=== PATIENT | male | born 1965 ===

== ENCOUNTER 2021-03-09 16:30 | Emergency (ER) | payer OTHER, SELFPAY ==
[2021-03-09 16:46] VITALS: BP 117/83; PULSE 66; RESP 16; TEMP 37.1; O2SAT 95; BMI 24.3
[2021-03-09 17:18] VITALS: PULSE 59
--- NOTE | 2021-03-09 17:23 | PC.NURSE ---
pt states here for detox from heroin. snorts 1 bundle a day. last used at 11am.
--- NOTE | 2021-03-09 17:24 | ED.GENADULT ---
HPI - General Adult General Chief complaint: ETOH/Substance Use <Tracy Daniel NP - Last Filed: 03/09/21 18:40> Stated complaint: seeking treatment ( drugs) <Tracy Daniel NP - Last Filed: 03/09/21 18:40> Time Seen by Provider: 03/09/21 17:16 <Tracy Daniel NP - Last Filed: 03/09/21 18:40> Source: patient <Tracy Daniel NP - Last Filed: 03/09/21 18:40> Mode of arrival: ambulatory <Tracy Daniel NP - Last Filed: 03/09/21 18:40> Limitations: no limitations <Tracy Daniel NP - Last Filed: 03/09/21 18:40> History of Present Illness HPI narrative: 55-year-old male with a past medical history of substance abuse, liver cirrhosis and hepatitis C here with complaints of seeking detox from heroin. Last use 11:00. Uses 1 bundle per day. He normally snorts it. He is currently on methadone. He is seeking inpatient detox. no physical complaints. NO additional substance use. NO SI/HI. <Tracy Daniel NP - Last Filed: 03/09/21 18:40> Related Data Allergies/adverse reactions: Allergies Allergy/AdvReac Type Severity Reaction Status Date / Time Penicillins Allergy Mild ITCHING Unverified 05/25/20 14:54 penicillin V Allergy Unknown Verified 08/24/15 00:00 <Tracy Daniel NP - Last Filed: 03/09/21 18:40> Review of Systems Review of Systems: Yes all other systems are reviewed and are negative <VANCE Tejeda Last Filed: 03/09/21 18:40> Constitutional: Constitutional: Reports no additional constitutional complaints, Denies body ache(s), Denies chills, Denies fever(s), Denies headache(s) and Denies weakness <VANCE Tejeda Last Filed: 03/09/21 18:40> Eyes: Eyes: Reports no additional eye complaints and Denies change in vision <VANCE Tejeda Last Filed: 03/09/21 18:40> ENT: Reports system reviewed and no additional complaints, except as documented, Denies dizziness, Denies headache(s), Denies nasal congestion, Denies nasal discharge and Denies neck pain <Tracy Daniel NP - Last Filed: 03/09/21 18:40> Cardiovascular: Cardiovascular: Reports no additional cardiovascular complaints, Denies chest pain, Denies leg edema and Denies dyspnea <Tracy Daniel NP - Last Filed: 03/09/21 18:40> Respiratory: Respiratory: Reports no additional respiratory complaints, Denies cough and Denies dyspnea <Tracy Daniel NP - Last Filed: 03/09/21 18:40> Gastrointestinal: Gastrointestinal: Reports no additional gastrointestinal complaints, Denies abdominal pain, Denies diarrhea, Denies nausea and Denies vomiting <Tracy Daniel NP - Last Filed: 03/09/21 18:40> Genitourinary: Genitourinary: Denies urinary incontinence <Tracy Daniel NP - Last Filed: 03/09/21 18:40> Musculoskeletal: Musculoskeletal: Reports no additional musculoskeletal complaints, Denies back pain, Denies arthralgias, Denies joint swelling, Denies neck pain, Denies numbness and Denies tingling <Tracy Daniel NP - Last Filed: 03/09/21 18:40> Integumentary/Breasts: Skin/Breast: Reports system reviewed and no additional complaints, except as docu and Denies rash <Tracy Daniel NP - Last Filed: 03/09/21 18:40> Neurologic: Reports system reviewed and no additional complaints, except as documented, Denies Abnormal speech present, Denies dizziness, Denies headache(s), Denies numbness, Denies tingling and Denies weakness <Tracy Daniel NP - Last Filed: 03/09/21 18:40> PMF Past Medical History Attestation statement: The following information was validated with the patient. <Tracy Daniel NP - Last Filed: 03/09/21 18:40> Source: old records reviewed and nursing notes reviewed <Tracy Daniel NP - Last Filed: 03/09/21 18:40> Medical History: Medical History Cirrhosis of liver Hepatitis C Hernia <Tracy Daniel NP - Last Filed: 03/09/21 18:40> Social History Social History: Social History Advance Directives: Yes Advance Directives Information Provided: Yes Advance Directives on File: No <Tracy Daniel NP - Last Filed: 03/09/21 18:40> Physical Exam Vital Signs: Vital Signs: Last Vital Signs Temp 98.7 F 03/09/21 16:46 Pulse 66 03/09/21 16:46 Resp 16 03/09/21 16:46 BP 117/83 03/09/21 16:46 Pulse Ox 95 03/09/21 16:46 Body Mass Index 24.3 <Tracy Daniel NP - Last Filed: 03/09/21 18:40> Vital Signs: Last Vital Signs Temp 98.7 F 03/09/21 16:46 Pulse 66 03/09/21 16:46 Resp 16 03/09/21 16:46 BP 117/83 03/09/21 16:46 Pulse Ox 95 03/09/21 16:46 Body Mass Index 24.3 <MARIANA Vale - Last Filed: 03/09/21 19:02> Const: General: cooperative, healthy appearing, comfortable and no acute distress <Tracy Daniel NP - Last Filed: 03/09/21 18:40> Orientation/consciousness: patient oriented x3 <Tracy Daniel NP - Last Filed: 03/09/21 18:40> Limitations: no limitations <Tracy Daniel NP - Last Filed: 03/09/21 18:40> HENMT: Head: Yes normal to inspection <Tracy Daniel NP - Last Filed: 03/09/21 18:40> Ears: hearing grossly normal bilaterally <Tracy Daniel NP - Last Filed: 03/09/21 18:40> General nose exam: Normal external nose present <Tracy Daniel NP - Last Filed: 03/09/21 18:40> Face and sinus: Yes normal facial exam <Tracy Daniel NP - Last Filed: 03/09/21 18:40> Mouth: Normal oral and palatal mucosa present <Tracy Daniel NP - Last Filed: 03/09/21 18:40> Throat: Yes posterior oropharynx normal <Tracy Daniel NP - Last Filed: 03/09/21 18:40> Eyes: General: appearance normal, both eyes and all related structures <Tracy Daniel NP - Last Filed: 03/09/21 18:40> Pupils: Equal, round and reactive pupils present <Tracy Daniel NP - Last Filed: 03/09/21 18:40> Neck: Neck: Yes normal visual inspection <Tracy Daniel NP - Last Filed: 03/09/21 18:40> Chest: Chest palpation & inspection: normal inspection of the chest <Tracy Daniel NP - Last Filed: 03/09/21 18:40> Resp: Effort & Inspection: normal respiratory effort <Tracy Daniel NP - Last Filed: 03/09/21 18:40> Auscultation: clear to auscultation bilaterally <Tracy Daniel NP - Last Filed: 03/09/21 18:40> Cardio: Rate: regular rate <Tracy Daniel NP - Last Filed: 03/09/21 18:40> Rhythm: regular rhythm <Tracy Daniel NP - Last Filed: 03/09/21 18:40> Peripheral pulses: Peripheral pulses 2+ throughout <Tracy Daniel NP - Last Filed: 03/09/21 18:40> GI: Inspection: Yes normal to inspection <Tracy Daniel NP - Last Filed: 03/09/21 18:40> Palpation (GI): Soft to palpation and nontender <Tracy Daniel NP - Last Filed: 03/09/21 18:40> Auscultation: normal bowel sounds <Tracy Daniel NP - Last Filed: 07/02/21 18:40> Back/Spine/Pelvis: Thoracic/Lumbar Spine: thoracic and lumbar spine normal to inspection <Tracy Daniel NP - Last Filed: 03/09/21 18:40> Skin: General skin exam: no rashes or lesions noted <Tracy Daniel NP - Last Filed: 03/09/21 18:40> Neuro: General: patient oriented x3, no focal motor deficits and normal sensation to monofilament <Tracy Daniel NP - Last Filed: 03/09/21 18:40> Cranial nerves: Yes Equal, round and reactive pupils present <Tracy Daniel NP - Last Filed: 03/09/21 18:40> Cognition (Neuro): normal cognition <Tracy Daniel NP - Last Filed: 03/09/21 18:40> Speech: No Abnormal speech present <Tracy Daniel NP - Last Filed: 03/09/21 18:40> Gait exam (Neuro): Normal gait present <Tracy Daniel NP - Last Filed: 03/09/21 18:40> Motor exam (neuro): 5/5 motor strength present throughout <Tracy Daniel NP - Last Filed: 03/09/21 18:40> Extrem: General: Yes normal to inspection, Yes no pedal edema and Yes no calf tenderness <Tracy Daniel NP - Last Filed: 03/09/21 18:40> Course Course Course Narrative: 55 yo male here seeking detox from heroin. Last use 11am. Will check [facility], d/w with [facility] -[id number]-Spoke to recovery team. Seeking bed at [facility] in [place] -1900-Sign out to night team pending detox placement. <Tracy Daniel NP - Last Filed: 03/09/21 18:40> Reevaluation(s) Reevaluation #1: Patient wanting to leave. CARE team discussed walk in clinic for him to go to in [place] where he will present tomorrow morning. Stable for d/c. <MARIANA Vale - Last Filed: 03/09/21 19:02> Medical Decision Making Medical Records Medical records reviewed: Yes I reviewed the patient's medical records. <Tracy Daniel NP - Last Filed: 03/09/21 18:40> Lab Data Lab results reviewed: Yes I reviewed the patient's lab results. <Tracy Daniel NP - Last Filed: 03/09/21 18:40> Discharge Plan Discharge Clinical Impression: Opioid use disorder <Tracy Daniel NP - Last Filed: 03/09/21 18:40> Patient Disposition: Home, Self-Care <Tracy Daniel NP - Last Filed: 03/09/21 18:40> Instructions: Opioid Use Disorder (ED) <Tracy Daniel NP - Last Filed: 03/09/21 18:40> Additional Instructions: Present to the walk in substance abuse clinic as discussed with you by the CARE Team provider in the ER DO NOT USE HEROIN <Tracy Daniel NP - Last Filed: 03/09/21 18:40> Referrals: Physician,Nonstaff [Primary Care Provider] - 2 days <Tracy Daniel NP - Last Filed: 03/09/21 18:40>
--- NOTE | 2021-03-09 17:43 | MHC.RECOVSUP ---
Recovery Support note: Patient is a 55 year old Moldovan speaking male who presented to [facility] seeking detox. Patient reports he is using one bundle a day, nasally, and that he wants to stop using. Patient is currently living in a sober living home. Patient reports he is currently on methadone however does not feel his dose is high enough. Patient is currently receiving 65mg and continues to experience withdrawal symptoms and cravings.
[2021-03-09 19:07] LABS: Amphetamine Screen Urine Not Detected (Not Detect); Barbiturates, Urine Not Detected (Not Detect); Benzodiazepines Screen Urine Not Detected (Not Detect); Cannabinoid Screen Urine Not Detected (Not Detect); Cocaine Screen Urine Not Detected (Not Detect); Opiate Screen Urine POSITIVE (Not Detect); Phencyclidine Screen Urine Not Detected (Not Detect)
== END 2021-03-09 19:06 | disposition home or self-care (01) ==
PROVIDERS: Nurse Practitioner Family; Emergency Provider Internal Medicine
DX: F11.20 Opioid dependence, uncomplicated (principal); F19.10 Other psychoactive substance abuse, uncomplicated; K74.60 Unspecified cirrhosis of liver; B19.20 Unspecified viral hepatitis C without hepatic coma
CPT/HCPCS: 80307; 99285

== ENCOUNTER 2021-03-10 12:23 | Emergency (ER) | payer OTHER, SELFPAY ==
[2021-03-10 12:25] VITALS: BP 102/73; PULSE 70; RESP 17; TEMP 36.7; O2SAT 93; BMI 24.3
--- NOTE | 2021-03-10 13:21 | ECG_ITS ---
Test Reason : ETOH Blood Pressure : / mmHG Vent. Rate : 059 BPM Atrial Rate : 059 BPM P-R Int : 118 ms QRS Dur : 080 ms QT Int : 458 ms P-R-T Axes : -25 047 027 degrees QTc Int : 453 ms Sinus bradycardia Otherwise normal ECG When compared to the previous EKG of No significant changes seen Referred By: Dottie Hanson Electronically Signed By:CAR HIGGINS MD
[2021-03-10 13:43] LABS: Hemoglobin 12.3 g/dl (14.0-18.0); Imm Gran Abs Auto 0.01 X10*3/uL (0.00-0.03); Imm Gran Pct Auto 0.2 % (0.0-0.4); MANUAL DIFF FLAG SCAN; PLT CLUMP 1; SCAN SMEAR FLAG 1
[2021-03-10 13:45] LABS: Basophils Percent Auto 0.6 % (0-2); Eosinophils Absolute Auto 0.6 X10*3/uL (0.0-0.4); Hematocrit 37.6 % (42-52); Lymphocytes Absolute Auto 1.6 X10*3/uL (1.2-4.9); Lymphocytes Percent Auto 29.8 % (20-40); Mean Corpuscular HGB Conc 32.7 g/dl (31.0-36.0); Mean Corpuscular Hemoglobin 31.6 pg (27.0-33.0); Mean Corpuscular Volume 96.7 fL (80-98); Mean Platelet Volume 9.6 fL (9.4-12.4); Monocytes Absolute Auto 0.5 X10*3/uL (0.1-1.2); Monocytes Percent Auto 9.5 % (2-11); Neutrophils Absolute Auto 2.6 X10*3/uL (2.0-8.3); Neutrophils Percent Auto 48.9 % (45-73); Red Blood Count 3.89 X10*6/uL (4.60-5.80); White Blood Count 5.4 X10*3/uL (4.8-10.8)
--- NOTE | 2021-03-10 13:45 | PC.NURSE ---
Pt alert and oriented x3. Pt states he voluntarily came to the ed for help to stop using drugs. He states he uses heroin daily and last used 3 bags yesterday. Pt states he was recently diagnosed with Hepatitis C and has been having a hard time dealing with it and this caused him to relapse. He states he lives in [place] [facility] and will be kicked out due to his relapse. Denies SI/HI. Labs drawn, results pending. Pt resting quietly at this time.
--- NOTE | 2021-03-10 13:54 | ED_ITS ---
HPI - Psych General Chief Complaint: ETOH/Substance Use Stated Complaint: seeking drug detox Time Seen by Provider: 03/10/21 13:21 Source: patient Mode of arrival: ambulatory Limitations: no limitations History of Present Illness HPI Narrative: 55-year-old male with a past medical history of substance abuse his drug of choice heroin which he snorts he reports, liver cirrhosis and hepatitis-C presenting to the ED requesting detox from heroin. He reports he is currently on 65 mg of methadone daily and is awaiting until Friday so they can increase his methadone dose although he is currently in a sober house right now and they reported that he can no longer stay there if he is currently using and they do not want to wait till Friday until his methadone doses increased therefore that is why he is here today. He denies any other drug usage. He denies any alcohol usage. He denies any SI/HI/ auditory visual hallucinations or thoughts of self injury. He denies any fevers, chills, headaches, dizziness, sore throat, cough, chest pain, shortness of breath, palpitations, nausea /vomiting /diarrhea / constipation, abdominal pain, back pain, rashes, dysuria, hematuria or any other symptoms complaints or concerns at this time. Patient was seen on 03/09/2021 for same complaint and he had a consult with the c are team and they discussed about a walk-in clinic for him to go to in [place]. complaint: substance abuse ( requesting detox currently relapse on heroin use 3-5 bags) Related Data Allergies Allergy/AdvReac Type Severity Reaction Status Date / Time penicillin V Allergy Intermediate Itching Verified 03/10/21 12:25 Penicillins Allergy Mild ITCHING Verified 03/10/21 12:25 Review of Systems Review of Systems: Constitutional : No Fever, No Chills ENT/Mouth : No Ear Pain, No Nasal Congestion, No sore throat Eyes: No Eye Pain, No Swelling, No Redness Cardiovascular : No Chest Pain, No SOB Respiratory : No Cough, No Sputum, No Dyspnea Gastrointestinal : No ingestions, No Nausea, No Vomiting, No Diarrhea, No Hematochezia, No Melena Genitourinary : No Dysuria, No Urinary Frequency, No Hematuria Musculoskeletal : No Myalgias Skin : No Skin Lesions, No rash Neuro : No Weakness, No Numbness, No Paresthesias, No Dizziness, No Headache Psych : pallidus substance abuse requesting detox, No Anxiety, No Depression, No SI, No thoughts of self injury, No HI, No AVH, Heme/Lymph: No Lymphadenopathy Endocrine : No Polyuria, No Polydipsia Yes all other systems are reviewed and are negative [facility] Past Medical History Attestation statement: The following information was validated with the patient. Medical History Cirrhosis of liver Hepatitis C Hernia Substance abuse Social History Social History Patient Tobacco Use Status: Current everyday Tobacco user Use of substances other than those prescribed or required for medical reasons: Yes Substance Use Type: Heroin Substance Use Frequency: Daily Last Used Substance: Hours (ago) Advance Directives: No Advance Directives Information Provided: Yes Physical Exam Vital Signs: Vital Signs: Last Vital Signs Temp 98.0 F 03/10/21 12:25 Pulse 80 03/10/21 14:02 Resp 17 03/10/21 14:02 BP 103/70 03/10/21 14:02 Pulse Ox 97 03/10/21 14:02 Body Mass Index 24.3 vital signs have been reviewed as normal and appeared to be correct. Blood pressure normal. Heart rate normal. Respiration rate normal. Temperature normal. Oxygen saturation normal. Appearance: Alert. Oriented X3. No acute distress. Head: Normal external exam. Normocephalic. Atraumatic. Eyes: PERRLA. EOMI. Conjunctiva and sclera normal. Eyelids normal. ENT: EAC normal. TM's Normal. Pharynx normal. Uvula midline. Moist mucous membranes. No trismus noted. No drooling noted. No muffled voice noted. Neck: Normal inspection. Neck supple. FROM. No adenopathy. Thyroid Normal. No meningeal signs. No neck mass noted. CVS: Normal heart rate and rhythm. Heart sound normal. No murmurs noted. Pulses normal throughout. Respiratory: No respiratory distress. Painless inspiration. Breath sounds normal. No wheezes/rales/rhonchi noted. Chest nontender. No accessory muscle usage noted or decreased air movement noted. Abdomen: Soft and nontender. Bowel sounds normal in all 4 quadrants. No distention noted. No organomegaly noted. No visible injury noted. Back: No CVA tenderness. Full range of motion noted. Skin: Skin warm and dry. Normal skin color. Normal skin turgor. No rashes/lesions/lacerations noted. Extremities: No lower extremity edema. Extremities exhibit normal range of motion. Extremities nontender. Neuro: Oriented X 3. No motor deficit. No sensory deficit. Reflexes normal. Psych: Appearance grossly normal, well-kept, mental status normal, speech and movement normal, speech clear, patient appears very sad and anxious along with depressed. Is cooperative. Normal thought process. Normal thought content. Normal good insight. Judgment good. Course Course Course Narrative: 13:20pm - 55-year-old male with a past medical history of substance abuse his drug of choice heroin which he snorts he reports, liver cirrhosis and hepatitis-C presenting to the ED requesting detox from heroin. He reports he is currently on 65 mg of methadone daily and is awaiting until Friday so they can increase his methadone dose although he is currently in a sober house right now and they reported that he can no longer stay there if he is currently using and they do not want to wait till Friday until his methadone doses increased therefore that is why he is here today. Plan: Labs, EKG, COVID swab for medical clearance then consult with the care team for possible detox placement then re-evaluate. Reevaluation(s) Reevaluation #1: - labs return and mild elevation in AST at 41 and alkaline phosphatase at 120 although this improved when compared to prior. Albumin 2.9. Otherwise all other labs are within normal limits. ETOH level negative. EKG was normal sinus rhythm no acute ischemic changes were noted. Therefore patient is medically cleared - patient will be transported via Lyft to [place] for detox found by the care team. Patient understands and agrees with this plan. Time: 14:07 [facility] - Psych Medical Records Attestation: I reviewed the patient's medical records. Lab Data Attestation: I reviewed the patient's lab results. Result diagrams: 03/10/21 13:38 03/10/21 13:38 Labs: Lab Results 03/10/21 03/10/21 03/10/21 Range/Units 13:38 13:38 13:38 WBC 5.4 (4.8-10.8) X10*3/uL RBC 3.89 L (4.60-5.80) X10*6/uL Hgb 12.3 L (14.0-18.0) g/dl Hct 37.6 L (42-52) % MCV 96.7 (80-98) fL MCH 31.6 (27.0-33.0) pg MCHC 32.7 (31.0-36.0) g/dl RDW 14.0 (11.0-16.0) % Sodium 135 (135-145) mmol/L Potassium 4.3 (3.3-5.1) mmol/L Chloride 105 (96-108) mmol/L Carbon Dioxide 23 (22-29) mmol/L Anion Gap 11 L (12-20) BUN 8 L (9-16) mg/dL Creatinine 0.73 (0.5-1.4) mg/dL Estim Creat Clear Calc 103.1 Estimated GFR > 60 Random Glucose 126 H (60-115) mg/dL Calcium 8.4 (8.4-10.2) mg/dL Magnesium 1.9 (1.6-2.6) mg/dL Total Bilirubin 0.7 (0.0-1.0) mg/dL AST 41 H (5-37) U/L ALT 24 (0-40) U/L Alkaline Phosphatase 120 H (39-117) U/L Total Protein 6.5 (6.5-8.0) g/dL Albumin 2.9 L (3.5-5.0) g/dL Ethyl Alcohol < 10 mg/dL ECG Data Attestation: I personally reviewed and interpreted this ECG as follows: ECG interpretation date: 03/10/21 ECG interpretation time: 13:30 Interpretation: Sinus bradycardia with a ventricular rate of 59 with a normal CA interval normal QRS duration normal QT/ QTC interval. No acute ischemic changes are noted. Discharge Plan Discharge Clinical Impression: Substance abuse Patient Disposition: Home, Self-Care Instructions: Polysubstance Abuse (ED) Referrals: Physician,Unknown [Primary Care Provider] - 2 days (your pcp) Print Language: [place]
[2021-03-10 14:02] VITALS: BP 103/70; PULSE 80; RESP 17; O2SAT 97
[2021-03-10 14:03] LABS: Ethanol < 10 mg/dL
[2021-03-10 14:05] LABS: Alanine Aminotransferase 24 U/L (0-40); Albumin Level 2.9 g/dL (3.5-5.0); Alkaline Phosphatase 120 U/L (39-117); Anion Gap 11 (12-20); Aspartate Amino Transferase 41 U/L (5-37); Bilirubin Total 0.7 mg/dL (0.0-1.0); Blood Urea Nitrogen 8 mg/dL (9-16); Calcium 8.4 mg/dL (8.4-10.2); Carbon Dioxide 23 mmol/L (22-29); Chloride 105 mmol/L (96-108); Creatinine Clr Calc Pharmacy 103.1; Estimated Glomerular Filt Rate > 60; Glucose Random 126 mg/dL (60-115); Magnesium 1.9 mg/dL (1.6-2.6); Potassium 4.3 mmol/L (3.3-5.1); Sodium 135 mmol/L (135-145); Total Protein 6.5 g/dL (6.5-8.0)
[2021-03-10 14:09] LABS: COVID-19 Test Negative (Negative); IDNOW Serial# 9DD0AD1C
[2021-03-10 14:16] LABS: Glucose Urine UA NEG (NEG); Leukocyte Esterase Urine NEG (NEG); Specific Gravity - Urine >= 1.030 (1.005-1.025); Urine Blood 1+ (NEG); Urine Ketones 5 MG/DL (NEG); Urine Protein NEG (NEG-TRACE)
[2021-03-10 14:17] LABS: Platelet Count 73 X10*3/uL (160-400)
[2021-03-10 14:17] LABS: Appearance Urine HAZY; Color Urine DARK YELLOW
--- NOTE | 2021-03-10 14:17 | PC.NURSE ---
Jai from Care Team at bedside. Pt being discharged to inpatient detox.
[2021-03-10 14:18] LABS: SLIDE REVIEW VERIFIED
[2021-03-10 14:23] LABS: Mucus Urine 2+ /LPF; Squamous Epithelial Cell Urine 1+ /LPF; WBC Urine 0 /HPF (0-4)
--- NOTE | 2021-03-10 14:26 | MHC.RECOVSUP ---
Recovery Support note: Patient is a Norwegian speaking male who [place] [facility] [place] seeking help for his addiction. Patient is known to this script writer from a similar encounter yesterday. This script writer conducted a statewide [place] bed[place]. [facility] reported 1 male bed with an admission time at 1200AM, first come first serve. [facility] reported they have male beds but are unable to hold them and recommended that the patient come as a walk in. This script writer met with patient with an [facility] doula to discuss these options. Patient is agreeable to going to [facility] in [place] to try and secure an ATS or CSS bed. Patient will be going as a walk in. This script writer provided patient with information for [facility] and for the CARE Team to contact if he needs a ride back to this area. Patient reports no questions at this time. Patient sent to [facility] in [place] Via Lyft. Discussed case with patient's ED provider.
[2021-03-10 14:36] LABS: Amphetamine Screen Urine Not Detected (Not Detect); Barbiturates, Urine Not Detected (Not Detect); Benzodiazepines Screen Urine Not Detected (Not Detect); Cannabinoid Screen Urine Not Detected (Not Detect); Cocaine Screen Urine Not Detected (Not Detect); Opiate Screen Urine POSITIVE (Not Detect); Phencyclidine Screen Urine Not Detected (Not Detect)
== END 2021-03-10 14:19 | disposition home or self-care (01) ==
PROVIDERS: Physician Assistant Medical; Emergency Provider Emergency Medicine Emergency Medical Services
DX: F11.20 Opioid dependence, uncomplicated (principal); K74.60 Unspecified cirrhosis of liver; B19.20 Unspecified viral hepatitis C without hepatic coma; Z20.822 Contact with and (suspected) exposure to COVID-19
CPT/HCPCS: 36415; 80053; 80307; 81001; 82077; 83735; 85025; 87635; 93005; 99284; 99285

== ENCOUNTER 2021-12-10 17:25 | Emergency (ER) | payer OTHER, SELFPAY ==
--- NOTE | ~2021-12-10 | XR_ITS ---
EXAMINATION: XR CHEST CLINICAL INFORMATION: Chest pain COMPARISON: None TECHNIQUE: Frontal view of the chest was obtained. FINDINGS: Lungs are clear. No focal consolidation or mass. Normal pulmonary vascularity. No pleural effusion or pneumothorax. Tortuous aorta. Normal heart size. Partially imaged TIPS shunt. Embolization coils. XR/XR chest 1V IMPRESSION: No acute pulmonary disease.
[2021-12-10 17:45] VITALS: BP 115/71; BP 118/60; PULSE 79; RESP 15; TEMP 37.1; O2SAT 97; BMI 21.9
--- NOTE | 2021-12-10 17:47 | ECG_ITS ---
Test Reason : ALTERED MENTAL Blood Pressure : / mmHG Vent. Rate : 072 BPM Atrial Rate : 072 BPM P-R Int : 106 ms QRS Dur : 072 ms QT Int : 438 ms P-R-T Axes : 000 055 026 degrees QTc Int : 479 ms Unusual P axis, possible ectopic atrial rhythm When compared to the previous EKG of No significant changes seen Referred By: Didier Murguia Electronically Signed By:CAR HIGGINS MD
--- NOTE | 2021-12-10 17:50 | ED.CHESTPAIN ---
HPI - Chest Pain General Chief Complaint: Altered Mental Status Stated Complaint: CHEST PAIN,NONRAD,BABY ASA GIVEN PER EMS Time Seen by Provider: 12/10/21 17:47 Source: family Mode of arrival: EMS History of Present Illness HPI narrative: Patient with hx of hepatitis C heroin abuse cirrhosis status post TIPPS placed on 11/23/21 apparently patient fell 11/28 injuring his the chest went to the [facility] workup was done negative and patient was discharged, again patient was admitted on 12/04 and discharged on 12/08 for increased confusion at the time of admission ammonia was 102 and at time discharge was 132, today similar to that in the past patient was found more confused does not know where he is walking around on the street that is why his brother called the EMS patient is still complaining of chest pain which is going on for last 1 week patient noncompliant with medication not sure whether is taking lactulose of not Related Data Home Medications Medication Instructions Recorded Confirmed clonidine HCl 0.1 mg tablet 1 tab PO TID PRN 12/10/21 12/10/21 furosemide 80 mg tablet 1 tab PO DAILY 12/10/21 12/10/21 gabapentin 100 mg capsule 1 cap PO TID 12/10/21 12/10/21 lactulose 10 gram/15 mL oral 30 ml PO TID 12/10/21 12/10/21 solution (Generlac) pantoprazole 40 mg tablet,delayed 1 tab PO DAILY PRN 12/10/21 12/10/21 release prazosin 2 mg capsule 2 mg PO BEDTIME 12/10/21 12/10/21 sertraline 100 mg tablet 1 tab PO BEDTIME 12/10/21 12/10/21 spironolactone 100 mg tablet 4 tab PO DAILY 12/10/21 12/10/21 Previous Rx's Medication Instructions Recorded lactulose 10 gram/15 mL (15 mL) 20 g (30 mL) PO TID #1440 ml 12/11/21 oral solution Allergies Allergy/AdvReac Type Severity Reaction Status Date / Time penicillin V Allergy Intermediate Itching Verified 09/11/21 14:49 Penicillins Allergy Mild ITCHING Verified 09/11/21 14:49 Review of Systems Review of Systems: Yes Unobtainable due to mental status PMFSH Past Medical History Medical History Cirrhosis of liver Hepatitis C Hernia Substance abuse Social History Social History Patient Tobacco Use Status: Current everyday Tobacco user Substance Use Type: Heroin Advance Directives: No Advance Directives Information Provided: No Physical Exam Vital Signs: Vital Signs: Last Vital Signs Temp 98.3 F 12/10/21 23:50 Pulse 83 12/10/21 23:50 Resp 16 12/10/21 23:50 BP 95/41 L 12/10/21 23:50 Pulse Ox 100 12/10/21 23:50 BMI result Body Mass Index 21.9 Appearance: Alert. And awake 1-2 thin emaciated not in any distress Eyes: PERRLA, No Nystagmus ENT: Pharynx normal. Oral Mucosa moist Neck: Normal inspection. Neck supple. CVS: Normal heart rate and rhythm. Pulses normal. Respiratory: No respiratory distress. Equal air entry bilateral, no wheezing/rales/rhonchi bruising of the chest wall in sternal area Abdomen: Soft and nontender. Bowel sounds are present, no mass palpable, no CVA tenderness Skin: Skin warm and dry. Normal skin color. Normal skin turgor. Extremities: No lower extremity edema. No calf tenderness Neuro: Oriented X 3. No motor deficit. No sensory deficit.No cerebellar signs , cranial nerves II-XII intact Course Reevaluation(s) Reevaluation #1: Patient refused to stay in the hospital brother is at bedside more alert and awake took the lactulose in the ER old records reviewed patient was discharged with 132 ammonia level from [facility] 2 days ago patient's brother assure that he will give him lactulose and will sign the paper against medical advice knowing the increased confusion Time: 00:59 MDM - Chest Pain MDM Narrative Medical decision making narrative: Patient with hepatitis-C heroin abuse came with increased confusion with recent tips procedure, workup showed elevated ammonia level bilirubin 2.8 AST 43 ALT 26 also urine was positive for opiates and fentanyl, will admit patient for acute hepatic encephalopathy with confusion. Patient records reviewed from [facility] Medical Records Data Attestation: I reviewed the patient's medical records. Lab Data Attestation: I reviewed the patient's lab results. Result diagrams: 12/10/21 19:18 12/10/21 19:18 Labs: Lab Results 12/10/21 12/10/21 12/10/21 Range/Units 19:18 19:18 19:18 WBC 5.2 (4.8-10.8) X10*3/uL RBC 3.33 L (4.60-5.80) X10*6/uL Hgb 10.6 L (14.0-18.0) g/dl Hct 31.4 L (42.0-52.0) % MCV 94.3 (80.0-98.0) fL MCH 31.8 (27.0-33.0) pg MCHC 33.8 (31.0-36.0) g/dl RDW 16.6 H (11.0-16.0) % Plt Count 72 L (160-400) X10*3/uL MPV 8.6 L (9.4-12.4) fL Immature Gran % (Auto) 0.2 (0.0-0.4) % Neut % (Auto) 52.9 (45-73) % Lymph % (Auto) 30.5 (20-40) % [place] % (Auto) 11.8 H (2-11) % Eos % (Auto) 4.2 H (0-4) % Baso % (Auto) 0.4 (0-2) % Lymph # (Auto) 1.6 (1.2-4.9) X10*3/uL [place] # (Auto) 0.6 (0.1-1.2) X10*3/uL Eos # (Auto) 0.2 (0.0-0.4) X10*3/uL Baso # (Auto) 0.0 (0.0-0.2) X10*3/uL Abs Immat Gran (auto) 0.01 (0.00-0.03) X10*3/uL Absolute Neuts (auto) 2.8 (2.0-8.3) x10*3/uL Absolute Nucleated RBC 0.000 (0.0-0.012) X10*3/uL Nucleated RBC % (auto) 0.0 (0.0-0.2) /100WBC Sodium 136 (135-145) mmol/L Potassium 4.0 (3.3-5.1) mmol/L Chloride 100 (96-108) mmol/L Carbon Dioxide 30 H (22-29) mmol/L Anion Gap 10 L (12-20) BUN 9 (9-16) mg/dL Creatinine 0.69 (0.5-1.4) mg/dL Estim Creat Clear Calc 107.3 Estimated GFR > 60 Random Glucose 79 D (60-115) mg/dL Calcium 9.3 D (8.4-10.2) mg/dL Magnesium 2.0 (1.6-2.6) mg/dL Total Bilirubin 2.8 H (0.0-1.0) mg/dL AST 43 H (5-37) U/L ALT 26 (0-40) U/L Alkaline Phosphatase 95 D (39-117) U/L Ammonia (13-55) umol/L Troponin I High Sens 3.8 (<3.5-35.0) ng/L Total Protein 6.0 L (6.5-8.0) g/dL Albumin 3.4 L (3.5-5.0) g/dL Urine Color Urine Appearance Urine pH (5.0-8.0) Ur Specific [place] (1.005-1.025) Urine Protein (NEG-TRACE) MG/DL Urine Glucose (UA) (NEG) MG/DL Urine Ketones (NEG) MG/DL Urine Blood (NEG) Urine Nitrite (NEG) Ur Leukocyte Esterase (NEG) Urine RBC (0) /HPF Urine WBC (0-4) /HPF Ur Squamous Epith Cells /LPF Urine Bacteria /LPF Urine Opiates Screen (Not Detect) Urine Fentanyl Screen (Not Detect) Ur Barbiturates Screen (Not Detect) Ur Phencyclidine Scrn (Not Detect) Ur Amphetamines Screen (Not Detect) U Benzodiazepines Scrn (Not Detect) Urine Cocaine Screen (Not Detect) U Marijuana (THC) Screen (Not Detect) 12/10/21 12/10/21 12/10/21 Range/Units 19:18 19:18 19:18 WBC (4.8-10.8) X10*3/uL RBC (4.60-5.80) X10*6/uL Hgb (14.0-18.0) g/dl Hct (42.0-52.0) % MCV (80.0-98.0) fL MCH (27.0-33.0) pg MCHC (31.0-36.0) g/dl RDW (11.0-16.0) % Plt Count (160-400) X10*3/uL MPV (9.4-12.4) fL Immature Gran % (Auto) (0.0-0.4) % Neut % (Auto) (45-73) % Lymph % (Auto) (20-40) % [place] % (Auto) (2-11) % Eos % (Auto) (0-4) % Baso % (Auto) (0-2) % Lymph # (Auto) (1.2-4.9) X10*3/uL [place] # (Auto) (0.1-1.2) X10*3/uL Eos # (Auto) (0.0-0.4) X10*3/uL Baso # (Auto) (0.0-0.2) X10*3/uL Abs Immat Gran (auto) (0.00-0.03) X10*3/uL Absolute Neuts (auto) (2.0-8.3) x10*3/uL Absolute Nucleated RBC (0.0-0.012) X10*3/uL Nucleated RBC % (auto) (0.0-0.2) /100WBC Sodium (135-145) mmol/L Potassium (3.3-5.1) mmol/L Chloride (96-108) mmol/L Carbon Dioxide (22-29) mmol/L Anion Gap (12-20) BUN (9-16) mg/dL Creatinine (0.5-1.4) mg/dL Estim Creat Clear Calc Estimated GFR Random Glucose (60-115) mg/dL Calcium (8.4-10.2) mg/dL Magnesium (1.6-2.6) mg/dL Total Bilirubin (0.0-1.0) mg/dL AST (5-37) U/L ALT (0-40) U/L Alkaline Phosphatase (39-117) U/L Ammonia 122 H (13-55) umol/L Troponin I High Sens (<3.5-35.0) ng/L Total Protein (6.5-8.0) g/dL Albumin (3.5-5.0) g/dL Urine Color YELLOW Urine Appearance CLEAR Urine pH 7.0 (5.0-8.0) Ur Specific [place] <= 1.005 (1.005-1.025) Urine Protein NEG (NEG-TRACE) MG/DL Urine Glucose (UA) 100 H (NEG) MG/DL Urine Ketones NEG (NEG) MG/DL Urine Blood 1+ H (NEG) Urine Nitrite NEG (NEG) Ur Leukocyte Esterase NEG (NEG) Urine RBC 1-4 (0) /HPF Urine WBC 0 (0-4) /HPF Ur Squamous Epith Cells NONE /LPF Urine Bacteria NONE /LPF Urine Opiates Screen POSITIVE H (Not Detect) Urine Fentanyl Screen POSITIVE H (Not Detect) Ur Barbiturates Screen Not Detected (Not Detect) Ur Phencyclidine Scrn Not Detected (Not Detect) Ur Amphetamines Screen Not Detected (Not Detect) U Benzodiazepines Scrn Not Detected (Not Detect) Urine Cocaine Screen Not Detected (Not Detect) U Marijuana (THC) Screen Not Detected (Not Detect) ECG Data ECG #1: Attestation: I personally reviewed and interpreted this ECG as follows: Interpretation: Normal sinus rhythm heart rate 72 beats per minute normal interval normal axis no acute ST-T changes Discharge Plan Discharge Clinical Impression: Encephalopathy, hepatic, Substance abuse Patient Disposition: Left Against Medical Advice Instructions: Acute Liver Failure (DC), Polysubstance Abuse (ED) Additional Instructions: Take lactulose 3 times daily as prescribed Come back to the hospital if you decide to/increased confusion Prescriptions: New lactulose 10 gram/15 mL (15 mL) solution 20 g PO TID Qty: 1440 0RF No Action clonidine HCl 0.1 mg tablet 1 tab PO TID PRN (Reason: Anxiety) 0RF spironolactone 100 mg tablet 4 tab PO DAILY 0RF sertraline 100 mg tablet 1 tab PO BEDTIME 0RF furosemide 80 mg tablet 1 tab PO DAILY 0RF pantoprazole 40 mg tablet,delayed release (DR/EC) 1 tab PO DAILY PRN (Reason: acid reflux) 0RF gabapentin 100 mg capsule 1 cap PO TID 0RF prazosin 2 mg capsule 2 mg PO BEDTIME 0RF lactulose [Generlac] 10 gram/15 mL solution 30 ml PO TID 0RF Stand Alone Forms: Against Medical Advice Interventions: ED Discharge Assessment Last Done: 12/11/21 00:46
[2021-12-10 19:24] LABS: MANUAL DIFF FLAG NO
[2021-12-10 19:26] LABS: Basophils Percent Auto 0.4 % (0-2); Eosinophils Absolute Auto 0.2 X10*3/uL (0.0-0.4); Eosinophils Percent Auto 4.2 % (0-4); Hematocrit 31.4 % (42.0-52.0); Hemoglobin 10.6 g/dl (14.0-18.0); Imm Gran Abs Auto 0.01 X10*3/uL (0.00-0.03); Imm Gran Pct Auto 0.2 % (0.0-0.4); Lymphocytes Absolute Auto 1.6 X10*3/uL (1.2-4.9); Lymphocytes Percent Auto 30.5 % (20-40); Mean Corpuscular HGB Conc 33.8 g/dl (31.0-36.0); Mean Corpuscular Hemoglobin 31.8 pg (27.0-33.0); Mean Corpuscular Volume 94.3 fL (80.0-98.0); Mean Platelet Volume 8.6 fL (9.4-12.4); Monocytes Absolute Auto 0.6 X10*3/uL (0.1-1.2); Monocytes Percent Auto 11.8 % (2-11); Neutrophils Absolute Auto 2.8 x10*3/uL (2.0-8.3); Neutrophils Percent Auto 52.9 % (45-73); Red Blood Count 3.33 X10*6/uL (4.60-5.80); Red Cell Distribution Width 16.6 % (11.0-16.0); White Blood Count 5.2 X10*3/uL (4.8-10.8)
[2021-12-10 19:27] LABS: Appearance Urine CLEAR; Color Urine YELLOW; Glucose Urine UA 100 MG/DL (NEG); Leukocyte Esterase Urine NEG (NEG); Nitrite Urine NEG (NEG); Platelet Count 72 X10*3/uL (160-400); Specific Gravity - Urine <= 1.005 (1.005-1.025); UACC Culture Trigger NO; Urine Blood 1+ (NEG); Urine Ketones NEG (NEG); Urine Protein NEG (NEG-TRACE)
[2021-12-10 19:35] LABS: Ammonia 122 umol/L (13-55)
[2021-12-10 19:42] LABS: Alanine Aminotransferase 26 U/L (0-40); Albumin Level 3.4 g/dL (3.5-5.0); Alkaline Phosphatase 95 U/L (39-117); Anion Gap 10 (12-20); Aspartate Amino Transferase 43 U/L (5-37); Bilirubin Total 2.8 mg/dL (0.0-1.0); Blood Urea Nitrogen 9 mg/dL (9-16); Calcium 9.3 mg/dL (8.4-10.2); Carbon Dioxide 30 mmol/L (22-29); Chloride 100 mmol/L (96-108); Creatinine Clr Calc Pharmacy 107.3; Estimated Glomerular Filt Rate > 60; Glucose Random 79 mg/dL (60-115); Sodium 136 mmol/L (135-145)
[2021-12-10 19:43] LABS: Amphetamine Screen Urine Not Detected (Not Detect); Barbiturates, Urine Not Detected (Not Detect); Benzodiazepines Screen Urine Not Detected (Not Detect); Cannabinoid Screen Urine Not Detected (Not Detect); Cocaine Screen Urine Not Detected (Not Detect); Fentanyl, urine POSITIVE (Not Detect); Opiate Screen Urine POSITIVE (Not Detect); Phencyclidine Screen Urine Not Detected (Not Detect); WBC Urine 0 /HPF (0-4)
[2021-12-10 19:48] LABS: Troponin-I High Sensitivity 3.8 ng/L (<3.5-35.0)
--- NOTE | 2021-12-10 21:16 | PHA.MEDREC ---
Pharmacy Consult ? Medication Reconciliation Pharmacy has completed the medication reconciliation. Patient is confused. Med rec completed using [facility] discharge summary, fill history, and family. Thanks Virgilio
[2021-12-10] MEDS: Lactulose 20 GM/30 ML SOLUTION 30 GM PO (21:22)
[2021-12-10] MEDS: Prazosin HCL 1 MG CAPSULE 2 MG PO (23:39)
[2021-12-10] MEDS: cloNIDine HCL 0.1 MG TABLET PO (23:39)
[2021-12-10] MEDS: Heparin Sodium,Porcine 5,000 UNIT/ML VIAL 5000 UNIT SUBCUT (23:40)
[2021-12-10] MEDS: Lactulose 20 GM/30 ML SOLUTION PO (23:45)
[2021-12-10 23:50] VITALS: BP 95/41; PULSE 83; RESP 16; TEMP 36.8; O2SAT 100
[2021-12-11] MEDS: Haloperidol Lactate 5 MG/ML VIAL 2.5 MG IVPUSH (00:05)
--- NOTE | 2021-12-11 00:41 | PC.NURSE ---
pt agitated from start of shift, intermittently getting up, restless, back and forth to BR with no result. pt stated he wanted to leave around 2300 began ambulating around the ER, security called pt was redirectable to some extent. brother contacted who was unable to redirect/reassure pt. hospitalist contacted, who came to pt bedisde. brother came in to try to get pt to stay. CODI santana order obtained and admin at 00:05, pt still restless. brother at bedside who states he would like to take pt home. hospitalist contacted
--- NOTE | 2021-12-11 01:03 | PC.NURSE ---
pt discharged AMA, brother signed on account of pt. aware of pt ammonia level and need for pt to continually take the lactolose
== END 2021-12-11 01:04 | disposition left against medical advice (07) ==
LOC: HO.ED 20:16 → HO.EDOVER 23:38
PROVIDERS: Emergency Provider Internal Medicine
DX: T40.1X1A Poisoning by heroin, accidental (unintentional), initial encounter (principal); K71.10 Toxic liver disease with hepatic necrosis, without coma; B19.20 Unspecified viral hepatitis C without hepatic coma; Y92.414 Local residential or business street as the place of occurrence of the external cause; F19.10 Other psychoactive substance abuse, uncomplicated; K74.60 Unspecified cirrhosis of liver; F17.200 Nicotine dependence, unspecified, uncomplicated; Z79.899 Other long term (current) drug therapy
CPT/HCPCS: 36415; 71045; 80053; 80307; 81001; 82140; 83735; 84484; 85025; 93005; 96374; 99284

== ENCOUNTER 2022-04-17 01:16 | Inpatient (IN) | payer OTHER, SELFPAY ==
[2022-04-17] VITALS (17 sets, daily range): BP systolic 93–127; BP diastolic 57–71; PULSE 66–102; RESP 9–20; TEMP 36.5–37.9; O2SAT 88–98; BMI 25.8
--- NOTE | ~2022-04-17 | XR_ITS ---
EXAMINATION: XR CHEST CLINICAL INFORMATION: Fever COMPARISON: 12/10/2021 TECHNIQUE: Frontal view of the chest was obtained. FINDINGS: The lungs are well expanded. There is no focal consolidation, edema, or effusion. No pneumothorax. The cardiomediastinal silhouette is within normal limits. No acute osseous abnormality. Radiopaque coiling in the epigastric region. XR/XR chest 1V IMPRESSION: No acute pulmonary finding.
--- NOTE | ~2022-04-17 | CT_ITS ---
EXAMINATION: CT ABDOMEN AND PELVIS WITHOUT CONTRAST CLINICAL INFORMATION: Abdominal pain. Elevated white blood cell count. COMPARISON: 09/25/2017 TECHNIQUE: Multidetector volumetric imaging was performed from the superior aspect of the liver through the pubic symphysis. Sagittal and coronal reformatted images were obtained on the technologist's workstation. This CT examination was performed using dose optimization techniques as appropriate, variously including the following: *Automated exposure control *Adjustment of mA and/or kV according to patient size (this includes techniques or standardized protocols for targeted exams where dose is matched to indication/reason for exam; i.e. extremities or head) *Use of iterative reconstruction technique DLP: 471 mGy-cm FINDINGS: LUNG BASES: Bibasilar atelectasis. The visualized cardiac structures are unremarkable. LIVER, GALLBLADDER, AND BILIARY TREE: Nodular hepatic Contour consistent with cirrhosis. There is a TIPS identified. No hepatic mass seen. Mild intrahepatic and extrahepatic biliary ductal dilatation. Cholecystectomy. PANCREAS: Unremarkable. SPLEEN: Prominent spleen with no focal abnormality. ADRENAL GLANDS: Unremarkable. KIDNEYS AND URETERS: The kidneys are normal in size, shape, and attenuation. No hydronephrosis, hydroureter, or calculi seen. No perinephric stranding. BLADDER: Unremarkable. GASTROINTESTINAL TRACT: The stomach is unremarkable. Normal caliber small bowel. No obstruction. Normal appendix. No colonic wall thickening or acute inflammation. Moderate colonic stool burden. No free air or free fluid. ABDOMINAL WALL: No significant hernia is appreciated. LYMPH NODES: Normal. VASCULAR: Normal caliber aorta with mild atherosclerotic calcification. PELVIC VISCERA: The prostate and seminal vesicles are unremarkable. OSSEOUS STRUCTURES: No acute or suspicious osseous abnormality. Mild degenerative changes in the spine and hips. CT/CT abdomen pelvis wo con IMPRESSION: There is a TIPS identified. No acute abnormality. No inflammatory changes or fluid collection. Cirrhotic liver. Fleischner guidelines were followed.
[2022-04-17 01:39] LABS: Basophils Absolute Auto 0.1 X10*3/uL (0.0-0.2); Basophils Percent Auto 0.4 % (0-2); Eosinophils Absolute Auto 0.4 X10*3/uL (0.0-0.4); Hematocrit 37.5 % (42.0-52.0); Hemoglobin 12.5 g/dl (14.0-18.0); Imm Gran Abs Auto 0.09 X10*3/uL (0.00-0.03); Imm Gran Pct Auto 0.5 % (0.0-0.4); Lymphocytes Absolute Auto 0.9 X10*3/uL (1.2-4.9); MANUAL DIFF FLAG SCAN; Mean Corpuscular HGB Conc 33.3 g/dl (31.0-36.0); Mean Corpuscular Hemoglobin 32.5 pg (27.0-33.0); Mean Corpuscular Volume 97.4 fL (80.0-98.0); Mean Platelet Volume 9.3 fL (9.4-12.4); Monocytes Absolute Auto 1.7 X10*3/uL (0.1-1.2); Monocytes Percent Auto 9.6 % (2-11); Neutrophils Absolute Auto 14.5 x10*3/uL (2.0-8.3); Neutrophils Percent Auto 82.5 % (45-73); Red Blood Count 3.85 X10*6/uL (4.60-5.80); Red Cell Distribution Width 14.6 % (11.0-16.0); SCAN SMEAR FLAG 1; White Blood Count 17.6 X10*3/uL (4.8-10.8)
[2022-04-17] MEDS: Ondansetron ODT 4 MG TAB.RAPDIS TRANSLINGU (01:39)
[2022-04-17 01:47] LABS: Platelet Count 97 X10*3/uL (160-400)
--- NOTE | 2022-04-17 01:53 | ED_ITS ---
HPI - Nausea/Vomiting/Diarrhea General Chief complaint: General Medical Stated complaint: vomiting, chills Time Seen by Provider: 04/17/22 01:34 Source: patient Mode of arrival: ambulatory Limitations: no limitations History of Present Illness HPI Narrative: 56 yo male with hx of hep C, in recovery from substance abuse, cirrhosis [place] 4 [place] [facility] [place] with c/o n/n epigastric pain, body aches, head aches with onset at 8pm. He denies sick contacts. He ate food at home. Patient adamantly denies IVDA states he has been clean I discussed fevers and active IVDA but he states he has not used in months, no active track addison seen on exam. MD elicited complaint: nausea, vomiting and abdominal pain Onset (ago): hour(s) (8pm) Description of vomiting: watery and bilious Associated nausea: Yes Associated abdominal pain: Yes Location of pain: epigastric Radiation: diffuse Pain consistency: constant Severity: moderate Quality: aching Exacerbating factors: eating Relieving factors: none Context: history of abdominal surgery Associated symptoms: fever/chills, headaches, loss of appetite, malaise and nausea/vomiting Related Data Home Medications Medication Instructions Recorded Confirmed clonidine HCl 0.1 mg tablet 1 tab PO TID PRN Anxiety 12/10/21 12/10/21 furosemide 80 mg tablet 1 tab PO DAILY 12/10/21 12/10/21 gabapentin 100 mg capsule 1 cap PO TID 12/10/21 12/10/21 lactulose 10 gram/15 mL oral 45 ml PO TID 12/10/21 12/10/21 solution (Generlac) pantoprazole 40 mg tablet,delayed 1 tab PO DAILY PRN acid reflux 12/10/21 12/10/21 release prazosin 2 mg capsule 2 mg PO BEDTIME 12/10/21 12/10/21 sertraline 100 mg tablet 1 tab PO BEDTIME 12/10/21 12/10/21 spironolactone 100 mg tablet 4 tab PO DAILY 12/10/21 12/10/21 chlorhexidine gluconate 0.12 % 15 ml PO BID 04/17/22 04/17/22 mouthwash Allergies Allergy/AdvReac Type Severity Reaction Status Date / Time penicillin V Allergy Intermediate Itching Verified 09/11/21 14:49 Penicillins Allergy Mild ITCHING Verified 09/11/21 14:49 Review of Systems Review of Systems: Constitutional : No Weight loss, No Fever, pos Chills ENT/Mouth : No sore throat, No Rhinorrhea Eyes: No Swelling, No Redness Cardiovascular : No Chest Pain, No SOB, NoEdema Respiratory : No Cough, No Sputum, No Wheezing Gastrointestinal : Positive Nausea, Positive Vomiting, no Diarrhea, positive abdominal Pain, No Hematochezia, No Melena Genitourinary : No Dysuria, No Urinary Frequency, No Hematuria, No Urgency Musculoskeletal : No joint pain, pos Myalgias, No Joint Swelling Skin : No Skin Lesions, No rash Neuro : pos Weakness, No Numbness, No Dizziness, pos Headache Psych : No Anxiety/Panic, No Depression Heme/Lymph: No Bruising, No Lymphadenopathy Endocrine : No Polyuria, No Polydipsia All other systems reviewed and are negative. Gastrointestinal: Gastrointestinal: Reports nausea PMFSH Past Medical History Attestation statement: The following information was validated with the patient. Medical History (Updated 04/17/22 @ 04:06 by Marina Franco DO) Cirrhosis of liver Hepatitis C Hernia Substance abuse Surgical History (Updated 04/17/22 @ 02:19 by Marina Franco DO) S/P TIPS (transjugular intrahepatic portosystemic shunt) Social History Social History (Updated 04/17/22 @ 02:20 by Marina Franco DO) Alcohol intake: never Patient Tobacco Use Status: Current everyday Tobacco user Smoked in Last 30 Days: Yes Use of substances other than those prescribed or required for medical reasons: No Substance Use Type: Former Substance User and Heroin Advance Directives: No Advance Directives Information Provided: Yes Physical Exam Vital Signs: Vital Signs: Last Vital Signs Temp 100.2 F 04/17/22 04:00 Pulse 95 04/17/22 02:00 Resp 15 04/17/22 03:06 BP 111/63 04/17/22 03:43 Pulse Ox 97 04/17/22 03:43 O2 Del Method 04/17/22 03:43 O2 Flow Rate 2 04/17/22 03:43 BMI result Body Mass Index 25.8 Appearance: Alert. Oriented X3. No acute distress. Eyes: Pupils equal, round and reactive to light. scleral icterus ENT: Pharynx normal. Neck: Normal inspection. Neck supple. CVS: tachycardic heart rate and rhythm. Pulses normal. Respiratory: No respiratory distress. Breath sounds normal. Abdomen: Soft and moderate ttp in epigastric region no reboud. Skin: Skin warm and dry. Normal skin color. Normal skin turgor. Extremities: trace pitting lower extremity edema. No calf ttp Neuro: Oriented X 3. No motor deficit. No sensory deficit. Course Course Course Narrative: no ascites to tap, hx of SBP per his reports, given leukocytosis, TIPs, fevers will admit for further workup patient refused CT scan with contrast due to reaction at [facility] he would not elaborate and refused the contrast MDM - Nausea/Vomiting/Diarrhea MDM Narrative Medical decision making narrative: 56 yo male with hx of hep C, in recovery from substance abuse, cirrhosis s/p TIPs 4 months ago [place] [facility] [place] in with c/o n/v chills body aches upper abdominal pain after eating rice and beans at home - at this time will need labs, cultures, CXR, UA, PO tylenol, IVF, zofran, CT scan to look for possible infection given tachycardia low grade temps and WBC count of 17. Empiric ceftriaxone ordered. Dispo per results and findings. Lab Data Result diagrams: 04/17/22 01:32 04/17/22 01:32 Labs: Lab Results 04/17/22 04/17/22 04/17/22 Range/Units 01:32 01:32 01:32 WBC 17.6 H (4.8-10.8) X10*3/uL RBC 3.85 L (4.60-5.80) X10*6/uL Hgb 12.5 L (14.0-18.0) g/dl Hct 37.5 L (42.0-52.0) % MCV 97.4 (80.0-98.0) fL MCH 32.5 (27.0-33.0) pg MCHC 33.3 (31.0-36.0) g/dl RDW 14.6 (11.0-16.0) % Plt Count 97 L D (160-400) X10*3/uL MPV 9.3 L (9.4-12.4) fL Immature Gran % (Auto) 0.5 H (0.0-0.4) % Neut % (Auto) 82.5 H (45-73) % Lymph % (Auto) 5.0 L (20-40) % Mccre[place] % (Auto) 9.6 (2-11) % Eos % (Auto) 2.0 (0-4) % Baso % (Auto) 0.4 (0-2) % Lymph # (Auto) 0.9 L (1.2-4.9) X10*3/uL [place] # (Auto) 1.7 H (0.1-1.2) X10*3/uL Eos # (Auto) 0.4 (0.0-0.4) X10*3/uL Baso # (Auto) 0.1 (0.0-0.2) X10*3/uL Abs Immat Gran (auto) 0.09 H (0.00-0.03) X10*3/uL Absolute Neuts (auto) 14.5 H (2.0-8.3) x10*3/uL Absolute Nucleated RBC 0.000 (0.0-0.012) X10*3/uL Nucleated RBC % (auto) 0.0 (0.0-0.2) /100WBC Smear Tech's Comments VERIFIED PT (10.0-13.1) SEC INR (0.9-1.1) Sodium 134 L (135-145) mmol/L Potassium 4.1 (3.3-5.1) mmol/L Chloride 103 (96-108) mmol/L Carbon Dioxide 24 (22-29) mmol/L Anion Gap 11 L (12-20) BUN 6 L (9-16) mg/dL Creatinine 0.78 (0.5-1.4) mg/dL Estim Creat Clear Calc 102.3 Estimated GFR > 60 Random Glucose 102 (60-115) mg/dL Lactic Acid (0.5-2.0) mmol/L Calcium 8.5 D (8.4-10.2) mg/dL Total Bilirubin 1.6 H (0.0-1.0) mg/dL Direct Bilirubin 0.8 H (0.0-0.5) mg/dL AST 46 H (5-37) U/L ALT 20 (0-40) U/L Alkaline Phosphatase 166 H D (39-117) U/L Total Protein 6.7 (6.5-8.0) g/dL Albumin 2.7 L D (3.5-5.0) g/dL Lipase 66 (8-78) U/L COVID-19 (ELIA) Negative (Negative) COVID-19 Clin Com See Note 04/17/22 04/17/22 Range/Units 02:09 02:44 WBC (4.8-10.8) X10*3/uL RBC (4.60-5.80) X10*6/uL Hgb (14.0-18.0) g/dl Hct (42.0-52.0) % MCV (80.0-98.0) fL MCH (27.0-33.0) pg MCHC (31.0-36.0) g/dl RDW (11.0-16.0) % Plt Count (160-400) X10*3/uL MPV (9.4-12.4) fL Immature Gran % (Auto) (0.0-0.4) % Neut % (Auto) (45-73) % Lymph % (Auto) (20-40) % [place] % (Auto) (2-11) % Eos % (Auto) (0-4) % Baso % (Auto) (0-2) % Lymph # (Auto) (1.2-4.9) X10*3/uL [place] # (Auto) (0.1-1.2) X10*3/uL Eos # (Auto) (0.0-0.4) X10*3/uL Baso # (Auto) (0.0-0.2) X10*3/uL Abs Immat Gran (auto) (0.00-0.03) X10*3/uL Absolute Neuts (auto) (2.0-8.3) x10*3/uL Absolute Nucleated RBC (0.0-0.012) X10*3/uL Nucleated RBC % (auto) (0.0-0.2) /100WBC Smear Tech's Comments PT 17.0 H (10.0-13.1) SEC INR 1.5 H (0.9-1.1) Sodium (135-145) mmol/L Potassium (3.3-5.1) mmol/L Chloride (96-108) mmol/L Carbon Dioxide (22-29) mmol/L Anion Gap (12-20) BUN (9-16) mg/dL Creatinine (0.5-1.4) mg/dL Estim Creat Clear Calc Estimated GFR Random Glucose (60-115) mg/dL Lactic Acid 1.6 (0.5-2.0) mmol/L Calcium (8.4-10.2) mg/dL Total Bilirubin (0.0-1.0) mg/dL Direct Bilirubin (0.0-0.5) mg/dL AST (5-37) U/L ALT (0-40) U/L Alkaline Phosphatase (39-117) U/L Total Protein (6.5-8.0) g/dL Albumin (3.5-5.0) g/dL Lipase (8-78) U/L COVID-19 (ELIA) (Negative) COVID-19 Clin Com ECG Data Attestation: I personally reviewed and interpreted this ECG as follows: ECG interpretation date: 04/17/22 ECG interpretation time: 02:36 Interpretation: Rate: 95 Rhythm: NSR [place]: normal Normal P waves. Normal ALICIA. Normal QRS complex. ST T wave : normal no MARELY qTC: normal prior studies: no acute ischemia The study has been interpreted contemporaneously by me. . Discharge Plan Discharge Clinical Impression: Vomiting Qualifiers: Vomiting type: unspecified Nausea presence: with nausea Qualified Code(s): R11.2 - Nausea with vomiting, unspecified Leukocytosis Qualifiers: Leukocytosis type: unspecified Qualified Code(s): D72.829 - Elevated white blood cell count, unspecified Abdominal pain Qualifiers: Abdominal location: generalized Qualified Code(s): R10.84 - Generalized abdominal pain Fever Qualifiers: Fever type: unspecified Qualified Code(s): R50.9 - Fever, unspecified Patient Disposition: Admitted As Inpatient
[2022-04-17 01:58] LABS: Alanine Aminotransferase 20 U/L (0-40); Albumin Level 2.7 g/dL (3.5-5.0); Alkaline Phosphatase 166 U/L (39-117); Anion Gap 11 (12-20); Aspartate Amino Transferase 46 U/L (5-37); Bilirubin Direct 0.8 mg/dL (0.0-0.5); Bilirubin Total 1.6 mg/dL (0.0-1.0); Blood Urea Nitrogen 6 mg/dL (9-16); Calcium 8.5 mg/dL (8.4-10.2); Carbon Dioxide 24 mmol/L (22-29); Chloride 103 mmol/L (96-108); Creatinine Clr Calc Pharmacy 102.3; Estimated Glomerular Filt Rate > 60; Glucose Random 102 mg/dL (60-115); Lipase 66 U/L (8-78); Potassium 4.1 mmol/L (3.3-5.1); Sodium 134 mmol/L (135-145); Total Protein 6.7 g/dL (6.5-8.0)
[2022-04-17 02:01] LABS: SLIDE REVIEW VERIFIED
[2022-04-17 02:03] LABS: COVID-19 Test Negative (Negative); IDNOW Serial# 16C4AD1C
--- NOTE | 2022-04-17 02:21 | ECG_ITS ---
Test Reason : TACHY Blood Pressure : / mmHG Vent. Rate : 095 BPM Atrial Rate : 095 BPM P-R Int : 126 ms QRS Dur : 072 ms QT Int : 356 ms P-R-T Axes : 069 035 028 degrees QTc Int : 447 ms Normal sinus rhythm Possible Left atrial enlargement Borderline ECG When compared with ECG of 10-DEC-2021 19:03, Sinus rhythm has replaced Ectopic atrial rhythm Referred By: Marina Franco Electronically Signed By:ZULLY LEVIN
[2022-04-17 02:26] LABS: Lactic Acid 1.6 mmol/L (0.5-2.0)
[2022-04-17] MEDS: cefTRIAXone sodium 1 GM in 0.9 % Sodium Chloride 50 ML IV (02:37)
[2022-04-17] MEDS: Acetaminophen 325 MG TABLET 650 MG PO (02:47)
--- NOTE | 2022-04-17 02:52 | PC.NURSE ---
pt a&ox3, vss, c/o 04/17 headache, 20G IV placed right AC, labs drawn, medicated per provider order.
[2022-04-17 03:00] LABS: INTERNATIONAL NORM RATIO 1.5 (0.9-1.1)
[2022-04-17] MEDS: HYDROmorphone HCl 0.5 MG/0.5 ML SYRINGE IVPUSH (03:06)
[2022-04-17] MEDS: Ibuprofen 200 MG TABLET PO (04:07)
[2022-04-17 07:47] LABS: Appearance Urine CLEAR; Color Urine ORANGE; Glucose Urine UA NEG (NEG); Leukocyte Esterase Urine NEG (NEG); Nitrite Urine POS (NEG); PH 5.5 (5.0-8.0); Specific Gravity - Urine >= 1.030 (1.005-1.025); UACC Culture Trigger YES; Urine Blood 3+ (NEG); Urine Ketones 15 MG/DL (NEG); Urine Protein 1+ MG/DL (NEG-TRACE)
[2022-04-17 08:01] LABS: Bacteria Urine TRACE /LPF; Squamous Epithelial Cell Urine 1+ /LPF; WBC Urine 0-2 /HPF (0-4)
[2022-04-17 08:02] LABS: Amorphous Sediment Urine 2+ /LPF; Granular Casts Urine 0-2 /LPF; Oval Fat Bodies Urine NOTED
--- NOTE | 2022-04-17 08:55 | PHA.MEDREC ---
Pharmacy Consult ? Medication Reconciliation Pharmacy has completed the medication reconciliation. Spoke to patient who noted he only takes three medications. Named lactulose, and mentioned two vitamins . Med rec done based on claim history and patient knowledge. Specifically asked about antibiotic and patient claimed to no longer take.
--- NOTE | 2022-04-17 10:37 | PM.IMHP ---
History of Present Illness Date of Service: 04/17/22 Chief Complaint: nausea and vomiting This is a 56 year old male with a prior history of IVDU (now sober for >2 years per his reported history) and resultant Hep C (s/p treatment), Cirrhosis - s/p TIPS, who presents to the ED with complaints of nausea, vomiting and generalized malaise which began the evening prior to hospitalization. The patient reports that he was in his usual state of health until about 9-10pm the evening [employer]. He reports he ate dinner (at home) and shortly thereafter he had 3 episodes of non-bloody, non-bilious vomiting. He reports some abdominal pain post vomiting which has now resolved. He denies any fevers or chills. He denies any diarrhea. He denies any sick contacts. He reports being vaccinated for COVID. Upon arrival to the ED, his work up revealed significant leukocytosis. His CT abd/pelvis did not show any acute findings, there was no asictes. His UA is + for nitrities, but trace bacteria (he denies any symptoms). He did have a low grade temp of 100.2. He has been empirically given IV rocephin and now will be admitted for further treatment/monitoring. Review of Systems Review of Systems: negative except HPI [facility] Medical History (Updated 04/17/22 @ 04:06 by Marina Franco DO) Cirrhosis of liver Hepatitis C Hernia Substance abuse Pertinent family history: DM in his mother Surgical History (Updated 04/17/22 @ 02:19 by Marina Franco DO) S/P TIPS (transjugular intrahepatic portosystemic shunt) Social History (Updated 04/17/22 @ 10:42 by Gilbert Mayberry MD) Alcohol intake: never Patient Tobacco Use Status: Current everyday Tobacco user Smoked in Last 30 Days: Yes Use of substances other than those prescribed or required for medical reasons: No Substance Use Type: Former Substance User and Heroin Last Used Substance Other:: 2 years ago Advance Directives: No Advance Directives Information Provided: Yes Meds Allergies Allergy/AdvReac Type Severity Reaction Status Date / Time penicillin V Allergy Intermediate Itching Verified 09/11/21 14:49 Penicillins Allergy Mild ITCHING Verified 09/11/21 14:49 Active Medications: Current Medications Acetaminophen (Acetaminophen 325 Mg Tablet) 650 mg PO Q6H PRN PRN Reason: Pain, Mild (Pain Scale 1-3) Folic Acid (Folic Acid 1 Mg Tablet) 1 mg PO DAILY [facility] Lactulose (Lactulose 20 Gm/30 Ml Solution) 30 gm PO TID [facility] Ondansetron HCl (Ondansetron Hcl 4 Mg/2 Ml Vial) 4 mg IVPUSH Q8H PRN PRN Reason: Nausea and Vomiting Sodium Chloride (0.9 % Sodium Chloride Flush 3 Ml Syringe) 3 ml IVFLUSH QSHIFT [facility] Thiamine HCl (Thiamine Hcl 100 Mg Tablet) 100 mg PO DAILY [facility] Home Medications Medication Instructions Recorded Confirmed Last Taken Type lactulose 10 gram/15 mL oral 45 ml PO TID 12/10/21 04/17/22 04/16/22 History solution (Generlac) folic acid 1 mg tablet 1 tab PO DAILY 04/17/22 04/17/22 04/16/22 History thiamine HCl (vitamin B1) 100 mg 1 tab PO DAILY 04/17/22 04/17/22 04/16/22 History tablet Physical Exam Vital Signs and Narrative: Vital Signs: Last Vital Signs Temp 97.7 F 04/17/22 07:39 Pulse 71 04/17/22 09:11 Resp 13 04/17/22 09:11 BP 93/57 L 04/17/22 09:11 Pulse Ox 96 04/17/22 09:11 O2 Del Method 04/17/22 09:11 O2 Flow Rate 2 04/17/22 09:11 BMI result Body Mass Index 25.8 Const: Other: Constitutional - Awake and Alert, No apparent distress Eyes - PERRLA, EOMI Cardiovascular - S1S2, RRR, No edema Respiratory - Normal lung expansion, Normal respiratory effort, No respiratory distress, CTA bilaterally Gastrointestinal - NT / ND; +BS; No rebound or guarding - No CVA tenderness Extremities - no calf tenderness bilaterally, no swelling Musculoskeletal - Normal inspection, normal ROM Skin - Warm/Dry Neurological - Alert & oriented x3, No focal deficit Psychological - Appropriate affect Results Labs CBC and Chem 7: 04/17/22 01:32 04/17/22 01:32 Labs: Laboratory Results - last 24 hr 04/17/22 04/17/22 04/17/22 01:32 01:32 01:32 MCV 97.4 MCH 32.5 MCHC 33.3 RDW 14.6 Plt Count 97 L D MPV 9.3 L Immature Gran % (Auto) 0.5 H Neut % (Auto) 82.5 H Lymph % (Auto) 5.0 L [place] % (Auto) 9.6 Eos % (Auto) 2.0 Baso % (Auto) 0.4 Lymph # (Auto) 0.9 L [place] # (Auto) 1.7 H Eos # (Auto) 0.4 Baso # (Auto) 0.1 Abs Immat Gran (auto) 0.09 H Absolute Neuts (auto) 14.5 H Absolute Nucleated RBC 0.000 Nucleated RBC % (auto) 0.0 Smear Tech's Comments VERIFIED PT INR Anion Gap 11 L Estim Creat Clear Calc 102.3 Estimated GFR > 60 Random Glucose 102 Lactic Acid Calcium 8.5 D Total Bilirubin 1.6 H Direct Bilirubin 0.8 H AST 46 H ALT 20 Alkaline Phosphatase 166 H D Total Protein 6.7 Albumin 2.7 L D Lipase 66 Urine Color Urine Appearance Urine pH Ur Specific [place] Urine Protein Urine Glucose (UA) Urine Ketones Urine Blood Urine Nitrite Ur Leukocyte Esterase Urine RBC Urine WBC Ur Squamous Epith Cells Amorphous Sediment Urine Bacteria Granular Casts Ur Oval Fat Bodies COVID-19 ([facility]) Negative COVID-19 Clin Com See Note 04/17/22 04/17/22 04/17/22 02:09 02:44 07:39 MCV MCH MCHC RDW Plt Count MPV Immature Gran % (Auto) Neut % (Auto) Lymph % (Auto) [place] % (Auto) Eos % (Auto) Baso % (Auto) Lymph # (Auto) [place] # (Auto) Eos # (Auto) Baso # (Auto) Abs Immat Gran (auto) Absolute Neuts (auto) Absolute Nucleated RBC Nucleated RBC % (auto) Smear Tech's Comments PT 17.0 H INR 1.5 H Anion Gap Estim Creat Clear Calc Estimated GFR Random Glucose Lactic Acid 1.6 Calcium Total Bilirubin Direct Bilirubin AST ALT Alkaline Phosphatase Total Protein Albumin Lipase Urine Color ORANGE A Urine Appearance CLEAR Urine pH 5.5 Ur Specific [place] >= 1.030 H Urine Protein 1+ H Urine Glucose (UA) NEG Urine Ketones 15 Urine Blood 3+ H Urine Nitrite POS H Ur Leukocyte Esterase NEG Urine RBC 1-4 Urine WBC 0-2 Ur Squamous Epith Cells 1+ Amorphous Sediment 2+ Urine Bacteria TRACE Granular Casts 0-2 Ur Oval Fat Bodies NOTED COVID-19 ([facility]) COVID-19 Clin Com Imaging Radiologist's Impressions: Impressions Chest X-Ray 04/17/22 02:10 IMPRESSION: No acute pulmonary finding. Abdomen/Pelvis CT 04/17/22 02:29 IMPRESSION: There is a TIPS identified. No acute abnormality. No inflammatory changes or fluid collection. Cirrhotic liver. Fleischner guidelines were followed. Assessment and Plan (1) Vomiting: Qualifiers: Nausea presence: with nausea Vomiting type: unspecified Qualified Code(s): R11.2 - Nausea with vomiting, unspecified Status: Acute (2) Leukocytosis: Qualifiers: Leukocytosis type: unspecified Qualified Code(s): D72.829 - Elevated white blood cell count, unspecified Status: Acute (3) Fever: Qualifiers: Fever type: unspecified Qualified Code(s): R50.9 - Fever, unspecified Status: Acute Plan This is a 56 yo M with a prior history of IVDU (sober x 2 years now), Hep C (s/p treatment per his report), Cirrhosis s/p TIPS, Chronic opiate dependence -- on methadone, who presents with a sudden onset of non-blood, non-bilious vomiting which began the evening prior to arrival. These have now improved but he is noted to have a low grade temp, significant leukocytosis. His UA is equivocal and he denies any urinary symptoms. 1. Low grade temp UA equivocal (will add urine C&S); however will elect for empiric IV rocephin; Since he has no symptoms, if cultures negative, can consider discontinuation of antibiotics The patient does not have severe sepsis. His bilirubin and low blood pressure are due to chronic liver disease. 2. Leukocytosis could be reactive; no definitive source of infection identified at this time repeat tomorrow 3. Nausea/vomiting, likely viral gastroenteritis vs food borne favor viral gastroenteritis supportive care 4. Cirrhosis, compensated continue his baseline meds 5. Chronic opiate dependence methadone once verified 6. Hypotension chronic and due to liver disease, no severe sepsis Full Code DVT pptx -- mechanical + early ambulation Quality Stroke Does the patient have a stroke diagnosis?: No VTE Prior VTE?: No VTE Risk Level:: Medical - low VTE Device Contraindication: Treatment Not Indicated VTE Drug Contraindication: Treatment Not Indicated
[2022-04-17] MEDS: Thiamine HCL 100 MG TABLET PO (11:38)
[2022-04-17] MEDS: Folic Acid 1 MG TABLET PO (11:38)
[2022-04-17] MEDS: Lactulose 20 GM/30 ML SOLUTION 30 GM PO ×3 (11:38→21:39)
--- NOTE | 2022-04-17 12:32 | HE.PHANOTE ---
Received methadone verification form 04/17/22; 30mg daily from N
[2022-04-17] MEDS: methADONE HCl 20 MG/2 ML ORAL.CONC 30 MG PO (13:43)
[2022-04-17] MEDS: 0.9 % Sodium Chloride Flush 3 ML SYRINGE IVFLUSH (16:41)
--- NOTE | 2022-04-17 19:15 | PC.NURSE ---
pt finished eating dinner and ambulated to with steady gait. no complaints of pain or discomfort.
--- NOTE | 2022-04-17 21:05 | MHC.CM.PN ---
Addendum entered by Merna Peace 04/17/22 23:02: Pt awake. Speaks Eritrean. Lives alone. No DME/services. NO vaccinations. Methadone 30 mg daily at [facility] clinic in [place]. HCP at [facility]. HCP/brother Hector Rueda ([phone]). BOSS 04/17. D/C plan is home without services. Brother to transport. CM will follow for d/c needs. Original Note: Attempted to meet with patient assigned to observation to discuss d/c planning. Pt sleeping soundly. Will complete CM assessment when pt wakes.
[2022-04-18] VITALS (9 sets, daily range): BP systolic 99–139; BP diastolic 51–79; PULSE 60–73; RESP 10–18; TEMP 36.4–36.8; O2SAT 87–97
[2022-04-18] MEDS: 0.9 % Sodium Chloride Flush 3 ML SYRINGE IVFLUSH ×2 (03:05→19:57)
[2022-04-18 04:27] LABS: Hematocrit 32.5 % (42.0-52.0); Hemoglobin 10.9 g/dl (14.0-18.0); Mean Corpuscular HGB Conc 33.5 g/dl (31.0-36.0); Mean Corpuscular Hemoglobin 32.9 pg (27.0-33.0); Mean Corpuscular Volume 98.2 fL (80.0-98.0); Mean Platelet Volume 9.8 fL (9.4-12.4); Red Blood Count 3.31 X10*6/uL (4.60-5.80); Red Cell Distribution Width 14.9 % (11.0-16.0); White Blood Count 10.6 X10*3/uL (4.8-10.8)
[2022-04-18 04:33] LABS: Platelet Count 74 X10*3/uL (160-400)
--- NOTE | 2022-04-18 06:48 | PC.NURSE ---
pt resting in bed, no c/o pain or discomfort
--- NOTE | 2022-04-18 08:51 | P.PNIM_ITS ---
Subjective Subjective Date of Service: 04/18/22 Interval History: pt seen and examined feeling better no further nausea and vomiting denies abdominal pain, tolerated solids Review of Systems negative except HPI Physical Exam Vital Signs: Vital Signs: Last Vital Signs Temp 98.2 F 04/18/22 04:00 Pulse 60 04/18/22 07:36 Resp 11 L 04/18/22 07:36 BP 114/70 04/18/22 07:36 Pulse Ox 95 04/18/22 07:36 O2 Del Method 04/18/22 07:36 O2 Flow Rate 2 04/18/22 07:36 BMI result Body Mass Index 25.8 Const: Other: General - no acute distress, appears comfortable Cardiovascular - regular rate and rhythm, S1-S2 Lungs - normal respiratory effort, clear to auscultation bilaterally, no wheezing Abdomen - soft, nontender, no rebound or guarding Extremities - no edema bilaterally Neuro - awake and alert, no focal deficits Objective Data Active Medications Acetaminophen (Acetaminophen 325 Mg Tablet) 650 mg PO Q6H PRN PRN Reason: Pain, Mild (Pain Scale 1-3) Folic Acid (Folic Acid 1 Mg Tablet) 1 mg PO DAILY [facility] Last Admin: 04/17/22 11:38 Dose: 1 mg Documented By: BLANQUITA Ceftriaxone Sodium 1 gm/ (Sodium Chloride) 50 mls @ 100 mls/hr IV Q24H [facility] Lactulose (Lactulose 20 Gm/30 Ml Solution) 30 gm PO TID [facility] Last Admin: 04/17/22 21:39 Dose: 30 gm Documented By: SAAD Methadone HCl (Methadone Hcl 20 Mg/2 Ml Oral.Conc) 30 mg PO DAILY [facility] Last Admin: 04/17/22 13:43 Dose: 30 mg Documented By: BLANQUITA Ondansetron HCl (Ondansetron Hcl 4 Mg/2 Ml Vial) 4 mg IVPUSH Q8H PRN PRN Reason: Nausea and Vomiting Sodium Chloride (0.9 % Sodium Chloride Flush 3 Ml Syringe) 3 ml IVFLUSH QSHIFT [facility] Last Admin: 04/18/22 03:05 Dose: 3 ml Documented By: SAAD Thiamine HCl (Thiamine Hcl 100 Mg Tablet) 100 mg PO DAILY [facility] Last Admin: 04/17/22 11:38 Dose: 100 mg Documented By: BLANQUITA Labs CBC & Chem 7: 04/18/22 03:56 04/17/22 01:32 Labs: Laboratory Results - last 24 hr 04/18/22 03:56 MCV 98.2 H MCH 32.9 MCHC 33.5 RDW 14.9 Plt Count 74 L MPV 9.8 Absolute Nucleated RBC 0.000 Nucleated RBC % (auto) 0.0 Microbiology Microbiology Results: Microbiology 04/17/22 02:09 Blood Culture - Preliminary Blood - Venous No growth after 24 hours. 04/17/22 02:09 Blood Culture - Preliminary Blood - Venous Prelim: GPC Gram Stain only Assessment and Plan (1) Vomiting: Status: Acute (2) Leukocytosis: Status: Acute (3) Fever: Status: Acute (4) Abdominal pain: Status: Acute Plan This is a 56 yo M with a prior history of IVDU (sober x 2 years now), Hep C (s/p treatment per his report), Cirrhosis s/p TIPS, Chronic opiate dependence -- on methadone, who presents with a sudden onset of non-blood, non-bilious vomiting which began the evening prior to arrival. These have now improved but he is noted to have a low grade temp, significant leukocytosis. His UA is equivocal and he denies any urinary symptoms. 1. Gram positive bacteremia gram stain read as GPC in clusters -- d/w micro lab --> appears to be more strep than staph, will have identity today continue empiric IV ceftriaxone will add ID, repeat blood cultures and start evaluation for source if not contaminant and truly positive 2. Low grade temp no further temps monitor 3. Leukocytosis could be reactive; no definitive source of infection identified at this time repeat tomorrow 4. Nausea/vomiting, likely viral gastroenteritis vs food borne resolved continue supportive care as needed 5. Cirrhosis, compensated continue his baseline meds 6. Chronic opiate dependence methadone 7. Hypotension chronic and due to liver disease, no severe sepsis 8. Nocturnal hypoxia likely has undiagnosed RUPINDER outpatient sleep study Full Code DVT pptx -- mechanical + early ambulation Possible discharge today. If the patient has true bactermia, will need to be c onverted to inpatient status as we do now have a source at this time. If blood cultures are contaminant, will anticipate discharge today. Quality Stroke Does the patient have a stroke diagnosis?: No VTE Prior VTE?: No VTE Risk Level:: Medical - low VTE Device Contraindication: Treatment Not Indicated VTE Drug Contraindication: Treatment Not Indicated
--- NOTE | 2022-04-18 09:34 | PC.NURSE ---
brother at bedside. pt is very upset that Hospitalist told him he'd be discharged and now is asking that he stay until blood cultures result.
[2022-04-18] MEDS: methADONE HCl 20 MG/2 ML ORAL.CONC 30 MG PO (10:16)
[2022-04-18] MEDS: Lactulose 20 GM/30 ML SOLUTION 30 GM PO ×3 (10:16→19:54)
[2022-04-18] MEDS: Folic Acid 1 MG TABLET PO (10:16)
[2022-04-18] MEDS: Thiamine HCL 100 MG TABLET PO (10:16)
[2022-04-18] MEDS: cefTRIAXone sodium 1 GM in 0.9 % Sodium Chloride 50 ML IV (10:17)
--- NOTE | 2022-04-18 16:28 | PC.NURSE ---
RN to RN with Mickie on MED SUrg. [phone]
[2022-04-19 03:41] VITALS: BP 101/58; PULSE 60; RESP 16; TEMP 36.7; O2SAT 93
[2022-04-19 07:20] VITALS: BP 117/77; PULSE 72; RESP 18; TEMP 36.2; O2SAT 93
[2022-04-19] MEDS: Folic Acid 1 MG TABLET PO (08:22)
[2022-04-19] MEDS: Thiamine HCL 100 MG TABLET PO (08:22)
[2022-04-19] MEDS: Lactulose 20 GM/30 ML SOLUTION 30 GM PO ×2 (08:22→15:10)
[2022-04-19] MEDS: methADONE HCl 20 MG/2 ML ORAL.CONC 30 MG PO (08:22)
[2022-04-19] MEDS: cefTRIAXone sodium 1 GM in 0.9 % Sodium Chloride 50 ML IV (08:22)
[2022-04-19] MEDS: 0.9 % Sodium Chloride Flush 3 ML SYRINGE IVFLUSH ×2 (08:23→15:11)
--- NOTE | 2022-04-19 10:04 | CA_ITS ---
Transthoracic Echocardiogram Patient (Last, First, Middle): Kareem Freire L Gender: Male Date of : 1965 Age: 56 Procedure Date: 04/19/2022 Procedure Type: Transthoracic Echocardiogram Location: E Height: 172.72 cm Weight: 77.11 kg BSA: 1.91 m2 Heart Rate: 67 bpm BP: 117 / 77 mmHg Professor Of Theater: Referring MD: Kaur Hirsch MD Symptoms: BACTEREMIA, TO EVALUATE FOR ENDOCARDITIS Study Quality: Adequate ECG Rhythm: Sinus Conclusions: - The left ventricular systolic function is normal. The calculated ejection fraction is 60% by biplane method. - Moderately increased right ventricular cavity size. - There is mild tricuspid valve regurgitation. - Mild pulmonary hypertension is present. Findings Left Ventricle Normal left ventricular cavity size. There is normal left ventricular wall thickness. The left ventricular systolic function is normal. The calculated ejection fraction is 60% by biplane method. There is no evidence of regional wall motion abnormalities. Diastolic function is normal for age. Right Ventricle Moderately increased right ventricular cavity size. There is normal right ventricular systolic function. Atria The left atrium is moderately dilated. The right atrium is normal in size. Aortic Valve There is a normal trileaflet aortic valve. There is no aortic valve stenosis. There is no aortic valve regurgitation. Mitral Valve The mitral valve appears normal. There is trace mitral valve regurgitation. There is no mitral valve stenosis. Pulmonic Valve The pulmonic valve is likely normal. Tricuspid Valve Normal tricuspid valve structure. There is mild tricuspid valve regurgitation. The pulmonary artery systolic pressure is normal. Mild pulmonary hypertension is present. Great Vessels The aortic annulus, sinuses of valsalva, and asc aorta are normal in size. Venous The inferior vena cava is normal in size and collapses less than 50% with inspiration. Pericardium/Pleural There is no evidence of pericardial effusion. Prior Study Comparison No prior study available for comparison. Measurements 2D Linear Measurements IVSd: 0.91 0.6-0.9/0.6-1.0 cm LVIDd: 4.88 3.9-5.3/4.2-5.9 cm LVIDd Index: 2.55 2.4-3.2/2.2-3.1 cm/m2 LVIDs: 2.73 2.0-3.6 cm LVPWd: 0.94 0.7-1.1 cm LA Diam: 4.50 2.7-3.8/3.0-4.0 cm LAIDs Index: 2.36 1.5-2.3 cm/m2 LV Mass: 196.72 67-162/88-224 g LV Mass Index: 102.99 43-95/49-115 g/m2 LVOT Diam: 2.00 3.0+(-)1.3 cm 2D Systolic Function EF 4C: 62.40 >55% EF 2C: 58.40 >55% EF BiP: 60.10 >55% Mitral Valve MV Pk E: 1.00 MV PK A: 0.60 MV Decel Time: 282.00 E/A: 1.70 E'Lateral: 10.00 E'Medial: 10.60 E/E' Med: 9.40 E/E' Lat: 10.00 PHT: 83.00 MVA PHT: 2.65 Decel [place]: 3.56 Aortic Valve AoV Pk Greg: 1.65 AoV Mn Greg: 1.00 AoV VTI: 0.38 AoV Pk Grad: 11.00 Aov Mn Grad: 5.00 LEANNE Cont.VTI: 2.37 LVOT LVOT Pk Greg: 1.17 LVOT Mn Greg: 0.71 LVOT VTI: 0.29 LVOT Pk Grad: 5.00 LVOT Mn Grad: 3.00 LVOT Diam: 2.00 LVOT Area: 3.14 Diastolic Function MV Pk E: 1.00 MV Pk A: 0.60 E/A: 1.70 E'Medial: 10.60 E/E' Med: 9.40 E' Laterial: 10.00 E/E' Lat: 10.00 Right Ventricle TAPSE (mm): 34.60 TVS' Greg: 16.80 Tricuspid Valve TR Pk Greg: 2.79 TR Pk Grad: 31.00 RA Press: 8.00 RVSP: 39.00 Great Vessels Aorta Sinus of Valsalva: 3.10 2.0-3.5 cm Ao Asc: 3.50 2.1-3.4 cm Pulmonary Valve PV Pk Greg: 1.02 Peak PV Grad: 4.00 Updated in Other Vendor System with Status of Final Jomar Parker MD electronically signed on 04/20/2022 10:42:35 AM with status of Final
[2022-04-19 11:48] VITALS: BP 114/71; PULSE 68; RESP 18; TEMP 36.4; O2SAT 96
--- NOTE | 2022-04-19 11:59 | MHC.CM.PN ---
PATIENT BACTEREMIC AWAITING CULTURES PATIENT IS FEBRILE. CASE MANAGEMENT FOLLOWING
--- NOTE | 2022-04-19 13:42 | P.PNIM_ITS ---
Subjective Subjective Date of Service: 04/19/22 Interval History: possible Gram positive bacteremia Review of Systems no further nausea and vomiting denies abdominal pain, tolerated solids Physical Exam Vital Signs: Vital Signs: Last Vital Signs Temp 97.5 F 04/19/22 11:48 Pulse 68 04/19/22 11:48 Resp 18 04/19/22 11:48 BP 114/71 04/19/22 11:48 Pulse Ox 96 04/19/22 11:48 O2 Del Method 04/19/22 11:48 O2 Flow Rate 2 04/18/22 07:36 BMI result Body Mass Index 25.8 ?General - no acute distress, appears comfortable Cardiovascular - regular rate and rhythm, S1-S2 Lungs - normal respiratory effort, clear to auscultation bilaterally, no wheezing Abdomen - soft, nontender, no rebound or guarding Extremities - no edema bilaterally Neuro - awake and alert, no focal deficits Objective Data Active Medications Acetaminophen (Acetaminophen 325 Mg Tablet) 650 mg PO Q6H PRN PRN Reason: Pain, Mild (Pain Scale 1-3) Folic Acid (Folic Acid 1 Mg Tablet) 1 mg PO DAILY [facility] Last Admin: 04/19/22 08:22 Dose: 1 mg Documented By: ANA Ceftriaxone Sodium 1 gm/ (Sodium Chloride) 50 mls @ 100 mls/hr IV Q24H [facility] Last Infusion: 04/19/22 09:09 Dose: 0 mls/hr Documented By: ANA Lactulose (Lactulose 20 Gm/30 Ml Solution) 30 gm PO TID [facility] Last Admin: 04/19/22 08:22 Dose: 30 gm Documented By: ANA Methadone HCl (Methadone Hcl 20 Mg/2 Ml Oral.Conc) 30 mg PO DAILY [facility] Last Admin: 04/19/22 08:22 Dose: 30 mg Documented By: ANA Ondansetron HCl (Ondansetron Hcl 4 Mg/2 Ml Vial) 4 mg IVPUSH Q8H PRN PRN Reason: Nausea and Vomiting Sodium Chloride (0.9 % Sodium Chloride Flush 3 Ml Syringe) 3 ml IVFLUSH QSHIFT [facility] Last Admin: 04/19/22 08:23 Dose: 3 ml Documented By: ANA Thiamine HCl (Thiamine Hcl 100 Mg Tablet) 100 mg PO DAILY [facility] Last Admin: 04/19/22 08:22 Dose: 100 mg Documented By: ANA Labs CBC & Chem 7: 04/18/22 03:56 04/17/22 01:32 Microbiology Microbiology Results: Microbiology 04/17/22 02:09 Blood Culture - Final Blood - Venous Strep agalactiae (Grp B) 04/17/22 02:09 Blood Culture - Preliminary Blood - Venous No growth after 48 hours. 04/17/22 Unknown Urine Culture - Final Urine Catheterized - Straight Catheter No growth. Assessment and Plan (1) Fever: Status: Acute (2) Abdominal pain: Status: Acute Plan 56 yo M with a prior history of IVDU (sober x 2 years now), Hep C (s/p treatment per his report), Cirrhosis s/p TIPS, Chronic opiate dependence -- on methadone, who presents with a sudden onset of non-blood, non-bilious vomiting which began the evening prior to arrival. These have now improved but he is noted to have a low grade temp, significant leukocytosis. His UA is equivocal and he denies any urinary symptoms. 1. Gram positive bacteremia gram stain read as GPC in clusters -- d/w micro lab -->strep aglaciae , repeat blood cultures pendin continue empiric IV ceftriaxone d/w ID-added echo, wait for repeat blood cultures 2. Low grade temp no further temps monitor 3. Leukocytosis could be reactive; no definitive source of infection identified at this time repeat tomorrow 4. Nausea/vomiting, likely viral gastroenteritis vs food borne resolved continue supportive care as needed 5. Cirrhosis, compensated continue his baseline meds 6. Chronic opiate dependence methadone 7. Hypotension chronic and due to liver disease, no severe sepsis 8. Nocturnal hypoxia likely has undiagnosed RUPINDER outpatient sleep study Full Code DVT pptx -- mechanical + early ambulation inpatient needs:Gram positive bacteremia on iv antibiotic, repeat blood culture, echo. Quality Stroke Does the patient have a stroke diagnosis?: No VTE Prior VTE?: No VTE Risk Level:: Medical - low VTE Device Contraindication: Treatment Not Indicated VTE Drug Contraindication: Treatment Not Indicated
--- NOTE | 2022-04-19 14:42 | P.CNID_ITS ---
History of Present Illness Data of Consult Service Date: 04/19/22 Requesting physician: Kaur Hirsch Primary Care Provider: Priscilla Sargent MD HPI Reason for consult: one blood culture Group B strep He presents with nausea and vomiting for 3-4 days. He has no fever or chills at this time. He has cirrhosis,not decompensated at this time. Review of Systems Review of Systems: Yes all other systems are reviewed and are negative [facility] Past Medical History Medical History (Updated 04/19/22 @ 14:44 by Yris Castro MD) Cirrhosis of liver Group B streptococcal infection Hepatitis C Hernia Substance abuse Surgical History Surgical History S/P TIPS (transjugular intrahepatic portosystemic shunt) Social History Social History Household Members: None Housing: Apartment Do you presently have visiting nurse or other home services: No Alcohol intake: never Patient Tobacco Use Status: Current everyday Tobacco user Tobacco use type: Cigarette Cigarettes Per Day: 5 Years Smoked: 35 Substance Use Type: Former Substance User and Heroin service: No Current occupational status: unemployed Meds Allergies Allergy/AdvReac Type Severity Reaction Status Date / Time penicillin V Allergy Intermediate Itching Verified 09/11/21 14:49 Penicillins Allergy Mild ITCHING Verified 09/11/21 14:49 Active Medications: Current Medications Acetaminophen (Acetaminophen 325 Mg Tablet) 650 mg PO Q6H PRN PRN Reason: Pain, Mild (Pain Scale 1-3) Folic Acid (Folic Acid 1 Mg Tablet) 1 mg PO DAILY [facility] Last Admin: 04/19/22 08:22 Dose: 1 mg Ceftriaxone Sodium 1 gm/ (Sodium Chloride) 50 mls @ 100 mls/hr IV Q24H [facility] Last Infusion: 04/19/22 09:09 Dose: Infused Lactulose (Lactulose 20 Gm/30 Ml Solution) 30 gm PO TID [facility]ONAY Last Admin: 04/19/22 08:22 Dose: 30 gm Methadone HCl (Methadone Hcl 20 Mg/2 Ml Oral.Conc) 30 mg PO DAILY [facility] Last Admin: 04/19/22 08:22 Dose: 30 mg Ondansetron HCl (Ondansetron Hcl 4 Mg/2 Ml Vial) 4 mg IVPUSH Q8H PRN PRN Reason: Nausea and Vomiting Sodium Chloride (0.9 % Sodium Chloride Flush 3 Ml Syringe) 3 ml IVFLUSH QSHIFT [facility] Last Admin: 04/19/22 08:23 Dose: 3 ml Thiamine HCl (Thiamine Hcl 100 Mg Tablet) 100 mg PO DAILY [facility] Last Admin: 04/19/22 08:22 Dose: 100 mg Home Medications Medication Instructions Recorded Confirmed Last Taken Type lactulose 10 gram/15 mL oral 45 ml PO TID 12/10/21 04/17/22 04/16/22 History solution (Generlac) folic acid 1 mg tablet 1 tab PO DAILY 04/17/22 04/17/22 04/16/22 History thiamine HCl (vitamin B1) 100 mg 1 tab PO DAILY 04/17/22 04/17/22 04/16/22 History tablet Physical Exam Vital Signs: Vital Signs: Last Vital Signs Temp 97.5 F 04/19/22 11:48 Pulse 68 04/19/22 11:48 Resp 18 04/19/22 11:48 BP 114/71 04/19/22 11:48 Pulse Ox 96 04/19/22 11:48 O2 Del Method 04/19/22 11:48 O2 Flow Rate 2 04/18/22 07:36 BMI result Body Mass Index 25.8 Const: General: cooperative HEENT: Head: Yes normal to inspection Face and sinus: Yes normal facial exam Mouth: Normal oral and palatal mucosa present Teeth and gingiva: dentition normal Eyes: General: appearance normal, both eyes and all related structures Pupils: Equal, round and reactive pupils present Resp: Effort & Inspection: normal respiratory effort Cardio: Rate: regular rate Rhythm: regular rhythm GI: Palpation (GI): Soft to palpation and nontender : General: Yes no CVA tenderness Back/Spine/Pelvis: Back: no CVA tenderness Skin: General skin exam: no rashes or lesions noted Neuro: General: moves all extremities Cranial nerves: Yes Equal, round and reactive pupils present Extrem: General: Yes normal to inspection Psych: Appearance: grossly normal Results Labs CBC & Chem 7: 04/18/22 03:56 04/17/22 01:32 Microbiology Microbiology Results: Microbiology 04/17/22 02:09 Blood - Venous Blood Culture - Final Strep agalactiae (Grp B) 04/17/22 02:09 Blood - Venous Blood Culture - Preliminary No growth after 48 hours. 04/17/22 Unknown Urine Catheterized - Straight Catheter Urine Culture - Final No growth. Assessment and Plan (1) Vomiting: Qualifiers: Nausea presence: with nausea Vomiting type: unspecified Qualified Code(s): R11.2 - Nausea with vomiting, unspecified Status: Acute (2) Leukocytosis: Qualifiers: Leukocytosis type: unspecified Qualified Code(s): D72.829 - Elevated white blood cell count, unspecified Status: Acute (3) Abdominal pain: Qualifiers: Abdominal location: generalized Qualified Code(s): R10.84 - Generalized abdominal pain Status: Acute (4) Group B streptococcal infection: Status: Acute Group B strep may be contaminant or real infection. He has possible cirrhosis cause,doesnt appear to be SBP with no large ascites but has TIPS so possible Plan Continue Ceftriaxone as doing See GI evaluation Probable po Ceftin for 7 days as outpatient and then possible po Levaquin three times a week prophylaxis SBP,
[2022-04-19 16:00] VITALS: BP 125/74; PULSE 63; RESP 16; TEMP 36; O2SAT 95
[2022-04-19 19:56] VITALS: BP 120/70; PULSE 65; RESP 17; TEMP 36.2; O2SAT 94
[2022-04-19 23:47] VITALS: BP 128/61; PULSE 67; RESP 16; TEMP 36; O2SAT 93
[2022-04-20 03:35] VITALS: BP 114/61; PULSE 65; RESP 18; TEMP 36.5; O2SAT 93
[2022-04-20 07:36] VITALS: BP 117/62; PULSE 63; RESP 16; TEMP 36.3; O2SAT 98
[2022-04-20] MEDS: methADONE HCl 20 MG/2 ML ORAL.CONC 30 MG PO (08:33)
[2022-04-20] MEDS: Folic Acid 1 MG TABLET PO (08:33)
[2022-04-20] MEDS: Thiamine HCL 100 MG TABLET PO (08:33)
[2022-04-20] MEDS: Lactulose 20 GM/30 ML SOLUTION 30 GM PO (08:33)
[2022-04-20] MEDS: 0.9 % Sodium Chloride Flush 3 ML SYRINGE IVFLUSH (08:34)
[2022-04-20] MEDS: cefTRIAXone sodium 1 GM in 0.9 % Sodium Chloride 50 ML IV (08:34)
[2022-04-20 11:50] VITALS: BP 123/68; PULSE 63; RESP 18; TEMP 36.3; O2SAT 95
--- NOTE | 2022-04-20 13:47 | PM.DS ---
DS: Providers Provider Date of Service: 04/20/22 Date of admission: 04/19/22 14:48 Primary care physician: Priscilla Sargent MD Consults: 04/18/22 13:47 Consult to Infectious Diseases Routine Consulting Provider: Yris Castro Reason for consultation: GBS bacteremia DS: Diagnosis Discharge Diagnosis (1) Vomiting: Status: Acute (2) Leukocytosis: Status: Acute (3) Abdominal pain: Status: Acute (4) Group B streptococcal infection: Status: Acute DS: Summary Hospital Course Hospital Course: 56 year old male with a prior history of IVDU (now sober for >2 years per his reported history) and resultant Hep C (s/p treatment), Cirrhosis - s/p TIPS, who presents to the ED with complaints of nausea, vomiting and generalized malaise which began the evening prior to hospitalization. The patient reports that he was in his usual state of health until about 9-10pm the evening [employer]. He reports he ate dinner (at home) and shortly thereafter he had 3 episodes of non-bloody, non-bilious vomiting. He reports some abdominal pain post vomiting which has now resolved. He denies any fevers or chills. He denies any diarrhea. He denies any sick contacts. He reports being vaccinated for COVID. Upon arrival to the ED, his work up revealed significant leukocytosis. His CT abd/pelvis did not show any acute findings, there was no asictes. His UA is + for nitrities, but trace bacteria (he denies any symptoms). He did have a low grade temp of 100.2. He has been empirically given IV rocephin and now will be admitted for further treatment/monitoring. 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 antibiotics upon discharge. Patient cirrhosis seems to be compensated: Monitor LFTs out patiently and follow-up with his GI outpatient in 1 week. Patient wants to follow-up with his own GI doctor. In addition patient initially had nocturnal hypoxia: possible undiagnosed og: Currently sats are fine, no new symptoms. Consider outpatient sleep study as per PCP. Plan: Complete course Of antibiotic. Monitor LFT outpatient Follow-up with GI and PCP outpatient. Above management discussed with the patient in detail length he understand and in agreement with the above plan, time spent 50 minutes and 50% time spent on counseling. Significant findings: As above. Procedures performed: None. Treatment and response: As above. Complications: None. Time Spent with Patient Time attestation: Total time spent providing and/or coordinating discharge services: Discharge coordination time: Greater than 30 minutes Quality: Safe Use of Opioids Does Pt have an Active Cancer Diagnosis on the Problem List?: No Quality: Stroke Does the patient have a stroke diagnosis?: No Physical Exam Vital Signs: Vital Signs: Last Vital Signs Temp 97.3 F 04/20/22 11:50 Pulse 63 04/20/22 11:50 Resp 18 04/20/22 11:50 BP 123/68 04/20/22 11:50 Pulse Ox 95 04/20/22 11:50 O2 Del Method 04/20/22 11:50 O2 Flow Rate 2 04/18/22 07:36 BMI result Body Mass Index 25.8 ?General - no acute distress, appears comfortable Cardiovascular - regular rate and rhythm, S1-S2 Lungs - normal respiratory effort, clear to auscultation bilaterally, no wheezing Abdomen - soft, nontender, no rebound or guarding Extremities - no edema bilaterally Neuro - awake and alert, no focal deficits DS: Data Data Completed and Pending Labs on day of discharge: Preliminary micro results at discharge 04/18/22 14:19 Blood Culture - Preliminary Blood - Venous No growth after 24 hours. 04/18/22 14:19 Blood Culture - Preliminary Blood - Venous No growth after 24 hours. 04/17/22 02:09 Blood Culture - Preliminary ? Blood - Venous No growth after 48 hours. ? 04/18/22 ? 03:56 MCV ?98.2 H MCH ?32.9 MCHC ?33.5 RDW ?14.9 Plt Count ?74 L MPV ?9.8 Absolute Nucleated RBC ?0.000 Nucleated RBC % (auto) ?0.0 Blood Culture (Second) Final 04/19/22-817 Gram stain results: Gram-positive cocci in pairs and short chains Note: Gram stain reviewed by a General Studies Program Chair 1 set positive/2 sets drawn Gram stain results from blood cultures should be interpreted with caution. A number of factors, including the presence of antibiotics in the specimen and the effect of growth in enriched liquid culturing medium, may cause organisms to react differently with the staining reagents. These factors occasionally cause a Gram-negative organism to stain Gram-positive and vice versa. Results of the initial Gram stain from the culture broth must always be correlated with growth on agar. Organism 1 Strep agalactiae (Grp B) Results of Blood Culture gram stain called to and read back by JOSIAH at 2102 on 04/17/22 by OCTAVIO. S. agalact M.I.C. RX --------- --- Ampicillin Strep <=0.25 S Ceftriaxone <=0.12 S Clindamycin Strep <=0.25 S Erythromycin <=0.12 S Penicillin-G <=0.06 S Additional Comments Additional comments: CT/CT abdomen pelvis wo con IMPRESSION: There is a TIPS identified. No acute abnormality. No inflammatory changes or fluid collection. ? Cirrhotic liver. ? Fleischner guidelines were followed. XR/XR chest 1V IMPRESSION: No acute pulmonary finding Discharge Plan Discharge Patient Disposition: Home, Self-Care Discharge Diagnosis: abd pain , possible strep bacteremia and uti concern. Referrals: Priscilla Sargent MD [Primary Care Provider] - 1 Week Discharge Medications: New cefuroxime axetil 500 mg tablet 500 mg PO BID Qty: 26 0RF Continued thiamine HCl (vitamin B1) 100 mg tablet 1 tab PO DAILY folic acid 1 mg tablet 1 tab PO DAILY lactulose [Generlac] 10 gram/15 mL solution 45 ml PO TID Discharge Orders: Discharge Order (Routine); Ordered 04/20/22 Ordered By: Kaur Hirsch Diet: Advance to usual diet Activity on Discharge: As tolerated Stand Alone Forms: Patient Portal Discharge page Care Plan Goals: Patient was admitted for low-grade fever, leukocytosis, some nausea vomiting-in addition blood culture was sent found to have 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 antibiotics upon discharge. Patient cirrhosis seems to be compensated: Monitor LFTs out patiently and follow-up with his GI outpatient in 1 week. Patient wants to follow-up with his own GI doctor. In addition patient initially had nocturnal hypoxia: possible undiagnosed og: Currently sats are fine, no new symptoms. Consider outpatient sleep study as per PCP. Health Concerns: If any new symptoms including fever or abdominal pain or any chest pain or shortness of breath please come to the nearest emergency room to get evaluated. Please complete the course of antibiotics. Follow-up LFTs out patiently. Plan of Treatment: As above. Assessment: As above.
--- NOTE | 2022-04-20 13:51 | MHC.CM.PN ---
Patient has been medically cleared for dc to home today, self care.
== END 2022-04-20 15:45 | disposition home or self-care (01) | DRG 249 ==
LOC: HO.ED 04:06 → HO.EDOVER 10:45 → HO.S3 04-18 15:09
PROVIDERS: Admitting Provider Family Medicine; Emergency Provider Emergency Medicine; PCP Internal Medicine; Visit Provider Internal Medicine
DX: A08.4 Viral intestinal infection, unspecified (principal); I95.89 Other hypotension; R78.81 Bacteremia; F17.210 Nicotine dependence, cigarettes, uncomplicated; G47.33 Obstructive sleep apnea (adult) (pediatric); B95.1 Streptococcus, group B, as the cause of diseases classified elsewhere; N39.0 Urinary tract infection, site not specified; K74.60 Unspecified cirrhosis of liver; F11.20 Opioid dependence, uncomplicated; D72.829 Elevated white blood cell count, unspecified; Z20.822 Contact with and (suspected) exposure to COVID-19; Z86.19 Personal history of other infectious and parasitic diseases; Z71.6 Tobacco abuse counseling; Z88.0 Allergy status to penicillin; Z79.899 Other long term (current) drug therapy
CPT/HCPCS: 36415; 71045; 74176; 80053; 81001; 82248; 83605; 83690; 85025; 85027; 85610; 87040; 87086; 87147; 87186; 87205; 87635; 93005; 93306; 96365; 96375; 99285; J0696; J1170

== ENCOUNTER 2022-05-24 08:22 | Outpatient (REF) | payer OTHER, SELFPAY ==
[2022-05-24 09:29] LABS: Bilirubin Total 1.7 mg/dL (0.0-1.0)
[2022-05-24 09:35] LABS: Alanine Aminotransferase 21 U/L (0-40); Albumin Level 2.9 g/dL (3.5-5.0); Alkaline Phosphatase 163 U/L (39-117); Anion Gap 15 (12-20); Aspartate Amino Transferase 49 U/L (5-37); Bilirubin Direct 0.7 mg/dL (0.0-0.5); Bilirubin Total 1.8 mg/dL (0.0-1.0); Blood Urea Nitrogen 9 mg/dL (9-16); Calcium 8.9 mg/dL (8.4-10.2); Carbon Dioxide 22 mmol/L (22-29); Chloride 104 mmol/L (96-108); Estimated Glomerular Filt Rate > 60; Glucose Random 132 mg/dL (60-115); Potassium 4.7 mmol/L (3.3-5.1); Sodium 136 mmol/L (135-145); Total Protein 7.2 g/dL (6.5-8.0)
[2022-05-24 09:47] LABS: HIV AB/AG Nonreactive (Nonreactive); HIV Num 1 0.11 S/CO (0.00-0.99)
[2022-05-24 10:22] LABS: Syphilis Screen Nonreactive (Nonreactive)
[2022-05-24 15:24] LABS: CT PCR NOT DETECTED (Not Detect.); NG PCR NOT DETECTED (Not Detect.)
[2022-05-26 13:12] LABS: HCV Log PCR <1.18 NOT DETECTED Log IU/mL (NOT DETECTED); HepC Viral Load <15 NOT DETECTED IU/mL (NOT DETECTED)
== END 2022-05-24 08:23 | disposition home or self-care (01) ==
LOC: HO.LAB 08:22
PROVIDERS: Internal Medicine; Visit Provider Internal Medicine Infectious Disease
DX: K74.60 Unspecified cirrhosis of liver (principal); B18.2 Chronic viral hepatitis C; A49.1 Streptococcal infection, unspecified site
CPT/HCPCS: 36415; 80048; 80076; 82040; 82247; 85025; 86780; 87389; 87491; 87522; 87591

== ENCOUNTER 2022-06-14 12:56 | Outpatient (REF) | payer OTHER, SELFPAY ==
[2022-06-14 13:14] LABS: MANUAL DIFF FLAG NO
[2022-06-14 13:18] LABS: Basophils Absolute Auto 0.1 X10*3/uL (0.0-0.2); Basophils Percent Auto 1.1 % (0-2); Eosinophils Absolute Auto 1.1 X10*3/uL (0.0-0.4); Eosinophils Percent Auto 16.2 % (0-4); Hematocrit 34.4 % (42.0-52.0); Hemoglobin 11.6 g/dl (14.0-18.0); Imm Gran Abs Auto 0.01 X10*3/uL (0.00-0.03); Imm Gran Pct Auto 0.2 % (0.0-0.4); Lymphocytes Absolute Auto 3.1 X10*3/uL (1.2-4.9); Lymphocytes Percent Auto 46.2 % (20-40); Mean Corpuscular HGB Conc 33.7 g/dl (31.0-36.0); Mean Corpuscular Hemoglobin 32.4 pg (27.0-33.0); Mean Corpuscular Volume 96.1 fL (80.0-98.0); Mean Platelet Volume 8.9 fL (9.4-12.4); Monocytes Absolute Auto 0.8 X10*3/uL (0.1-1.2); Monocytes Percent Auto 11.9 % (2-11); Neutrophils Absolute Auto 1.6 x10*3/uL (2.0-8.3); Neutrophils Percent Auto 24.4 % (45-73); Red Blood Count 3.58 X10*6/uL (4.60-5.80); Red Cell Distribution Width 15.3 % (11.0-16.0); White Blood Count 6.6 X10*3/uL (4.8-10.8)
[2022-06-14 13:26] LABS: INTERNATIONAL NORM RATIO 1.4 (0.9-1.1); Prothrombin Time 16.2 SEC (10.0-13.1)
[2022-06-14 13:27] LABS: Platelet Count 94 X10*3/uL (160-400)
[2022-06-14 14:11] LABS: HBsAGNum1 0.24 S/CO (0.00-0.99); Hepatitis B Surface Antigen Negative (Negative)
== END 2022-06-14 12:57 | disposition home or self-care (01) ==
LOC: HO.LAB 12:56
PROVIDERS: Visit Provider Internal Medicine Infectious Disease
DX: B19.20 Unspecified viral hepatitis C without hepatic coma (principal)
CPT/HCPCS: 36415; 85025; 85610; 87340

== ENCOUNTER 2022-08-26 09:23 | Outpatient (REF) | payer OTHER, SELFPAY ==
[2022-08-26 09:43] LABS: MANUAL DIFF FLAG NO
[2022-08-26 10:33] LABS: Basophils Absolute Auto 0.1 X10*3/uL (0.0-0.2); Basophils Percent Auto 0.7 % (0-2); Eosinophils Absolute Auto 0.8 X10*3/uL (0.0-0.4); Eosinophils Percent Auto 11.6 % (0-4); Hemoglobin 13.2 g/dl (14.0-18.0); Imm Gran Abs Auto 0.01 X10*3/uL (0.00-0.03); Imm Gran Pct Auto 0.1 % (0.0-0.4); Lymphocytes Absolute Auto 3.4 X10*3/uL (1.2-4.9); Lymphocytes Percent Auto 48.8 % (20-40); Mean Corpuscular Hemoglobin 31.8 pg (27.0-33.0); Mean Corpuscular Volume 96.4 fL (80.0-98.0); Mean Platelet Volume 10.5 fL (9.4-12.4); Monocytes Absolute Auto 0.8 X10*3/uL (0.1-1.2); Neutrophils Absolute Auto 1.9 x10*3/uL (2.0-8.3); Neutrophils Percent Auto 27.8 % (45-73); Red Blood Count 4.15 X10*6/uL (4.60-5.80); Red Cell Distribution Width 14.4 % (11.0-16.0)
[2022-08-26 10:34] LABS: Platelet Count 94 X10*3/uL (160-400)
[2022-08-26 10:52] LABS: Alanine Aminotransferase 13 U/L (0-40); Aspartate Amino Transferase 32 U/L (5-37); Estimated Glomerular Filt Rate > 60
[2022-08-29 14:07] LABS: HCV Log PCR <1.18 NOT DETECTED Log IU/mL (NOT DETECTED); HepC Viral Load <15 NOT DETECTED IU/mL (NOT DETECTED)
== END 2022-08-26 09:24 | disposition home or self-care (01) ==
LOC: HO.LAB 09:23
PROVIDERS: PCP Registered Nurse; Visit Provider Internal Medicine Infectious Disease
DX: B18.2 Chronic viral hepatitis C (principal)
CPT/HCPCS: 36415; 82565; 84450; 84460; 85025; 87522

== ENCOUNTER 2022-11-06 08:47 | Outpatient (REF) | payer OTHER, SELFPAY ==
[2022-11-06 09:04] LABS: MANUAL DIFF FLAG NO
[2022-11-06 09:22] LABS: Basophils Absolute Auto 0.1 X10*3/uL (0.0-0.2); Basophils Percent Auto 0.8 % (0-2); Eosinophils Absolute Auto 0.7 X10*3/uL (0.0-0.4); Eosinophils Percent Auto 11.3 % (0-4); Hematocrit 40.1 % (42.0-52.0); Hemoglobin 13.1 g/dl (14.0-18.0); Lymphocytes Absolute Auto 3.1 X10*3/uL (1.2-4.9); Lymphocytes Percent Auto 47.1 % (20-40); Mean Corpuscular HGB Conc 32.7 g/dl (31.0-36.0); Mean Corpuscular Hemoglobin 32.1 pg (27.0-33.0); Mean Corpuscular Volume 98.3 fL (80.0-98.0); Mean Platelet Volume 9.3 fL (9.4-12.4); Monocytes Absolute Auto 0.9 X10*3/uL (0.1-1.2); Monocytes Percent Auto 13.1 % (2-11); Neutrophils Absolute Auto 1.8 x10*3/uL (2.0-8.3); Neutrophils Percent Auto 27.7 % (45-73); Platelet Count 127 X10*3/uL (160-400); Red Blood Count 4.08 X10*6/uL (4.60-5.80); Red Cell Distribution Width 14.7 % (11.0-16.0); White Blood Count 6.5 X10*3/uL (4.8-10.8)
[2022-11-06 10:01] LABS: Alanine Aminotransferase 10 U/L (0-40); Albumin Level 2.8 g/dL (3.5-5.0); Aspartate Amino Transferase 23 U/L (5-37); Bilirubin Total 1.2 mg/dL (0.0-1.0); Estimated Glomerular Filt Rate > 60
[2022-11-06 16:05] LABS: CT PCR NOT DETECTED (Not Detect.); NG PCR NOT DETECTED (Not Detect.)
[2022-11-07 15:04] LABS: HCV Log PCR <1.18 NOT DETECTED Log IU/mL (NOT DETECTED); HepC Viral Load <15 NOT DETECTED IU/mL (NOT DETECTED)
[2022-11-08 09:08] LABS: HIV AB/AG Nonreactive (Nonreactive); HIV Num 1 0.14 S/CO (0.00-0.99)
[2022-11-08 09:17] LABS: Syphilis Screen Nonreactive (Nonreactive)
== END 2022-11-06 08:48 | disposition home or self-care (01) ==
LOC: HO.LAB 08:47
PROVIDERS: PCP Registered Nurse; Visit Provider Internal Medicine Infectious Disease
DX: B19.20 Unspecified viral hepatitis C without hepatic coma (principal); D64.9 Anemia, unspecified; Z20.2 Contact with and (suspected) exposure to infections with a predominantly sexual mode of transmission
CPT/HCPCS: 0353U; 82040; 82247; 82565; 84450; 84460; 85025; 86780; 87389; 87522

== ENCOUNTER 2023-02-21 00:28 | Emergency (ER) | payer OTHER, SELFPAY ==
[2023-02-21 00:30] VITALS: BP 153/81; PULSE 73; RESP 18; TEMP 36.7; O2SAT 98; BMI 27.8
--- NOTE | 2023-02-21 01:12 | ED.GENADULT ---
HPI - General Adult General Chief complaint: ETOH/Substance Use Stated complaint: Seeking detox? Drug use Time Seen by Provider: 02/21/23 01:09 Source: patient Mode of arrival: ambulatory Limitations: no limitations History of Present Illness HPI narrative: Patient's history of opiate abuse last use was about 3 years ago on methadone 45 mg daily today he snorted 2 bags at 18:00 vomited few times no abdominal pain feels okay does not want to go to detox and can manage without detox Related Data Home Medications Medication Instructions Recorded Confirmed lactulose 10 gram/15 mL oral 45 ml PO TID 12/10/21 04/17/22 solution (Generlac) folic acid 1 mg tablet 1 tab PO DAILY 04/17/22 04/17/22 thiamine HCl (vitamin B1) 100 mg 1 tab PO DAILY 04/17/22 04/17/22 tablet Previous Rx's Medication Instructions Recorded cefuroxime axetil 500 mg tablet 500 mg PO BID #26 tabs 04/20/22 Allergies Allergy/AdvReac Type Severity Reaction Status Date / Time penicillin V Allergy Intermediate Itching Verified 09/11/21 14:49 Penicillins Allergy Mild ITCHING Verified 09/11/21 14:49 Review of Systems Review of Systems: Yes all other systems are reviewed and are negative PMFSH Past Medical History Medical History Cirrhosis of liver Group B streptococcal infection Hepatitis C Hernia Substance abuse Surgical History S/P TIPS (transjugular intrahepatic portosystemic shunt) Social History Social History Household Members: None Housing: Apartment Do you presently have visiting nurse or other home services: No Alcohol intake: never Patient Tobacco Use Status: Current everyday Tobacco user Tobacco use type: Cigarette Cigarettes Per Day: 5 Years Smoked: 35 Use of substances other than those prescribed or required for medical reasons: Yes Substance Use Type: Heroin Advance Directives: No Advance Directives Information Provided: No service: No Current occupational status: unemployed Physical Exam ED Vital Signs: Vital Signs - 24 hr 02/21/23 00:30 02/21/23 04:00 Temperature 98.1 F Pulse Rate 73 110 H Respiratory Rate 18 16 Blood Pressure 153/81 H 122/79 Pulse Oximetry 98 Oxygen Delivery Method Room Air BMI result Body Mass Index 27.8 Appearance: Alert. Oriented X3. No acute distress. Eyes: PERRLA, ENT: Pharynx normal. Oral Mucosa moist Neck: Normal inspection. Neck supple. CVS: Normal heart rate and rhythm. Pulses normal. Respiratory: No respiratory distress. Equal air entry bilateral, Abdomen: Soft and nontender. Bowel sounds are present, no mass palpable, no CVA tenderness Skin: Skin warm and dry. Normal skin color. Normal skin turgor. Extremities: No lower extremity edema. No calf tenderness Neuro: Oriented X 3. No motor deficit. Medications Administered Discontinued Medications Generic Name Dose Route Start Last Admin Trade Name Freq PRN Reason Stop Dose Admin Ondansetron HCl 4 mg 02/21/23 01:12 02/21/23 01:15 Ondansetron Odt 4 Mg Tab.Rapdis TRANSLINGU 02/21/23 01:13 4 mg ONCE ONE Administration Discharge Plan Discharge Clinical Impression: Opiate dependence Patient Disposition: Home, Self-Care Instructions: Opioid Use Disorder (ED) Additional Instructions: Stop using heroin Follow detox if any concerns Prescriptions: No Action thiamine HCl (vitamin B1) 100 mg tablet 1 tab PO DAILY folic acid 1 mg tablet 1 tab PO DAILY cefuroxime axetil 500 mg tablet 500 mg PO BID Qty: 26 0RF lactulose [Generlac] 10 gram/15 mL solution 45 ml PO TID Interventions: ED Discharge Assessment Last Done: 02/21/23 05:29 Discharge Date/Time: 02/21/23 05:32
[2023-02-21] MEDS: Ondansetron ODT 4 MG TAB.RAPDIS TRANSLINGU (01:15)
[2023-02-21 04:00] VITALS: BP 122/79; PULSE 110; RESP 16
== END 2023-02-21 05:32 | disposition home or self-care (01) ==
PROVIDERS: Emergency Provider Internal Medicine; PCP Registered Nurse
DX: F11.29 Opioid dependence with unspecified opioid-induced disorder (principal); F17.210 Nicotine dependence, cigarettes, uncomplicated; Z71.6 Tobacco abuse counseling; Z79.899 Other long term (current) drug therapy
CPT/HCPCS: 99283; 99284

== ENCOUNTER 2023-12-14 10:29 | Emergency (ER) | payer OTHER, SELFPAY ==
[2023-12-14 10:48] VITALS: BP 121/56; PULSE 63; RESP 20; TEMP 36.1; O2SAT 96; BMI 28.4
--- NOTE | 2023-12-14 12:00 | ED_ITS ---
HPI - Ear Problem General Chief complaint: Ear Problems Stated complaint: L ear pain Time Seen by Provider: 12/14/23 10:59 Source: patient and RN notes reviewed Mode of arrival: ambulatory Limitations: no limitations History of Present Illness HPI Narrative: This is a 58-year-old male presenting to the emergency department with complaints of left ear pain. Patient states that he went to [facility] where he was given ofloxacin drops and Debrox drops which she has been using without any relief. States that the pain is now worsening and extending into his left side of his face. He denies any fevers or chills. Denies difficulty swallowing, sore throat, chest pain, shortness of breath., abdominal pain, nausea, vomiting or diarrhea. He states that he noticed some brown drainage coming from his left ear. Endorsing decreased hearing from his left ear. No other complaints or concerns at this time. MD Complaint: ear pain and ear discharge Location: left ear Duration: constant Severity: moderate Relieving factors: nothing Exacerbating factors: nothing Discharge from ear: yes - clear Treatment prior to arrival: eardrops Related Data Home Medications ?Medication ?Instructions ?Recorded ?Confirmed lactulose 10 gram/15 mL oral 45 ml PO TID 12/10/21 04/17/22 solution (Generlac) folic acid 1 mg tablet 1 tab PO DAILY 04/17/22 04/17/22 thiamine HCl (vitamin B1) 100 mg 1 tab PO DAILY 04/17/22 04/17/22 tablet Previous Rx's ?Medication ?Instructions ?Recorded cefuroxime axetil 500 mg tablet 500 mg PO BID #26 tabs 04/20/22 acetaminophen 500 mg tablet 500 mg PO Q6H PRN pain #30 tabs 12/14/23 (Tylenol Extra Strength) azithromycin 250 mg tablet See Rx Instructions PO .COMPLEX #6 12/14/23 tabs carbamide peroxide 6.5 % ear drops 10 drp otic (ear) right DAILY 4 12/14/23 (Debrox) days #15 mL ibuprofen 600 mg tablet 600 mg PO Q6H PRN pain #30 tabs 12/14/23 Allergies Allergy/AdvReac Type Severity Reaction Status Date / Time penicillin V Allergy Intermediate Itching Verified 12/14/23 10:51 Penicillins Allergy Mild ITCHING Verified 12/14/23 10:51 Review of Systems Review of Systems: Yes all other systems are reviewed and are negative Constitutional: Constitutional: Reports as per [facility] Past Medical History Medical History Cirrhosis of liver Group B streptococcal infection Hepatitis C Hernia Substance abuse Surgical History S/P TIPS (transjugular intrahepatic portosystemic shunt) Social History Social History Household Members: None Housing: Apartment Do you presently have visiting nurse or other home services: No Alcohol intake: never Patient Tobacco Use Status: Current everyday Tobacco user Tobacco use type: Cigarette Cigarettes Per Day: 5 Years Smoked: 35 Substance Use Type: Heroin Advance Directives: No Advance Directives Information Provided: Yes service: No Current occupational status: unemployed Physical Exam Vital Signs: Vital Signs: Last Vital Signs Temp 99.3 F 12/14/23 13:24 Pulse 59 12/14/23 13:24 Resp 18 12/14/23 13:24 BP 131/83 12/14/23 13:24 Pulse Ox 95 12/14/23 13:24 O2 Del Method Room Air 12/14/23 13:24 BMI result Body Mass Index 28.4 Const: General: cooperative, comfortable and no acute distress Orientation/consciousness: patient oriented x3 Limitations: no limitations HEENT: Other: Left auditory canal is obscured with wax, some was removed, TM appears to be erythematous and bulging. Right TM with hardened brown cerumen impaction noted, was able to remove some. Head: Yes normal to inspection, Yes normocephalic and Yes atraumatic Ears: hearing grossly normal bilaterally General nose exam: Normal external nose present Face and sinus: Yes normal facial exam Mouth: Normal oral and palatal mucosa present, oropharynx normal and moist mucous membranes Throat: Yes posterior oropharynx normal Eyes: General: appearance normal, both eyes and all related structures Eyelids: Yes eyelids normal Conjunctivae: conjunctivae normal Sclerae: sclerae normal Pupils: Equal, round and reactive pupils present EOM: EOMs intact bilaterally Neck: Neck: Yes normal visual inspection, Yes full ROM and Yes no lymphadenopathy Lymphatic: no lymphadenopathy noted Chest: Chest palpation & inspection: normal inspection of the chest Resp: Effort & Inspection: normal respiratory effort and able to speak in complete sentences Auscultation: clear to auscultation bilaterally, no crackles, no rales, no rhonchi and no wheezes Cardio: Rate: regular rate Rhythm: regular rhythm Heart sounds: S1 normal heart sound present and S2 normal heart sound present GI: Inspection: Yes normal to inspection Skin: General skin exam: no rashes or lesions noted Trauma: no lacerations or abrasions Wounds: no wounds Neuro: General: patient oriented x3 and moves all extremities Cranial nerves: Yes Equal, round and reactive pupils present Extrem: General: Yes normal to inspection Right upper extremity: normal to inspection Left upper extremity: normal to inspection Right lower extremity: normal to inspection Left lower extremity: normal to inspection Medications Administered Discontinued Medications Generic Name Dose Route Start Last Admin Trade Name Freq PRN Reason Stop Dose Admin Docusate Sodium 100 mg 12/14/23 12:07 12/14/23 12:14 Docusate Sodium 100 Mg/10 Ml Liquid PO 12/14/23 12:08 100 mg ONCE ONE Administration Procedures Ear Wax Removal Both Ears: Cerumenolytic Used: Colace Results: Re-examined: some cerumen remains and removal reattempted TM Examination: TM(s) intact, normal appearance and TM(s) erythematous (On the left) Ear Canal Exam: atraumatic Patient Tolerated Procedure: no complications Complications: no problems Technique: ear canal irrigated and ear canal curetted Medical Decision Making Medical Decision Making MDM Narrative: This is a 50-year-old male, with no known medical problems, who presents emergency department with complaints of left ear pain x1 week. Patient has been using ofloxacin drops as well as Debrox drops in his left ear without any relief. He is endorsing drainage from his left ear and worsening pain. Cerumen impaction removal was performed, cerumen still remains in left and right ears however some was removed. Patient tolerated procedure well, see procedure note for further detail. Will treat left ear with oral antibiotics. Patient given return precautions. Patient understands and agrees with plan. Advised to follow-up PCP. Also given Debrox drops to use in right ear to remove remaining cerumen. Patient understands and agrees with plan, stable for discharge. Differential Diagnosis Differential Diagnoses: The differential diagnosis associated with the presentation includes Cerumen impaction, otitis media, otitis externa, Eustachian tube dysfunction, mastoiditis Admission/Observation Consideration of admission/observation: Escalation of care including admission/observation considered Escalation of care including admission/observation considered however given workup today not warranted at this time. Discharge Plan Discharge Clinical Impression: Impacted cerumen, right ear, Otitis media Patient Disposition: Home, Self-Care Instructions: Ear Infection (ED) Additional Instructions: You were seen in the emergency department due to left ear pain. Your left ear is infected, take oral antibiotic as directed. Your left ear has cerumen in it, please use Debrox ear drops. Do not use these ear drops in your left ear only use in your right ear. Follow-up with your primary care physician. You may alternate between ibuprofen and Tylenol as needed for pain. If any new or worsening symptoms occur including but not limited to chest pain, shortness of breath, increased pain in your ear, please return for re- evaluation. Prescriptions: New azithromycin 250 mg tablet See Rx Instructions PO .COMPLEX Qty: 6 0RF Rx Instructions: For 250 mg dose pack: take 500 mg today (day 1), then 250 mg for 4 days (days 2-5) ibuprofen 600 mg tablet 600 mg PO Q6H PRN (Reason: pain) Qty: 30 0RF acetaminophen [Tylenol Extra Strength] 500 mg tablet 500 mg PO Q6H PRN (Reason: pain) Qty: 30 0RF Debrox 6.5 % drops 10 drp otic (ear) right DAILY 4 Days Qty: 15 0RF No Action thiamine HCl (vitamin B1) 100 mg tablet 1 tab PO DAILY folic acid 1 mg tablet 1 tab PO DAILY cefuroxime axetil 500 mg tablet 500 mg PO BID Qty: 26 0RF lactulose [Generlac] 10 gram/15 mL solution 45 ml PO TID Interventions: ED Discharge Assessment Last Done: 12/14/23 13:24 Discharge Date/Time: 12/14/23 13:26 Print Language: Yakut
[2023-12-14] MEDS: Docusate Sodium 100 MG/10 ML LIQUID PO (12:14)
[2023-12-14 13:23] VITALS: BP 131/83; PULSE 59; RESP 18; TEMP 37.4; O2SAT 95
[2023-12-14 13:24] VITALS: BP 131/83; PULSE 59; RESP 18; TEMP 37.4; O2SAT 95
== END 2023-12-14 13:26 | disposition home or self-care (01) ==
PROVIDERS: Emergency Provider Student in an Organized Health Care Education/Training Program; PCP Registered Nurse
DX: H61.22 Impacted cerumen, left ear (principal); H66.92 Otitis media, unspecified, left ear; H92.02 Otalgia, left ear; F17.210 Nicotine dependence, cigarettes, uncomplicated
CPT/HCPCS: 99282; 99283

== ENCOUNTER 2023-12-18 08:54 | Emergency (ER) | payer OTHER, SELFPAY ==
[2023-12-18 09:16] VITALS: BP 122/83; PULSE 66; RESP 16; TEMP 36.6; O2SAT 98; BMI 29.0
--- NOTE | 2023-12-18 11:21 | ED.GENADULT ---
HPI - General Adult General Chief complaint: Ear Problems Stated complaint: Ear pain Time Seen by Provider: 12/18/23 11:19 Source: patient Mode of arrival: ambulatory Limitations: no limitations History of Present Illness HPI narrative: Patient is a 58-year-old male presenting to the emergency department with complaint of left ear pain and decreased hearing. He was seen in this emergency department on 12/13 and diagnosed with cerumen impaction and otitis media, started on antibiotics. Patient reports he has been taking his antibiotics as prescribed. Reports that he has no pain or decreased hearing to right ear, all symptoms are to left ear. Denies fevers. Denies sore throat, cough, other URI symptoms. complaint: left ear pain Onset (ago): day(s) Quality: aching Pain Consistency: constant Relieving factors: none Associated symptoms: denies other symptoms and other (decreased hearing) Treatments prior to arrival: other Related Data Home Medications ?Medication ?Instructions ?Recorded ?Confirmed lactulose 10 gram/15 mL oral 45 ml PO TID 12/10/21 04/17/22 solution (Generlac) folic acid 1 mg tablet 1 tab PO DAILY 04/17/22 04/17/22 thiamine HCl (vitamin B1) 100 mg 1 tab PO DAILY 04/17/22 04/17/22 tablet Previous Rx's ?Medication ?Instructions ?Recorded cefuroxime axetil 500 mg tablet 500 mg PO BID #26 tabs 04/20/22 acetaminophen 500 mg tablet 500 mg PO Q6H PRN pain #30 tabs 12/14/23 (Tylenol Extra Strength) azithromycin 250 mg tablet See Rx Instructions PO .COMPLEX #6 12/14/23 tabs carbamide peroxide 6.5 % ear drops 10 drp otic (ear) right DAILY 4 12/14/23 (Debrox) days #15 mL ibuprofen 600 mg tablet 600 mg PO Q6H PRN pain #30 tabs 12/14/23 Allergies Allergy/AdvReac Type Severity Reaction Status Date / Time penicillin V Allergy Intermediate Itching Verified 12/18/23 09:18 Penicillins Allergy Mild ITCHING Verified 12/18/23 09:18 Review of Systems Review of Systems: Yes all other systems are reviewed and are negative Constitutional: Constitutional: Reports as per [facility] Past Medical History Medical History Cirrhosis of liver Group B streptococcal infection Hepatitis C Hernia Substance abuse Surgical History S/P TIPS (transjugular intrahepatic portosystemic shunt) Social History Social History Household Members: None Housing: Apartment Do you presently have visiting nurse or other home services: No Alcohol intake: never Patient Tobacco Use Status: Current everyday Tobacco user Tobacco use type: Cigarette Cigarettes Per Day: 5 Years Smoked: 35 Substance Use Type: Heroin Advance Directives: No service: No Current occupational status: unemployed Physical Exam ED Vital Signs: Vital Signs - 24 hr 12/18/23 09:16 Temperature 98 F Pulse Rate 66 Respiratory Rate 16 Blood Pressure 122/83 Pulse Oximetry 98 Oxygen Delivery Method Room Air BMI result Body Mass Index 29.0 Vital signs have been reviewed and appear to be correct. Blood pressure normal. Heart rate normal. Respiratory rate normal. Temperature normal. Oxygen saturation normal. Const General: cooperative, healthy appearing and no acute distress Orientation/consciousness: oriented to person, oriented to place, oriented to time and patient oriented x3 Limitations: no limitations HENMT Head: Yes normocephalic and Yes atraumatic Ears: external ears normal, TM normal on the right, Abnormal EAC present cerumen impaction on the left, hearing grossly impaired on the left and TM abnormal erythematous on the left General nose exam: Normal external nose present Face and sinus: Yes face symmetric Mouth: oropharynx normal and moist mucous membranes Throat: Yes uvula midline Eyes Pupils: Equal, round and reactive pupils present Neck Neck: Yes normal visual inspection and Yes supple Resp Effort & Inspection: normal respiratory effort and able to speak in complete sentences Auscultation: clear to auscultation bilaterally Cardio Rate: regular rate Rhythm: regular rhythm Heart sounds: S1 normal heart sound present and S2 normal heart sound present Skin General skin exam: elasticity normal and turgor normal Neuro General: oriented to person, oriented to place, oriented to time, patient oriented x3, moves all extremities, no focal motor deficits and CN's II-XI intact bilaterally Cranial nerves: Yes Equal, round and reactive pupils present Cognition (Neuro): normal cognition Extrem General: Yes full ROM, Yes no pedal edema and Yes no calf tenderness Psych Mental Status: mental status grossly normal Affect: normal affect Thought process: Normal thought process present Medications Administered Discontinued Medications Generic Name Dose Route Start Last Admin Trade Name Pao PRN Reason Stop Dose Admin Docusate Sodium 100 mg 12/18/23 11:32 12/18/23 11:56 Docusate Sodium 100 Mg/10 Ml Liquid PO 12/18/23 11:33 100 mg ONCE ONE Administration Procedures Ear Wax Removal Left Ear: Cerumenolytic Used: Colace Results: Re-examined: cerumen removed completely TM Examination: TM(s) erythematous Ear Canal Exam: atraumatic Patient Tolerated Procedure: well and no complications Technique: ear canal irrigated and ear canal curetted Medical Decision Making Medical Decision Making [facility] Narrative: Patient is a 58-year-old male presenting to the emergency department with complaint of left ear pain and decreased hearing. On exam patient is awake, A+Ox3, VS WNL, afebrile, normal neurological exam without focal deficits, physical exam findings as above. Given reported symptoms and physical exam findings, initial differential includes cerumen impaction, otitis media, otitis externa. Cerumen removed from left ear as per procedure note without difficulty with success. Patient reports full resolution of pain and hearing loss. TM erythematous so patient advised to complete course of antibiotics previously prescribed. Return precautions discussed at bedside. Instructed patient to follow up with primary care provider. Patient verbalized understanding of and agreement with plan. Differential Diagnosis Differential Diagnoses: The differential diagnosis associated with the presentation includes As per MDM. External Record Review External record reviewed: Inpatient record, Office record and Outpatient record Discharge Plan Discharge Clinical Impression: Cerumen impaction Qualifiers: Laterality: left Qualified Code(s): H61.22 - Impacted cerumen, left ear Patient Disposition: Home, Self-Care Additional Instructions: You were evaluated in the emergency department today for left ear pain and decreased hearing. Your symptoms improved after a large amount of cerumen (wax) was removed from your ear. Please finish the remainder of your antibiotics as prescribed. In the future DO NOT USE Q-TIP in your ears as this can push the wax further in. Please follow up with your primary care provider. Return to the emergency department if you develop increased pain, fever, changes in hearing or any other symptoms. Prescriptions: No Action thiamine HCl (vitamin B1) 100 mg tablet 1 tab PO DAILY folic acid 1 mg tablet 1 tab PO DAILY cefuroxime axetil 500 mg tablet 500 mg PO BID Qty: 26 0RF lactulose [Generlac] 10 gram/15 mL solution 45 ml PO TID azithromycin 250 mg tablet See Rx Instructions PO .COMPLEX Qty: 6 0RF Rx Instructions: For 250 mg dose pack: take 500 mg today (day 1), then 250 mg for 4 days (days 2-5) ibuprofen 600 mg tablet 600 mg PO Q6H PRN (Reason: pain) Qty: 30 0RF acetaminophen [Tylenol Extra Strength] 500 mg tablet 500 mg PO Q6H PRN (Reason: pain) Qty: 30 0RF Debrox 6.5 % drops 10 drp otic (ear) right DAILY 4 Days Qty: 15 0RF Print Language: Malay
[2023-12-18] MEDS: Docusate Sodium 100 MG/10 ML LIQUID PO (11:56)
--- NOTE | 2023-12-18 11:56 | PC.NURSE ---
medication administered by provider into ear
[2023-12-18 12:59] VITALS: BP 121/78; PULSE 62; RESP 16; TEMP 36.6; O2SAT 97
== END 2023-12-18 13:00 | disposition home or self-care (01) ==
PROVIDERS: Emergency Provider Emergency Medicine
DX: H61.22 Impacted cerumen, left ear (principal); H92.02 Otalgia, left ear; Z79.899 Other long term (current) drug therapy
CPT/HCPCS: 69209; 99282; 99283; 99284

== ENCOUNTER 2024-04-09 11:12 | Emergency (ER) | payer OTHER, SELFPAY ==
[2024-04-09 11:16] VITALS: BP 115/68; PULSE 55; RESP 16; TEMP 36.4; O2SAT 95; BMI 29.2
--- NOTE | 2024-04-09 11:16 | ED.ABDPAIN ---
HPI - Abdominal Pain General Chief Complaint: Abdominal Pain Stated Complaint: abd pain Time Seen by Provider: 04/09/24 12:28 Source: patient Mode of arrival: ambulatory Limitations: no limitations History of Present Illness ED Provider: Rosette Navas PA-C HPI narrative: Patient is a 58 year old assigned male at with a history of hepatitis C and biliary colic presenting to the emergency department today with epigastric pain. Patient states that he has been epigastric pain over the last 4 days. Patient states that the pain gets better overnight but then in the morning, it hurts again. Patient denies any dizziness, lightheadedness, nausea, vomiting, fever, chills, blurry vision, double vision, loss of vision, chest pain, difficulty breathing, shortness of breath, back pain, night sweats, pain with urination, increased urinary frequency, increased urinary urgency, blood in his urine or stool, syncope or a near syncopal episode, recent trauma or falls, bowel incontinence, bladder incontinence, or any other complaints at this time. Onset (ago): day(s) (4) Pain Consistency: intermittent and now resolved Location: epigastric Severity: mild Exacerbating factors: nothing Relieving factors: nothing Related Data Home Medications ?Medication ?Instructions ?Recorded ?Confirmed lactulose 10 gram/15 mL oral 45 ml PO TID 12/10/21 04/17/22 solution (Generlac) folic acid 1 mg tablet 1 tab PO DAILY 04/17/22 04/17/22 thiamine HCl (vitamin B1) 100 mg 1 tab PO DAILY 04/17/22 04/17/22 tablet Previous Rx's ?Medication ?Instructions ?Recorded cefuroxime axetil 500 mg tablet 500 mg PO BID #26 tabs 04/20/22 acetaminophen 500 mg tablet 500 mg PO Q6H PRN pain #30 tabs 12/14/23 (Tylenol Extra Strength) azithromycin 250 mg tablet See Rx Instructions PO .COMPLEX #6 12/14/23 tabs carbamide peroxide 6.5 % ear drops 10 drp otic (ear) right DAILY 4 12/14/23 (Debrox) days #15 mL ibuprofen 600 mg tablet 600 mg PO Q6H PRN pain #30 tabs 12/14/23 omeprazole 40 mg capsule,delayed 40 mg PO DAILY #7 caps 04/09/24 release Allergies Allergy/AdvReac Type Severity Reaction Status Date / Time penicillin V Allergy Intermediate Itching Verified 04/09/24 11:21 Penicillins Allergy Mild ITCHING Verified 04/09/24 11:21 Review of Systems Constitutional: Reports no additional constitutional complaints, Denies chills, Denies fever(s) and Denies night sweats Eyes: Reports no additional eye complaints, Denies blurry vision, Denies change in vision, Denies diplopia, Denies eye discharge, Denies loss of vision and Denies eye pain Denies dizziness Cardiovascular: Reports no additional cardiovascular complaints, Denies chest pain, Denies lightheadedness, Denies Loss of Consciousness and Denies dyspnea Respiratory: Reports no additional respiratory complaints and Denies dyspnea Gastrointestinal: Reports no additional gastrointestinal complaints, Reports abdominal pain, Denies melena, Denies hematochezia, Denies change in bowel habits and Denies change in stool character Genitourinary: Reports no additional male genitourinary complaints, Denies hematuria, Denies oliguria, Denies difficulty urinating, Denies dysuria, Denies urinary frequency, Denies urinary hesitancy, Denies urinary incontinence and Denies urinary urgency Musculoskeletal: Reports no additional musculoskeletal complaints, Denies numbness and Denies tingling Denies dizziness, Denies loss of vision, Denies numbness and Denies tingling Psychiatric: Reports no additional psychiatric complaints Endocrine: Reports no additional endocrine complaints Hematologic/Lymphatic: Reports no additional hematologic/lymphatic complaints Allergic/Immunologic: Reports no additional allergic/immunologic complaints [facility] Past Medical History Attestation statement: The following information was validated with the patient. Source: old records reviewed and nursing notes reviewed Medical History Group B streptococcal infection Substance abuse Hernia Cirrhosis of liver Hepatitis C Surgical History S/P TIPS (transjugular intrahepatic portosystemic shunt) Social History Social History Household Members: None Housing: Apartment Do you presently have visiting nurse or other home services: No Alcohol intake: never Patient Tobacco Use Status: Current everyday Tobacco user Tobacco use type: Cigarette Cigarettes Per Day: 5 Years Smoked: 35 Substance Use Type: Heroin Advance Directives: No Advance Directives Information Provided: Yes service: No Current occupational status: unemployed Physical Exam ED Vital Signs: Vital Signs - 24 hr 04/09/24 11:16 04/09/24 14:20 Temperature 97.6 F 0 F L Pulse Rate 55 51 Respiratory Rate 16 20 Blood Pressure 115/68 126/81 Pulse Oximetry 95 97 Oxygen Delivery Method Room Air Room Air BMI result Body Mass Index 29.2 Const General: cooperative, no acute distress, alert and awake Nutritional Appearance: well nourished Orientation/consciousness: patient oriented x3 Limitations: no limitations HENMT Head: Yes normal to inspection and Yes atraumatic Ears: hearing grossly normal bilaterally and external ears normal General nose exam: Normal external nose present, no nasal discharge noted and no epistaxis Face and sinus: Yes normal facial exam, No abrasion and No laceration Mouth: Normal oral and palatal mucosa present, no drooling and no muffled voice Eyes General: appearance normal, both eyes and all related structures Periorbital: periorbital findings normal Eyelids: Yes eyelids normal Conjunctivae: conjunctivae normal Pupils: Equal, round and reactive pupils present EOM: EOMs intact bilaterally Neck Neck: Yes normal visual inspection, Yes full ROM and Yes no lymphadenopathy Chest Chest palpation & inspection: normal inspection of the chest Resp Effort & Inspection: normal respiratory effort and able to speak in complete sentences GI Inspection: Yes normal to inspection Palpation (GI): Soft to palpation, not firm, nontender, no guarding and not rigid Neuro General: patient oriented x3 and moves all extremities Cranial nerves: Yes Equal, round and reactive pupils present Cognition (Neuro): normal cognition Extrem General: Yes normal to inspection, Yes full ROM and Yes capillary refill normal Psych Appearance: grossly normal Mental Status: mental status grossly normal Affect: normal affect Attitude: cooperative Thought process: Normal thought process present Thought content: Normal thought content present Insight: Good insight present (Psych) Course Course Course Narrative: This is an RME performed by Fanny London CNP: Additional HPI, ROS, PE not included below will be deferred to primary provider. Patient is a 58-year-old male who presents emergency department for evaluation of 5 days with constant epigastric pain, poor p.o. intake, nausea. Plan: Labs, urinalysis Medical Decision Making Medical Decision Making MDM Narrative: Patient is a 58 year old assigned male at with a history of hepatitis C and biliary colic presenting to the emergency department today with epigastric pain. Patient's physical exam was unremarkable. Patient's blood work was consistent with the patient's baseline. Patient's urine showed a possible urinary tract infection however, the patient's presentation is not consistent with a UTI, will await culture results before treating. Patient's EKG was unremarkable. I explained my physical exam findings as well as all test results to the patient. I answered all questions asked by the patient. Patient was able to tolerate PO while in the department. I stressed the importance of the patient taking his medication as directed (either prescribed or as the over the counter packaging recommends). I stressed the importance of the patient following up with his primary care provider. I stressed the importance of the patient returning to the emergency department immediately if his symptoms were to worsen or if he were to develop any dizziness, shortness of breath, difficulty breathing, chest pain, blurry vision, loss of vision, nausea, vomiting, abdominal pain, fever, chills, back pain, or any other complaints. Patient verbalized agreement and understanding with this treatment plan and discharge. Differential Diagnosis Differential Diagnoses: The differential diagnosis associated with the presentation includes Epigastric pain NSTEMI STEMI GERD Admission/Observation Consideration of admission/observation: Escalation of care including admission/observation considered Patient would have been admitted to the hospital had his work up had any findings where hospital admission was appropriate and his clinical presentation warranted hospital admission. Lab Data [facility] Lab Attestation statement: I reviewed the patient's lab results. My interpretation of these results are in the [facility] Rationale portion of this note. 04/09/24 11:33 04/09/24 11:33 Labs: Lab Results 04/09/24 04/09/24 Range/Units 11:33 12:44 WBC 6.1 (4.8-10.8) X10*3/uL RBC 3.98 L (4.60-5.80) X10*6/uL Hgb 13.4 L (14.0-18.0) g/dl Hct 39.3 L (42.0-52.0) % MCV 98.7 H (80.0-98.0) fL MCH 33.7 H (27.0-33.0) pg MCHC 34.1 (31.0-36.0) g/dl RDW 14.7 (11.0-16.0) % Plt Count 92 L D (160-400) X10*3/uL MPV 10.3 (9.4-12.4) fL Immature Gran % (Auto) 0.2 (0.0-0.4) % Neut % (Auto) 29.6 L (45-73) % Lymph % (Auto) 51.7 H (20-40) % [place] % (Auto) 10.3 (2-11) % Eos % (Auto) 7.5 H (0-4) % Baso % (Auto) 0.7 (0-2) % Lymph # (Auto) 3.2 (1.2-4.9) X10*3/uL [place] # (Auto) 0.6 (0.1-1.2) X10*3/uL Eos # (Auto) 0.5 H (0.0-0.4) X10*3/uL Baso # (Auto) 0.0 (0.0-0.2) X10*3/uL Abs Immat Gran (auto) 0.01 (0.00-0.03) X10*3/uL Absolute Neuts (auto) 1.8 L (2.0-8.3) x10*3/uL Absolute Nucleated RBC 0.000 (0.0-0.012) X10*3/uL Nucleated RBC % (auto) 0.0 (0.0-0.2) /100WBC Sodium 138 (135-145) mmol/L Potassium 3.9 (3.3-5.1) mmol/L Chloride 107 (96-108) mmol/L Carbon Dioxide 27 (22-29) mmol/L Anion Gap 8 L (12-20) BUN 6 L (9-16) mg/dL Creatinine 0.79 (0.5-1.4) mg/dL Estim Creat Clear Calc 102.4 Estimated GFR > 60 Random Glucose 136 H (60-115) mg/dL Calcium 8.7 (8.4-10.2) mg/dL Total Bilirubin 1.4 H (0.0-1.0) mg/dL AST 51 H (5-37) U/L ALT 22 (0-40) U/L Alkaline Phosphatase 126 H (39-117) U/L Troponin I High Sens < 2.7 (<3.5-35.0) ng/L Total Protein 6.4 L (6.5-8.0) g/dL Albumin 2.9 L (3.5-5.0) g/dL Lipase 15 (8-78) U/L Urine Color Dark Yellow Urine Appearance Clear Urine pH 6.0 (5.0-9.0) Ur Specific [place] >= 1.030 H (1.005-1.025) Urine Protein 30 (1+) H (Neg-Trace) mg/dL Urine Glucose (UA) Negative (Negative) mg/dL Urine Ketones Trace (Negative) mg/dL Urine Blood Large (3+) H (Negative) Urine Nitrite Positive H (Negative) Ur Leukocyte Esterase Trace H (Negative) Urine RBC >20 H (0-2) /HPF Urine WBC 0-5 (0-5) /HPF Ur Squamous Epith Cells 0-2 (0-2) /HPF Urine Bacteria Trace (None Seen) Hyaline Casts 0-2 (0-2) /LPF Independent Interpretation I performed an independent interpretation of an: EKG Interpretation: Vent. Rate: 050 BPM Atrial Rate: 050 BPM P-R Int: 124 ms QRS Dur: 090 ms QT Int: 502 ms P-R-T Axes: 000 017 012 degrees QTc Int: 457 ms Sinus bradycardia Otherwise normal ECG DD/ 1255 Medications Administered Discontinued Medications Generic Name Dose Route Start Last Admin Trade Name Freq PRN Reason Stop Dose Admin Omeprazole 40 mg 04/09/24 12:33 04/09/24 14:17 Omeprazole 40 Mg Capsule.Dr PO 04/09/24 12:34 40 mg ONCE ONE Administration Discharge Plan Discharge Clinical Impression: Acute epigastric pain Patient Disposition: Home, Self-Care Instructions: Epigastric Pain (ED) Additional Instructions: Follow up with your primary care provider and a GI specialist. Return to the emergency department immediately if your symptoms worsen or if you develop any dizziness, shortness of breath, difficulty breathing, chest pain, blurry vision, loss of vision, nausea, vomiting, abdominal pain, fever, chills, back pain, or any other complaints. Prescriptions: New omeprazole 40 mg capsule,delayed release(DR/EC) 40 mg PO DAILY Qty: 7 0RF No Action thiamine HCl (vitamin B1) 100 mg tablet 1 tab PO DAILY folic acid 1 mg tablet 1 tab PO DAILY cefuroxime axetil 500 mg tablet 500 mg PO BID Qty: 26 0RF lactulose [Generlac] 10 gram/15 mL solution 45 ml PO TID azithromycin 250 mg tablet See Rx Instructions PO .COMPLEX Qty: 6 0RF Rx Instructions: For 250 mg dose pack: take 500 mg today (day 1), then 250 mg for 4 days (days 2-5) ibuprofen 600 mg tablet 600 mg PO Q6H PRN (Reason: pain) Qty: 30 0RF acetaminophen [Tylenol Extra Strength] 500 mg tablet 500 mg PO Q6H PRN (Reason: pain) Qty: 30 0RF Debrox 6.5 % drops 10 drp otic (ear) right DAILY 4 Days Qty: 15 0RF Referrals: [facility] [place] [facility] [Provider Group] (Call to establish and follow up with a GI specialist. ) Karely Leary FNP [Primary Care Provider] - Interventions: ED Discharge Assessment Last Done: 04/09/24 14:20 Discharge Date/Time: 04/09/24 14:21 Print Language: Guamanian
[2024-04-09 11:36] LABS: MANUAL DIFF FLAG NO
[2024-04-09 11:39] LABS: Basophils Percent Auto 0.7 % (0-2); Eosinophils Absolute Auto 0.5 X10*3/uL (0.0-0.4); Eosinophils Percent Auto 7.5 % (0-4); Hematocrit 39.3 % (42.0-52.0); Hemoglobin 13.4 g/dl (14.0-18.0); Imm Gran Abs Auto 0.01 X10*3/uL (0.00-0.03); Imm Gran Pct Auto 0.2 % (0.0-0.4); Lymphocytes Absolute Auto 3.2 X10*3/uL (1.2-4.9); Lymphocytes Percent Auto 51.7 % (20-40); Mean Corpuscular HGB Conc 34.1 g/dl (31.0-36.0); Mean Corpuscular Hemoglobin 33.7 pg (27.0-33.0); Mean Corpuscular Volume 98.7 fL (80.0-98.0); Mean Platelet Volume 10.3 fL (9.4-12.4); Monocytes Absolute Auto 0.6 X10*3/uL (0.1-1.2); Monocytes Percent Auto 10.3 % (2-11); Neutrophils Absolute Auto 1.8 x10*3/uL (2.0-8.3); Neutrophils Percent Auto 29.6 % (45-73); Red Blood Count 3.98 X10*6/uL (4.60-5.80); Red Cell Distribution Width 14.7 % (11.0-16.0); White Blood Count 6.1 X10*3/uL (4.8-10.8)
[2024-04-09 11:40] LABS: Platelet Count 92 X10*3/uL (160-400)
[2024-04-09 11:54] LABS: Alanine Aminotransferase 22 U/L (0-40); Albumin Level 2.9 g/dL (3.5-5.0); Alkaline Phosphatase 126 U/L (39-117); Anion Gap 8 (12-20); Aspartate Amino Transferase 51 U/L (5-37); Bilirubin Total 1.4 mg/dL (0.0-1.0); Blood Urea Nitrogen 6 mg/dL (9-16); Calcium 8.7 mg/dL (8.4-10.2); Carbon Dioxide 27 mmol/L (22-29); Chloride 107 mmol/L (96-108); Creatinine Clr Calc Pharmacy 102.4; Estimated Glomerular Filt Rate > 60; Glucose Random 136 mg/dL (60-115); Lipase 15 U/L (8-78); Potassium 3.9 mmol/L (3.3-5.1); Sodium 138 mmol/L (135-145); Total Protein 6.4 g/dL (6.5-8.0)
--- NOTE | 2024-04-09 12:33 | ECG_ITS ---
Test Reason : epigastric pain Blood Pressure : / mmHG Vent. Rate : 050 BPM Atrial Rate : 050 BPM P-R Int : 124 ms QRS Dur : 090 ms QT Int : 502 ms P-R-T Axes : 000 017 012 degrees QTc Int : 457 ms Sinus bradycardia Otherwise normal ECG When compared to the previous EKG of bradycardia present now Referred By: Rosette Navas Electronically Signed By:Mikey Guerra
[2024-04-09 12:57] LABS: Appearance Urine Clear; Color Urine Dark Yellow; Glucose Urine UA Negative (Negative); Leukocyte Esterase Urine Trace (Negative); Nitrite Urine Positive (Negative); Specific Gravity - Urine >= 1.030 (1.005-1.025); UMIC TRIGGER UACC YES; Urine Blood Large (3+) (Negative); Urine Ketones Trace mg/dL (Negative); Urine Protein 30 (1+) mg/dL (Neg-Trace)
[2024-04-09 13:03] LABS: Troponin-I High Sensitivity < 2.7 ng/L (<3.5-35.0)
[2024-04-09 13:05] LABS: Bacteria Urine Trace (None Seen); Hyaline Casts Urine 0-2 /LPF (0-2); RBC Urine >20 /HPF (0-2); Squamous Epithelial Cell Urine 0-2 /HPF (0-2); UACC Culture Trigger YES; WBC Urine 0-5 /HPF (0-5)
[2024-04-09] MEDS: Omeprazole 40 MG CAPSULE.DR PO (14:17)
[2024-04-09 14:20] VITALS: BP 126/81; PULSE 51; RESP 20; TEMP -17.7; TEMP 0; O2SAT 97
== END 2024-04-09 14:21 | disposition home or self-care (01) ==
PROVIDERS: Nurse Practitioner Family; Physician Assistant Medical; Emergency Provider Student in an Organized Health Care Education/Training Program; PCP Registered Nurse
DX: R10.13 Epigastric pain (principal); K74.60 Unspecified cirrhosis of liver; B19.20 Unspecified viral hepatitis C without hepatic coma; K72.90 Hepatic failure, unspecified without coma; F19.10 Other psychoactive substance abuse, uncomplicated; F17.210 Nicotine dependence, cigarettes, uncomplicated; Z79.899 Other long term (current) drug therapy
CPT/HCPCS: 36415; 80053; 81001; 83690; 84484; 85025; 87086; 93005; 99283

== ENCOUNTER → 2024-04-09 12:33 | Outpatient (BNV) | payer OTHER, SELFPAY | PROVIDERS: Emergency Provider Student in an Organized Health Care Education/Training Program; PCP Registered Nurse; Visit Provider Internal Medicine Cardiovascular Disease | DX: R00.1 Bradycardia, unspecified (principal) | CPT/HCPCS: 93010 ==

== ENCOUNTER 2024-05-25 10:07 | Emergency (ER) | payer OTHER, SELFPAY ==
--- NOTE | ~2024-05-25 | CT_ITS ---
EXAMINATION: CT ABDOMEN AND PELVIS WITH CONTRAST CLINICAL INFORMATION: Abdominal pain, nausea and vomiting COMPARISON: 04/17/2022. TECHNIQUE: Multidetector volumetric images were obtained from the superior aspect of the liver through the pubic symphysis following administration 85 mL of Omnipaque 350 intravenous contrast. Sagittal and coronal reformatted images were obtained on the technologist's workstation. Oral contrast: No This CT examination was performed using dose optimization techniques as appropriate, variously including the following: *Automated exposure control *Adjustment of mA and/or kV according to patient size (this includes techniques or standardized protocols for targeted exams where dose is matched to indication/reason for exam; i.e. 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 Indwelling portosystemic shunt, cholecystectomy clips. Embolization coils GE junction LUNG BASES: Bilateral atelectasis. LIVER, GALLBLADDER, AND BILIARY TREE: Liver is small in size with nodular contour. Indwelling portosystemic shunt is in place. Postcholecystectomy common bile duct measures 8 mm. Mild intrahepatic biliary ductal dilatation is seen. The gallbladder has been surgically removed. PANCREAS: Unremarkable. SPLEEN: Unremarkable. Splenule. ADRENAL GLANDS: Unremarkable. KIDNEYS AND URETERS: The kidneys are normal in size, shape, and attenuation. No hydronephrosis, hydroureter, or calculi seen. No perinephric stranding. BLADDER: Decompressed with diffuse wall thickening and fatty infiltration of the anterior bladder wall. GASTROINTESTINAL TRACT: Thick walled small hiatal hernia. Decompressed stomach. Mild duodenal wall thickening not excluded. Nonobstructive bowel pattern. Unremarkable appendix. Mild fecal retention. ABDOMINAL WALL: No significant hernia is appreciated. LYMPH NODES: Normal. VASCULAR: Atherosclerotic calcifications noted aneurysmal aorta. Unremarkable inferior vena cava and iliac veins. Main portal vein and splenic vein are patent. Indwelling portosystemic shunt appears patent with question thickening at the portal venous end of the shunt. Embolization coils are identified in the epigastrium. PELVIC VISCERA: Unremarkable. OSSEOUS AND SOFT STRUCTURES: Left gynecomastia. Mild lumbar dextroscoliosis. Trace lower lumbar retrolisthesis. All all wall CT/CT abdomen pelvis w IV con IMPRESSION: 1. No acute intra-abdominal or pelvic pathology. 2. Cirrhosis, variceal embolization with indwelling portosystemic shunt. 3. Question thickening at the portal venous end of the shunt, consider ultrasound interrogation.. 4. Question mild duodenal wall thickening. 5. Thick-walled small hiatal hernia. Fleischner guidelines were followed. Electronically signed by: Shayla Jerome MD 05/25/2024 02:57 PM EDT
--- NOTE | ~2024-05-25 | US_ITS ---
EXAMINATION: Ultrasound abdomen limited CLINICAL INFORMATION: Question of thickening at portal end of the TIPS COMPARISON: CT abdomen and pelvis May 25, 2024 TECHNIQUE: Real-time imaging of the liver and portal veins. Color and spectral Doppler evaluation of the hepatic vasculature. FINDINGS: Patent TIPS. Hepatopedal flow in the main portal vein which is patent. US/US duplex arterial venous comp IMPRESSION: Patent TIPS. Hepatopedal flow in the main portal vein which is patent. Electronically signed by: Khalif Wren MD 05/25/2024 04:23 PM EDT
[2024-05-25 10:13] VITALS: BP 113/68; PULSE 59; RESP 18; TEMP 36.4; O2SAT 95; BMI 27.6
[2024-05-25 10:37] LABS: MANUAL DIFF FLAG NO
[2024-05-25 10:41] LABS: Basophils Percent Auto 0.6 % (0-2); Eosinophils Absolute Auto 0.8 X10*3/uL (0.0-0.4); Eosinophils Percent Auto 11.7 % (0-4); Hematocrit 36.2 % (42.0-52.0); Hemoglobin 12.4 g/dl (14.0-18.0); Imm Gran Abs Auto 0.01 X10*3/uL (0.00-0.03); Imm Gran Pct Auto 0.2 % (0.0-0.4); Lymphocytes Absolute Auto 3.7 X10*3/uL (1.2-4.9); Lymphocytes Percent Auto 56.4 % (20-40); Mean Corpuscular HGB Conc 34.3 g/dl (31.0-36.0); Mean Corpuscular Hemoglobin 33.7 pg (27.0-33.0); Mean Corpuscular Volume 98.4 fL (80.0-98.0); Mean Platelet Volume 10.4 fL (9.4-12.4); Monocytes Absolute Auto 0.5 X10*3/uL (0.1-1.2); Monocytes Percent Auto 8.1 % (2-11); Neutrophils Absolute Auto 1.5 x10*3/uL (2.0-8.3); Red Blood Count 3.68 X10*6/uL (4.60-5.80); Red Cell Distribution Width 14.6 % (11.0-16.0); White Blood Count 6.5 X10*3/uL (4.8-10.8)
[2024-05-25 10:44] LABS: Platelet Count 85 X10*3/uL (160-400)
[2024-05-25 10:59] LABS: Alanine Aminotransferase 20 U/L (0-40); Albumin Level 2.6 g/dL (3.5-5.0); Alkaline Phosphatase 126 U/L (39-117); Anion Gap 9 (12-20); Aspartate Amino Transferase 46 U/L (5-37); Bilirubin Total 1.6 mg/dL (0.0-1.0); Blood Urea Nitrogen 7 mg/dL (9-16); Calcium 9.5 mg/dL (8.4-10.2); Carbon Dioxide 30 mmol/L (22-29); Chloride 104 mmol/L (96-108); Creatinine Clr Calc Pharmacy 108.3; Estimated Glomerular Filt Rate > 60; Glucose Random 105 mg/dL (60-115); Potassium 3.9 mmol/L (3.3-5.1); Sodium 139 mmol/L (135-145); Total Protein 5.9 g/dL (6.5-8.0)
[2024-05-25 11:31] VITALS: BP 117/72; PULSE 57; RESP 16; TEMP 36.8; O2SAT 93
--- NOTE | 2024-05-25 12:06 | ED.GENADULT ---
HPI - General Adult General Chief complaint: Abdominal Pain Stated complaint: Abd pain/burning, vomiting Time Seen by Provider: 05/25/24 12:03 History of Present Illness ED Provider: Ross [facility] narrative: 59 y/o M patient; PMH hepatitis C complicated by cirrhosis s/p TIPS, hx IVDU; presents from home reporting three weeks of upper abdominal pain, nausea/vomiting, decreased PO intake and estimated 6lb weight loss. The patient reports chronic diarrhea 2/2 to lactulose use but denies melena/hematochezia. He denies: fever or chills, SOB, cough/congestion. No known sick contacts. Uncertain when his last endoscopy was. He denies NSAID or alcohol use. Related Data Home Medications ?Medication ?Instructions ?Recorded ?Confirmed lactulose 10 gram/15 mL oral 45 ml PO TID 12/10/21 04/17/22 solution (Generlac) folic acid 1 mg tablet 1 tab PO DAILY 04/17/22 04/17/22 thiamine HCl (vitamin B1) 100 mg 1 tab PO DAILY 04/17/22 04/17/22 tablet Previous Rx's ?Medication ?Instructions ?Recorded cefuroxime axetil 500 mg tablet 500 mg PO BID #26 tabs 04/20/22 acetaminophen 500 mg tablet 500 mg PO Q6H PRN pain #30 tabs 12/14/23 (Tylenol Extra Strength) azithromycin 250 mg tablet See Rx Instructions PO .COMPLEX #6 12/14/23 tabs carbamide peroxide 6.5 % ear drops 10 drp otic (ear) right DAILY 4 12/14/23 (Debrox) days #15 mL ibuprofen 600 mg tablet 600 mg PO Q6H PRN pain #30 tabs 12/14/23 omeprazole 40 mg capsule,delayed 40 mg PO DAILY #7 caps 04/09/24 release famotidine 40 mg tablet 40 mg PO DAILY #30 tabs 05/25/24 Allergies Allergy/AdvReac Type Severity Reaction Status Date / Time penicillin V Allergy Intermediate Itching Verified 05/25/24 10:14 Penicillins Allergy Mild ITCHING Verified 05/25/24 10:14 Review of Systems Review of Systems: Yes all other systems are reviewed and are negative Neurologic: Denies Sensory deficit (Neuro) PMFSH Past Medical History Attestation statement: The following information was validated with the patient. Source: old records reviewed Medical History Group B streptococcal infection Substance abuse Hernia Cirrhosis of liver Hepatitis C Surgical History S/P TIPS (transjugular intrahepatic portosystemic shunt) Social History Social History Household Members: None Housing: Apartment Do you presently have visiting nurse or other home services: No Alcohol intake: never Patient Tobacco Use Status: Current everyday Tobacco user Tobacco use type: Cigarette Cigarettes Per Day: 5 Years Smoked: 35 Substance Use Type: Heroin Advance Directives: No Advance Directives Information Provided: Yes service: No Current occupational status: unemployed Physical Exam ED Vital Signs: Vital Signs - 24 hr 05/25/24 10:13 05/25/24 11:31 05/25/24 13:29 Temperature 97.6 F 98.3 F 97.9 F Pulse Rate 59 57 54 Respiratory Rate 18 16 14 Blood Pressure 113/68 117/72 129/76 Pulse Oximetry 95 93 96 Oxygen Delivery Method Room Air Room Air Room Air 05/25/24 15:51 Temperature 97.7 F Pulse Rate 52 Respiratory Rate 14 Blood Pressure 122/70 Pulse Oximetry 94 Oxygen Delivery Method Room Air BMI result Body Mass Index 27.6 Patient is afebrile and hemodynamically stable Const General: cooperative Orientation/consciousness: patient oriented x3 HENMT Head: Yes normal to inspection and Yes atraumatic Eyes General: appearance normal, both eyes and all related structures Pupils: Equal, round and reactive pupils present Neck Neck: Yes normal visual inspection and Yes supple Chest Chest palpation & inspection: normal inspection of the chest and normal palpation of entire chest wall Resp Effort & Inspection: normal respiratory effort, able to speak in complete sentences and no respiratory distress Auscultation: clear to auscultation bilaterally Cardio Rate: regular rate Rhythm: regular rhythm Peripheral pulses: Peripheral pulses 2+ throughout GI Other: Epigastric abdominal tenderness Inspection: Yes normal to inspection Palpation (GI): Soft to palpation, not firm, Tenderness to palpation present (GI), no guarding and not rigid Auscultation: normal bowel sounds Neuro General: patient oriented x3 Cranial nerves: Yes Equal, round and reactive pupils present Motor exam (neuro): 5/5 motor strength present throughout Sensory Exam: No Sensory deficit (Neuro) Course Course Course Narrative: Patient is afebrile and hemodynamically stable. Reviewed triage labs. No leukocytosis. Baseline thrombocytopenia. Mild baseline anemia. Mildly elevated total bili, AST, alk phos - baseline. Mildly low albumin - baseline. Lipase unremarkable. Will obtain CT Abdomen/Pelvis. Providing Versed 4mg IV for claustrophobia. CT notable for question thickening at the portal venous end of the shunt, recommended US interrogation. Question mild duodenal wall thickening. Added US with doppler. US unremarkable. Patient would benefit from GI follow up with plan for possible endoscopy. In the meantime will treat with famotidine for possible gastritis/duodenitis versus PUD. Plan: Discharge to home with PCP and GI follow up Return precautions given Medications Administered Discontinued Medications Generic Name Dose Route Start Last Admin Trade Name Freq PRN Reason Stop Dose Admin Iohexol 100 ml 05/25/24 13:45 05/25/24 13:46 Iohexol 350 Mg/Ml 100 Ml Infus..Btl IV 05/25/24 13:46 85 ml ONCE ONE Administration Midazolam HCl 4 mg 05/25/24 13:15 05/25/24 13:27 Midazolam Hcl/Pf 2 Mg/2 Ml Vial IVPUSH 05/25/24 13:16 4 mg ONCE ONE Administration Medical Decision Making Lab Data 05/25/24 10:34 05/25/24 10:34 Labs: Lab Results 05/25/24 05/25/24 Range/Units 10:34 14:27 WBC 6.5 (4.8-10.8) X10*3/uL RBC 3.68 L (4.60-5.80) X10*6/uL Hgb 12.4 L (14.0-18.0) g/dl Hct 36.2 L (42.0-52.0) % MCV 98.4 H (80.0-98.0) fL MCH 33.7 H (27.0-33.0) pg MCHC 34.3 (31.0-36.0) g/dl RDW 14.6 (11.0-16.0) % Plt Count 85 L (160-400) X10*3/uL MPV 10.4 (9.4-12.4) fL Immature Gran % (Auto) 0.2 (0.0-0.4) % Neut % (Auto) 23.0 L (45-73) % Lymph % (Auto) 56.4 H (20-40) % [place] % (Auto) 8.1 (2-11) % Eos % (Auto) 11.7 H (0-4) % Baso % (Auto) 0.6 (0-2) % Lymph # (Auto) 3.7 (1.2-4.9) X10*3/uL [place] # (Auto) 0.5 (0.1-1.2) X10*3/uL Eos # (Auto) 0.8 H (0.0-0.4) X10*3/uL Baso # (Auto) 0.0 (0.0-0.2) X10*3/uL Abs Immat Gran (auto) 0.01 (0.00-0.03) X10*3/uL Absolute Neuts (auto) 1.5 L (2.0-8.3) x10*3/uL Absolute Nucleated RBC 0.000 (0.0-0.012) X10*3/uL Nucleated RBC % (auto) 0.0 (0.0-0.2) /100WBC Sodium 139 (135-145) mmol/L Potassium 3.9 (3.3-5.1) mmol/L Chloride 104 (96-108) mmol/L Carbon Dioxide 30 H (22-29) mmol/L Anion Gap 9 L (12-20) BUN 7 L (9-16) mg/dL Creatinine 0.72 (0.5-1.4) mg/dL Estim Creat Clear Calc 108.3 Estimated GFR > 60 Random Glucose 105 (60-115) mg/dL Calcium 9.5 D (8.4-10.2) mg/dL Total Bilirubin 1.6 H (0.0-1.0) mg/dL AST 46 H (5-37) U/L ALT 20 (0-40) U/L Alkaline Phosphatase 126 H (39-117) U/L Total Protein 5.9 L (6.5-8.0) g/dL Albumin 2.6 L (3.5-5.0) g/dL Lipase 12 (8-78) U/L COVID-19 (ELIA) Negative (Negative) COVID-19 Clin Com See Note Discharge Plan Discharge Clinical Impression: Abdominal pain Qualifiers: Abdominal location: generalized Qualified Code(s): R10.84 - Generalized abdominal pain Patient Disposition: Home, Self-Care Instructions: Abdominal Pain (ED) Additional Instructions: As we discussed, you were seen today for abdominal pain and weight loss. Your CT scan showed some inflammation around your stomach. Your US was reassuring. I sent a prescription for Famotidine to your pharmacy - take this once a day until you see the GI doctor. Please call the GI doctor - either your own or the one in this paperwork - for a follow up visit in the next 2 - 3 days. Return to the emergency department for: Worsening stomach pain Vomiting Fever Prescriptions: New famotidine 40 mg tablet 40 mg PO DAILY Qty: 30 0RF No Action thiamine HCl (vitamin B1) 100 mg tablet 1 tab PO DAILY folic acid 1 mg tablet 1 tab PO DAILY cefuroxime axetil 500 mg tablet 500 mg PO BID Qty: 26 0RF lactulose [Generlac] 10 gram/15 mL solution 45 ml PO TID azithromycin 250 mg tablet See Rx Instructions PO .COMPLEX Qty: 6 0RF Rx Instructions: For 250 mg dose pack: take 500 mg today (day 1), then 250 mg for 4 days (days 2-5) ibuprofen 600 mg tablet 600 mg PO Q6H PRN (Reason: pain) Qty: 30 0RF acetaminophen [Tylenol Extra Strength] 500 mg tablet 500 mg PO Q6H PRN (Reason: pain) Qty: 30 0RF Debrox 6.5 % drops 10 drp otic (ear) right DAILY 4 Days Qty: 15 0RF omeprazole 40 mg capsule,delayed release(DR/EC) 40 mg PO DAILY Qty: 7 0RF Referrals: Keshawn Pelaez MD [Physician] - 2 days Print Language: English
[2024-05-25 12:34] LABS: Lipase 12 U/L (8-78)
[2024-05-25] MEDS: Midazolam HCl/PF 2 MG/2 ML VIAL 4 MG IVPUSH (13:27)
[2024-05-25 13:29] VITALS: BP 129/76; PULSE 54; RESP 14; TEMP 36.6; O2SAT 96
[2024-05-25] MEDS: iohexoL 350 MG/ML 100 ML INFUS..BTL IV (13:46)
[2024-05-25 14:52] LABS: COVID-19 Test Negative (Negative); IDNOW Serial# 152EDE1D
[2024-05-25 15:51] VITALS: BP 122/70; PULSE 52; RESP 14; TEMP 36.5; O2SAT 94
[2024-05-25 16:44] VITALS: BP 120/70; PULSE 50; RESP 16; TEMP 36.4; O2SAT 92
== END 2024-05-25 16:50 | disposition home or self-care (01) ==
PROVIDERS: Emergency Provider Emergency Medicine
DX: R10.84 Generalized abdominal pain (principal); R30.0 Dysuria; R11.2 Nausea with vomiting, unspecified; R10.2 Pelvic and perineal pain; R19.7 Diarrhea, unspecified; Z11.52 Encounter for screening for COVID-19; F17.210 Nicotine dependence, cigarettes, uncomplicated; Z79.899 Other long term (current) drug therapy
CPT/HCPCS: 36415; 74177; 80053; 83690; 85025; 87635; 93975; 96374; 99284; J2250; Q9967

== ENCOUNTER 2024-06-11 09:39 | Emergency (ER) | payer OTHER, SELFPAY ==
[2024-06-11 09:53] VITALS: BP 110/72; PULSE 55; RESP 16; TEMP 36.6; O2SAT 94; BMI 27.4
--- NOTE | 2024-06-11 10:02 | ED_ITS ---
HPI - Abdominal Pain General Chief Complaint: Abdominal Pain Stated Complaint: abd pain Time Seen by Provider: 06/11/24 10:01 Source: patient Mode of arrival: ambulatory Limitations: no limitations History of Present Illness HPI narrative: 59-year-old male presents emergency room with 2 months of abdominal pain past medical history includes hepatitis-C with cirrhosis status post tips procedure intravenous drug use who states his PCP is on vacation for last 2 months he was seen here 2 weeks ago at that time the patient underwent ultrasound and CT scan which were all unremarkable patient has signs of peptic ulcer disease and was advised to follow up with GI patient returns again for similar symptoms. Patient states he was never told what he had I did explain that they did explain that he had peptic ulcer disease or gastritis and he is to follow up and get GI follow up. Patient was under the understanding that if he came in today he would get that done emergently. I did explain to him that is something that is an outpatient test to take some time to get done. MD elicited complaint: abdominal pain Related Data Home Medications ?Medication ?Instructions ?Recorded ?Confirmed lactulose 10 gram/15 mL oral 45 ml PO TID 12/10/21 04/17/22 solution (Generlac) folic acid 1 mg tablet 1 tab PO DAILY 04/17/22 04/17/22 thiamine HCl (vitamin B1) 100 mg 1 tab PO DAILY 04/17/22 04/17/22 tablet Previous Rx's ?Medication ?Instructions ?Recorded cefuroxime axetil 500 mg tablet 500 mg PO BID #26 tabs 04/20/22 acetaminophen 500 mg tablet 500 mg PO Q6H PRN pain #30 tabs 12/14/23 (Tylenol Extra Strength) azithromycin 250 mg tablet See Rx Instructions PO .COMPLEX #6 12/14/23 tabs carbamide peroxide 6.5 % ear drops 10 drp otic (ear) right DAILY 4 12/14/23 (Debrox) days #15 mL ibuprofen 600 mg tablet 600 mg PO Q6H PRN pain #30 tabs 12/14/23 omeprazole 40 mg capsule,delayed 40 mg PO DAILY #7 caps 04/09/24 release famotidine 40 mg tablet 40 mg PO DAILY #30 tabs 05/25/24 aluminum-mag hydroxide-simethicone 10 ml PO Q6H PRN indigestion 06/11/24 200 mg-200 mg-20 mg/5 mL oral susp #3,000 mL (Maalox Advanced) sucralfate 100 mg/mL oral 5 ml PO QID #300 mL 06/11/24 suspension Allergies Allergy/AdvReac Type Severity Reaction Status Date / Time penicillin V Allergy Intermediate Itching Verified 06/11/24 09:55 Penicillins Allergy Mild ITCHING Verified 06/11/24 09:55 Review of Systems Review of Systems Review of systems: General: Patient denies any fever chills recent illness or falls Musculoskeletal: Denies back pain or body aches or other injuries HEENT: denies headache, runny nose, ear pain Respiratory: denies shortness of breath, cough Cardiovascular: no chest pain or palpitations : denies dysuria, frequency Abdomen: no nausea vomiting denies abdominal pain Extremities: no swelling, no pain Skin: no diaphoresis Yes all other systems are reviewed and are negative PMFSH Past Medical History Medical History Group B streptococcal infection Substance abuse Hernia Cirrhosis of liver Hepatitis C Surgical History S/P TIPS (transjugular intrahepatic portosystemic shunt) Social History Social History Household Members: None Housing: Apartment Do you presently have visiting nurse or other home services: No Alcohol intake: never Patient Tobacco Use Status: Current everyday Tobacco user Tobacco use type: Cigarette Cigarettes Per Day: 5 Years Smoked: 35 Smoked in Last 30 Days: No Use of substances other than those prescribed or required for medical reasons: No Substance Use Type: Heroin Advance Directives: No Advance Directives Information Provided: Yes Do you have a plan to hurt others: No Plan service: No Current occupational status: unemployed Physical Exam ED Vital Signs: Vital Signs - 24 hr 06/11/24 09:53 06/11/24 10:23 06/11/24 12:10 Temperature 98 F 98.0 F 97.8 F Pulse Rate 55 58 51 Respiratory Rate 16 16 18 Blood Pressure 110/72 117/69 113/62 Pulse Oximetry 94 94 92 Oxygen Delivery Method Room Air Room Air Room Air BMI result Body Mass Index 27.4 General: Well-appearing well-nourished in no signs of distress HEENT: Normocephalic atraumatic Neck: No signs of JVD, no masses no tenderness or lymphadenopathy Cardiovascular: Regular rate and rhythm Respiratory: Clear to auscultation bilaterally Abdomen: Soft nontender no masses Extremities: Normal pedal pulses no signs of edema Skin: Dry warm no rashes Back: No tenderness full ROM Course Course Course Narrative: Patient's pain is well controlled explained multiple times this is likely GI related that he will need to follow up with a advertising sales executive as an outpatient he was prescribed Prilosec last time I will send the patient home with Maalox Pepcid and sucralfate that he can use as needed I will discharge the patient home. Medical Decision Making Medical Decision Making [facility] Narrative: I will treat the patient with sucralfate Pepcid Maalox and Zofran Differential Diagnosis Differential Diagnoses: The differential diagnosis associated with the presentation includes SBP is on the differential but very unlikely with nontender abdomen taking lactulose and no obvious signs ascites patient's belly exam is completely benign I do not think a surgical abdomen though always on the differential I am comfortable with the fact that he had as the same symptoms that he had 2 weeks ago and had unremarkable workup at that time dehydration electrolyte abnormality but this most like gastritis and peptic ulcer disease as well as his diagnosis on his previous visit Lab Data MDM Lab Attestation statement: I reviewed the patient's lab results. 06/11/24 11:13 06/11/24 11:13 Labs: Lab Results 06/11/24 Range/Units 11:13 WBC 4.9 (4.8-10.8) X10*3/uL RBC 3.57 L (4.60-5.80) X10*6/uL Hgb 12.0 L (14.0-18.0) g/dl Hct 35.6 L (42.0-52.0) % MCV 99.7 H (80.0-98.0) fL MCH 33.6 H (27.0-33.0) pg MCHC 33.7 (31.0-36.0) g/dl RDW 15.4 (11.0-16.0) % Plt Count 78 L (160-400) X10*3/uL MPV 10.7 (9.4-12.4) fL Immature Gran % (Auto) 0.2 (0.0-0.4) % Neut % (Auto) 25.5 L (45-73) % Lymph % (Auto) 52.1 H (20-40) % [place] % (Auto) 11.9 H (2-11) % Eos % (Auto) 9.5 H (0-4) % Baso % (Auto) 0.8 (0-2) % Lymph # (Auto) 2.5 (1.2-4.9) X10*3/uL [place] # (Auto) 0.6 (0.1-1.2) X10*3/uL Eos # (Auto) 0.5 H (0.0-0.4) X10*3/uL Baso # (Auto) 0.0 (0.0-0.2) X10*3/uL Abs Immat Gran (auto) 0.01 (0.00-0.03) X10*3/uL Absolute Neuts (auto) 1.2 L (2.0-8.3) x10*3/uL Absolute Nucleated RBC 0.000 (0.0-0.012) X10*3/uL Nucleated RBC % (auto) 0.0 (0.0-0.2) /100WBC Sodium 139 (135-145) mmol/L Potassium 4.4 (3.3-5.1) mmol/L Chloride 107 (96-108) mmol/L Carbon Dioxide 29 (22-29) mmol/L Anion Gap 7 L (12-20) BUN 8 L (9-16) mg/dL Creatinine 0.62 (0.5-1.4) mg/dL Estim Creat Clear Calc 125.2 Estimated GFR > 60 Random Glucose 91 (60-115) mg/dL Calcium 9.1 (8.4-10.2) mg/dL Direct Bilirubin 0.7 H (0.0-0.5) mg/dL AST 49 H (5-37) U/L ALT 20 (0-40) U/L Alkaline Phosphatase 107 (39-117) U/L Total Protein 5.7 L (6.5-8.0) g/dL Albumin 2.6 L (3.5-5.0) g/dL Lipase 13 (8-78) U/L Radiology Impression Discussion of test interpretation with radiology: I have reviewed the radiologist's reading. External Record Review External record reviewed: Inpatient record, Office record, Outpatient record and Prior outpatient labs Social Determinants Patient?s care significantly limited by Social Determinants of Health including: Alcoholism and drug addiction in family Core Measures AMI core measures followed: No Medications Administered Discontinued Medications Generic Name Dose Route Start Last Admin Trade Name Freq PRN Reason Stop Dose Admin Al Hydroxide/Mg Hydroxide 30 ml 06/11/24 10:03 06/11/24 10:10 Magnesium Hydrox/Alum Hydrox 30 Ml Oral.Susp PO 06/11/24 10:04 30 ml ONCE ONE Administration Famotidine 20 mg 06/11/24 10:03 06/11/24 10:10 Famotidine 20 Mg Tablet PO 06/11/24 10:04 20 mg ONCE ONE Administration Ondansetron HCl 4 mg 06/11/24 10:08 06/11/24 10:13 Ondansetron Odt 4 Mg Tab.Rapdis TRANSLINGU 06/11/24 10:09 4 mg ONCE ONE Administration Sucralfate 1 gm 06/11/24 10:03 06/11/24 10:10 Sucralfate Oral Suspension 1 Gm/10 Ml Oral.Susp PO 06/11/24 10:04 1 gm ONCE ONE Administration Discharge Plan Discharge Clinical Impression: Abdominal pain Qualifiers: Abdominal location: generalized Qualified Code(s): R10.84 - Generalized abdominal pain Patient Disposition: Home, Self-Care Instructions: Gastroesophageal Reflux Disease (DC), Abdominal Pain (ED) Additional Instructions: You were seen today in the emergency department for abdominal pain. You were given medications and had labs checked which improved her pain and were otherwise unremarkable labs. Please call follow up with her doctor if you have any other concerns please return to the ER Prescriptions: New sucralfate 100 mg/mL suspension 5 ml PO QID Qty: 300 0RF Rx Instructions: swish in mouth and swallow; use after food/drink alum-mag hydroxide-simeth [Maalox Advanced] 200-200-20 mg/5 mL suspension 10 ml PO Q6H PRN (Reason: indigestion) Qty: 3000 0RF No Action thiamine HCl (vitamin B1) 100 mg tablet 1 tab PO DAILY folic acid 1 mg tablet 1 tab PO DAILY cefuroxime axetil 500 mg tablet 500 mg PO BID Qty: 26 0RF lactulose [Generlac] 10 gram/15 mL solution 45 ml PO TID azithromycin 250 mg tablet See Rx Instructions PO .COMPLEX Qty: 6 0RF Rx Instructions: For 250 mg dose pack: take 500 mg today (day 1), then 250 mg for 4 days (days 2-5) ibuprofen 600 mg tablet 600 mg PO Q6H PRN (Reason: pain) Qty: 30 0RF acetaminophen [Tylenol Extra Strength] 500 mg tablet 500 mg PO Q6H PRN (Reason: pain) Qty: 30 0RF Debrox 6.5 % drops 10 drp otic (ear) right DAILY 4 Days Qty: 15 0RF famotidine 40 mg tablet 40 mg PO DAILY Qty: 30 0RF omeprazole 40 mg capsule,delayed release(DR/EC) 40 mg PO DAILY Qty: 7 0RF Print Language: Syrian
[2024-06-11] MEDS: Famotidine 20 MG TABLET PO (10:10)
[2024-06-11] MEDS: Magnesium Hydrox/Alum Hydrox 30 ML ORAL.SUSP PO (10:10)
[2024-06-11] MEDS: Sucralfate Oral Suspension 1 GM/10 ML ORAL.SUSP PO (10:10)
[2024-06-11] MEDS: Ondansetron ODT 4 MG TAB.RAPDIS TRANSLINGU (10:13)
--- NOTE | 2024-06-11 10:14 | PC.NURSE ---
medication administered per provider order. effectiveness pending.
[2024-06-11 10:23] VITALS: BP 117/69; PULSE 58; RESP 16; TEMP 36.7; O2SAT 94
--- NOTE | 2024-06-11 11:17 | PC.NURSE ---
labs obtained/sent to lab.
[2024-06-11 11:18] LABS: MANUAL DIFF FLAG NO
[2024-06-11 11:37] LABS: Basophils Percent Auto 0.8 % (0-2); Eosinophils Absolute Auto 0.5 X10*3/uL (0.0-0.4); Eosinophils Percent Auto 9.5 % (0-4); Hematocrit 35.6 % (42.0-52.0); Imm Gran Abs Auto 0.01 X10*3/uL (0.00-0.03); Imm Gran Pct Auto 0.2 % (0.0-0.4); Lymphocytes Absolute Auto 2.5 X10*3/uL (1.2-4.9); Lymphocytes Percent Auto 52.1 % (20-40); Mean Corpuscular HGB Conc 33.7 g/dl (31.0-36.0); Mean Corpuscular Hemoglobin 33.6 pg (27.0-33.0); Mean Corpuscular Volume 99.7 fL (80.0-98.0); Mean Platelet Volume 10.7 fL (9.4-12.4); Monocytes Absolute Auto 0.6 X10*3/uL (0.1-1.2); Monocytes Percent Auto 11.9 % (2-11); Neutrophils Absolute Auto 1.2 x10*3/uL (2.0-8.3); Neutrophils Percent Auto 25.5 % (45-73); Platelet Count 78 X10*3/uL (160-400); Red Blood Count 3.57 X10*6/uL (4.60-5.80); Red Cell Distribution Width 15.4 % (11.0-16.0); White Blood Count 4.9 X10*3/uL (4.8-10.8)
[2024-06-11 11:49] LABS: Alanine Aminotransferase 20 U/L (0-40); Albumin Level 2.6 g/dL (3.5-5.0); Alkaline Phosphatase 107 U/L (39-117); Anion Gap 7 (12-20); Aspartate Amino Transferase 49 U/L (5-37); Bilirubin Direct 0.7 mg/dL (0.0-0.5); Blood Urea Nitrogen 8 mg/dL (9-16); Calcium 9.1 mg/dL (8.4-10.2); Carbon Dioxide 29 mmol/L (22-29); Chloride 107 mmol/L (96-108); Creatinine Clr Calc Pharmacy 125.2; Estimated Glomerular Filt Rate > 60; Glucose Random 91 mg/dL (60-115); Lipase 13 U/L (8-78); Potassium 4.4 mmol/L (3.3-5.1); Sodium 139 mmol/L (135-145); Total Protein 5.7 g/dL (6.5-8.0)
[2024-06-11 12:10] VITALS: BP 113/62; PULSE 51; RESP 18; TEMP 36.6; O2SAT 92
[2024-06-11 12:55] VITALS: BP 113/62; PULSE 51; RESP 18; TEMP 36.6; O2SAT 92
== END 2024-06-11 12:56 | disposition home or self-care (01) ==
PROVIDERS: Emergency Provider Student in an Organized Health Care Education/Training Program; PCP Registered Nurse
DX: R10.84 Generalized abdominal pain (principal); B19.20 Unspecified viral hepatitis C without hepatic coma; K74.60 Unspecified cirrhosis of liver; F19.10 Other psychoactive substance abuse, uncomplicated; F17.210 Nicotine dependence, cigarettes, uncomplicated
CPT/HCPCS: 36415; 80048; 80076; 83690; 85025; 99283; 99284

== ENCOUNTER 2024-06-18 09:56 | Emergency (ER) | payer OTHER, SELFPAY ==
--- NOTE | ~2024-06-18 | FL_ITS ---
EXAMINATION: XR FLUOROSCOPY UPPER GI WITH AIR CLINICAL INFORMATION: Epigastric pain COMPARISON: None TECHNIQUE: Fluoroscopic air contrast upper GI examination was performed utilizing standard techniques with thin and thick barium and effervescent granules. Numerous spot images were obtained. FINDINGS: Dual and single contrast images of the esophagus demonstrate normal caliber, contour, and mucosal pattern. No evidence of stricture, mass, or ulcerations identified. Esophageal peristalsis is mildly disorganized. A small type I hiatal hernia is present. Significant gastroesophageal reflux is seen up to the thoracic inlet. Vascular coils are present in the epigastric region from prior gastroduodenal artery embolization. A TIPS is also present in the right upper abdomen. Clips are present in the rectal quadrant. Dual contrast and single contrast images of the stomach demonstrated a normal contour. Evaluation of the gastric mucosa is limited due to underdistention of stomach from poor tolerance of the effervescent granules. No obvious masses are seen. Within these limitations, there is mild irregularity of the gastric mucosa with some possible small superficial aphthous ulcerations. Additional images of the stomach could not be obtained due to the patient vomiting. Contrast freely passed into the gastric antrum and duodenal bulb without delay. Single and air-contrast images of the duodenal bulb demonstrate no abnormality. The duodenal sweep has a normal appearance, course, and mucosal fold appearance. The imaged proximal jejunum has a normal fold pattern and caliber. FLUOROSCOPY TIME: 5 minutes 10 seconds DOSE AREA PRODUCT: 2603 uGy-m2 (microgray-meter squared) FL/FL upper GI series IMPRESSION: 1. Small type I hiatal hernia with severe gastroesophageal reflux. 2. Mildly disordered esophageal peristalsis. 3. Limited evaluation of the gastric mucosa due to underdistention of the stomach from poor tolerance of the effervescent granules and vomiting. Given these limitations, suspect changes of gastritis. 4. Status post GDA embolization. 5. Status post TIPS placement. 6. Status post cholecystectomy. This procedure was performed by Ubaldo Krueger PA-C, and supervised by Dr. Phelan Electronically signed by: Jai Phelan MD 06/22/2024 01:14 PM EDT
[2024-06-18 09:59] VITALS: BP 127/67; PULSE 66; RESP 14; TEMP 36.5; O2SAT 98; BMI 27.6
[2024-06-18 10:19] LABS: MANUAL DIFF FLAG NO
[2024-06-18 10:24] LABS: Appearance Urine Clear; Color Urine Dark Yellow; Glucose Urine UA Negative (Negative); Leukocyte Esterase Urine Trace (Negative); Nitrite Urine Negative (Negative); PH 7.5 (5.0-9.0); UMIC TRIGGER UACC YES; Urine Blood Large (3+) (Negative); Urine Ketones Trace mg/dL (Negative); Urine Protein Trace mg/dL (Neg-Trace)
[2024-06-18 10:26] LABS: Bacteria Urine None Seen (None Seen); Basophils Absolute Auto 0.1 X10*3/uL (0.0-0.2); Basophils Percent Auto 0.7 % (0-2); Eosinophils Absolute Auto 0.9 X10*3/uL (0.0-0.4); Eosinophils Percent Auto 12.8 % (0-4); Hematocrit 39.8 % (42.0-52.0); Hemoglobin 13.2 g/dl (14.0-18.0); Hyaline Casts Urine 0-2 /LPF (0-2); Lymphocytes Absolute Auto 3.9 X10*3/uL (1.2-4.9); Lymphocytes Percent Auto 55.2 % (20-40); Mean Corpuscular HGB Conc 33.2 g/dl (31.0-36.0); Mean Corpuscular Hemoglobin 33.5 pg (27.0-33.0); Mean Platelet Volume 11.1 fL (9.4-12.4); Monocytes Absolute Auto 0.6 X10*3/uL (0.1-1.2); Monocytes Percent Auto 9.2 % (2-11); Neutrophils Absolute Auto 1.5 x10*3/uL (2.0-8.3); Neutrophils Percent Auto 22.1 % (45-73); RBC Urine >20 /HPF (0-2); Red Blood Count 3.94 X10*6/uL (4.60-5.80); Red Cell Distribution Width 15.2 % (11.0-16.0); Squamous Epithelial Cell Urine 0-2 /HPF (0-2); WBC Urine 0-5 /HPF (0-5)
[2024-06-18 10:27] LABS: Platelet Count 87 X10*3/uL (160-400)
[2024-06-18 10:38] LABS: Anion Gap 12 (12-20); Blood Urea Nitrogen 5 mg/dL (9-16); Calcium 8.7 mg/dL (8.4-10.2); Carbon Dioxide 25 mmol/L (22-29); Chloride 107 mmol/L (96-108); Creatinine Clr Calc Pharmacy 108.3; Estimated Glomerular Filt Rate > 60; Glucose Random 98 mg/dL (60-115); Potassium 3.7 mmol/L (3.3-5.1); Sodium 140 mmol/L (135-145)
--- NOTE | 2024-06-18 11:14 | ED_ITS ---
HPI - General Adult General Chief complaint: Abdominal Pain Stated complaint: Abd pain Time Seen by Provider: 06/18/24 11:11 Source: patient Mode of arrival: ambulatory Limitations: no limitations History of Present Illness ED Provider: Rosette Navas PA-C HPI narrative: 59 yom presents with 2 months of epigastric abdominal pain. Pain is localized to epigastric region with radiation to right upper quadrant. Pain is worse after eating. He says he has been to the ED a few times over the past two months and has been prescribed Omeprazole, famotidine, sucralfate with no effect. He has not followed up with a GI specialist. Has associated vomiting, denies hematemesis, hematochezia. Denies fever, chills, systemic symptoms. Has history of cirrhosis, hep. c. No longer uses ETOH, denies substance use. Methadone 65 mg dosed this AM. Onset (ago): month(s) Location: abdomen Quality: burning Pain Consistency: constant Relieving factors: none Exacerbating factors: eating Associated symptoms: nausea/vomiting Related Data Home Medications ?Medication ?Instructions ?Recorded ?Confirmed lactulose 10 gram/15 mL oral 45 ml PO TID 12/10/21 04/17/22 solution (Generlac) folic acid 1 mg tablet 1 tab PO DAILY 04/17/22 04/17/22 thiamine HCl (vitamin B1) 100 mg 1 tab PO DAILY 04/17/22 04/17/22 tablet Previous Rx's ?Medication ?Instructions ?Recorded cefuroxime axetil 500 mg tablet 500 mg PO BID #26 tabs 04/20/22 acetaminophen 500 mg tablet 500 mg PO Q6H PRN pain #30 tabs 12/14/23 (Tylenol Extra Strength) azithromycin 250 mg tablet See Rx Instructions PO .COMPLEX #6 12/14/23 tabs carbamide peroxide 6.5 % ear drops 10 drp otic (ear) right DAILY 4 12/14/23 (Debrox) days #15 mL ibuprofen 600 mg tablet 600 mg PO Q6H PRN pain #30 tabs 12/14/23 omeprazole 40 mg capsule,delayed 40 mg PO DAILY #7 caps 04/09/24 release famotidine 40 mg tablet 40 mg PO DAILY #30 tabs 05/25/24 aluminum-mag hydroxide-simethicone 10 ml PO Q6H PRN indigestion 06/11/24 200 mg-200 mg-20 mg/5 mL oral susp #3,000 mL (Maalox Advanced) sucralfate 100 mg/mL oral 5 ml PO QID #300 mL 06/11/24 suspension Allergies Allergy/AdvReac Type Severity Reaction Status Date / Time penicillin V Allergy Intermediate Itching Verified 06/18/24 10:02 Penicillins Allergy Mild ITCHING Verified 06/18/24 10:02 Review of Systems 2 Constitutional: Constitutional: Reports no additional constitutional complaints, Denies chills, Denies fever(s) and Denies night sweats Eyes: Eyes: Reports no additional eye complaints, Denies blurry vision, Denies change in vision, Denies diplopia, Denies eye discharge, Denies loss of vision and Denies eye pain ENT: Denies dizziness Cardiovascular: Cardiovascular: Reports no additional cardiovascular complaints, Denies chest pain, Denies lightheadedness, Denies Loss of Consciousness and Denies dyspnea Respiratory: Respiratory: Reports no additional respiratory complaints and Denies dyspnea Gastrointestinal: Gastrointestinal: Reports abdominal pain, Denies melena, Denies hematochezia, Denies change in bowel habits, Denies change in stool character, Denies coffee ground emesis, Denies constipation, Denies diarrhea, Reports nausea, Reports vomiting and Denies hematemesis Genitourinary: Genitourinary: Reports no additional male genitourinary complaints, Denies hematuria, Denies oliguria, Denies difficulty urinating, Denies dysuria, Denies urinary frequency, Denies urinary hesitancy, Denies urinary incontinence and Denies urinary urgency Musculoskeletal: Musculoskeletal: Reports no additional musculoskeletal complaints, Denies numbness and Denies tingling Neurologic: Denies dizziness, Denies loss of vision, Denies numbness and Denies tingling Psychiatric: Psychiatric: Reports no additional psychiatric complaints Endocrine: Endocrine: Reports no additional endocrine complaints Hematologic/Lymphatic: Hematologic/Lymphatic: Reports no additional hematologic/lymphatic complaints Allergic/Immunologic: Allergic/Immunologic: Reports no additional allergic/immunologic complaints PMFSH Past Medical History Attestation statement: The following information was validated with the patient. Source: old records reviewed and nursing notes reviewed Medical History Group B streptococcal infection Substance abuse Hernia Cirrhosis of liver Hepatitis C Surgical History S/P TIPS (transjugular intrahepatic portosystemic shunt) Social History Social History Household Members: None Housing: Apartment Do you presently have visiting nurse or other home services: No Alcohol intake: former Patient Tobacco Use Status: Current everyday Tobacco user Tobacco use type: Cigarette Cigarettes Per Day: 5 Years Smoked: 35 Substance Use Type: Heroin service: No Current occupational status: unemployed Physical Exam ED Vital Signs: Vital Signs - 24 hr 06/18/24 09:59 06/18/24 14:00 06/18/24 19:04 Temperature 97.7 F 98.3 F 98.3 F Pulse Rate 66 66 66 Respiratory Rate 14 18 18 Blood Pressure 127/67 139/71 139/71 Pulse Oximetry 98 96 98 Oxygen Delivery Method Room Air Room Air Room Air BMI result Body Mass Index 27.6 Const General: cooperative, no acute distress, alert and awake Nutritional Appearance: well nourished Orientation/consciousness: patient oriented x3 Limitations: no limitations HENMT Head: Yes normal to inspection and Yes atraumatic Ears: hearing grossly normal bilaterally and external ears normal General nose exam: Normal external nose present, no nasal discharge noted and no epistaxis Face and sinus: Yes normal facial exam, No abrasion and No laceration Mouth: Normal oral and palatal mucosa present, no drooling and no muffled voice Eyes General: appearance normal, both eyes and all related structures Periorbital: periorbital findings normal Eyelids: Yes eyelids normal Conjunctivae: conjunctivae normal Pupils: Equal, round and reactive pupils present EOM: EOMs intact bilaterally Neck Neck: Yes normal visual inspection, Yes full ROM and Yes no lymphadenopathy Chest Chest palpation & inspection: normal inspection of the chest Resp Effort & Inspection: normal respiratory effort and able to speak in complete sentences GI Inspection: Yes normal to inspection Palpation (GI): Soft to palpation, Tenderness to palpation present (GI) (Huang Negative) in the epigastrum and in the RUQ, no guarding and not rigid Percussion: Yes normal to percussion Auscultation: normal bowel sounds Neuro General: patient oriented x3 and moves all extremities Cranial nerves: Yes Equal, round and reactive pupils present Cognition (Neuro): normal cognition Extrem General: Yes normal to inspection, Yes full ROM and Yes capillary refill normal Psych Appearance: grossly normal Mental Status: mental status grossly normal Affect: normal affect Attitude: cooperative Thought process: Normal thought process present Thought content: Normal thought content present Insight: Good insight present (Psych) Medications Administered Discontinued Medications Generic Name Dose Route Start Last Admin Trade Name Pao PRN Reason Stop Dose Admin Ondansetron HCl 4 mg 06/18/24 13:52 06/18/24 14:00 Ondansetron Hcl 4 Mg/2 Ml Vial IVPUSH 06/18/24 13:53 4 mg ONCE ONE Administration Pantoprazole Sodium 40 mg 06/18/24 11:15 06/18/24 11:41 Pantoprazole Sodium 40 Mg/10 Ml Vial IVPUSH 06/18/24 11:16 40 mg ONCE ONE Administration Sucralfate 1 gm 06/18/24 11:15 06/18/24 11:40 Sucralfate 1 Gm Tablet PO 06/18/24 11:16 1 gm ONCE ONE Administration Medical Decision Making Medical Decision Making [facility] Narrative: Patient is a 59 year old assigned male at with a history of GERD, hep C, and liver cirrhosis presenting to the emergency department today with persistent epigastric pain. Patient's physical exam was as noted in the physical exam portion of this note. Patient's blood work was unremarkable and consistent with his baseline. Patient's urine showed no acute process. Patient's EKG was unremarkable. I consulted with the GI specialist data integration analyst who recommended obtaining an upper GI Series. Patient's upper GI series showed a small type I hiatal hernia with severe gastroesophageal reflux and mildly disordered esophageal peristalsis. The GI specialist recommended outpatient follow up as long as the patient can tolerate PO. Patient successfully passed the PO challenge. I explained my physical exam findings as well as all test results to the patient. I answered all questions asked by the patient. I stressed the importance of the patient taking his medication as directed (either prescribed or as the over the counter packaging recommends). I stressed the importance of the patient following up with his primary care provider and a GI specialist. I stressed the importance of the patient returning to the emergency department immediately if his symptoms were to worsen or if he were to develop any dizziness, shortness of breath, difficulty breathing, chest pain, blurry vision, loss of vision, nausea, vomiting, abdominal pain, fever, chills, back pain, or any other complaints. Patient verbalized agreement and understanding with this treatment plan and discharge. Differential Diagnosis Differential Diagnoses: The differential diagnosis associated with the presentation includes GERD Epigastric pain Admission/Observation Consideration of admission/observation: Escalation of care including admission/observation considered Patient would have been admitted to the hospital had his work up had any findings where hospital admission was appropriate and his clinical presentation warranted hospital admission. Consult Healthcare Provider Management of the patient was discussed with: Tutor Coordinator (spoke to the GI specialist as noted in the MDM Rationale portion of this note.) Lab Data [facility] Lab Attestation statement: I reviewed the patient's lab results. My interpretation of these results are in the MDM Rationale portion of this note. 06/18/24 10:13 06/18/24 10:13 Labs: Lab Results 06/18/24 Range/Units 10:13 WBC 7.0 (4.8-10.8) X10*3/uL RBC 3.94 L (4.60-5.80) X10*6/uL Hgb 13.2 L (14.0-18.0) g/dl Hct 39.8 L (42.0-52.0) % MCV 101.0 H (80.0-98.0) fL MCH 33.5 H (27.0-33.0) pg MCHC 33.2 (31.0-36.0) g/dl RDW 15.2 (11.0-16.0) % Plt Count 87 L (160-400) X10*3/uL MPV 11.1 (9.4-12.4) fL Immature Gran % (Auto) 0.0 (0.0-0.4) % Neut % (Auto) 22.1 L (45-73) % Lymph % (Auto) 55.2 H (20-40) % [place] % (Auto) 9.2 (2-11) % Eos % (Auto) 12.8 H (0-4) % Baso % (Auto) 0.7 (0-2) % Lymph # (Auto) 3.9 (1.2-4.9) X10*3/uL [place] # (Auto) 0.6 (0.1-1.2) X10*3/uL Eos # (Auto) 0.9 H (0.0-0.4) X10*3/uL Baso # (Auto) 0.1 (0.0-0.2) X10*3/uL Abs Immat Gran (auto) 0.00 (0.00-0.03) X10*3/uL Absolute Neuts (auto) 1.5 L (2.0-8.3) x10*3/uL Absolute Nucleated RBC 0.000 (0.0-0.012) X10*3/uL Nucleated RBC % (auto) 0.0 (0.0-0.2) /100WBC Sodium 140 (135-145) mmol/L Potassium 3.7 (3.3-5.1) mmol/L Chloride 107 (96-108) mmol/L Carbon Dioxide 25 (22-29) mmol/L Anion Gap 12 (12-20) BUN 5 L (9-16) mg/dL Creatinine 0.72 (0.5-1.4) mg/dL Estim Creat Clear Calc 108.3 Estimated GFR > 60 Random Glucose 98 (60-115) mg/dL Calcium 8.7 (8.4-10.2) mg/dL Total Bilirubin 1.9 H (0.0-1.0) mg/dL Direct Bilirubin 0.7 H (0.0-0.5) mg/dL AST 66 H (5-37) U/L ALT 30 (0-40) U/L Alkaline Phosphatase 135 H (39-117) U/L Total Protein 6.2 L (6.5-8.0) g/dL Albumin 2.7 L (3.5-5.0) g/dL Lipase 12 (8-78) U/L Urine Color Dark Yellow Urine Appearance Clear Urine pH 7.5 (5.0-9.0) Ur Specific [place] 1.020 (1.005-1.025) Urine Protein Trace (Neg-Trace) mg/dL Urine Glucose (UA) Negative (Negative) mg/dL Urine Ketones Trace (Negative) mg/dL Urine Blood Large (3+) H (Negative) Urine Nitrite Negative (Negative) Ur Leukocyte Esterase Trace H (Negative) Urine RBC >20 H (0-2) /HPF Urine WBC 0-5 (0-5) /HPF Ur Squamous Epith Cells 0-2 (0-2) /HPF Urine Bacteria None Seen (None Seen) Hyaline Casts 0-2 (0-2) /LPF Independent Interpretation I performed an independent interpretation of an: EKG and Plain X-Ray (FL Upper GI with Air) Interpretation: My interpretation is in agreement with the radiologist's impression of this imaging study. L Examination: XR fluoroscopy upper GI with air Clinical information: Epigastric pain Comparison: None Technique: Fluoroscopic air contrast upper GI examination was performed utilizing standard techniques with thin and thick barium and effervescent granule. Numerous spot images were obtained. Findings: Dual and single contrast images of the esophagus demonstrate normal caliber, contour, and mucosal pattern. No evidence of stricture, mass, or ulcerations identified. Esophageal peristalsis is mildly disorganized. A small type I hernia is present. Significant gastroesophageal reflux is seen up to the thoracic inlet. Vascular coils are present in the epigastric region from prior gastroduodenal artery embolization. A TIPS is also present in the right upper abdomen. Clips are present in the rectal quadrant. Dual contrast and single contrast images of the stomach demonstrated a normal contour. Evaluation of the gastric mucosa is limited due to the underdistention of stomach from poor tolerance of the effervescent granules. No obvious masses are seen. Contrast freely passed into the gastric antrum and duodenal bulb without delay. Additional images of the stomach could not be obtained due to the patient vomiting. Single and air-contrast images of the duodenal bulb demonstrate no abnormality. The duodenal sweep has a normal appearance, course, and mucosal fold appearance. The imaged proximal jejunum has a normal fold pattern and caliber. Fluroscopy time: 5 minutes and 10 seconds. Dose area product: 2603 uGy-m2 (microgray-meter squared) Impression: 1. Small type I hiatal hernia with severe gastroesophageal reflux. 2. Mildly disordered esophageal peristalsis. 3. Limited evaluation of the gastric mucosa due to underdistention of the stomach from poor tolerance of the effervescent graules and vomiting. 4. Status post GDA embolization. 5. Status post TIPS placement. 6. Status post cholecystectomy. Performed by Ubaldo Krueger PA-C and supervised by Dr. Phelan. Dictated by signed: Jai Phelan Electronically Signed: June 18, 2024 17:36 Vent. Rate: 057 BPM Atrial Rate: 057 BPM P-R Int: 122 ms QRS Dur: 088 ms QT Int: 472 ms P-R-T Axes: 000 033 017 degrees QTc Int: 459 ms Sinus bradycardia Otherwise normal ECG When compared with ECG of 09-APR-2024 12:55, No significant change was found Referred By: Rosette Navas Electronically Signed By:HUNTER HIGGINS MD Dictated By: Hunter Higgins MD Signed By: Electronically signed by Hunter Higgins MD 06/18/24 4662 Radiology Impression Discussion of test interpretation with radiology: I have reviewed the radiologist's reading. Critical Care Time Critical Care Time Critical Care Time: Yes Total Critical Care Time: 46 Attestation: I spent 46 minutes of Critical Care Time with this patient. This does not include time spent on separately reported billable procedures. Discharge Plan Discharge Clinical Impression: GERD (gastroesophageal reflux disease) Patient Disposition: Home, Self-Care Instructions: Gastroesophageal Reflux Disease (DC) Additional Instructions: Follow up with your primary care provider and a GI specialist. Your imaging showed significant acid reflux but nothing emergent to address. Continue taking the medication you were previously prescribed. Return to the emergency department immediately if your symptoms worsen or if you develop any dizziness, shortness of breath, difficulty breathing, chest pain, blurry vision, loss of vision, nausea, vomiting, abdominal pain, fever, chills, back pain, or any other complaints. Prescriptions: No Action thiamine HCl (vitamin B1) 100 mg tablet 1 tab PO DAILY folic acid 1 mg tablet 1 tab PO DAILY cefuroxime axetil 500 mg tablet 500 mg PO BID Qty: 26 0RF lactulose [Generlac] 10 gram/15 mL solution 45 ml PO TID azithromycin 250 mg tablet See Rx Instructions PO .COMPLEX Qty: 6 0RF Rx Instructions: For 250 mg dose pack: take 500 mg today (day 1), then 250 mg for 4 days (days 2-5) ibuprofen 600 mg tablet 600 mg PO Q6H PRN (Reason: pain) Qty: 30 0RF acetaminophen [Tylenol Extra Strength] 500 mg tablet 500 mg PO Q6H PRN (Reason: pain) Qty: 30 0RF Debrox 6.5 % drops 10 drp otic (ear) right DAILY 4 Days Qty: 15 0RF famotidine 40 mg tablet 40 mg PO DAILY Qty: 30 0RF sucralfate 100 mg/mL suspension 5 ml PO QID Qty: 300 0RF Rx Instructions: swish in mouth and swallow; use after food/drink alum-mag hydroxide-simeth [Maalox Advanced] 200-200-20 mg/5 mL suspension 10 ml PO Q6H PRN (Reason: indigestion) Qty: 3000 0RF omeprazole 40 mg capsule,delayed release(DR/EC) 40 mg PO DAILY Qty: 7 0RF Referrals: [facility] [place] [facility] [Provider Group] (Call to establish and follow up with a GI specialist. ) Karely Leary FNP [Primary Care Provider] - Interventions: ED Discharge Assessment Last Done: 06/18/24 19:04 Discharge Date/Time: 06/18/24 19:05 Print Language: Argentine
--- NOTE | 2024-06-18 11:15 | ECG_ITS ---
Test Reason : epigastric pain Blood Pressure : / mmHG Vent. Rate : 057 BPM Atrial Rate : 057 BPM P-R Int : 122 ms QRS Dur : 088 ms QT Int : 472 ms P-R-T Axes : 000 033 017 degrees QTc Int : 459 ms Sinus bradycardia Otherwise normal ECG When compared with ECG of 09-APR-2024 12:55, No significant change was found Referred By: Rosette Navas Electronically Signed By:CAR HIGGINS MD
[2024-06-18] MEDS: Sucralfate 1 GM TABLET PO (11:40)
[2024-06-18] MEDS: Pantoprazole Sodium 40 MG/10 ML VIAL IVPUSH (11:41)
[2024-06-18 11:44] LABS: Alanine Aminotransferase 30 U/L (0-40); Albumin Level 2.7 g/dL (3.5-5.0); Alkaline Phosphatase 135 U/L (39-117); Aspartate Amino Transferase 66 U/L (5-37); Bilirubin Direct 0.7 mg/dL (0.0-0.5); Bilirubin Total 1.9 mg/dL (0.0-1.0); Lipase 12 U/L (8-78); Total Protein 6.2 g/dL (6.5-8.0)
[2024-06-18 14:00] VITALS: BP 139/71; PULSE 66; RESP 18; TEMP 36.8; O2SAT 96
[2024-06-18] MEDS: ondansetron HCL 4 MG/2 ML VIAL IVPUSH (14:00)
--- NOTE | 2024-06-18 15:15 | PC.NURSE ---
Returned from upper GI vomiting, provider notified, medicated per mar
[2024-06-18 19:04] VITALS: BP 139/71; PULSE 66; RESP 18; TEMP 36.8; O2SAT 98
== END 2024-06-18 19:05 | disposition home or self-care (01) ==
PROVIDERS: Physician Assistant Medical; Emergency Provider Emergency Medicine; PCP Registered Nurse
DX: K21.9 Gastro-esophageal reflux disease without esophagitis (principal); R10.13 Epigastric pain; Z79.899 Other long term (current) drug therapy
CPT/HCPCS: 36415; 74240; 80048; 80076; 81001; 83690; 85025; 93005; 96374; 96375; 99284; J2405; J2470

== ENCOUNTER → 2024-06-18 11:15 | Outpatient (BNV) | payer OTHER, SELFPAY | PROVIDERS: Emergency Provider Emergency Medicine; PCP Registered Nurse; Visit Provider Internal Medicine Cardiovascular Disease | DX: R00.1 Bradycardia, unspecified (principal) | CPT/HCPCS: 93010 ==

== ENCOUNTER → 2024-06-18 12:04 | Outpatient (BNV) | payer OTHER, SELFPAY | PROVIDERS: Emergency Provider Emergency Medicine; PCP Registered Nurse; Visit Provider Radiology Diagnostic Radiology | DX: R10.13 Epigastric pain (principal) | CPT/HCPCS: 74246 ==

== ENCOUNTER 2024-06-19 12:02 | Emergency (ER) | payer OTHER, SELFPAY ==
[2024-06-19 12:08] VITALS: BP 182/86; PULSE 72; O2SAT 93
--- NOTE | 2024-06-19 12:11 | ED.ABDPAIN ---
HPI - Abdominal Pain General Chief Complaint: Abdominal Pain Stated Complaint: ABD PAIN FOR 2 MONTHS Time Seen by Provider: 06/19/24 16:45 Related Data Home Medications ?Medication ?Instructions ?Recorded ?Confirmed lactulose 10 gram/15 mL oral 45 ml PO TID 12/10/21 04/17/22 solution (Generlac) folic acid 1 mg tablet 1 tab PO DAILY 04/17/22 04/17/22 thiamine HCl (vitamin B1) 100 mg 1 tab PO DAILY 04/17/22 04/17/22 tablet Previous Rx's ?Medication ?Instructions ?Recorded cefuroxime axetil 500 mg tablet 500 mg PO BID #26 tabs 04/20/22 acetaminophen 500 mg tablet 500 mg PO Q6H PRN pain #30 tabs 12/14/23 (Tylenol Extra Strength) azithromycin 250 mg tablet See Rx Instructions PO .COMPLEX #6 12/14/23 tabs carbamide peroxide 6.5 % ear drops 10 drp otic (ear) right DAILY 4 12/14/23 (Debrox) days #15 mL ibuprofen 600 mg tablet 600 mg PO Q6H PRN pain #30 tabs 12/14/23 omeprazole 40 mg capsule,delayed 40 mg PO DAILY #7 caps 04/09/24 release famotidine 40 mg tablet 40 mg PO DAILY #30 tabs 05/25/24 aluminum-mag hydroxide-simethicone 10 ml PO Q6H PRN indigestion 06/11/24 200 mg-200 mg-20 mg/5 mL oral susp #3,000 mL (Maalox Advanced) sucralfate 100 mg/mL oral 5 ml PO QID #300 mL 06/11/24 suspension Allergies Allergy/AdvReac Type Severity Reaction Status Date / Time penicillin V Allergy Intermediate Itching Verified 06/19/24 12:14 Penicillins Allergy Mild ITCHING Verified 06/19/24 12:14 [facility], [facility] Past Medical History Medical History Group B streptococcal infection Substance abuse Hernia Cirrhosis of liver Hepatitis C Surgical History S/P TIPS (transjugular intrahepatic portosystemic shunt) Social History Social History Household Members: None Housing: Apartment Do you presently have visiting nurse or other home services: No Alcohol intake: former Patient Tobacco Use Status: Current everyday Tobacco user Tobacco use type: Cigarette Cigarettes Per Day: 5 Years Smoked: 35 Smoked in Last 30 Days: No Use of substances other than those prescribed or required for medical reasons: Yes Substance Use Type: Heroin Substance Use Type Other:: methadone Substance Use Frequency: Daily Advance Directives: No Advance Directives Information Provided: No Do you have a plan to hurt others: No Plan service: No Current occupational status: unemployed Physical Exam ED Vital Signs: Vital Signs - 24 hr 06/19/24 12:13 06/19/24 16:33 Temperature 98 F 98.4 F Pulse Rate 84 59 Respiratory Rate 18 17 Blood Pressure 112/72 127/67 Pulse Oximetry 98 98 Oxygen Delivery Method Room Air Room Air BMI result Body Mass Index 24.7 Course Course Course Narrative: This is a Rapid Medical Examination (RME) performed by Issac Lin PA-C in triage. Full HPI, ROS, assessment and treatment plan per primary provider in the Main ED. 59 yo male hx of hepatitis C complicated by cirrhosis s/p TIPS, hx IVDU here via EMS from home w/ epigastric abd pain. unable to tolerate PO intake at home, attempted to take his medications this morning however vomited them up. pt well known to ED for similar over the past 2 mo - prescribed omeprazole, famotidine, sucrralfate w/o improvement. last here yesterday, discharged last night. per ems - pt satting 92% on RA en route, placed on 2L NC. O2 removed in triage, patient satting 98-99% on RA. admits to smoking 2-3 cigarettes/day. denies sob. sounds nasally congested. Plan: repeat labs, viral swabs, will defer any imaging to primary provider Medical Decision Making Lab Data 06/19/24 12:43 06/19/24 12:43 Labs: Lab Results 06/19/24 06/19/24 Range/Units 12:43 17:14 WBC 6.3 (4.8-10.8) X10*3/uL RBC 4.01 L (4.60-5.80) X10*6/uL Hgb 13.5 L (14.0-18.0) g/dl Hct 40.3 L (42.0-52.0) % MCV 100.5 H (80.0-98.0) fL MCH 33.7 H (27.0-33.0) pg MCHC 33.5 (31.0-36.0) g/dl RDW 15.8 (11.0-16.0) % Plt Count 88 L (160-400) X10*3/uL MPV 10.3 (9.4-12.4) fL Immature Gran % (Auto) 0.2 (0.0-0.4) % Neut % (Auto) 65.8 (45-73) % Lymph % (Auto) 22.9 (20-40) % [place] % (Auto) 9.1 (2-11) % Eos % (Auto) 1.4 (0-4) % Baso % (Auto) 0.6 (0-2) % Lymph # (Auto) 1.5 (1.2-4.9) X10*3/uL [place] # (Auto) 0.6 (0.1-1.2) X10*3/uL Eos # (Auto) 0.1 (0.0-0.4) X10*3/uL Baso # (Auto) 0.0 (0.0-0.2) X10*3/uL Abs Immat Gran (auto) 0.01 (0.00-0.03) X10*3/uL Absolute Neuts (auto) 4.2 (2.0-8.3) x10*3/uL Absolute Nucleated RBC 0.000 (0.0-0.012) X10*3/uL Nucleated RBC % (auto) 0.0 (0.0-0.2) /100WBC Sodium 141 (135-145) mmol/L Potassium 4.6 D (3.3-5.1) mmol/L Chloride 104 (96-108) mmol/L Carbon Dioxide 28 (22-29) mmol/L Anion Gap 14 (12-20) BUN 12 (9-16) mg/dL Creatinine 0.76 (0.5-1.4) mg/dL Estim Creat Clear Calc 101.2 Estimated GFR > 60 POC Glucose 97 (60-115) mg/dL Random Glucose 94 (60-115) mg/dL Calcium 9.2 (8.4-10.2) mg/dL Magnesium 1.9 (1.6-2.6) mg/dL Total Bilirubin 2.3 H (0.0-1.0) mg/dL AST 65 H (5-37) U/L ALT 29 (0-40) U/L Alkaline Phosphatase 137 H (39-117) U/L Total Protein 6.4 L (6.5-8.0) g/dL Albumin 2.9 L (3.5-5.0) g/dL Lipase 19 (8-78) U/L Influenza Type A (PCR) NEGATIVE (Negative) Influenza Type B (PCR) NEGATIVE (Negative) RSV RNA Qual (PCR) NEGATIVE (Negative) SARS-CoV-2 RNA (RT-PCR) NEGATIVE (Negative) Medications Administered Discontinued Medications Generic Name Dose Route Start Last Admin Trade Name Freq PRN Reason Stop Dose Admin Diphenhydramine HCl 25 mg 06/19/24 17:27 06/19/24 17:52 Diphenhydramine Hcl 50 Mg/Ml Vial IVPUSH 06/19/24 17:28 25 mg ONCE ONE Administration Sodium Chloride 1,000 mls @ 999 mls/hr 06/19/24 17:30 06/19/24 17:52 Ns IV 06/19/24 18:30 999 mls/hr .Q1H1M ADONAY Administration Metoclopramide HCl 10 mg 06/19/24 17:26 06/19/24 17:53 Metoclopramide Hcl 10 Mg/2 Ml Vial IVPUSH 06/19/24 17:27 10 mg ONCE ONE Administration Pantoprazole Sodium 40 mg 06/19/24 17:26 06/19/24 17:54 Pantoprazole Sodium 40 Mg/10 Ml Vial IVPUSH 06/19/24 17:27 40 mg ONCE ONE Administration Discharge Plan Discharge Clinical Impression: Hepatitis C, Vomiting Patient Disposition: Still a Patient Prescriptions: No Action thiamine HCl (vitamin B1) 100 mg tablet 1 tab PO DAILY folic acid 1 mg tablet 1 tab PO DAILY cefuroxime axetil 500 mg tablet 500 mg PO BID Qty: 26 0RF lactulose [Generlac] 10 gram/15 mL solution 45 ml PO TID azithromycin 250 mg tablet See Rx Instructions PO .COMPLEX Qty: 6 0RF Rx Instructions: For 250 mg dose pack: take 500 mg today (day 1), then 250 mg for 4 days (days 2-5) ibuprofen 600 mg tablet 600 mg PO Q6H PRN (Reason: pain) Qty: 30 0RF acetaminophen [Tylenol Extra Strength] 500 mg tablet 500 mg PO Q6H PRN (Reason: pain) Qty: 30 0RF Debrox 6.5 % drops 10 drp otic (ear) right DAILY 4 Days Qty: 15 0RF famotidine 40 mg tablet 40 mg PO DAILY Qty: 30 0RF sucralfate 100 mg/mL suspension 5 ml PO QID Qty: 300 0RF Rx Instructions: swish in mouth and swallow; use after food/drink alum-mag hydroxide-simeth [Maalox Advanced] 200-200-20 mg/5 mL suspension 10 ml PO Q6H PRN (Reason: indigestion) Qty: 3000 0RF omeprazole 40 mg capsule,delayed release(DR/EC) 40 mg PO DAILY Qty: 7 0RF Print Language: Macedonian
[2024-06-19 12:13] VITALS: BP 112/72; PULSE 84; RESP 18; TEMP 36.6; O2SAT 98; BMI 24.7
[2024-06-19 12:54] LABS: MANUAL DIFF FLAG NO
[2024-06-19 12:56] LABS: Basophils Percent Auto 0.6 % (0-2); Eosinophils Absolute Auto 0.1 X10*3/uL (0.0-0.4); Eosinophils Percent Auto 1.4 % (0-4); Hematocrit 40.3 % (42.0-52.0); Hemoglobin 13.5 g/dl (14.0-18.0); Imm Gran Abs Auto 0.01 X10*3/uL (0.00-0.03); Imm Gran Pct Auto 0.2 % (0.0-0.4); Lymphocytes Absolute Auto 1.5 X10*3/uL (1.2-4.9); Lymphocytes Percent Auto 22.9 % (20-40); Mean Corpuscular HGB Conc 33.5 g/dl (31.0-36.0); Mean Corpuscular Hemoglobin 33.7 pg (27.0-33.0); Mean Corpuscular Volume 100.5 fL (80.0-98.0); Mean Platelet Volume 10.3 fL (9.4-12.4); Monocytes Absolute Auto 0.6 X10*3/uL (0.1-1.2); Monocytes Percent Auto 9.1 % (2-11); Neutrophils Absolute Auto 4.2 x10*3/uL (2.0-8.3); Neutrophils Percent Auto 65.8 % (45-73); Red Blood Count 4.01 X10*6/uL (4.60-5.80); Red Cell Distribution Width 15.8 % (11.0-16.0); White Blood Count 6.3 X10*3/uL (4.8-10.8)
[2024-06-19 12:57] LABS: Platelet Count 88 X10*3/uL (160-400)
[2024-06-19 13:15] LABS: Alanine Aminotransferase 29 U/L (0-40); Albumin Level 2.9 g/dL (3.5-5.0); Alkaline Phosphatase 137 U/L (39-117); Anion Gap 14 (12-20); Aspartate Amino Transferase 65 U/L (5-37); Bilirubin Total 2.3 mg/dL (0.0-1.0); Blood Urea Nitrogen 12 mg/dL (9-16); Calcium 9.2 mg/dL (8.4-10.2); Carbon Dioxide 28 mmol/L (22-29); Chloride 104 mmol/L (96-108); Creatinine Clr Calc Pharmacy 101.2; Estimated Glomerular Filt Rate > 60; Glucose Random 94 mg/dL (60-115); Lipase 19 U/L (8-78); Magnesium 1.9 mg/dL (1.6-2.6); Potassium 4.6 mmol/L (3.3-5.1); Sodium 141 mmol/L (135-145); Total Protein 6.4 g/dL (6.5-8.0)
[2024-06-19 13:41] LABS: Influenza A PCR NEGATIVE (Negative); Influenza B PCR NEGATIVE (Negative); Resp Syncy Virus RNA Qual PCR NEGATIVE (Negative); SARS COV2 PCR INHOUSE NEGATIVE (Negative)
[2024-06-19 16:33] VITALS: BP 127/67; PULSE 59; RESP 17; TEMP 36.9; O2SAT 98
--- NOTE | 2024-06-19 17:01 | ED.GENADULT ---
HPI - General Adult General Chief complaint: Abdominal Pain Stated complaint: ABD PAIN FOR 2 MONTHS Time Seen by Provider: 06/19/24 16:45 Source: patient, family, RN notes reviewed and old records reviewed Mode of arrival: EMS Limitations: no limitations History of Present Illness ED Provider: Zuly HPI narrative: 59-year-old male with history of hepatitis-C, polysubstance abuse presents for inability to tolerate p.o. intake. Patient was last seen at the emergency department yesterday for the same complaint, had upper GI series completed with fluoroscopy which showed reflux but was nondiagnostic for ulcers. Today reports he attempted to take his prescribed medications by mouth and immediately vomited. He says that there was no blood in his vomit and says that he has recurrent epigastric pain. The pain does not radiate in his worse following eating. He has not had food or drink in 2 days. He also says he has not been dose with methadone the past 2 days due to vomiting. He is scheduled to follow up with primary on Friday. He denies fever diarrhea or constipation. The patient has a CT scan on 05/25/2024 which did not show any acute pathology. Onset (ago): day(s) Location: abdomen Radiation: non-radiation Severity: severe Quality: sharp Pain Consistency: constant Relieving factors: none Exacerbating factors: eating Associated symptoms: denies other symptoms Treatments prior to arrival: none Related Data Home Medications ?Medication ?Instructions ?Recorded ?Confirmed lactulose 10 gram/15 mL oral 45 ml PO TID 12/10/21 04/17/22 solution (Generlac) folic acid 1 mg tablet 1 tab PO DAILY 04/17/22 04/17/22 thiamine HCl (vitamin B1) 100 mg 1 tab PO DAILY 04/17/22 04/17/22 tablet Previous Rx's ?Medication ?Instructions ?Recorded cefuroxime axetil 500 mg tablet 500 mg PO BID #26 tabs 04/20/22 acetaminophen 500 mg tablet 500 mg PO Q6H PRN pain #30 tabs 12/14/23 (Tylenol Extra Strength) azithromycin 250 mg tablet See Rx Instructions PO .COMPLEX #6 12/14/23 tabs carbamide peroxide 6.5 % ear drops 10 drp otic (ear) right DAILY 4 12/14/23 (Debrox) days #15 mL ibuprofen 600 mg tablet 600 mg PO Q6H PRN pain #30 tabs 12/14/23 omeprazole 40 mg capsule,delayed 40 mg PO DAILY #7 caps 04/09/24 release famotidine 40 mg tablet 40 mg PO DAILY #30 tabs 05/25/24 aluminum-mag hydroxide-simethicone 10 ml PO Q6H PRN indigestion 06/11/24 200 mg-200 mg-20 mg/5 mL oral susp #3,000 mL (Maalox Advanced) sucralfate 100 mg/mL oral 5 ml PO QID #300 mL 06/11/24 suspension ondansetron 4 mg disintegrating 4 mg PO Q8H PRN nausea and 06/19/24 tablet vomiting #20 tabs pantoprazole 20 mg tablet,delayed 20 mg PO DAILY #30 tabs 06/19/24 release (Protonix) Allergies Allergy/AdvReac Type Severity Reaction Status Date / Time penicillin V Allergy Intermediate Itching Verified 06/19/24 12:14 Penicillins Allergy Mild ITCHING Verified 06/19/24 12:14 Review of Systems Constitutional: Constitutional: Reports as per HPI, Denies chills, Denies fatigue, Denies fever(s) and Denies headache(s) ENT: Denies headache(s) Cardiovascular: Cardiovascular: Denies chest pain and Denies dyspnea Respiratory: Respiratory: Denies cough and Denies dyspnea Gastrointestinal: Gastrointestinal: Reports abdominal pain, Denies melena, Denies change in bowel habits, Denies coffee ground emesis, Denies constipation, Denies GI cramping, Denies diarrhea, Reports nausea and Reports vomiting Genitourinary: Genitourinary: Denies difficulty urinating and Denies dysuria Neurologic: Denies headache(s) and Denies focal weakness Endocrine: Endocrine: Denies fatigue [facility] Past Medical History Medical History Group B streptococcal infection Substance abuse Hernia Cirrhosis of liver Hepatitis C Surgical History S/P TIPS (transjugular intrahepatic portosystemic shunt) Social History Social History Household Members: None Housing: Apartment Do you presently have visiting nurse or other home services: No Alcohol intake: former Patient Tobacco Use Status: Current everyday Tobacco user Tobacco use type: Cigarette Cigarettes Per Day: 5 Years Smoked: 35 Smoked in Last 30 Days: No Use of substances other than those prescribed or required for medical reasons: Yes Substance Use Type: Heroin Substance Use Type Other:: methadone Substance Use Frequency: Daily Advance Directives: No Advance Directives Information Provided: No Do you have a plan to hurt others: No Plan service: No Current occupational status: unemployed Physical Exam ED Vital Signs: Vital Signs - 24 hr 06/19/24 12:13 06/19/24 16:33 Temperature 98 F 98.4 F Pulse Rate 84 59 Respiratory Rate 18 17 Blood Pressure 112/72 127/67 Pulse Oximetry 98 98 Oxygen Delivery Method Room Air Room Air BMI result Body Mass Index 24.7 Const General: healthy appearing, comfortable, no acute distress, alert and awake Nutritional Appearance: well nourished Orientation/consciousness: patient oriented x3 HENMT Head: Yes normocephalic and Yes atraumatic Throat: Yes posterior oropharynx normal Eyes Eyelids: Yes eyelids normal Conjunctivae: conjunctivae normal Sclerae: sclerae normal Corneas: corneas normal Pupils: Equal, round and reactive pupils present EOM: EOMs intact bilaterally Neck Neck: Yes full ROM Resp Effort & Inspection: normal respiratory effort, able to speak in complete sentences, no audible wheezes and not labored Auscultation: clear to auscultation bilaterally Cardio Rate: regular rate Rhythm: regular rhythm GI Inspection: Yes normal to inspection and No distended Palpation (GI): Soft to palpation, not firm, Tenderness to palpation present (GI) in the epigastrum, no guarding and not rigid Percussion: Yes normal to percussion Auscultation: normoactive bowel sounds Skin General skin exam: no rashes or lesions noted and elasticity normal Neuro General: patient oriented x3 Cranial nerves: Yes CN's II-XII intact bilaterally, Yes Equal, round and reactive pupils present and Yes Bilaterally intact EOM present Cognition (Neuro): normal cognition Extrem Other: Moving all extremities well without any obvious deformities Course Reevaluation(s) Reevaluation #1: Patient reports feeling much better after receiving medication. I reiterated the need to follow up with GI, he was given referral yesterday in the number was circled, he was encouraged to call next week. We will discharge the patient with a short course of pantoprazole as well as Zofran Time: 19:11 Medications Administered Discontinued Medications Generic Name Dose Route Start Last Admin Trade Name Pao PRN Reason Stop Dose Admin Diphenhydramine HCl 25 mg 06/19/24 17:27 06/19/24 17:52 Diphenhydramine Hcl 50 Mg/Ml Vial IVPUSH 06/19/24 17:28 25 mg ONCE ONE Administration Sodium Chloride 1,000 mls @ 999 mls/hr 06/19/24 17:30 06/19/24 17:52 Ns IV 06/19/24 18:30 999 mls/hr .Q1H1M ADONAY Administration Metoclopramide HCl 10 mg 06/19/24 17:26 06/19/24 17:53 Metoclopramide Hcl 10 Mg/2 Ml Vial IVPUSH 06/19/24 17:27 10 mg ONCE ONE Administration Pantoprazole Sodium 40 mg 06/19/24 17:26 06/19/24 17:54 Pantoprazole Sodium 40 Mg/10 Ml Vial IVPUSH 06/19/24 17:27 40 mg ONCE ONE Administration Medical Decision Making Medical Decision Making [facility] Narrative: 59-year-old male presents for evaluation of nausea and vomiting has been ongoing for several months. Clinically he likely has bad reflux. I reviewed his CT scan from a month ago as well as his for neuropathy scan from yesterday. The patient's labs are significant for a mild transaminitis consistent with his known history of hepatitis-C status post tips procedure. We will treat with IV fluids, Reglan, Benadryl and IV ppi. I do not see any indication to repeat image the patient I have low concern for surgical abdomen or obstruction. The patient certainly needs GI follow-up, we will try to get him more comfortable and plan for discharge if for able to get the patient to tolerate p.o. Differential Diagnosis Differential Diagnoses: The differential diagnosis associated with the presentation includes GERD Gastroenteritis Peptic ulcer disease Duodenitis Cholelithiasis less likely Lab Data [facility] Lab Attestation statement: I reviewed the patient's lab results. The patient has no leukocytosis, he has a mild macrocytic anemia consistent with his recent labs and known history of HCV. Platelet count is 80 a consistent his baseline and again consistent with HCV. There is no significant left shift. Mild transaminitis as described above. No other electrolyte abnormalities. Renal function within normal limits, lipase normal 06/19/24 12:43 06/19/24 12:43 Labs: Lab Results 06/19/24 06/19/24 Range/Units 12:43 17:14 WBC 6.3 (4.8-10.8) X10*3/uL RBC 4.01 L (4.60-5.80) X10*6/uL Hgb 13.5 L (14.0-18.0) g/dl Hct 40.3 L (42.0-52.0) % MCV 100.5 H (80.0-98.0) fL MCH 33.7 H (27.0-33.0) pg MCHC 33.5 (31.0-36.0) g/dl RDW 15.8 (11.0-16.0) % Plt Count 88 L (160-400) X10*3/uL MPV 10.3 (9.4-12.4) fL Immature Gran % (Auto) 0.2 (0.0-0.4) % Neut % (Auto) 65.8 (45-73) % Lymph % (Auto) 22.9 (20-40) % [place] % (Auto) 9.1 (2-11) % Eos % (Auto) 1.4 (0-4) % Baso % (Auto) 0.6 (0-2) % Lymph # (Auto) 1.5 (1.2-4.9) X10*3/uL [place] # (Auto) 0.6 (0.1-1.2) X10*3/uL Eos # (Auto) 0.1 (0.0-0.4) X10*3/uL Baso # (Auto) 0.0 (0.0-0.2) X10*3/uL Abs Immat Gran (auto) 0.01 (0.00-0.03) X10*3/uL Absolute Neuts (auto) 4.2 (2.0-8.3) x10*3/uL Absolute Nucleated RBC 0.000 (0.0-0.012) X10*3/uL Nucleated RBC % (auto) 0.0 (0.0-0.2) /100WBC Sodium 141 (135-145) mmol/L Potassium 4.6 D (3.3-5.1) mmol/L Chloride 104 (96-108) mmol/L Carbon Dioxide 28 (22-29) mmol/L Anion Gap 14 (12-20) BUN 12 (9-16) mg/dL Creatinine 0.76 (0.5-1.4) mg/dL Estim Creat Clear Calc 101.2 Estimated GFR > 60 POC Glucose 97 (60-115) mg/dL Random Glucose 94 (60-115) mg/dL Calcium 9.2 (8.4-10.2) mg/dL Magnesium 1.9 (1.6-2.6) mg/dL Total Bilirubin 2.3 H (0.0-1.0) mg/dL AST 65 H (5-37) U/L ALT 29 (0-40) U/L Alkaline Phosphatase 137 H (39-117) U/L Total Protein 6.4 L (6.5-8.0) g/dL Albumin 2.9 L (3.5-5.0) g/dL Lipase 19 (8-78) U/L Influenza Type A (PCR) NEGATIVE (Negative) Influenza Type B (PCR) NEGATIVE (Negative) RSV RNA Qual (PCR) NEGATIVE (Negative) SARS-CoV-2 RNA (RT-PCR) NEGATIVE (Negative) Discharge Plan Discharge Clinical Impression: Hepatitis C, Vomiting Patient Disposition: Home, Self-Care Instructions: Gastroesophageal Reflux Disease (ED) Additional Instructions: Your workup in the ER today was reassuring. It is important that you follow-up with GI at the number provided yesterday. Use Zofran as needed for nausea and vomiting. Use Protonix daily to help with heartburn Return for new or worsening symptoms Prescriptions: New ondansetron 4 mg tablet,disintegrating 4 mg PO Q8H PRN (Reason: nausea and vomiting) Qty: 20 0RF pantoprazole [Protonix] 20 mg tablet,delayed release (DR/EC) 20 mg PO DAILY Qty: 30 0RF No Action thiamine HCl (vitamin B1) 100 mg tablet 1 tab PO DAILY folic acid 1 mg tablet 1 tab PO DAILY cefuroxime axetil 500 mg tablet 500 mg PO BID Qty: 26 0RF lactulose [Generlac] 10 gram/15 mL solution 45 ml PO TID azithromycin 250 mg tablet See Rx Instructions PO .COMPLEX Qty: 6 0RF Rx Instructions: For 250 mg dose pack: take 500 mg today (day 1), then 250 mg for 4 days (days 2-5) ibuprofen 600 mg tablet 600 mg PO Q6H PRN (Reason: pain) Qty: 30 0RF acetaminophen [Tylenol Extra Strength] 500 mg tablet 500 mg PO Q6H PRN (Reason: pain) Qty: 30 0RF Debrox 6.5 % drops 10 drp otic (ear) right DAILY 4 Days Qty: 15 0RF famotidine 40 mg tablet 40 mg PO DAILY Qty: 30 0RF sucralfate 100 mg/mL suspension 5 ml PO QID Qty: 300 0RF Rx Instructions: swish in mouth and swallow; use after food/drink alum-mag hydroxide-simeth [Maalox Advanced] 200-200-20 mg/5 mL suspension 10 ml PO Q6H PRN (Reason: indigestion) Qty: 3000 0RF omeprazole 40 mg capsule,delayed release(DR/EC) 40 mg PO DAILY Qty: 7 0RF Print Language: Grenadian
--- NOTE | 2024-06-19 17:08 | PC.NURSE ---
patient seen recently for same, states he has been unable to tolerate anything PO for over a week, states he has an appointment with GI on friday but today the pain got worse and he has still not been able to erat anything. patient endorses feeling very sick, denies fevers or diarrhea, states he couldnt even take his methadone this morning because he was scared he was going to throw it up. patient endorsing 10/10 pain to epigastric area of abdomen. states he has lost weight because he has been unable to eat. tearful while speaking with this RN. BS present in all four quadrants, abdomen tender to palpation. LSCTA, HR WNL.
[2024-06-19 17:22] LABS: Glucose, Whole Blood 97 mg/dL (60-115)
[2024-06-19] MEDS: 0.9 % Sodium Chloride 1,000 ML 999 ML IV (17:52)
[2024-06-19] MEDS: diphenhydrAMINE HCL 50 MG/ML VIAL 25 MG IVPUSH (17:52)
[2024-06-19] MEDS: Metoclopramide HCl 10 MG/2 ML VIAL IVPUSH (17:53)
[2024-06-19] MEDS: Pantoprazole Sodium 40 MG/10 ML VIAL IVPUSH (17:54)
[2024-06-19 19:33] VITALS: BP 104/61; PULSE 60; RESP 16; TEMP 36.8; O2SAT 95
--- NOTE | 2024-06-19 19:34 | PC.NURSE ---
This RN assumed pt care @ 1900. Entering the room this RN noted the NS was complete NS d/c plan of care ongoing.
[2024-06-19 19:36] VITALS: BP 104/61; PULSE 60; RESP 16; TEMP 36.8; O2SAT 95
== END 2024-06-19 19:38 | disposition home or self-care (01) ==
PROVIDERS: Physician Assistant Medical; Emergency Provider Emergency Medicine; PCP Registered Nurse
DX: B19.20 Unspecified viral hepatitis C without hepatic coma (principal); R11.10 Vomiting, unspecified; R10.13 Epigastric pain; Z03.818 Encounter for observation for suspected exposure to other biological agents ruled out
CPT/HCPCS: 0241U; 36415; 80053; 82947; 83690; 83735; 85025; 96361; 96374; 96375; 99284; J1200; J2470; J2765

== ENCOUNTER 2024-06-29 23:12 | Emergency (ER) | payer OTHER, SELFPAY ==
[2024-06-29 23:23] VITALS: BP 129/75; PULSE 63; RESP 16; TEMP 36.8; O2SAT 96; BMI 28.2
[2024-06-30 02:45] VITALS: BP 116/83; PULSE 65; RESP 17; TEMP 36.6; O2SAT 97
--- NOTE | 2024-06-30 04:14 | ED.ANXIETY ---
HPI - Anxiety General Chief Complaint: Anxiety Stated Complaint: anxiety Time Seen by Provider: 06/30/24 02:29 History of Present Illness ED Provider: autunm ANGEL narrative: 59-year-old male with history of hepatitis-C, polysubstance abuse presents for inability to tolerate p.o. intake. Patient was last seen at the emergency department yesterday for the same complaint, had upper GI series completed with fluoroscopy which showed reflux but was nondiagnostic for ulcers patient was seen here on 05/[address] scan done that time was negative was seen here multiple times since then 4 times this month with workup negative plan to have follow up with career development coordinator Related Data Home Medications ?Medication ?Instructions ?Recorded ?Confirmed lactulose 10 gram/15 mL oral 45 ml PO TID 12/10/21 04/17/22 solution (Generlac) folic acid 1 mg tablet 1 tab PO DAILY 04/17/22 04/17/22 thiamine HCl (vitamin B1) 100 mg 1 tab PO DAILY 04/17/22 04/17/22 tablet Previous Rx's ?Medication ?Instructions ?Recorded cefuroxime axetil 500 mg tablet 500 mg PO BID #26 tabs 04/20/22 acetaminophen 500 mg tablet 500 mg PO Q6H PRN pain #30 tabs 12/14/23 (Tylenol Extra Strength) azithromycin 250 mg tablet See Rx Instructions PO .COMPLEX #6 12/14/23 tabs carbamide peroxide 6.5 % ear drops 10 drp otic (ear) right DAILY 4 12/14/23 (Debrox) days #15 mL ibuprofen 600 mg tablet 600 mg PO Q6H PRN pain #30 tabs 12/14/23 omeprazole 40 mg capsule,delayed 40 mg PO DAILY #7 caps 04/09/24 release famotidine 40 mg tablet 40 mg PO DAILY #30 tabs 05/25/24 aluminum-mag hydroxide-simethicone 10 ml PO Q6H PRN indigestion 06/11/24 200 mg-200 mg-20 mg/5 mL oral susp #3,000 mL (Maalox Advanced) sucralfate 100 mg/mL oral 5 ml PO QID #300 mL 06/11/24 suspension ondansetron 4 mg disintegrating 4 mg PO Q8H PRN nausea and 06/19/24 tablet vomiting #20 tabs pantoprazole 20 mg tablet,delayed 20 mg PO DAILY #30 tabs 06/19/24 release (Protonix) Allergies Allergy/AdvReac Type Severity Reaction Status Date / Time penicillin V Allergy Intermediate Itching Verified 06/29/24 23:27 Penicillins Allergy Mild ITCHING Verified 06/29/24 23:27 Review of Systems Review of Systems: Yes all other systems are reviewed and are negative [facility] Past Medical History Medical History Group B streptococcal infection Substance abuse Hernia Cirrhosis of liver Hepatitis C Surgical History S/P TIPS (transjugular intrahepatic portosystemic shunt) Social History Social History Household Members: None Housing: Apartment Do you presently have visiting nurse or other home services: No Alcohol intake: former Patient Tobacco Use Status: Current everyday Tobacco user Tobacco use type: Cigarette Cigarettes Per Day: 5 Years Smoked: 35 Smoked in Last 30 Days: Yes Use of substances other than those prescribed or required for medical reasons: No Substance Use Type: Heroin Advance Directives: No Advance Directives Information Provided: Yes Do you have a plan to hurt others: No Plan service: No Current occupational status: unemployed Physical Exam Vital Signs: Vital Signs: Last Vital Signs Temp 98.0 F 06/30/24 04:54 Pulse 78 06/30/24 04:54 Resp 16 06/30/24 04:54 BP 145/80 H 06/30/24 04:54 Pulse Ox 97 06/30/24 04:54 O2 Del Method Room Air 06/30/24 04:54 BMI result Body Mass Index 28.2 Appearance: Alert. Oriented X3. No acute distress. Eyes: Mild pallor ENT: Pharynx normal. Oral Mucosa moist Neck: Normal inspection. Neck supple. CVS: Normal heart rate and rhythm. Pulses normal. Respiratory: No respiratory distress. Equal air entry bilateral, no wheezing/rales/rhonchi Abdomen: Soft and slight tenderness in epigastric area Bowel sounds are present, no mass palpable, no CVA tenderness Skin: Skin warm and dry. Normal skin color. Normal skin turgor. Extremities: No lower extremity edema. No calf tenderness Neuro: Oriented X 3. No motor deficit. No sensory deficit.No cerebellar signs , cranial nerves II-XII intact Medications Administered Discontinued Medications Generic Name Dose Route Start Last Admin Trade Name Freq PRN Reason Stop Dose Admin Al Hydroxide/Mg Hydroxide 30 ml 06/30/24 04:22 06/30/24 04:49 Magnesium Hydrox/Alum Hydrox 30 Ml Oral.Susp PO 06/30/24 04:23 30 ml ONCE ONE Administration Medical Decision Making Medical Decision Making MDM Narrative: Patient has chronic gastritis already seen by career development coordinator multiple workup negative will prescribe Protonix Discharge Plan Discharge Clinical Impression: Chronic gastroesophageal reflux disease Patient Disposition: Home, Self-Care Instructions: Gastroesophageal Reflux Disease (ED) Additional Instructions: Avoid fried spicy foods Continue take acid medication as prescribed and Maalox as prescribed Follow up with your career development coordinator as scheduled Prescriptions: No Action thiamine HCl (vitamin B1) 100 mg tablet 1 tab PO DAILY folic acid 1 mg tablet 1 tab PO DAILY cefuroxime axetil 500 mg tablet 500 mg PO BID Qty: 26 0RF lactulose [Generlac] 10 gram/15 mL solution 45 ml PO TID azithromycin 250 mg tablet See Rx Instructions PO .COMPLEX Qty: 6 0RF Rx Instructions: For 250 mg dose pack: take 500 mg today (day 1), then 250 mg for 4 days (days 2-5) ibuprofen 600 mg tablet 600 mg PO Q6H PRN (Reason: pain) Qty: 30 0RF acetaminophen [Tylenol Extra Strength] 500 mg tablet 500 mg PO Q6H PRN (Reason: pain) Qty: 30 0RF Debrox 6.5 % drops 10 drp otic (ear) right DAILY 4 Days Qty: 15 0RF famotidine 40 mg tablet 40 mg PO DAILY Qty: 30 0RF sucralfate 100 mg/mL suspension 5 ml PO QID Qty: 300 0RF Rx Instructions: swish in mouth and swallow; use after food/drink alum-mag hydroxide-simeth [Maalox Advanced] 200-200-20 mg/5 mL suspension 10 ml PO Q6H PRN (Reason: indigestion) Qty: 3000 0RF ondansetron 4 mg tablet,disintegrating 4 mg PO Q8H PRN (Reason: nausea and vomiting) Qty: 20 0RF pantoprazole [Protonix] 20 mg tablet,delayed release (DR/EC) 20 mg PO DAILY Qty: 30 0RF omeprazole 40 mg capsule,delayed release(DR/EC) 40 mg PO DAILY Qty: 7 0RF Interventions: ED Discharge Assessment Last Done: 06/30/24 04:54 Discharge Date/Time: 06/30/24 04:55 Print Language: Faroese
[2024-06-30 04:20] VITALS: BP 142/79; PULSE 76; RESP 18; TEMP 36.5; O2SAT 97
[2024-06-30] MEDS: Magnesium Hydrox/Alum Hydrox 30 ML ORAL.SUSP PO (04:49)
--- NOTE | 2024-06-30 04:51 | PC.NURSE ---
Took over care from DAVID ball at 3:05am, medicated per nov, reviewed discharge instructions with pt, pt verbalized understanding, no sob or chest pain, pt ambulate upon discharge with a steady gait.
[2024-06-30 04:54] VITALS: BP 145/80; PULSE 78; RESP 16; TEMP 36.7; O2SAT 97
== END 2024-06-30 04:55 | disposition home or self-care (01) ==
PROVIDERS: Emergency Provider Internal Medicine
DX: K21.9 Gastro-esophageal reflux disease without esophagitis (principal); Z79.899 Other long term (current) drug therapy
CPT/HCPCS: 99283; 99284

== ENCOUNTER 2024-07-06 19:56 | Emergency (ER) | payer OTHER, SELFPAY ==
[2024-07-06 20:09] VITALS: BP 126/62; PULSE 66; O2SAT 96; BMI 24.2
[2024-07-06 20:12] VITALS: BP 129/75; PULSE 70; RESP 16; TEMP 36.8; O2SAT 98
--- NOTE | 2024-07-06 20:15 | ECG_ITS ---
Test Reason : WEAKNESS Blood Pressure : / mmHG Vent. Rate : 064 BPM Atrial Rate : 064 BPM P-R Int : 118 ms QRS Dur : 088 ms QT Int : 450 ms P-R-T Axes : -29 040 028 degrees QTc Int : 464 ms Normal sinus rhythm Normal ECG When compared with ECG of 18-JUN-2024 11:19, No significant change was found Referred By: Generic ED Physician Electronically Signed By:ZULLY LEVIN
[2024-07-06 20:50] LABS: Basophils Percent Auto 0.6 % (0-2); Eosinophils Absolute Auto 0.3 X10*3/uL (0.0-0.4); Eosinophils Percent Auto 3.9 % (0-4); Hematocrit 40.5 % (42.0-52.0); Hemoglobin 13.4 g/dl (14.0-18.0); Imm Gran Abs Auto 0.01 X10*3/uL (0.00-0.03); Imm Gran Pct Auto 0.1 % (0.0-0.4); Lymphocytes Absolute Auto 3.5 X10*3/uL (1.2-4.9); Lymphocytes Percent Auto 51.3 % (20-40); MANUAL DIFF FLAG SCAN; Mean Corpuscular HGB Conc 33.1 g/dl (31.0-36.0); Mean Corpuscular Hemoglobin 33.4 pg (27.0-33.0); Mean Platelet Volume 12.4 fL (9.4-12.4); Monocytes Absolute Auto 0.7 X10*3/uL (0.1-1.2); Monocytes Percent Auto 10.7 % (2-11); Neutrophils Absolute Auto 2.3 x10*3/uL (2.0-8.3); Neutrophils Percent Auto 33.4 % (45-73); PLT CLUMP 1; Red Blood Count 4.01 X10*6/uL (4.60-5.80); Red Cell Distribution Width 16.9 % (11.0-16.0); SCAN SMEAR FLAG 1
[2024-07-06 20:55] LABS: Appearance Urine Clear; Color Urine Dark Yellow; Glucose Urine UA Negative (Negative); Leukocyte Esterase Urine Trace (Negative); Nitrite Urine Negative (Negative); PH 6.5 (5.0-9.0); Specific Gravity - Urine >= 1.030 (1.005-1.025); UMIC TRIGGER UACC YES; Urine Blood Moderate (2+) (Negative); Urine Ketones 15 mg/dL (Negative); Urine Protein 30 (1+) mg/dL (Neg-Trace)
[2024-07-06 21:15] LABS: Platelet Count 83 X10*3/uL (160-400); White Blood Count 6.8 X10*3/uL (4.8-10.8)
[2024-07-06 21:17] LABS: SLIDE REVIEW VERIFIED
[2024-07-06 21:21] LABS: Bacteria Urine None Seen (None Seen); WBC Urine 0-5 /HPF (0-5)
[2024-07-06 21:40] LABS: Alanine Aminotransferase 19 U/L (0-40); Albumin Level 2.7 g/dL (3.5-5.0); Alkaline Phosphatase 109 U/L (39-117); Anion Gap 12 (12-20); Aspartate Amino Transferase 56 U/L (5-37); Bilirubin Direct 0.8 mg/dL (0.0-0.5); Bilirubin Total 1.9 mg/dL (0.0-1.0); Blood Urea Nitrogen 10 mg/dL (9-16); Calcium 9.2 mg/dL (8.4-10.2); Carbon Dioxide 26 mmol/L (22-29); Chloride 106 mmol/L (96-108); Creatinine Clr Calc Pharmacy 93.2; Estimated Glomerular Filt Rate > 60; Ethanol < 10 mg/dL; Glucose Random 111 mg/dL (60-115); Lipase 10 U/L (8-78); Magnesium 1.9 mg/dL (1.6-2.6); Potassium 4.5 mmol/L (3.3-5.1); Sodium 139 mmol/L (135-145); Total Protein 5.9 g/dL (6.5-8.0)
--- NOTE | 2024-07-06 22:03 | PC.NURSE ---
Pt aox3 resting at the beside. VSS. Reports N/V, dizziness, and weakness, burning, aching in the center of the abd that radiates up to the esophagus. Reports decreased po intake due to vomiting. Denies any blood in the vomit. Pt reports needing an endoscopy. Pending physician eval. Monitoring is ongoing.
[2024-07-06 22:16] VITALS: BP 122/77; PULSE 68; RESP 16; TEMP 37.2; O2SAT 98
[2024-07-06] MEDS: Ondansetron ODT 4 MG TAB.RAPDIS TRANSLINGU (22:36)
[2024-07-06] MEDS: Lidocaine HCl Viscous 2 % 15 ML SOLUTION MUCOUS MEM (22:36)
[2024-07-06] MEDS: Magnesium Hydrox/Alum Hydrox 30 ML ORAL.SUSP PO (22:36)
--- NOTE | 2024-07-06 22:37 | ED_ITS ---
HPI - General Adult General Chief complaint: Nausea/Vomiting/Diarrhea Stated complaint: n/v x30 mins, chronic gastro pain Time Seen by Provider: 07/06/24 22:00 Source: patient, family (Patient's brother), RN notes reviewed and old records reviewed Mode of arrival: EMS Limitations: no limitations History of Present Illness ED Provider: Zuly HPI narrative: 59-year-old male presents for evaluation of upper abdominal pain. The patient has numerous ED visits for similar complaints and this is his 6th ED visit this month at this facility for similar. He has had a CT scan a month ago that shows no acute intra-abdominal or pelvic pathology. He does have a history of to TIPS procedure The patient also had upper GI series 2 weeks ago that shows a small hiatal hernia with severe GERD. The patient reports his pain today worsened about 30 minutes prior to arrival. He saw his primary doctor earlier today and was due to have famotidine prescribed 10 mg b.i.d.. His brother states that this was not as the pharmacy stating they went to pick it up. He also takes pantoprazole 40 mg b.i.d. The patient is in the process of getting an appointment with GI Related Data Home Medications ?Medication ?Instructions ?Recorded ?Confirmed lactulose 10 gram/15 mL oral 45 ml PO TID 12/10/21 04/17/22 solution (Generlac) folic acid 1 mg tablet 1 tab PO DAILY 04/17/22 04/17/22 thiamine HCl (vitamin B1) 100 mg 1 tab PO DAILY 04/17/22 04/17/22 tablet Previous Rx's ?Medication ?Instructions ?Recorded cefuroxime axetil 500 mg tablet 500 mg PO BID #26 tabs 04/20/22 acetaminophen 500 mg tablet 500 mg PO Q6H PRN pain #30 tabs 12/14/23 (Tylenol Extra Strength) azithromycin 250 mg tablet See Rx Instructions PO .COMPLEX #6 12/14/23 tabs carbamide peroxide 6.5 % ear drops 10 drp otic (ear) right DAILY 4 12/14/23 (Debrox) days #15 mL ibuprofen 600 mg tablet 600 mg PO Q6H PRN pain #30 tabs 12/14/23 omeprazole 40 mg capsule,delayed 40 mg PO DAILY #7 caps 04/09/24 release famotidine 40 mg tablet 40 mg PO DAILY #30 tabs 05/25/24 aluminum-mag hydroxide-simethicone 10 ml PO Q6H PRN indigestion 06/11/24 200 mg-200 mg-20 mg/5 mL oral susp #3,000 mL (Maalox Advanced) sucralfate 100 mg/mL oral 5 ml PO QID #300 mL 06/11/24 suspension ondansetron 4 mg disintegrating 4 mg PO Q8H PRN nausea and 06/19/24 tablet vomiting #20 tabs pantoprazole 20 mg tablet,delayed 20 mg PO DAILY #30 tabs 06/19/24 release (Protonix) famotidine 10 mg tablet 10 mg PO BID #60 tabs 07/07/24 Allergies Allergy/AdvReac Type Severity Reaction Status Date / Time penicillin V Allergy Intermediate Itching Verified 07/06/24 20:13 Penicillins Allergy Mild ITCHING Verified 07/06/24 20:13 Review of Systems 2 Constitutional: Constitutional: Denies body ache(s), Denies chills and Denies fever(s) Eyes: Eyes: Denies blurry vision ENT: Denies vertigo and Denies dizziness Cardiovascular: Cardiovascular: Denies chest pain and Denies dyspnea Respiratory: Respiratory: Denies cough and Denies dyspnea Gastrointestinal: Gastrointestinal: Reports abdominal pain, Denies hematochezia, Denies GI cramping, Denies diarrhea, Denies loose stools, Reports nausea and Reports vomiting Musculoskeletal: Musculoskeletal: Denies back pain Neurologic: Denies vertigo and Denies dizziness Psychiatric: Psychiatric: Denies anxiety [facility] Past Medical History Medical History Group B streptococcal infection Substance abuse Hernia Cirrhosis of liver Hepatitis C Surgical History S/P TIPS (transjugular intrahepatic portosystemic shunt) Social History Social History Household Members: None Housing: Apartment Do you presently have visiting nurse or other home services: No Alcohol intake: former Patient Tobacco Use Status: Current everyday Tobacco user Tobacco use type: Cigarette Cigarettes Per Day: 5 Years Smoked: 35 Smoked in Last 30 Days: Yes Use of substances other than those prescribed or required for medical reasons: No Substance Use Type: Heroin Advance Directives: No Advance Directives Information Provided: No Do you have a plan to hurt others: No Plan service: No Current occupational status: unemployed Physical Exam ED Vital Signs: Vital Signs - 24 hr 07/06/24 20:12 07/06/24 22:16 Temperature 98.3 F 98.9 F Pulse Rate 70 68 Respiratory Rate 16 16 Blood Pressure 129/75 122/77 Pulse Oximetry 98 98 Oxygen Delivery Method Room Air Room Air BMI result Body Mass Index 24.2 Const General: healthy appearing, comfortable, no acute distress, alert and awake Nutritional Appearance: well nourished Orientation/consciousness: patient oriented x3 HENMT Head: Yes normocephalic and Yes atraumatic Eyes Eyelids: Yes eyelids normal Conjunctivae: conjunctivae normal Sclerae: sclerae normal Corneas: corneas normal Pupils: Equal, round and reactive pupils present EOM: EOMs intact bilaterally Neck Neck: Yes full ROM Resp Effort & Inspection: normal respiratory effort, able to speak in complete sentences and not labored Cardio Rate: regular rate Rhythm: regular rhythm GI Inspection: No distended Palpation (GI): Soft to palpation, not firm, Tenderness to palpation present (GI) in the epigastrum and in the LUQ, no guarding and not rigid Auscultation: normoactive bowel sounds Skin General skin exam: elasticity normal Neuro General: patient oriented x3 Cranial nerves: Yes Equal, round and reactive pupils present and Yes Bilaterally intact EOM present Cognition (Neuro): normal cognition Extrem Other: Moving all extremities well without any obvious deformities Course Reevaluation(s) Reevaluation #1: Patient reports feeling better, he is stable for discharge at this time. He will follow up his PCP and GI Time: 00:22 Medications Administered Discontinued Medications Generic Name Dose Route Start Last Admin Trade Name Freq PRN Reason Stop Dose Admin Al Hydroxide/Mg Hydroxide 30 ml 07/06/24 22:10 07/06/24 22:36 Magnesium Hydrox/Alum Hydrox 30 Ml Oral.Susp PO 07/06/24 22:11 30 ml ONCE ONE Administration Lidocaine HCl 15 ml 07/06/24 22:10 07/06/24 22:36 Lidocaine Hcl Viscous 2 % 15 Ml Solution MUCOUS MEM 07/06/24 22:11 15 ml ONCE ONE Administration Ondansetron HCl 4 mg 07/06/24 22:10 07/06/24 22:36 Ondansetron Odt 4 Mg Tab.Bhumi PALMER 07/06/24 22:11 4 mg ONCE ONE Administration Medical Decision Making Medical Decision Making [facility] Narrative: 59-year-old male with past medical history as documented above presents for evaluation of acute on chronic abdominal pain. His presentation seems similar to previous ER visits including when I saw him 2 weeks ago. Plan to treat symptomatically. His abdomen is not rigid, or distended. There is some tenderness to palpation but without guarding. Labs are consistent with baseline. The patient does have a history of hepatitis-C and mild elevation of AST and total bilirubin better again, consistent with baseline. There was no evidence of pancreatitis Differential Diagnosis Differential Diagnoses: The differential diagnosis associated with the presentation includes Acute on chronic abdominal pain Pancreatitis Hepatitis-C GERD Esophagitis Lab Data [facility] Lab Attestation statement: I reviewed the patient's lab results. No leukocytosis. The patient does have a mild anemia consistent with his baseline, he has a thrombocytopenia 283 1000, also consistent with his baseline any obvious stroke hepatitis-C. Electrolytes within normal limits 07/06/24 20:39 07/06/24 21:17 Labs: Lab Results 07/06/24 07/06/24 Range/Units 20:39 21:17 WBC 6.8 (4.8-10.8) X10*3/uL RBC 4.01 L (4.60-5.80) X10*6/uL Hgb 13.4 L (14.0-18.0) g/dl Hct 40.5 L (42.0-52.0) % MCV 101.0 H (80.0-98.0) fL MCH 33.4 H (27.0-33.0) pg MCHC 33.1 (31.0-36.0) g/dl RDW 16.9 H (11.0-16.0) % Plt Count 83 L (160-400) X10*3/uL MPV 12.4 (9.4-12.4) fL Immature Gran % (Auto) 0.1 (0.0-0.4) % Neut % (Auto) 33.4 L (45-73) % Lymph % (Auto) 51.3 H (20-40) % [place] % (Auto) 10.7 (2-11) % Eos % (Auto) 3.9 (0-4) % Baso % (Auto) 0.6 (0-2) % Lymph # (Auto) 3.5 (1.2-4.9) X10*3/uL [place] # (Auto) 0.7 (0.1-1.2) X10*3/uL Eos # (Auto) 0.3 (0.0-0.4) X10*3/uL Baso # (Auto) 0.0 (0.0-0.2) X10*3/uL Abs Immat Gran (auto) 0.01 (0.00-0.03) X10*3/uL Absolute Neuts (auto) 2.3 (2.0-8.3) x10*3/uL Absolute Nucleated RBC 0.000 (0.0-0.012) X10*3/uL Nucleated RBC % (auto) 0.0 (0.0-0.2) /100WBC Smear Tech's Comments VERIFIED Sodium 139 (135-145) mmol/L Potassium 4.5 (3.3-5.1) mmol/L Chloride 106 (96-108) mmol/L Carbon Dioxide 26 (22-29) mmol/L Anion Gap 12 (12-20) BUN 10 (9-16) mg/dL Creatinine 0.77 (0.5-1.4) mg/dL Estim Creat Clear Calc 93.2 Estimated GFR > 60 Random Glucose 111 (60-115) mg/dL Calcium 9.2 (8.4-10.2) mg/dL Magnesium 1.9 (1.6-2.6) mg/dL Total Bilirubin 1.9 H (0.0-1.0) mg/dL Direct Bilirubin 0.8 H (0.0-0.5) mg/dL AST 56 H (5-37) U/L ALT 19 (0-40) U/L Alkaline Phosphatase 109 (39-117) U/L C-Reactive Protein 0.20 (< or = 0.50) mg/dL Total Protein 5.9 L (6.5-8.0) g/dL Albumin 2.7 L (3.5-5.0) g/dL Lipase 10 (8-78) U/L Urine Color Dark Yellow Urine Appearance Clear Urine pH 6.5 (5.0-9.0) Ur Specific [place] >= 1.030 H (1.005-1.025) Urine Protein 30 (1+) H (Neg-Trace) mg/dL Urine Glucose (UA) Negative (Negative) mg/dL Urine Ketones 15 (Negative) mg/dL Urine Blood Moderate (2+) H (Negative) Urine Nitrite Negative (Negative) Ur Leukocyte Esterase Trace H (Negative) Urine RBC 11-20 H (0-2) /HPF Urine WBC 0-5 (0-5) /HPF Ur Squamous Epith Cells 3-5 (0-2) /HPF Urine Bacteria None Seen (None Seen) Hyaline Casts 3-5 (0-2) /LPF Ethyl Alcohol < 10 mg/dL Discharge Plan Discharge Clinical Impression: Hepatitis C Abdominal pain Qualifiers: Abdominal location: generalized Qualified Code(s): R10.84 - Generalized abdominal pain Patient Disposition: Home, Self-Care Instructions: Gastroesophageal Reflux Disease (ED) Additional Instructions: Your workup in the ER today. Take all of your medications as prescribed Follow-up with your primary doctor, return for new or worsening symptoms Prescriptions: New famotidine 10 mg tablet 10 mg PO BID Qty: 60 0RF No Action thiamine HCl (vitamin B1) 100 mg tablet 1 tab PO DAILY folic acid 1 mg tablet 1 tab PO DAILY cefuroxime axetil 500 mg tablet 500 mg PO BID Qty: 26 0RF lactulose [Generlac] 10 gram/15 mL solution 45 ml PO TID azithromycin 250 mg tablet See Rx Instructions PO .COMPLEX Qty: 6 0RF Rx Instructions: For 250 mg dose pack: take 500 mg today (day 1), then 250 mg for 4 days (days 2-5) ibuprofen 600 mg tablet 600 mg PO Q6H PRN (Reason: pain) Qty: 30 0RF acetaminophen [Tylenol Extra Strength] 500 mg tablet 500 mg PO Q6H PRN (Reason: pain) Qty: 30 0RF Debrox 6.5 % drops 10 drp otic (ear) right DAILY 4 Days Qty: 15 0RF famotidine 40 mg tablet 40 mg PO DAILY Qty: 30 0RF sucralfate 100 mg/mL suspension 5 ml PO QID Qty: 300 0RF Rx Instructions: swish in mouth and swallow; use after food/drink alum-mag hydroxide-simeth [Maalox Advanced] 200-200-20 mg/5 mL suspension 10 ml PO Q6H PRN (Reason: indigestion) Qty: 3000 0RF ondansetron 4 mg tablet,disintegrating 4 mg PO Q8H PRN (Reason: nausea and vomiting) Qty: 20 0RF pantoprazole [Protonix] 20 mg tablet,delayed release (DR/EC) 20 mg PO DAILY Qty: 30 0RF omeprazole 40 mg capsule,delayed release(DR/EC) 40 mg PO DAILY Qty: 7 0RF Print Language: Romansh
[2024-07-07 00:34] VITALS: BP 139/81; PULSE 63; RESP 12; TEMP 37.1; O2SAT 97
[2024-07-07 00:35] VITALS: BP 139/81; PULSE 63; RESP 12; TEMP 37.1; O2SAT 97
== END 2024-07-07 00:36 | disposition home or self-care (01) ==
PROVIDERS: Emergency Provider Emergency Medicine
DX: B19.20 Unspecified viral hepatitis C without hepatic coma (principal); R11.2 Nausea with vomiting, unspecified; R10.84 Generalized abdominal pain; R53.1 Weakness; F17.210 Nicotine dependence, cigarettes, uncomplicated; Z79.899 Other long term (current) drug therapy
CPT/HCPCS: 36415; 80048; 80076; 80307; 81001; 81003; 83690; 83735; 85025; 86140; 93005; 99283; 99285

== ENCOUNTER → 2024-07-06 20:15 | Outpatient (BNV) | payer OTHER, SELFPAY | PROVIDERS: Emergency Provider Emergency Medicine; Visit Provider Internal Medicine | DX: R53.1 Weakness (principal) | CPT/HCPCS: 93010 ==

== ENCOUNTER 2024-07-08 21:43 | Emergency (ER) | payer OTHER, SELFPAY ==
[2024-07-08 21:47] VITALS: BP 130/80; PULSE 72; O2SAT 94
[2024-07-08 21:53] VITALS: BP 124/92; PULSE 75; RESP 22; TEMP 37; O2SAT 96; BMI 22.6
[2024-07-08 22:10] LABS: PLT CLUMP 1; Red Blood Count 3.65 X10*6/uL (4.60-5.80); SCAN SMEAR FLAG 1
[2024-07-08 22:11] LABS: Basophils Percent Auto 0.4 % (0-2); Eosinophils Absolute Auto 0.2 X10*3/uL (0.0-0.4); Eosinophils Percent Auto 3.3 % (0-4); Hemoglobin 12.3 g/dl (14.0-18.0); Imm Gran Abs Auto 0.01 X10*3/uL (0.00-0.03); Imm Gran Pct Auto 0.1 % (0.0-0.4); Lymphocytes Absolute Auto 4.1 X10*3/uL (1.2-4.9); MANUAL DIFF FLAG SCAN; Mean Corpuscular HGB Conc 34.2 g/dl (31.0-36.0); Mean Corpuscular Hemoglobin 33.7 pg (27.0-33.0); Mean Corpuscular Volume 98.6 fL (80.0-98.0); Mean Platelet Volume 9.8 fL (9.4-12.4); Monocytes Absolute Auto 0.7 X10*3/uL (0.1-1.2); Monocytes Percent Auto 10.5 % (2-11); Neutrophils Absolute Auto 1.6 x10*3/uL (2.0-8.3); Neutrophils Percent Auto 23.7 % (45-73); Red Cell Distribution Width 16.7 % (11.0-16.0)
[2024-07-08 22:29] LABS: Alanine Aminotransferase 20 U/L (0-40); Albumin Level 2.8 g/dL (3.5-5.0); Alkaline Phosphatase 108 U/L (39-117); Anion Gap 12 (12-20); Aspartate Amino Transferase 58 U/L (5-37); Bilirubin Total 2.4 mg/dL (0.0-1.0); Blood Urea Nitrogen 12 mg/dL (9-16); Calcium 9.4 mg/dL (8.4-10.2); Carbon Dioxide 26 mmol/L (22-29); Chloride 105 mmol/L (96-108); Estimated Glomerular Filt Rate > 60; Glucose Random 119 mg/dL (60-115); Lipase 12 U/L (8-78); Potassium 3.9 mmol/L (3.3-5.1); Sodium 139 mmol/L (135-145)
[2024-07-08 22:40] LABS: Platelet Count 101 X10*3/uL (160-400); SLIDE REVIEW VERIFIED; White Blood Count 6.7 X10*3/uL (4.8-10.8)
--- NOTE | 2024-07-09 00:21 | ED_ITS ---
HPI - Abdominal Pain General Chief Complaint: Abdominal Pain Stated Complaint: VOMITING, ABD PAIN Time Seen by Provider: 07/09/24 00:20 Source: patient Mode of arrival: ambulatory Limitations: no limitations History of Present Illness ED Provider: Dr. Rios HPI narrative: Patient is a 59yo male with liver disease and cirrhosis from alcohol who presents with vomiting and abdominal pain. Patient presents frequently with the same and last had a abd CT one month ago. Related Data Home Medications ?Medication ?Instructions ?Recorded ?Confirmed lactulose 10 gram/15 mL oral 45 ml PO TID 12/10/21 04/17/22 solution (Generlac) folic acid 1 mg tablet 1 tab PO DAILY 04/17/22 04/17/22 thiamine HCl (vitamin B1) 100 mg 1 tab PO DAILY 04/17/22 04/17/22 tablet Previous Rx's ?Medication ?Instructions ?Recorded cefuroxime axetil 500 mg tablet 500 mg PO BID #26 tabs 04/20/22 acetaminophen 500 mg tablet 500 mg PO Q6H PRN pain #30 tabs 12/14/23 (Tylenol Extra Strength) azithromycin 250 mg tablet See Rx Instructions PO .COMPLEX #6 12/14/23 tabs carbamide peroxide 6.5 % ear drops 10 drp otic (ear) right DAILY 4 12/14/23 (Debrox) days #15 mL ibuprofen 600 mg tablet 600 mg PO Q6H PRN pain #30 tabs 12/14/23 omeprazole 40 mg capsule,delayed 40 mg PO DAILY #7 caps 04/09/24 release famotidine 40 mg tablet 40 mg PO DAILY #30 tabs 05/25/24 aluminum-mag hydroxide-simethicone 10 ml PO Q6H PRN indigestion 06/11/24 200 mg-200 mg-20 mg/5 mL oral susp #3,000 mL (Maalox Advanced) sucralfate 100 mg/mL oral 5 ml PO QID #300 mL 06/11/24 suspension ondansetron 4 mg disintegrating 4 mg PO Q8H PRN nausea and 06/19/24 tablet vomiting #20 tabs pantoprazole 20 mg tablet,delayed 20 mg PO DAILY #30 tabs 06/19/24 release (Protonix) famotidine 10 mg tablet 10 mg PO BID #60 tabs 07/07/24 ondansetron 4 mg disintegrating 4 mg PO Q8H 4 days #12 tabs 07/09/24 tablet Allergies Allergy/AdvReac Type Severity Reaction Status Date / Time penicillin V Allergy Intermediate Itching Verified 07/08/24 21:55 Penicillins Allergy Mild ITCHING Verified 07/08/24 21:55 Review of Systems Review of Systems Yes all other systems are reviewed and are negative Denies Sensory deficit (Neuro) [facility] Past Medical History Medical History Group B streptococcal infection Substance abuse Hernia Cirrhosis of liver Hepatitis C Surgical History S/P TIPS (transjugular intrahepatic portosystemic shunt) Social History Social History Household Members: None Housing: Apartment Do you presently have visiting nurse or other home services: No Alcohol intake: former Patient Tobacco Use Status: Current everyday Tobacco user Tobacco use type: Cigarette Cigarettes Per Day: 5 Years Smoked: 35 Substance Use Type: Heroin Advance Directives: No Advance Directives Information Provided: Yes Do you have a plan to hurt others: No Plan service: No Current occupational status: unemployed Physical Exam ED Vital Signs: Vital Signs - 24 hr 07/08/24 21:53 Temperature 98.6 F Pulse Rate 75 Respiratory Rate 22 H Blood Pressure 124/92 H Pulse Oximetry 96 Oxygen Delivery Method Room Air BMI result Body Mass Index 22.6 Const Other: male looking older than stated age Nutritional Appearance: thin Orientation/consciousness: oriented to person and patient oriented x3 Limitations: no limitations HENNC Head: Yes normal to inspection Ears: external ears normal General nose exam: Normal external nose present Mouth: Normal oral and palatal mucosa present and oropharynx normal Throat: Yes posterior oropharynx normal Eyes General: appearance normal, both eyes and all related structures Neck Neck: Yes normal visual inspection Chest Chest palpation & inspection: normal inspection of the chest Resp Auscultation: clear to auscultation bilaterally Cardio Jugular venous distension: no JVD Rate: regular rate Rhythm: regular rhythm Heart sounds: S1 normal heart sound present and S2 normal heart sound present GI Other: scaphoid, soft, patient states he has pain on palpation Auscultation: normal bowel sounds General: Yes no CVA tenderness Back/Spine/Pelvis Back: no CVA tenderness Skin General skin exam: no rashes or lesions noted Neuro General: oriented to person and patient oriented x3 Cranial nerves: Yes CN's II-XII intact bilaterally Motor exam (neuro): 5/5 motor strength present throughout Sensory Exam: No Sensory deficit (Neuro) Extrem General: Yes normal to inspection Psych Appearance: grossly normal Course Reevaluation(s) Reevaluation #1: Patient received IV protonix, zofran, and IV fluids, resting comfortably will dc home Time: 03:41 Medical Decision Making Differential Diagnosis Differential Diagnoses: The differential diagnosis associated with the presentation includes (GERD, vomiting, liver disease) Admission/Observation Consideration of admission/observation: Escalation of care including admission/observation considered (upon arrival patient considered for admission) Lab Data 07/08/24 22:00 07/08/24 22:00 Labs: Lab Results 07/08/24 Range/Units 22:00 WBC 6.7 (4.8-10.8) X10*3/uL RBC 3.65 L (4.60-5.80) X10*6/uL Hgb 12.3 L (14.0-18.0) g/dl Hct 36.0 L (42.0-52.0) % MCV 98.6 H (80.0-98.0) fL MCH 33.7 H (27.0-33.0) pg MCHC 34.2 (31.0-36.0) g/dl RDW 16.7 H (11.0-16.0) % Plt Count 101 L (160-400) X10*3/uL MPV 9.8 (9.4-12.4) fL Immature Gran % (Auto) 0.1 (0.0-0.4) % Neut % (Auto) 23.7 L (45-73) % Lymph % (Auto) 62.0 H (20-40) % [place] % (Auto) 10.5 (2-11) % Eos % (Auto) 3.3 (0-4) % Baso % (Auto) 0.4 (0-2) % Lymph # (Auto) 4.1 (1.2-4.9) X10*3/uL [place] # (Auto) 0.7 (0.1-1.2) X10*3/uL Eos # (Auto) 0.2 (0.0-0.4) X10*3/uL Baso # (Auto) 0.0 (0.0-0.2) X10*3/uL Abs Immat Gran (auto) 0.01 (0.00-0.03) X10*3/uL Absolute Neuts (auto) 1.6 L (2.0-8.3) x10*3/uL Absolute Nucleated RBC 0.000 (0.0-0.012) X10*3/uL Nucleated RBC % (auto) 0.0 (0.0-0.2) /100WBC Smear Tech's Comments VERIFIED Sodium 139 (135-145) mmol/L Potassium 3.9 (3.3-5.1) mmol/L Chloride 105 (96-108) mmol/L Carbon Dioxide 26 (22-29) mmol/L Anion Gap 12 (12-20) BUN 12 (9-16) mg/dL Creatinine 0.76 (0.5-1.4) mg/dL Estim Creat Clear Calc 94.0 Estimated GFR > 60 Random Glucose 119 H (60-115) mg/dL Calcium 9.4 (8.4-10.2) mg/dL Total Bilirubin 2.4 H (0.0-1.0) mg/dL AST 58 H (5-37) U/L ALT 20 (0-40) U/L Alkaline Phosphatase 108 (39-117) U/L Total Protein 6.0 L (6.5-8.0) g/dL Albumin 2.8 L (3.5-5.0) g/dL Lipase 12 (8-78) U/L External Record Review External record reviewed: Outpatient record, Prior outpatient labs and Prior outpatient radiology Tests considered The following testing was considered but not selected: CT of abdomen considered, patient had recent CT Chronic Conditions Patient?s care impacted by: Other (cirrhosis, liver disease) Social Determinants Patient?s care significantly limited by Social Determinants of Health including: Low income and Alcoholism and drug addiction in family Medications Administered Generic Name Dose Route Start Last Admin Trade Name Freq PRN Reason Stop Dose Admin Sodium Chloride 1,000 mls @ 125 mls/hr 07/09/24 00:45 07/09/24 00:53 Ns IVCONT 125 mls/hr .Q8H ADONAY Administration Discontinued Medications Generic Name Dose Route Start Last Admin Trade Name Freq PRN Reason Stop Dose Admin Ondansetron HCl 4 mg 07/09/24 00:34 07/09/24 00:53 Ondansetron Hcl 4 Mg/2 Ml Vial IVPUSH 07/09/24 00:35 4 mg ONCE ONE Administration Pantoprazole Sodium 40 mg 07/09/24 00:34 07/09/24 00:53 Pantoprazole Sodium 40 Mg/10 Ml Vial IVPUSH 07/09/24 00:35 40 mg ONCE ONE Administration Discharge Plan Discharge Clinical Impression: Chronic GERD, Cirrhosis of liver, Vomiting Patient Disposition: Home, Self-Care Instructions: Gastroesophageal Reflux Disease (ED), Acute Nausea and Vomiting (ED) Prescriptions: New ondansetron 4 mg tablet,disintegrating 4 mg PO Q8H 4 Days Qty: 12 0RF No Action thiamine HCl (vitamin B1) 100 mg tablet 1 tab PO DAILY folic acid 1 mg tablet 1 tab PO DAILY cefuroxime axetil 500 mg tablet 500 mg PO BID Qty: 26 0RF lactulose [Generlac] 10 gram/15 mL solution 45 ml PO TID azithromycin 250 mg tablet See Rx Instructions PO .COMPLEX Qty: 6 0RF Rx Instructions: For 250 mg dose pack: take 500 mg today (day 1), then 250 mg for 4 days (days 2-5) ibuprofen 600 mg tablet 600 mg PO Q6H PRN (Reason: pain) Qty: 30 0RF acetaminophen [Tylenol Extra Strength] 500 mg tablet 500 mg PO Q6H PRN (Reason: pain) Qty: 30 0RF Debrox 6.5 % drops 10 drp otic (ear) right DAILY 4 Days Qty: 15 0RF famotidine 40 mg tablet 40 mg PO DAILY Qty: 30 0RF sucralfate 100 mg/mL suspension 5 ml PO QID Qty: 300 0RF Rx Instructions: swish in mouth and swallow; use after food/drink alum-mag hydroxide-simeth [Maalox Advanced] 200-200-20 mg/5 mL suspension 10 ml PO Q6H PRN (Reason: indigestion) Qty: 3000 0RF ondansetron 4 mg tablet,disintegrating 4 mg PO Q8H PRN (Reason: nausea and vomiting) Qty: 20 0RF pantoprazole [Protonix] 20 mg tablet,delayed release (DR/EC) 20 mg PO DAILY Qty: 30 0RF omeprazole 40 mg capsule,delayed release(DR/EC) 40 mg PO DAILY Qty: 7 0RF famotidine 10 mg tablet 10 mg PO BID Qty: 60 0RF Print Language: Argentine
[2024-07-09] MEDS: ondansetron HCL 4 MG/2 ML VIAL IVPUSH (00:53)
[2024-07-09] MEDS: 0.9 % Sodium Chloride 1,000 ML 125 ML IVCONT (00:53)
[2024-07-09] MEDS: Pantoprazole Sodium 40 MG/10 ML VIAL IVPUSH (00:53)
[2024-07-09 05:08] VITALS: BP 124/92; PULSE 75; RESP 22; TEMP 37; O2SAT 96
== END 2024-07-09 05:08 | disposition home or self-care (01) ==
PROVIDERS: Emergency Provider Emergency Medicine; PCP Internal Medicine
DX: K21.9 Gastro-esophageal reflux disease without esophagitis (principal); K74.60 Unspecified cirrhosis of liver; R11.2 Nausea with vomiting, unspecified; R10.2 Pelvic and perineal pain; F17.210 Nicotine dependence, cigarettes, uncomplicated; Z79.899 Other long term (current) drug therapy
CPT/HCPCS: 36415; 80053; 83690; 85025; 96374; 96375; 99283; 99284; J2405; J2470

== ENCOUNTER 2024-08-02 08:51 | Outpatient (AMB) | payer OTHER, SELFPAY ==
--- NOTE | 2024-08-02 08:52 | MHC.OFFVIS ---
Intake Visit Reasons: Abdominal Pains Intake Note: Kareem presents with his brother Hector. CC: He states that he is having concerns but denies pains in the stomach. Clinical Cytogeneticist Scientist Required: Yes Allergies penicillin V Allergy (Intermediate, Verified 08/02/24 08:52) Itching Penicillins Allergy (Mild, Verified 08/02/24 08:52) ITCHING HPI HPI Abdominal Pains: Details: HPI 59 yr old m with hx of cirrhosis s/p TIPS, s/p GDA embolization, and substance abuse He had been having epigastirc pain he had been having nausea and vomiting happened since 05/01 he has been trying famotidine and zofran and has been helping a lot he is doing much better now --no more vomiting, pain is less pain is worse with food, not been taking nsaid or alcohol he is taking methadone stopped drugs 4 yrs ago still smoking denies dysphagia denies constipation or diarrhea no melena or rectal bleeding he had treatment for Hep C in the past He takes lactulose, PPI and rifaximin as well Upper GI series: TIPS, s/p GDA< gastritis, severe reflux ROS: Constitutional : No Weight loss, No Fever, No Chills ENT/Mouth : No sore throat, No Rhinorrhea Eyes: No Swelling, No Redness Cardiovascular : No Chest Pain, No SOB, No Edema Respiratory : No Cough, No Sputum, No Wheezing Gastrointestinal : see HPI Genitourinary : NO Dysuria, No Urinary Frequency, No Hematuria, No Urgency Musculoskeletal : NO joint pain, No Myalgias, No Joint Swelling Skin : No Skin Lesions, No rash Neuro : No Weakness, No Numbness, No Dizziness, No Headache Psych : No Anxiety/Panic, No Depression Heme/Lymph: No Bruising, No Lymphadenopathy Endocrine : No Polyuria, No Polydipsia All other systems reviewed and are negative. Medical History Cirrhosis of liver Group B streptococcal infection Hepatitis C Hernia Substance abuse Surgical History S/P TIPS (transjugular intrahepatic portosystemic shunt) Family History no FH of lvier disease Social History ex ivda, no alcoohl, smoker EXAM: GENERAL: The patient is well developed and nontoxic. A/P: 1/ Compensated Cirrhosis, prob from prior HEP C--now neg s/p TIPS--patent on recent US 2/ Abdominal pain, improved, possibly from gastritis, 3/ hematuria, abn bladder on CT PLAN: 1/ US and liver --HCC surveillance 2/ change to famotidine 40 mg at night and PPI in the AM 3/ EGD 4/ may need urology referral if ongoing hematuria recent MELD : unable to calculate, no recent INR, but LFT are stable, as is HGB PFSH Medical History Group B streptococcal infection Substance abuse Hernia Cirrhosis of liver Hepatitis C Surgical History S/P TIPS (transjugular intrahepatic portosystemic shunt) Social History Household Members: None Housing: Apartment Do you presently have visiting nurse or other home services: No Alcohol intake: former Patient Tobacco Use Status: Current everyday Tobacco user Tobacco use type: Cigarette Cigarettes Per Day: 5 Years Smoked: 35 Substance Use Type: Heroin service: No Current occupational status: unemployed Telehealth Telehealth Telehealth Platform: Bablic Location of provider rendering services: practice address Location of patient: address on file Patient Identification confirmed using: Name, : Yes Telehealth method: video Patient verbally consented to treatment: Yes Patient verbally consented to billing insurance company: Yes Patient informed of any privacy concerns related to visit: Yes Minutes spent on Phone/Video with Pt.: 16 Assessment & Plan Assessment & Plan (1) Cirrhosis of liver: Code(s): K74.60 - Unspecified cirrhosis of liver Category: Medical Plan: see above Orders: Orders US abdomen comp w elastography Today K74.60 - Unspecified cirrhosis of liver Medications: Changed From famotidine 40 mg PO DAILY 30 tabs 0RF To famotidine 40 mg PO BEDTIME 90 tabs 1RF From ondansetron 4 mg PO Q8H 4 days 12 tabs 0RF To ondansetron 4 mg PO Q8H 30 tabs 0RF Discontinued cefuroxime axetil Discontinued Reason: Doctor's Order 500 mg PO BID 26 tabs 0RF ondansetron Discontinued Reason: Doctor's Order 4 mg PO Q8H PRN 20 tabs 0RF nausea and vomiting famotidine Discontinued Reason: Doctor's Order 10 mg PO BID 60 tabs 0RF Coding Level of Care Code Tele [facility] Pt Level 4 (53447) Diagnoses Cirrhosis of liver K74.60
== END 2024-08-02 09:59 | disposition home or self-care (01) ==
LOC: HO.HGI 08:51
PROVIDERS: PCP Internal Medicine; Visit Provider Internal Medicine Gastroenterology
DX: K74.60 Unspecified cirrhosis of liver (principal)
CPT/HCPCS: 99204

== ENCOUNTER 2024-08-20 09:25 | Outpatient (REF) | payer OTHER, SELFPAY ==
--- NOTE | ~2024-08-20 | US_ITS ---
EXAMINATION: Ultrasound abdomen and chest x-ray. CLINICAL INDICATION: Cirrhosis level liver. Dizziness and lightheadedness. COMPARISON: Ultrasound abdomen 03/18/2019. CT abdomen pelvis with IV contrast 05/25/2024. Chest x-ray 1022. TECHNIQUE: Routine grayscale imaging of the abdomen attention to liver with elastography was performed. Chest x-ray 04/17/2022. FINDINGS: CHEST: The lungs are hypoexpanded but clear of acute process. Heart size and pulmonary vascularity is normal. No gross bony abnormality seen. Ultrasound abdomen: Pancreas: Partially visualized head and the body the pancreas is homogeneous echotexture. The tail is obscured by overlying gas. Pancreatic duct minimally prominent measuring 0.3 cm. Aorta: Proximal abdominal aorta measures 3.1 cm. The mid and the distal abdominal aorta measure 2.0 cm. There is mild atherosclerosis. IVC: IVC is normal caliber. Liver: The right lobe of liver measures 11.9 cm, left lobe of liver measures 9.3 cm. There is coarse echotexture with mild nodular liver contour. No focal lesion visualized. Mild intrahepatic ductal prominence. There is bidirectional hepatopedal flow seen in the middle portal vein on Doppler exam. Also visualized is stent following placement of Tipps procedure with bidirectional in and outflow. No perihepatic fluid collection. There is no free fluid. Gallbladder: The gallbladder has been surgically removed. Right kidney: The right kidney measures 11.5 cm in length. None specific echogenic foci seen. No hydronephrosis or caliectasis Left kidney: Left kidney measures 7.8 cm. Nonspecific echogenic foci are seen. No hydronephrosis or caliectasis. Spleen: Spleen measures 9.5 cm in length. Incidental finding of a small splenule measuring 1.2 x 1.2 x 1.2 cm. US/US abdomen comp w elastography IMPRESSION: Coarse, echogenic and nodular liver pattern suggestive of cirrhosis. Patent bidirectional middle portal vein and TIPS stent on Doppler exam. There is no free fluid. Hypoexpanded lungs without acute process Electronically signed by: Tavon Medina MD 08/21/2024 08:58 AM [facility] [place]
== END 2024-08-20 09:26 | disposition home or self-care (01) ==
LOC: HO.US 09:25
PROVIDERS: PCP Internal Medicine; Visit Provider Internal Medicine Gastroenterology
DX: K74.60 Unspecified cirrhosis of liver (principal)
CPT/HCPCS: 76700; 76981

== ENCOUNTER 2024-08-21 07:09 | Inpatient (IN) | payer OTHER, SELFPAY ==
[2024-08-21] VITALS (11 sets, daily range): BP systolic 106–148; BP diastolic 64–90; PULSE 53–78; RESP 11–18; TEMP 36.2–37.2; O2SAT 94–99; BMI 27.1
--- NOTE | ~2024-08-21 | XR_ITS ---
EXAMINATION: Ultrasound abdomen and chest x-ray. CLINICAL INDICATION: Cirrhosis level liver. Dizziness and lightheadedness. COMPARISON: Ultrasound abdomen 03/18/2019. CT abdomen pelvis with IV contrast 05/25/2024. Chest x-ray 1022. TECHNIQUE: Routine grayscale imaging of the abdomen attention to liver with elastography was performed. Chest x-ray 04/17/2022. FINDINGS: CHEST: The lungs are hypoexpanded but clear of acute process. Heart size and pulmonary vascularity is normal. No gross bony abnormality seen. Ultrasound abdomen: Pancreas: Partially visualized head and the body the pancreas is homogeneous echotexture. The tail is obscured by overlying gas. Pancreatic duct minimally prominent measuring 0.3 cm. Aorta: Proximal abdominal aorta measures 3.1 cm. The mid and the distal abdominal aorta measure 2.0 cm. There is mild atherosclerosis. IVC: IVC is normal caliber. Liver: The right lobe of liver measures 11.9 cm, left lobe of liver measures 9.3 cm. There is coarse echotexture with mild nodular liver contour. No focal lesion visualized. Mild intrahepatic ductal prominence. There is bidirectional hepatopedal flow seen in the middle portal vein on Doppler exam. Also visualized is stent following placement of Tipps procedure with bidirectional in and outflow. No perihepatic fluid collection. There is no free fluid. Gallbladder: The gallbladder has been surgically removed. Right kidney: The right kidney measures 11.5 cm in length. None specific echogenic foci seen. No hydronephrosis or caliectasis Left kidney: Left kidney measures 7.8 cm. Nonspecific echogenic foci are seen. No hydronephrosis or caliectasis. Spleen: Spleen measures 9.5 cm in length. Incidental finding of a small splenule measuring 1.2 x 1.2 x 1.2 cm. XR/XR chest 1V IMPRESSION: Coarse, echogenic and nodular liver pattern suggestive of cirrhosis. Patent bidirectional middle portal vein and TIPS stent on Doppler exam. There is no free fluid. Hypoexpanded lungs without acute process Electronically signed by: Tavon Medina MD 08/21/2024 08:58 AM [facility]
--- NOTE | ~2024-08-21 | CT_ITS ---
EXAMINATION: CT HEAD WITHOUT CONTRAST CLINICAL INFORMATION: Fall, altered balance. Poor historian. COMPARISON: None available. TECHNIQUE: Contiguous axial imaging was performed from the skull base to vertex without intravenous administration of contrast. This CT examination was performed using dose optimization techniques as appropriate, variously including the following: *Automated exposure control *Adjustment of mA and/or kV according to patient size (this includes techniques or standardized protocols for targeted exams where dose is matched to indication/reason for exam; i.e. extremities or head) *Use of iterative reconstruction technique DLP: 6:30 mGy-cm FINDINGS: There is no acute intra-axial, extra-axial bleed, masses or midline shift. There is no acute infarction in evolution. There is no edema. The [place] to white matter differentiation is maintained normal. The lateral ventricles are symmetrical in size but enlarged. Bone windows reveal no calvarial abnormality. There is no scalp soft tissue abnormality. CT/CT head/brain wo IV con IMPRESSION: 1. No acute intracranial process seen. 2. Age-related cerebral volume loss. Electronically signed by: Tavon Medina MD 08/21/2024 08:43 AM EST
--- NOTE | 2024-08-21 07:32 | ECG_ITS ---
Test Reason : LIGHTHEADEDNESS Blood Pressure : / mmHG Vent. Rate : 062 BPM Atrial Rate : 062 BPM P-R Int : 120 ms QRS Dur : 086 ms QT Int : 476 ms P-R-T Axes : -10 022 018 degrees QTc Int : 483 ms Normal sinus rhythm Prolonged QT Abnormal ECG When compared with ECG of 06-JUL-2024 20:12, No significant change was found Referred By: Gali Saldana Electronically Signed By:CAR HIGGINS MD
[2024-08-21 07:55] LABS: MANUAL DIFF FLAG NO
--- NOTE | 2024-08-21 07:56 | ED_ITS ---
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 States was walking to bathroom and felt tremulous/off balance and fell near toilet, denies head trauma or LOC, states got up immediately. Denies lightheadedness/dizziness at present. Denies anticoagulation use. Reports feeling tremulous over the past week. Denies known fever, chills, cough, headache, neck/back pain, CP/SOB, abdominal pain, nausea/vomiting. Denies illicit substance or EtOH use. Poor historian Related Data Home Medications ?Medication ?Instructions ?Recorded ?Confirmed lactulose 10 gram/15 mL oral 45 ml PO TID 12/10/21 04/17/22 solution (Generlac) folic acid 1 mg tablet 1 tab PO DAILY 04/17/22 04/17/22 thiamine HCl (vitamin B1) 100 mg 1 tab PO DAILY 04/17/22 04/17/22 tablet pantoprazole 40 mg tablet,delayed 40 mg PO DAILY 08/02/24 release rifaximin 550 mg tablet (Xifaxan) 550 mg PO BID 08/02/24 Previous Rx's ?Medication ?Instructions ?Recorded acetaminophen 500 mg tablet 500 mg PO Q6H PRN pain #30 tabs 12/14/23 (Tylenol Extra Strength) carbamide peroxide 6.5 % ear drops 10 drp otic (ear) right DAILY 4 12/14/23 (Debrox) days #15 mL ibuprofen 600 mg tablet 600 mg PO Q6H PRN pain #30 tabs 12/14/23 aluminum-mag hydroxide-simethicone 10 ml PO Q6H PRN indigestion 06/11/24 200 mg-200 mg-20 mg/5 mL oral susp #3,000 mL (Maalox Advanced) sucralfate 100 mg/mL oral 5 ml PO QID #300 mL 06/11/24 suspension famotidine 40 mg tablet 40 mg PO BEDTIME #90 tabs 08/02/24 ondansetron 4 mg disintegrating 4 mg PO Q8H #30 tabs 08/02/24 tablet Allergies Allergy/AdvReac Type Severity Reaction Status Date / Time penicillin V Allergy Intermediate Itching Verified 08/21/24 07:28 Penicillins Allergy Mild ITCHING Verified 08/02/24 08:52 Review of Systems 2 Review of Systems: Yes all other systems are reviewed and are negative Constitutional: Constitutional: Reports as per HPI Neurologic: Denies Abnormal speech present [facility] Past Medical History Attestation statement: The following information was validated with the patient. Source: old records reviewed Medical History Group B streptococcal infection Substance abuse Hernia Cirrhosis of liver Hepatitis C Surgical History S/P TIPS (transjugular intrahepatic portosystemic shunt) Social History Social History Household Members: None Housing: Apartment Do you presently have visiting nurse or other home services: No Alcohol intake: former Patient Tobacco Use Status: Current everyday Tobacco user Tobacco use type: Cigarette Cigarettes Per Day: 5 Years Smoked: 35 Smoked in Last 30 Days: Yes Use of substances other than those prescribed or required for medical reasons: No Substance Use Type: Heroin Advance Directives: No service: No Current occupational status: unemployed Physical Exam 2 Vital Signs: Vital Signs: Last Vital Signs Temp 98.8 F 08/21/24 07:19 Pulse 58 08/21/24 08:25 Resp 15 08/21/24 08:25 BP 119/67 08/21/24 08:25 Pulse Ox 98 08/21/24 08:25 O2 Del Method Room Air 08/21/24 08:25 BMI result Body Mass Index 27.1 Const: General: cooperative, healthy appearing and no acute distress O rientation/consciousness: oriented to person and oriented to place L imitations: no limitations HEENT: Head: Yes normal to inspection and Yes atraumatic Ears: hearing grossly normal bilaterally General nose exam: Normal external nose present Face and sinus: Yes normal facial exam Throat: Yes posterior oropharynx normal Eyes: General: appearance normal, both eyes and all related structures P upils: Equal, round and reactive pupils present EOM: EOMs intact bilaterally Neck: Neck: Yes normal visual inspection and Yes no meningeal signs Resp: Effort & Inspection: normal respiratory effort and no respiratory distress Auscultation: clear to auscultation bilaterally and no wheezes Cardio: Rate: regular rate Heart sounds: S1 normal heart sound present and S2 normal heart sound present GI: Inspection: Yes normal to inspection Palpation (GI): Soft to palpation, nontender, no guarding and not rigid : General: Yes no CVA tenderness Back/Spine/Pelvis: Other: No midline cervical/thoracic/lumbar spinous tenderness/step-off or deformity Back: no CVA tenderness Skin: Rashes: no rashes Wounds: no wounds Neuro: General: oriented to person, oriented to place, tone normal, moves all extremities, no meningeal signs, no focal motor deficits and CN's II-XI intact bilaterally Cranial nerves: Yes CN's II-XII intact bilaterally, Yes Equal, round and reactive pupils present and Yes Bilaterally intact EOM present S peech: No Abnormal speech present Motor exam (neuro): 5/5 motor strength present throughout Extrem: General: Yes normal to inspection Course Course Course Narrative: -0911--no leukocytosis. H&H at patient's baseline. T & D bili chronically elevated -ammonia elevated to 212 > lactulose given -ethanol negative. Viral studies negative XR chest 1V IMPRESSION: Coarse, echogenic and nodular liver pattern suggestive of cirrhosis. Patent bidirectional middle portal vein and TIPS stent on Doppler exam. There is no free fluid. Hypoexpanded lungs without acute process CT head/brain wo IV con IMPRESSION: 1. No acute intracranial process seen. 2. Age-related cerebral volume loss. > plan to admit for further management. 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 On exam vital signs stable, NAD, pleasantly confused/A&O x2 nontoxic appearing, no midline spinous tenderness throughout, no focal neuro deficits. Poor historian. Concern for encephalopathy vs ETOH/substance abuse vs metabolic and infectious etiologies. Low suspicion for severe sepsis. Lower suspicion for CVA/TIA or ACS Plan: EKG, labs, CXR, head CT, orthostatics, UA, IVF, re-evaluate Please refer to course for remaining clinical decision making, interpretation of labs/imaging results, and discussions with consultants and/or family members. Differential Diagnosis Differential Diagnoses: The differential diagnosis associated with the presentation includes As above Admission/Observation Consideration of admission/observation: Escalation of care including admission/observation considered Lab Data MDM Lab Attestation statement: I reviewed the patient's lab results. 08/21/24 07:47 08/21/24 07:47 Labs: Lab Results 08/21/24 Range/Units 07:47 WBC 4.8 (4.8-10.8) X10*3/uL RBC 3.58 L (4.60-5.80) X10*6/uL Hgb 11.9 L (14.0-18.0) g/dl Hct 35.8 L (42.0-52.0) % MCV 100.0 H (80.0-98.0) fL MCH 33.2 H (27.0-33.0) pg MCHC 33.2 (31.0-36.0) g/dl RDW 15.8 (11.0-16.0) % Plt Count 99 L (160-400) X10*3/uL MPV 10.8 (9.4-12.4) fL Immature Gran % (Auto) 0.2 (0.0-0.4) % Neut % (Auto) 36.8 L (45-73) % Lymph % (Auto) 38.0 (20-40) % [place] % (Auto) 13.8 H (2-11) % Eos % (Auto) 10.4 H (0-4) % Baso % (Auto) 0.8 (0-2) % Lymph # (Auto) 1.8 (1.2-4.9) X10*3/uL [place] # (Auto) 0.7 (0.1-1.2) X10*3/uL Eos # (Auto) 0.5 H (0.0-0.4) X10*3/uL Baso # (Auto) 0.0 (0.0-0.2) X10*3/uL Abs Immat Gran (auto) 0.01 (0.00-0.03) X10*3/uL Absolute Neuts (auto) 1.8 L (2.0-8.3) x10*3/uL Absolute Nucleated RBC 0.000 (0.0-0.012) X10*3/uL Nucleated RBC % (auto) 0.0 (0.0-0.2) /100WBC PT 20.3 H (10.9-12.4) SEC INR 1.7 H (0.9-1.1) Sodium 140 (135-145) mmol/L Potassium 4.1 (3.3-5.1) mmol/L Chloride 105 (96-108) mmol/L Carbon Dioxide 29 (22-29) mmol/L Anion Gap 10 L (12-20) BUN 7 L (9-16) mg/dL Creatinine 0.76 (0.5-1.4) mg/dL Estim Creat Clear Calc 94.4 Estimated GFR > 60 Random Glucose 125 H (60-115) mg/dL Calcium 8.7 D (8.4-10.2) mg/dL Magnesium 1.7 (1.6-2.6) mg/dL Total Bilirubin 1.5 H (0.0-1.0) mg/dL Direct Bilirubin 0.6 H (0.0-0.5) mg/dL AST 41 H (5-37) U/L ALT 13 (0-40) U/L Alkaline Phosphatase 115 (39-117) U/L Ammonia 212 H (13-55) umol/L Troponin I High Sens < 2.7 (<3.5-35.0) ng/L Total Protein 5.7 L (6.5-8.0) g/dL Albumin 2.5 L (3.5-5.0) g/dL Lipase 9 (8-78) U/L Ethyl Alcohol < 10 mg/dL Influenza Type A (PCR) NEGATIVE (Negative) Influenza Type B (PCR) NEGATIVE (Negative) RSV RNA Qual (PCR) NEGATIVE (Negative) SARS-CoV-2 RNA (RT-PCR) NEGATIVE (Negative) Independent Interpretation I performed an independent interpretation of an: EKG, Plain X-Ray and CT Scan Radiology Impression Discussion of test interpretation with radiology: I have reviewed the radiologist's reading. Independent Historian Clinical information obtained from an independent historian. History obtained from or confirmed by: EMS External Record Review External record reviewed: Inpatient record, Office record, Outpatient record, Prior outpatient labs, Prior outpatient radiology, Primary care record and Outside ED record Tests considered The following testing was considered but not selected: As above Prescription Management I considered prescription management with: Other Chronic Conditions Patient?s care impacted by: Other (Cirrhosis, hepatitis-C) Social Determinants Patient?s care significantly limited by Social Determinants of Health including: Inadequate housing, Low income, Alcoholism and drug addiction in family, Problems related to primary support group and Other Social Determinant of Health Critical Care Time Critical Care Time Critical Care Time: Yes Total Critical Care Time: 35 Attestation: I have personally provided critical care time exclusive of time spent on separately billable procedures. Time includes review of lab data, radiology results, discussion with consultants, and monitoring for potential decompensation. Intervention performed as documented. Discharge Plan Discharge Clinical Impression: Encephalopathy Patient Disposition: Admitted As Inpatient Print Language: Romansh
[2024-08-21 07:59] LABS: Basophils Percent Auto 0.8 % (0-2); Eosinophils Absolute Auto 0.5 X10*3/uL (0.0-0.4); Eosinophils Percent Auto 10.4 % (0-4); Hematocrit 35.8 % (42.0-52.0); Hemoglobin 11.9 g/dl (14.0-18.0); Imm Gran Abs Auto 0.01 X10*3/uL (0.00-0.03); Imm Gran Pct Auto 0.2 % (0.0-0.4); Lymphocytes Absolute Auto 1.8 X10*3/uL (1.2-4.9); Mean Corpuscular HGB Conc 33.2 g/dl (31.0-36.0); Mean Corpuscular Hemoglobin 33.2 pg (27.0-33.0); Mean Platelet Volume 10.8 fL (9.4-12.4); Monocytes Absolute Auto 0.7 X10*3/uL (0.1-1.2); Monocytes Percent Auto 13.8 % (2-11); Neutrophils Absolute Auto 1.8 x10*3/uL (2.0-8.3); Neutrophils Percent Auto 36.8 % (45-73); Red Blood Count 3.58 X10*6/uL (4.60-5.80); Red Cell Distribution Width 15.8 % (11.0-16.0); White Blood Count 4.8 X10*3/uL (4.8-10.8)
[2024-08-21 08:00] LABS: Platelet Count 99 X10*3/uL (160-400)
[2024-08-21 08:02] LABS: INTERNATIONAL NORM RATIO 1.7 (0.9-1.1); Prothrombin Time 20.3 SEC (10.9-12.4)
[2024-08-21 08:08] LABS: Ammonia 212 umol/L (13-55)
[2024-08-21] MEDS: 0.9 % Sodium Chloride 500 ML 999 ML IV (08:25)
[2024-08-21 08:26] LABS: Troponin-I High Sensitivity < 2.7 ng/L (<3.5-35.0)
[2024-08-21 08:27] LABS: Albumin Level 2.5 g/dL (3.5-5.0); Anion Gap 10 (12-20); Aspartate Amino Transferase 41 U/L (5-37); Bilirubin Direct 0.6 mg/dL (0.0-0.5); Bilirubin Total 1.5 mg/dL (0.0-1.0); Blood Urea Nitrogen 7 mg/dL (9-16); Calcium 8.7 mg/dL (8.4-10.2); Carbon Dioxide 29 mmol/L (22-29); Chloride 105 mmol/L (96-108); Creatinine Clr Calc Pharmacy 94.4; Estimated Glomerular Filt Rate > 60; Ethanol < 10 mg/dL; Glucose Random 125 mg/dL (60-115); Lipase 9 U/L (8-78); Magnesium 1.7 mg/dL (1.6-2.6); Potassium 4.1 mmol/L (3.3-5.1); Sodium 140 mmol/L (135-145); Total Protein 5.7 g/dL (6.5-8.0)
[2024-08-21 08:35] LABS: Influenza A PCR NEGATIVE (Negative); Influenza B PCR NEGATIVE (Negative); Resp Syncy Virus RNA Qual PCR NEGATIVE (Negative); SARS COV2 PCR INHOUSE NEGATIVE (Negative)
[2024-08-21 08:54] LABS: Alanine Aminotransferase 13 U/L (0-40); Alkaline Phosphatase 115 U/L (39-117)
[2024-08-21] MEDS: Lactulose 20 GM/30 ML SOLUTION 30 GM PO ×3 (09:30→22:05)
--- NOTE | 2024-08-21 10:13 | PC.NURSE ---
Pt presents to ED via EMS from home, reports he fell last night while walking to bathroom (felt unbalanced), no head hit or LOC. Reports he was able to get himself up and walk to bed, asked his to call ambulance early this morning. Pt reports bilat hand tremors and weakness X2 weeks, generally feeling unwell. Alert and oriented, breathing even and unlabored, skin jaundiced. NSR on bedside laboratory monitor, VSS. Denies pain, SOB, CP, blood in stool, vomiting.
--- NOTE | 2024-08-21 11:32 | PM.IMHP ---
History of Present Illness Date of Service: 08/21/24 Attending physician on admission: Gilbert Mayberry Chief Complaint: Weakness, fall at home Pt is a 59-year-old male with a PMH significant for?alcoholic cirrhosis s/p TIPS, s/p GDA embolization, polysubstance use disorder on methadone, hepatitis-C, and GERD who presents to the ED with?increased confusion, weakness, and fall in the bathroom last night. Patient is is alert and oriented to self and place, but not time. Pt is a poor historian, but reports sometime last night was feeling weak and off balance while going to the bathroom last night and fell. Denies loss of consciousness or head strike, but unclear exactly how he fell. Brother is at bedside who reports when he checked his brother this morning he seemed more confused and weaker than at baseline. Has apparently been tremulous of upper extremities for the past few weeks. Pt has some confusion at baseline and had previous difficulties with medication compliance in the past. Pt lives alone, but brother reports has recently started checking in on him regularly to ensure he is taking his medication. Pt himself currently denies any acute medical complaints, including headache, musculoskeletal pain, lightheadedness, dizziness. Chest pain/pressure, palpitations. Denies fever, chills, nausea, vomiting, abdominal pain. In the ED pt's vitals stable and WNL Labs were significant for ammonia 212, otherwise grossly unremarkable and around baseline for patient. No leukocytosis. Stable microcytic anemia of 11.9/35.8 with MCV 100.0. No significant electrolyte abnormalities. Renal function WNL. T bili 1.5, AST 41, around baseline. Tested negative for flu, RSV, COVID. CXR showed hypoexpanded lungs without acute process. RUQ ultrasound found no free fluid, but showed cirrhotic liver and patent bidirectional little portal vein and TIPS stent. EKG demonstrated normal sinus rhythm with QTc of 483 and no evidence of significant ST elevations or depressions. Pt was treated with IVF and lactulose. Pt will be admitted to the hospital for treatment and further evaluation of acute hepatic encephalopathy likely secondary to medication noncompliance. Review of Systems Review of Systems: Negative except for that which is stated in the [facility] Medical History Group B streptococcal infection Substance abuse Hernia Cirrhosis of liver Hepatitis C Surgical History S/P TIPS (transjugular intrahepatic portosystemic shunt) Social History Household Members: None Housing: Apartment Do you presently have visiting nurse or other home services: No Alcohol intake: former Patient Tobacco Use Status: Current everyday Tobacco user Tobacco use type: Cigarette Cigarettes Per Day: 5 Years Smoked: 35 Smoked in Last 30 Days: Yes Use of substances other than those prescribed or required for medical reasons: No Substance Use Type: Heroin Advance Directives: No service: No Current occupational status: unemployed Meds Allergies Allergy/AdvReac Type Severity Reaction Status Date / Time penicillin V Allergy Intermediate Itching Verified 08/21/24 07:28 Penicillins Allergy Mild ITCHING Verified 08/02/24 08:52 Home Medications ?Medication ?Instructions ?Recorded ?Confirmed ?Last Taken ?Type lactulose 10 gram/15 mL oral 45 ml PO TID 12/10/21 08/21/24 08/20/24 History solution (Generlac) folic acid 1 mg tablet 1 tab PO DAILY 04/17/22 08/21/24 08/20/24 History thiamine HCl (vitamin B1) 100 mg 1 tab PO DAILY 04/17/22 08/21/24 08/20/24 History tablet pantoprazole 40 mg tablet,delayed 40 mg PO DAILY@0630 08/02/24 08/21/24 08/20/24 History release rifaximin 550 mg tablet (Xifaxan) 550 mg PO BID 08/02/24 08/21/24 08/20/24 History carbamide peroxide 6.5 % ear drops 10 drp otic (ear) right DAILY PRN 08/21/24 08/21/24 Unknown History (Debrox) earwax ipratropium bromide 21 mcg (0.03 1 spray intranasal BID PRN Nasal 08/21/24 08/21/24 Unknown History %) nasal spray Congestion methadone 10 mg/mL oral 65 mg PO DAILY 08/21/24 Unknown History concentrate (Methadone Intensol) ondansetron 4 mg disintegrating 4 mg PO Q8H PRN Nausea And Vomiting 08/21/24 08/21/24 Unknown History tablet Physical Exam Vital Signs and Narrative: Vital Signs: Last Vital Signs Temp 98.8 F 08/21/24 07:19 Pulse 55 08/21/24 10:16 Resp 14 08/21/24 10:16 BP 126/75 08/21/24 10:16 Pulse Ox 98 08/21/24 10:16 O2 Del Method Room Air 08/21/24 10:16 BMI result Body Mass Index 27.1 General: Alert and oriented to self and place, not to time or fully to situation. Somnolent but arousable. In no acute distress Resp: CTA bilaterally CVS: S1, S2, RRR GI: +BS, NT, no distention. Abd soft. Skin: Warm, dry. Neuro: Cranial nerves II-XII grossly intact bilaterally. Motor grossly intact bilaterally Extremities: No edema Psych: Appropriate affect Results Labs 08/21/24 07:47 08/21/24 07:47 Labs: Laboratory Results - last 24 hr 08/21/24 07:47 MCV 100.0 H MCH 33.2 H MCHC 33.2 RDW 15.8 Plt Count 99 L MPV 10.8 Immature Gran % (Auto) 0.2 Neut % (Auto) 36.8 L Lymph % (Auto) 38.0 [place] % (Auto) 13.8 H Eos % (Auto) 10.4 H Baso % (Auto) 0.8 Lymph # (Auto) 1.8 [place] # (Auto) 0.7 Eos # (Auto) 0.5 H Baso # (Auto) 0.0 Abs Immat Gran (auto) 0.01 Absolute Neuts (auto) 1.8 L Absolute Nucleated RBC 0.000 Nucleated RBC % (auto) 0.0 PT 20.3 H INR 1.7 H Anion Gap 10 L Estim Creat Clear Calc 94.4 Estimated GFR > 60 Random Glucose 125 H Calcium 8.7 D Magnesium 1.7 Total Bilirubin 1.5 H Direct Bilirubin 0.6 H AST 41 H ALT 13 Alkaline Phosphatase 115 Ammonia 212 H Troponin I High Sens < 2.7 Total Protein 5.7 L Albumin 2.5 L Lipase 9 Ethyl Alcohol < 10 Influenza Type A (PCR) NEGATIVE Influenza Type B (PCR) NEGATIVE RSV RNA Qual (PCR) NEGATIVE SARS-CoV-2 RNA (RT-PCR) NEGATIVE Imaging Radiologist's Impressions: Impressions Chest X-Ray 08/21/24 07:33 IMPRESSION: Coarse, echogenic and nodular liver pattern suggestive of cirrhosis. Patent bidirectional middle portal vein and TIPS stent on Doppler exam. There is no free fluid. Hypoexpanded lungs without acute process Electronically signed by: Tavon Medina MD 08/21/2024 08:58 AM EST RP Head CT 08/21/24 08:16 IMPRESSION: 1. No acute intracranial process seen. 2. Age-related cerebral volume loss. Electronically signed by: Tavon Medina MD 08/21/2024 08:43 AM EST RP Assessment and Plan (1) Encephalopathy, hepatic: Status: Acute Plan Pt is a 59-year-old male with a PMH significant for?alcoholic cirrhosis s/p TIPS, s/p GDA embolization, polysubstance use disorder on methadone, hepatitis-C, and GERD who presents to the ED with?increased confusion, weakness, and fall in the bathroom last night. Pt will be admitted to the hospital for treatment and further evaluation of acute hepatic encephalopathy likely secondary to medication noncompliance. Acute hepatic encephalopathy Patient with alcoholic cirrhosis, s/p TIPS Confused, weak, ammonia 212 Likely secondary to medication non-compliance Pt given lactulose in the ED Will treat with lactulose 30g TID Continue rifaximin Monitor mentation Hx of alcohol use disorder In remission Continue folic acid and thiamine Polysubstance use disorder Continue methadone GERD Continue PPI Full Code Attending:?Dr. Mayberry DVT Prophylaxis: Lovenox Pt will require a hospitalization of at least two nights for treatment of?acute hepatic encephalopathy that require close monitoring of mentation and administration lactulose. Quality Stroke Does the patient have a stroke diagnosis?: No VTE Prior VTE?: No VTE Risk Level:: Medical - moderate - high VTE Device Contraindication: Treatment Not Indicated VTE Drug Contraindication: N/A - Med Ordered
--- NOTE | 2024-08-21 12:58 | PHA.MEDREC ---
Addendum entered by Griselda Restrepo [facility] 08/21/24 13:31: REVIEWED Original Note: Pharmacy Consult ? Medication Reconciliation Pharmacy has completed the medication reconciliation. Spoke to pt and family in room to confirm meds. Had RX bottles in bag.
[2024-08-21 13:04] LABS: Appearance Urine Clear; Color Urine Yellow; Glucose Urine UA Negative (Negative); Leukocyte Esterase Urine Negative (Negative); Nitrite Urine Negative (Negative); PH >= 9.0 (5.0-9.0); Specific Gravity - Urine 1.015 (1.005-1.025); Urine Blood Negative (Negative); Urine Ketones Negative (Negative); Urine Protein Negative (Neg-Trace)
[2024-08-21 13:15] LABS: Amphetamine Screen Urine Not Detected (Not Detect); Barbiturates, Urine Not Detected (Not Detect); Benzodiazepines Screen Urine Not Detected (Not Detect); Buprenorphine Scr Not Detected (Not Detect); Cannabinoid Screen Urine POSITIVE (Not Detect); Cocaine Screen Urine Not Detected (Not Detect); Fentanyl, urine POSITIVE (Not Detect); Methadone Screen, Urine Positive (Not Detect); Opiate Screen Urine POSITIVE (Not Detect); Oxycodone Screen Urine Not Detected (Not Detect); Phencyclidine Screen Urine Not Detected (Not Detect)
[2024-08-21] MEDS: Thiamine HCL 100 MG TABLET PO (14:01)
[2024-08-21] MEDS: 0.9 % Sodium Chloride Flush 3 ML SYRINGE IVFLUSH ×2 (14:04→22:05)
[2024-08-21] MEDS: Enoxaparin Sodium 40 MG/0.4 ML SYRINGE SUBCUT (14:04)
[2024-08-21] MEDS: Famotidine 20 MG TABLET 40 MG PO (22:05)
[2024-08-21] MEDS: rifAXIMin 550 MG TABLET PO (22:05)
--- NOTE | 2024-08-22 02:17 | PC.NURSE ---
patient states goes to methadone clinic on and takes 65 mg daily. Does not remember the date of last visit to the clinic.
[2024-08-22 05:17] LABS: Ammonia 131 umol/L (13-55)
[2024-08-22 05:24] LABS: Anion Gap 9 (12-20); Blood Urea Nitrogen 8 mg/dL (9-16); Calcium 8.3 mg/dL (8.4-10.2); Carbon Dioxide 28 mmol/L (22-29); Chloride 108 mmol/L (96-108); Creatinine Clr Calc Pharmacy 99.6; Estimated Glomerular Filt Rate > 60; Glucose Random 93 mg/dL (60-115); Potassium 3.9 mmol/L (3.3-5.1); Sodium 141 mmol/L (135-145)
[2024-08-22] MEDS: Omeprazole 20 MG CAPSULE.DR PO (06:02)
[2024-08-22 07:18] VITALS: BP 118/76; PULSE 57; RESP 14; TEMP 37.1; O2SAT 93
--- NOTE | 2024-08-22 08:19 | P.PNIM_ITS ---
Subjective Subjective Date of Service: 08/22/24 Interval History: seen and examined this AM knows hes in a hospital, but not sure which reports some epigastric pain Review of Systems Negative except HPI/interval history. Physical Exam 2 Vital Signs: Vital Signs: Last Vital Signs Temp 98.7 F 08/22/24 07:18 Pulse 57 08/22/24 07:18 Resp 14 08/22/24 07:18 BP 118/76 08/22/24 07:18 Pulse Ox 93 08/22/24 07:18 O2 Del Method Room Air 08/22/24 07:18 BMI result Body Mass Index 27.1 Const: Other: General - no acute distress, appears comfortable Cardiovascular - regular rate and rhythm, S1-S2 Lungs - normal respiratory effort, clear to auscultation bilaterally, no wheezing Abdomen - soft, nontender, no rebound or guarding Extremities - no edema bilaterally Neuro - awake and alert, no focal deficits, oriented to self and place some what, otherwise disoriented; +asterixis Objective Data Active Medications Acetaminophen (Acetaminophen 325 Mg Tablet) 650 mg PO Q6H PRN PRN Reason: Pain, Mild (Pain Scale 1-3), fever or headache Al Hydroxide/Mg Hydroxide (Magnesium Hydrox/Alum Hydrox 30 Ml Oral.Susp) 30 ml PO Q6H PRN PRN Reason: indigestion Benzonatate (Benzonatate 100 Mg Capsule) 100 mg PO TID PRN PRN Reason: Cough Calcium Carbonate (Calcium Carbonate 750 Mg Tab.Chew) 750 mg PO Q4H PRN PRN Reason: Heartburn Enoxaparin Sodium (Enoxaparin Sodium 40 Mg/0.4 Ml Syringe) 40 mg SUBCUT Q24H [facility] Last Admin: 08/21/24 14:04 Dose: 40 mg Documented By: ULI Famotidine (Famotidine 20 Mg Tablet) 40 mg PO BEDTIME [facility] Last Admin: 08/21/24 22:05 Dose: 40 mg Documented By: REINA Folic Acid (Folic Acid 1 Mg Tablet) 1 mg PO DAILY [facility] Ipratropium [place] (Ipratropium [place] Dominic 0.03 % 30 Ml [place]) 1 spray NOSTRIL-B BID PRN PRN Reason: Nasal Congestion Lactulose (Lactulose 20 Gm/30 Ml Solution) 30 gm PO TID [facility] Last Admin: 08/21/24 22:05 Dose: 30 gm Documented By: REINA Magnesium Hydroxide (Milk Of Magnesia 30 Ml Oral.Susp) 30 ml PO DAILY PRN PRN Reason: Constipation Melatonin (Melatonin 3 Mg Tablet) 6 mg PO BEDTIME PRN PRN Reason: Insomnia Omeprazole (Omeprazole 20 Mg Capsule.Dr) 20 mg PO DAILY@0630 [facility] Last Admin: 08/22/24 06:02 Dose: 20 mg Documented By: ERINA Rifaximin (Rifaximin 550 Mg Tablet) 550 mg PO BID [facility] Last Admin: 08/21/24 22:05 Dose: 550 mg Documented By: REINA Sodium Chloride (0.9 % Sodium Chloride Flush 3 Ml Syringe) 3 ml IVFLUSH QSHIFT [facility] Last Admin: 08/21/24 22:05 Dose: 3 ml Documented By: REINA Thiamine HCl (Thiamine Hcl 100 Mg Tablet) 100 mg PO DAILY [facility] Last Admin: 08/21/24 14:01 Dose: 100 mg Documented By: MAGDALENAVI Labs 08/21/24 07:47 08/22/24 05:03 Labs: Laboratory Results - last 24 hr 08/21/24 08/21/24 08/22/24 07:47 12:48 05:03 Anion Gap 10 L 9 L Estim Creat Clear Calc 94.4 99.6 Estimated GFR > 60 > 60 Random Glucose 125 H 93 Calcium 8.7 D 8.3 L Magnesium 1.7 Total Bilirubin 1.5 H Direct Bilirubin 0.6 H AST 41 H ALT 13 Alkaline Phosphatase 115 Ammonia 131 H Troponin I High Sens < 2.7 Total Protein 5.7 L Albumin 2.5 L Lipase 9 Urine Color Yellow Urine Appearance Clear Urine pH >= 9.0 Ur Specific [place] 1.015 Urine Protein Negative Urine Glucose (UA) Negative Urine Ketones Negative Urine Blood Negative Urine Nitrite Negative Ur Leukocyte Esterase Negative Urine Opiates Screen POSITIVE H Ur Buprenorphine Scrn Not Detected Ur Oxycodone Screen Not Detected Urine Methadone Screen Positive H Urine Fentanyl Screen POSITIVE H Ur Barbiturates Screen Not Detected Ur Phencyclidine Scrn Not Detected Ur Amphetamines Screen Not Detected U Benzodiazepines Scrn Not Detected Urine Cocaine Screen Not Detected U Marijuana (THC) Screen POSITIVE H Ethyl Alcohol < 10 Influenza Type A (PCR) NEGATIVE Influenza Type B (PCR) NEGATIVE RSV RNA Qual (PCR) NEGATIVE SARS-CoV-2 RNA (RT-PCR) NEGATIVE Assessment and Plan (1) Encephalopathy: Status: Acute Plan Pt is a 59-year-old male with a PMH significant for?alcoholic cirrhosis s/p TIPS, s/p GDA embolization, polysubstance use disorder on methadone, hepatitis- C, and GERD who presents to the ED with?increased confusion, weakness, and fall in the bathroom last night. Pt will be admitted to the hospital for treatment and further evaluation of acute hepatic encephalopathy likely secondary to medication noncompliance. Acute hepatic encephalopathy Patient with alcoholic cirrhosis, s/p TIPS Confused, weak, ammonia 212 Likely secondary to medication non-compliance mentation improving, but still not at baseline; asterixis still present continue lactulose / rifaximin -- will increase lactulose to 45 (his home dose) Epigastric pain question some gastritis continue ppi and if persists, will consider GI evaluation Hx of alcohol use disorder In remission Continue folic acid and thiamine Polysubstance use disorder Continue methadone GERD Continue PPI Full Code DVT Prophylaxis: Lovenox pt with on going encephalopathy, not at baseline and unsafe for discharge -- hence will continue with inpatient care Quality Stroke Does the patient have a stroke diagnosis?: No VTE Prior VTE?: No VTE Risk Level:: Medical - moderate - high VTE Device Contraindication: Treatment Not Indicated VTE Drug Contraindication: N/A - Med Ordered
[2024-08-22] MEDS: 0.9 % Sodium Chloride Flush 3 ML SYRINGE IVFLUSH ×3 (09:16→20:36)
[2024-08-22] MEDS: Folic Acid 1 MG TABLET PO (09:17)
[2024-08-22] MEDS: rifAXIMin 550 MG TABLET PO ×2 (09:17→20:32)
[2024-08-22] MEDS: Lactulose 20 GM/30 ML SOLUTION 30 GM PO ×3 (09:17→20:33)
[2024-08-22] MEDS: Thiamine HCL 100 MG TABLET PO (09:17)
--- NOTE | 2024-08-22 14:29 | MHC.CM.PN ---
CM MET WITH PT AND BROTHER, PT LIVES ALONE AND IS INDEPENDENT WITH CARE HE HAS A VNA, HOWEVER THEY DO NOT KNOW THE AGENCY COPY OF HCP REQUESTED, PT STATES HIS BROTHER IS HIS AGENT PCP: FARHAD ZAMORA DCP: HOME RESUME VNA BROTHER TO TRANSPORT
[2024-08-22] MEDS: Enoxaparin Sodium 40 MG/0.4 ML SYRINGE SUBCUT (14:55)
[2024-08-22 15:19] VITALS: BP 121/73; PULSE 59; RESP 14; TEMP 36.8; O2SAT 94
[2024-08-22] MEDS: Famotidine 20 MG TABLET 40 MG PO (20:33)
[2024-08-22 23:16] VITALS: BP 126/76; PULSE 57; RESP 16; TEMP 36.3; O2SAT 93
[2024-08-23] MEDS: Omeprazole 20 MG CAPSULE.DR PO (05:38)
[2024-08-23 06:26] LABS: Ammonia 110 umol/L (13-55)
[2024-08-23 06:41] LABS: Anion Gap 9 (12-20); Blood Urea Nitrogen 8 mg/dL (9-16); Calcium 8.3 mg/dL (8.4-10.2); Carbon Dioxide 28 mmol/L (22-29); Chloride 108 mmol/L (96-108); Creatinine Clr Calc Pharmacy 108.7; Estimated Glomerular Filt Rate > 60; Glucose Random 106 mg/dL (60-115); Potassium 3.7 mmol/L (3.3-5.1); Sodium 141 mmol/L (135-145)
[2024-08-23 07:41] VITALS: BP 123/80; PULSE 61; RESP 18; TEMP 36.4; O2SAT 92
--- NOTE | 2024-08-23 07:42 | HE.PHANOTE ---
Re Methadone Received confirmation form from nursing, last dose was on 08/20/24 and was 65mg.
--- NOTE | 2024-08-23 09:36 | P.PNIM_ITS ---
Subjective Subjective Date of Service: 08/23/24 Interval History: seen and examined brother is bedside pt reports feeling better but still tremulous -- brother reports on going issue for last several weeks reported compliance with Review of Systems Negative except HPI/interval history. Physical Exam 2 Vital Signs: Vital Signs: Last Vital Signs Temp 97.6 F 08/23/24 07:41 Pulse 61 08/23/24 07:41 Resp 18 08/23/24 07:41 BP 123/80 08/23/24 07:41 Pulse Ox 92 08/23/24 07:41 O2 Del Method Room Air 08/23/24 07:41 BMI result Body Mass Index 27.1 Const: Other: General - no acute distress, appears comfortable, improving orientation Cardiovascular - regular rate and rhythm, S1-S2 Lungs - normal respiratory effort, clear to auscultation bilaterally, no wheezing Abdomen - soft, nontender, no rebound or guarding Extremities - no edema bilaterally Neuro - awake and alert, no focal deficits; oriented to self, place and time with slower responses; mild asterixis present Objective Data Active Medications Acetaminophen (Acetaminophen 325 Mg Tablet) 650 mg PO Q6H PRN PRN Reason: Pain, Mild (Pain Scale 1-3), fever or headache Al Hydroxide/Mg Hydroxide (Magnesium Hydrox/Alum Hydrox 30 Ml Oral.Susp) 30 ml PO Q6H PRN PRN Reason: indigestion Benzonatate (Benzonatate 100 Mg Capsule) 100 mg PO TID PRN PRN Reason: Cough Calcium Carbonate (Calcium Carbonate 750 Mg Tab.Chew) 750 mg PO Q4H PRN PRN Reason: Heartburn Enoxaparin Sodium (Enoxaparin Sodium 40 Mg/0.4 Ml Syringe) 40 mg SUBCUT Q24H [facility] Last Admin: 08/22/24 14:55 Dose: 40 mg Documented By: MAYE Famotidine (Famotidine 20 Mg Tablet) 40 mg PO BEDTIME [facility] Last Admin: 08/22/24 20:33 Dose: 40 mg Documented By: LALA Folic Acid (Folic Acid 1 Mg Tablet) 1 mg PO DAILY [facility] Last Admin: 08/22/24 09:17 Dose: 1 mg Documented By: MAYE Ipratropium [place] (Ipratropium [place] Dominic 0.03 % 30 Ml [place]) 1 spray NOSTRIL-B BID PRN PRN Reason: Nasal Congestion Lactulose (Lactulose 20 Gm/30 Ml Solution) 30 gm PO TID [facility] Last Admin: 08/22/24 20:33 Dose: 30 gm Documented By: LALA Magnesium Hydroxide (Milk Of Magnesia 30 Ml Oral.Susp) 30 ml PO DAILY PRN PRN Reason: Constipation Melatonin (Melatonin 3 Mg Tablet) 6 mg PO BEDTIME PRN PRN Reason: Insomnia Omeprazole (Omeprazole 20 Mg Capsule.) 20 mg PO DAILY@0630 [facility] Last Admin: 08/23/24 05:38 Dose: 20 mg Documented By: LALA Rifaximin (Rifaximin 550 Mg Tablet) 550 mg PO BID [facility] Last Admin: 08/22/24 20:32 Dose: 550 mg Documented By: LALA Sodium Chloride (0.9 % Sodium Chloride Flush 3 Ml Syringe) 3 ml IVFLUSH QSHIFT [facility] Last Admin: 08/22/24 20:36 Dose: 3 ml Documented By: LALA Thiamine HCl (Thiamine Hcl 100 Mg Tablet) 100 mg PO DAILY [facility] Last Admin: 08/22/24 09:17 Dose: 100 mg Documented By: MAYE Labs 08/21/24 07:47 08/23/24 05:34 Labs: Laboratory Results - last 24 hr 08/23/24 05:34 Anion Gap 9 L Estim Creat Clear Calc 108.7 Estimated GFR > 60 Random Glucose 106 Calcium 8.3 L Ammonia 110 H Assessment and Plan (1) Encephalopathy: Status: Acute Plan Pt is a 59-year-old male with a PMH significant for?alcoholic cirrhosis s/p TIPS, s/p GDA embolization, polysubstance use disorder on methadone, hepatitis- C, and GERD who presents to the ED with?increased confusion, weakness, and fall in the bathroom last night. Pt will be admitted to the hospital for treatment and further evaluation of acute hepatic encephalopathy likely secondary to medication noncompliance. Acute hepatic encephalopathy Patient with alcoholic cirrhosis, s/p TIPS Confused, weak, ammonia 212 slowly improving, still with asterixis -- increase lactulose Epigastric pain probable gastritis and improving continue PPI Hx of alcohol use disorder In remission Continue folic acid and thiamine Polysubstance use disorder Continue methadone GERD Continue PPI Tremors per brother started about 2-3 weeks ago monitor and consider outpatient neuro eval Full Code DVT Prophylaxis: Lovenox pt with on going encephalopathy, not at baseline and unsafe for discharge -- hence will continue with inpatient care Quality Stroke Does the patient have a stroke diagnosis?: No VTE Prior VTE?: No VTE Risk Level:: Medical - moderate - high VTE Device Contraindication: Treatment Not Indicated VTE Drug Contraindication: N/A - Med Ordered
[2024-08-23] MEDS: rifAXIMin 550 MG TABLET PO ×2 (09:44→20:14)
[2024-08-23] MEDS: Thiamine HCL 100 MG TABLET PO (09:44)
[2024-08-23] MEDS: Folic Acid 1 MG TABLET PO (09:44)
[2024-08-23] MEDS: methADONE HCl 20 MG/2 ML ORAL.CONC 65 MG PO (09:44)
[2024-08-23] MEDS: 0.9 % Sodium Chloride Flush 3 ML SYRINGE IVFLUSH ×3 (09:51→23:26)
[2024-08-23] MEDS: Lactulose 20 GM/30 ML SOLUTION 45 GM PO ×3 (10:24→20:15)
[2024-08-23] MEDS: Enoxaparin Sodium 40 MG/0.4 ML SYRINGE SUBCUT (14:31)
--- NOTE | 2024-08-23 15:21 | MHC.CM.PN ---
per rounds pt expected to dc 08/24 dc plan remains for home
[2024-08-23 15:22] VITALS: BP 115/76; PULSE 60; RESP 19; TEMP 36.9; O2SAT 91
[2024-08-23] MEDS: Famotidine 20 MG TABLET 40 MG PO (20:14)
[2024-08-23] MEDS: Melatonin 3 MG TABLET 6 MG PO (20:14)
[2024-08-24] VITALS: BP 118/77; PULSE 62; RESP 16; TEMP 36.4; O2SAT 93
[2024-08-24] MEDS: Omeprazole 20 MG CAPSULE.DR PO (06:00)
[2024-08-24 06:36] LABS: Anion Gap 9 (12-20); Blood Urea Nitrogen 9 mg/dL (9-16); Calcium 8.2 mg/dL (8.4-10.2); Carbon Dioxide 28 mmol/L (22-29); Chloride 107 mmol/L (96-108); Creatinine Clr Calc Pharmacy 102.5; Estimated Glomerular Filt Rate > 60; Glucose Random 84 mg/dL (60-115); Potassium 3.8 mmol/L (3.3-5.1); Sodium 140 mmol/L (135-145)
--- NOTE | 2024-08-24 07:43 | P.CDIM_ITS ---
PROVIDER RESPONSE TEXT: To clarify, the appropriate diagnosis supported by the clinical indicators: Acute Gastritis QUERY TEXT: PHYSICIAN'S DOCUMENTATION REQUEST Date of Query: 08/23/2024 11:51 AM EST Patient Name: Kareem Rueda Admit Date: 08/21/2024 Dear Gilbert Mayberry MD, A review of the medical record indicates additional documentation may be needed. Please review below and update the documentation accordingly. Clinical Indicators: Progress note 08/23 - Plan: Epigastric pain, probable Gastritis and improving. Continue PPI. Clarify which of the following accurately represents the acuity of the noted Gastritis within the med ical record: Possible options might include: Acute Gastritis Acute on chronic Gastritis Other (explain) Clinically unable to determine (explain) Thank you, Nasreen Gonzalez, CCS, CDIS Use of terms such as suspected, likely, concern for, or probable (associated with a specific diagnosi s that is being evaluated, monitored, or treated as if it exists) are acceptable and can be coded in the inpatient se tting, when documented at the time of discharge. Please use your independent medical judgment in providing your response. THIS QUERY IS PART OF THE PERMANENT MEDICAL RECORD
[2024-08-24 07:52] VITALS: BP 100/57; PULSE 58; RESP 16; TEMP 36.7; O2SAT 92
--- NOTE | 2024-08-24 08:42 | P.DS_ITS ---
DS: Providers Provider Date of Service: 08/24/24 Date of admission: 08/21/24 12:42 Primary care physician: Priscilla Sargent MD DS: Diagnosis Discharge Diagnosis (1) Encephalopathy: Status: Acute DS: Summary Hospital Course Hospital Course: History and physical as per admitting provider. Pt is a 59-year-old male with a PMH significant for?alcoholic cirrhosis s/p TIPS, s/p GDA embolization, polysubstance use disorder on methadone, hepatitis-C, and GERD who presents to [facility] ED with?increased confusion, weakness, and fall in the bathroom last night. Patient is is alert and oriented to self and place, but not time. Pt is a poor historian, but reports sometime last night was feeling weak and off balance while going to the bathroom last night and fell. Denies loss of consciousness or head strike, but unclear exactly how he fell. Brother is at bedside who reports when he checked his brother this morning he seemed more confused and weaker than at baseline. Has apparently been tremulous of upper extremities for the past few weeks. Pt has some confusion at baseline and had previous difficulties with medication compliance in the past. Pt lives alone, but brother reports has recently started checking in on him regularly to ensure he is taking his medication. Pt himself currently denies any acute medical complaints, including headache, musculoskeletal pain, lightheadedness, dizziness. Chest pain/pressure, palpitations. Denies fever, chills, nausea, vomiting, abdominal pain. In the ED pt's vitals stable and WNL Labs were significant for ammonia 212, otherwise grossly unremarkable and around baseline for patient. No leukocytosis. Stable microcytic anemia of 11.9/35.8 with MCV 100.0. No significant electrolyte abnormalities. Renal function WNL. T bili 1.5, AST 41, around baseline. Tested negative for flu, RSV, COVID. CXR showed hypoexpanded lungs without acute process. RUQ ultrasound found no free fluid, but showed cirrhotic liver and patent bidirectional little portal vein and TIPS stent. EKG demonstrated normal sinus rhythm with QTc of 483 and no evidence of significant ST elevations or depressions. Pt was treated with IVF and lactulose. Pt will be admitted to the hospital for treatment and further evaluation of acute hepatic encephalopathy likely secondary to medication noncompliance. 59-year-old man treated for acute hepatic encephalopathy with history of alcohol cirrhosis and tips. He presented confused with ammonia of 212 and noted asterixis. Was treated with lactulose. There is a question whether he was taking the lactulose on a regular basis as he does live alone, he reported yes as well as his brother. He was noted also to have some epigastric pain which is probable gastritis which has improved and he has been able to eat, ppi was continued. The patient is to take his lactulose as scheduled at home. History of alcohol abuse. In remission. Continue folic acid and thiamine Polysubstance abuse. Continue methadone GERD. Continue PPI Tremors of unknown etiology. His brother reported that he has been ongoing for many weeks, patient should consider outpatient neurology evaluation. Time Attestation Discharge Coordination Time (in mins): 38 Quality: Safe Use of Opioids Does Pt have an Active Cancer Diagnosis on the Problem List?: No Quality: Stroke Does the patient have a stroke diagnosis?: No Physical Exam Vital Signs: Vital Signs: Last Vital Signs Temp 98.0 F 08/24/24 07:52 Pulse 58 08/24/24 07:52 Resp 16 08/24/24 07:52 BP 100/57 L 08/24/24 07:52 Pulse Ox 92 08/24/24 07:52 O2 Del Method Room Air 08/24/24 07:52 BMI result Body Mass Index 27.1 Appearing in no acute distress head is normocephalic atraumatic eyes pupils are PERRLA sclera is anicteric mouth throat mucous membranes are intact and moist neck is supple no lymphadenopathy, no JVD noted lung sounds are clear to auscultation heart regular rate rhythm, clear S1, S2 positive bowel sounds, abdomen is soft, nontender neuro patient is alert x3, no focal deficits DS: Data Data Completed and Pending Labs on day of discharge: Laboratory Results - last 24 hr 08/24/24 08/24/24 05:21 05:22 Hold Purple Top SEE NOTE Sodium 140 Potassium 3.8 Chloride 107 Carbon Dioxide 28 Anion Gap 9 L BUN 9 Creatinine 0.70 Estim Creat Clear Calc 102.5 Estimated GFR > 60 Random Glucose 84 Calcium 8.2 L Discharge Plan Discharge Anticipated Discharge Date/Time: 08/24/24 08:51 Patient Disposition: Home, Self-Care Discharge Diagnosis: Hepatic encephalopathy Referrals: Soy Prater MD [Physician] - None (Tremors) Discharge Medications: Continued thiamine HCl (vitamin B1) 100 mg tablet 1 tab PO DAILY folic acid 1 mg tablet 1 tab PO DAILY lactulose [Generlac] 10 gram/15 mL solution 45 ml PO TID acetaminophen [Tylenol Extra Strength] 500 mg tablet 500 mg PO Q6H PRN (Reason: pain) Qty: 30 0RF alum-mag hydroxide-simeth [Maalox Advanced] 200-200-20 mg/5 mL suspension 10 ml PO Q6H PRN (Reason: indigestion) Qty: 3000 0RF ipratropium bromide 21 mcg (0.03 %) spray,non-aerosol 1 spray intranasal BID PRN (Reason: Nasal Congestion) ondansetron 4 mg tablet,disintegrating 4 mg PO Q8H PRN (Reason: Nausea And Vomiting) Debrox 6.5 % drops 10 drp otic (ear) right DAILY PRN (Reason: earwax) methadone [Methadone Intensol] 10 mg/mL Concentrate 65 mg PO DAILY Rx Instructions: [facility] pantoprazole 40 mg tablet,delayed release (DR/EC) 40 mg PO DAILY@0630 Xifaxan 550 mg tablet 550 mg PO BID famotidine 40 mg tablet 40 mg PO BEDTIME Qty: 90 1RF Discharge Orders: Discharge Order (Routine); Ordered 08/24/24 Ordered By: Sharla Mccracken Diet: Advance to usual diet Activity on Discharge: As tolerated Stand Alone Forms: Patient Portal Discharge page Print Language: Faroese Care Plan Goals: Follow-up with neurology for hand tremors outpatient if needed Health Concerns: Hepatic encephalopathy Plan of Treatment: Take all medications as prescribed Follow up with primary care provider as needed Assessment: See discharge summary
[2024-08-24 08:45] LABS: Ammonia 81 umol/L (13-55)
[2024-08-24 08:55] VITALS: BP 100/57; PULSE 58; O2SAT 92
--- NOTE | 2024-08-24 08:58 | MHC.CM.PN ---
PT DCD HOME SELF CARE
[2024-08-24] MEDS: methADONE HCl 20 MG/2 ML ORAL.CONC 65 MG PO (09:13)
[2024-08-24] MEDS: Folic Acid 1 MG TABLET PO (09:14)
[2024-08-24] MEDS: rifAXIMin 550 MG TABLET PO (09:14)
[2024-08-24] MEDS: Thiamine HCL 100 MG TABLET PO (09:14)
[2024-08-24] MEDS: Lactulose 20 GM/30 ML SOLUTION 45 GM PO (09:15)
== END 2024-08-24 09:32 | disposition home or self-care (01) | DRG 280 ==
LOC: HO.ED 09:14 → HO.EDOVER 13:16 → HO.S3 18:06 → HO.EDOVER 18:08 → HO.S3 19:51
PROVIDERS: Physician Assistant; Admitting Provider Student in an Organized Health Care Education/Training Program; Emergency Provider Emergency Medicine; PCP Internal Medicine; Visit Provider Nurse Practitioner Acute Care
DX: K76.82 Hepatic encephalopathy (principal); K70.30 Alcoholic cirrhosis of liver without ascites; F10.11 Alcohol abuse, in remission; K29.00 Acute gastritis without bleeding; F11.20 Opioid dependence, uncomplicated; K21.9 Gastro-esophageal reflux disease without esophagitis; F19.10 Other psychoactive substance abuse, uncomplicated; F17.210 Nicotine dependence, cigarettes, uncomplicated; Z20.822 Contact with and (suspected) exposure to COVID-19; Z71.6 Tobacco abuse counseling; Z79.899 Other long term (current) drug therapy
CPT/HCPCS: 0241U; 36415; 70450; 71045; 80048; 80076; 80307; 81003; 82140; 83690; 83735; 84484; 85025; 85610; 93005; 97116; 97162; 99285; J1650

== ENCOUNTER → 2024-08-21 07:32 | Outpatient (BNV) | payer OTHER, SELFPAY | PROVIDERS: Emergency Provider Emergency Medicine; PCP Internal Medicine; Visit Provider Internal Medicine Cardiovascular Disease | DX: R42 Dizziness and giddiness (principal) | CPT/HCPCS: 93010 ==

== ENCOUNTER → 2024-08-21 12:42 | Outpatient (BNV) | payer OTHER, SELFPAY | PROVIDERS: Admitting Provider Student in an Organized Health Care Education/Training Program; Emergency Provider Emergency Medicine; PCP Internal Medicine; Visit Provider Student in an Organized Health Care Education/Training Program | DX: K76.82 Hepatic encephalopathy (principal); F19.10 Other psychoactive substance abuse, uncomplicated; K21.9 Gastro-esophageal reflux disease without esophagitis | CPT/HCPCS: 99223; 99232; 99239 ==

== ENCOUNTER 2024-11-17 07:42 | Day surgery (SDC) | payer OTHER, SELFPAY ==
--- NOTE | 2024-11-16 09:17 | P.CONAN_ITS ---
Documented by User: Angela Orona NP 11/16/24 09:20 HPI - Anesthesia Eval Consult details Narrative: 59yo M for Upper Endoscopy Cirrhosis s/p TIPS, s/p GDA embolization Polysub - methadone daily PMFSH Active Problems Active Problems: All Active Problems Group B streptococcal infection (Acute) Vomiting (Acute) Leukocytosis (Acute) Abdominal pain (Acute) Fever (Acute) Substance abuse (Acute) Hernia (Acute) Hepatitis C (Acute) Cirrhosis of liver (Acute) Past Medical History Medical History Group B streptococcal infection Substance abuse Hernia Cirrhosis of liver Hepatitis C Surgical History Surgical History S/P TIPS (transjugular intrahepatic portosystemic shunt) Social History Social History Household Members: None Housing: Apartment Do you presently have visiting nurse or other home services: No Alcohol intake: former Comment: steady gait Patient Tobacco Use Status: Current everyday Tobacco user Tobacco use type: Cigarette Cigarettes Per Day: 3 Years Smoked: 35 Substance Use Type: Heroin Have you been hit, kicked, punched, or otherwise hurt by someone within the past year? If so, by whom?: No Are you DNR?: No Advance Directives: No Advance Directives Information Provided: Yes Recently lost weight without trying: No service: No Current occupational status: unemployed Meds Allergies Allergy/AdvReac Type Severity Reaction Status Date / Time penicillin V Allergy Intermediate Itching Verified 08/21/24 07:28 Penicillins Allergy Mild ITCHING Verified 08/02/24 08:52 Home Medications ?Medication ?Instructions ?Recorded ?Confirmed ?Last Taken ?Type lactulose 10 gram/15 mL oral 45 ml PO TID 12/10/21 08/21/24 08/20/24 History solution (Generlac) folic acid 1 mg tablet 1 tab PO DAILY 04/17/22 08/21/24 08/20/24 History thiamine HCl (vitamin B1) 100 mg 1 tab PO DAILY 04/17/22 08/21/24 08/20/24 History tablet pantoprazole 40 mg tablet,delayed 40 mg PO DAILY@0630 08/02/24 08/21/24 08/20/24 History release rifaximin 550 mg tablet (Xifaxan) 550 mg PO BID 08/02/24 08/21/24 08/20/24 History carbamide peroxide 6.5 % ear drops 10 drp otic (ear) right DAILY PRN 08/21/24 08/21/24 Unknown History (Debrox) earwax ipratropium bromide 21 mcg (0.03 1 spray intranasal BID PRN Nasal 08/21/24 08/21/24 Unknown History %) nasal spray Congestion methadone 10 mg/mL oral 65 mg PO DAILY 08/21/24 08/23/24 08/20/24 History concentrate (Methadone Intensol) Exam Pertinent Lab Results Pertinent Lab Results: Laboratory Tests 08/24/24 05:21 Sodium 140 Potassium 3.8 Chloride 107 Carbon Dioxide 28 BUN 9 Creatinine 0.70 Narrative Narrative: Laboratory Tests 08/24/24 05:21 Sodium 140 Potassium 3.8 Chloride 107 Carbon Dioxide 28 BUN 9 Creatinine 0.70 Assessment and Plan Assessment Anesthesia Assessment: Chart Reviewed Documented by User: Fabienne Chanel MD 11/17/24 08:19 [facility] Past Medical History Medical History Group B streptococcal infection Substance abuse Hernia Cirrhosis of liver Hepatitis C Family History Family history of problems with anesthesia: No Surgical History Surgical History S/P TIPS (transjugular intrahepatic portosystemic shunt) History of Problems with Anesthesia: No Social History Social History Household Members: None Housing: Apartment Do you presently have visiting nurse or other home services: No Alcohol intake: former Comment: steady gait Patient Tobacco Use Status: Current everyday Tobacco user Tobacco use type: Cigarette Cigarettes Per Day: 3 Years Smoked: 35 Substance Use Type: Heroin Have you been hit, kicked, punched, or otherwise hurt by someone within the past year? If so, by whom?: No Are you DNR?: No Advance Directives: No Advance Directives Information Provided: Yes Recently lost weight without trying: No service: No Current occupational status: unemployed Meds Allergies Allergy/AdvReac Type Severity Reaction Status Date / Time penicillin V Allergy Intermediate Itching Verified 08/21/24 07:28 Penicillins Allergy Mild ITCHING Verified 08/02/24 08:52 Home Medications ?Medication ?Instructions ?Recorded ?Confirmed ?Last Taken ?Type lactulose 10 gram/15 mL oral 45 ml PO TID 12/10/21 08/21/24 08/20/24 History solution (Generlac) folic acid 1 mg tablet 1 tab PO DAILY 04/17/22 08/21/24 08/20/24 History thiamine HCl (vitamin B1) 100 mg 1 tab PO DAILY 04/17/22 08/21/24 08/20/24 History tablet pantoprazole 40 mg tablet,delayed 40 mg PO DAILY@0630 08/02/24 08/21/24 08/20/24 History release rifaximin 550 mg tablet (Xifaxan) 550 mg PO BID 08/02/24 08/21/24 08/20/24 History carbamide peroxide 6.5 % ear drops 10 drp otic (ear) right DAILY PRN 08/21/24 08/21/24 Unknown History (Debrox) earwax ipratropium bromide 21 mcg (0.03 1 spray intranasal BID PRN Nasal 08/21/24 08/21/24 Unknown History %) nasal spray Congestion methadone 10 mg/mL oral 65 mg PO DAILY 08/21/24 08/23/24 08/20/24 History concentrate (Methadone Intensol) Exam Airway Mallampati Class: I (edentulous) TM Dist: >3cm Neck ROM: Full Heart: SB Lungs: cta Assessment and Plan Assessment Anesthesia Assessment: Anesthesia Plan Discussed Final Anesthetic Review Family History of Problems with Anesthesia: No History of Problems with Anesthesia: No NPO: Yes ASA Class: III Final Preanesthetic Review: No Changes in Pt Med Stat, Meds/Allgs Chart Reviewed and Consent Obtained/Reviewed Patient Risk: Intermediate Procedure Risk: Intermediate Anesthetic Plan Anesthetic Plan: MAC: Disposition: Standard PACU
[2024-11-17 07:53] VITALS: RESP 16; TEMP 36.6; BMI 27.4
[2024-11-17] MEDS: Lactated Ringers 1,000 ML 100 ML IVCONT (08:07)
[2024-11-17 08:34] LABS: Hematocrit 33.6 % (42.0-52.0); Hemoglobin 11.2 g/dl (14.0-18.0); Mean Corpuscular HGB Conc 33.3 g/dl (31.0-36.0); Mean Corpuscular Hemoglobin 33.1 pg (27.0-33.0); Mean Corpuscular Volume 99.4 fL (80.0-98.0); Mean Platelet Volume 11.5 fL (9.4-12.4); Platelet Count 68 X10*3/uL (160-400); Red Blood Count 3.38 X10*6/uL (4.60-5.80); Red Cell Distribution Width 15.3 % (11.0-16.0); White Blood Count 5.3 X10*3/uL (4.8-10.8)
[2024-11-17 08:43] LABS: INTERNATIONAL NORM RATIO 1.8 (0.9-1.1); Prothrombin Time 20.5 SEC (10.9-12.4)
[2024-11-17 08:59] LABS: Amphetamine Screen Urine Not Detected (Not Detect); Barbiturates, Urine Not Detected (Not Detect); Benzodiazepines Screen Urine Not Detected (Not Detect); Buprenorphine Scr Not Detected (Not Detect); Cannabinoid Screen Urine POSITIVE (Not Detect); Cocaine Screen Urine Not Detected (Not Detect); Fentanyl, urine POSITIVE (Not Detect); Methadone Screen, Urine Positive (Not Detect); Opiate Screen Urine POSITIVE (Not Detect); Oxycodone Screen Urine Not Detected (Not Detect); Phencyclidine Screen Urine Not Detected (Not Detect)
--- NOTE | 2024-11-17 09:01 | P.HPSUR_ITS ---
Pre-Procedural Eval Section A - 24 Hr Update-Section A only Date of Service: 11/17/24 Section B - Complete if H&P > 30 days Chief Complaint: Epigastric pain Relevant Family History (Specify if Yes): No Relevant Social History: Tobacco Use Present Medications: see Short Stay Collaborative assessment Medical History: Significant History (Group B streptococcal infection Substance abuse Hernia Cirrhosis of liver Hepatitis C) History of Previous Operations: Relevant previous surgery/procedure and date(s) (S/P TIPS (transjugular intrahepatic portosystemic shunt)) Allergies: Allergies Allergy/AdvReac Type Severity Reaction Status Date / Time penicillin V Allergy Intermediate Itching Verified 08/21/24 07:28 Penicillins Allergy Mild ITCHING Verified 08/02/24 08:52 Review of Systems Sugical H&P ROS: Negative: Constitution, Cardiovascular, Respiratory, Tonia rological, Psychiatric, Hem-Onc, Allergic/Immunologic, Gastrointestinal, Genitourinary, Musculoskeletal, Integumentary, Endocrine and Eyes/Ears/Nose/Throat Exam Surgical H&P Exam: Normal: HEENT, Normal: Heart, Normal: Lungs, Normal: Extremities, Normal: Abdomen, Normal: Skin and Normal: Neurological Plan Diagnosis/Plan: Unchanged I have reviewed the history and physical and performed a pertinent physical examination on my patient. No changes have occurred unless specified. Time Spent With Patient Time: Total time managing care of this patient today ____ minutes.
--- NOTE | 2024-11-17 09:23 | W.PM.OPN ---
Operative Note Operative Note Date of Service: 11/17/24 Narrative: Procedure Description: EGD Indication: epigastric pain Anesthesia: MAC FLEXIBLE TRANSORAL UPPER GASTROINTESTINAL ENDOSCOPY UPPER ENDOSCOPY Consent: Indications for the procedure and potential complications of bleeding, perforation, reaction to medications and missed diagnosis were discussed with the patient and informed consent was obtained. Instrument: Olympus GIF H 190 J mid size upper endoscope Monitoring: Vital signs and clinical assessment, continuous EKG monitoring, Pulse oximetry, Carbon Dioxide monitoring and blood pressure monitoring were done throughout the procedure. Procedure: The patient was placed in the left lateral decubitis position and pre-procedure medications were administered and a bite block was placed. The endoscope was inserted into the mouth and advanced under direct vision to the third part of duodenum. A careful inspection was made as the upper endoscope was withdrawn including a retroflexed examination of the proximal stomach; Findings and interventions are described below. Findings: Larynx:normal Esophagus: GE junction at 38 cm, diaphragm hiatus at 38 cm, mild esophagitis Stomach: granular mucosa and patchy erythema . Biopsies were obtained. Grade 2 flap valve on retroflexed examination of the cardia. Duodenum: Normal bulb and descending duodenum, Intervention: Biopsies as noted above, Impression/Findings: gastritis mild esophagitis PLAN: await bx -if h pylori pos then treat --make sure taking PPI GERD precautions
[2024-11-17 09:27] VITALS: BP 100/64; PULSE 54; RESP 16; TEMP 36.1; O2SAT 96
[2024-11-17 09:42] VITALS: BP 115/76; PULSE 52; RESP 18; TEMP 36.2; O2SAT 96
== END 2024-11-17 10:26 | disposition home or self-care (01) ==
PROVIDERS: Nurse Practitioner; PCP Internal Medicine; Visit Provider Internal Medicine Gastroenterology
PROC: 0DJ08ZZ Inspection of Upper Intestinal Tract, Via Natural or Artificial Opening Endoscopic (ICD-10-PCS; CPT 43235; principal; 2024-11-17 09:10)
DX: K20.80 Other esophagitis without bleeding (principal); K29.60 Other gastritis without bleeding; K74.60 Unspecified cirrhosis of liver; B19.20 Unspecified viral hepatitis C without hepatic coma; F19.10 Other psychoactive substance abuse, uncomplicated; F17.210 Nicotine dependence, cigarettes, uncomplicated
CPT/HCPCS: 43239; 36415; 80307; 85027; 85610; 88305; 88313; 88342; J2003; J2704

== ENCOUNTER → 2024-11-17 07:42 | Outpatient (BNV) | payer OTHER, SELFPAY | PROVIDERS: PCP Internal Medicine; Visit Provider Internal Medicine Gastroenterology | DX: K20.90 Esophagitis, unspecified without bleeding (principal); K29.70 Gastritis, unspecified, without bleeding | CPT/HCPCS: 43239 ==

== ENCOUNTER 2024-12-07 16:44 | Inpatient (IN) | payer OTHER, SELFPAY ==
--- NOTE | ~2024-12-07 | CT_ITS ---
CLINICAL HISTORY: abd pain ?ascites CT abdomen and pelvis without contrast Comparison: CT of the abdomen and pelvis from 05/25/2024 Findings: Mild bibasilar atelectasis and scarring, without significant change from comparison. Tips catheter opacities redemonstrated in this noncontrast study. Adjacent metallic coils are noted with associated artifacts. Adjacent surgical clips from cholecystectomy also redemonstrated. New fluid about the pancreas may reflect mild pancreatitis with moderate to severe volume loss of the pancreas again noted. No hydronephrosis. No obstructing stone in either kidney or either ureter, accounting for artifacts. Liver surface nodularity cirrhosis redemonstrated. Spleen approaches the upper limits of normal. Adrenal glands appear unchanged. Minimal additional free fluid in the abdomen and pelvis without free intraperitoneal air. No definite drainable ascites or drainable abscess by noncontrast CT. Multifocal vascular calcifications are redemonstrated. New appendicolith in the appendix with imaged appendix measuring 8 mm diameter in this noncontrast study with mild nonspecific fluid in the abdomen. Pericecal lymph nodes may be reactive. Severe stool burden is noted. No small bowel obstruction. Prostate gland measures 3.2 cm transverse. Moderate to severe wall thickening of the urinary bladder is nonspecific. Cystitis is considered given mild adjacent fluid. No significant change in mild thoracic vertebral height losses. Degenerative changes include imaged hips, SI joints, and spine. IMPRESSION: 1. New dilatation of the appendix concerning for appendicitis, with appendicolith present. 2. Mild free fluid in the pelvis is nonspecific and may reflect mild ascites. Mild pancreatitis and cystitis are also considered. 3. Severe stool burden. No small bowel obstruction. This document has been electronically signed by: Ariel Kelley MD on 12/08/2024 00:52:39
--- NOTE | ~2024-12-07 | CT_ITS ---
CLINICAL HISTORY: AMS CT head without contrast Comparison: CT/AK/SR - CT HEAD/BRAIN WO IV CON - 08/21/24 08:16 EST Findings: No intra-axial mass, midline shift, hydrocephalus, or acute hemorrhage. No significant atrophy-like change or white matter disease. There is no sinus or mastoid fluid. The orbits are unremarkable. There is no acute fracture. IMPRESSION: 1. No acute intracranial findings. This document has been electronically signed by: Blanca Yang MD on 12/07/2024 18:20:27
[2024-12-07 17:05] VITALS: BP 127/77; PULSE 58; RESP 16; TEMP 37.6; O2SAT 94; BMI 25.0
--- NOTE | 2024-12-07 17:06 | ED_ITS ---
HPI - General Adult General Chief complaint: Altered Mental Status Stated complaint: Confusion Time Seen by Provider: 12/07/24 21:40 Source: patient and other (Caregiver) Mode of arrival: ambulatory Limitations: altered mental status History of Present Illness ED Provider: HPI narrative: 59-year-old male with a PMH significant for?alcoholic cirrhosis s/p TIPS, s/p GDA embolization, polysubstance use disorder on methadone, hepatitis-C, and GERD who presents to the ED with?increased confusion, weakness. Patient is noncompliant to his lactic and did not have any bowel movement lady labs done prior to my evaluation showed ammonia level of 206 Related Data Home Medications ?Medication ?Instructions ?Recorded ?Confirmed lactulose 10 gram/15 mL oral 45 ml PO TID 12/10/21 08/21/24 solution (Generlac) folic acid 1 mg tablet 1 tab PO DAILY 04/17/22 08/21/24 thiamine HCl (vitamin B1) 100 mg 1 tab PO DAILY 04/17/22 08/21/24 tablet pantoprazole 40 mg tablet,delayed 40 mg PO DAILY@0630 08/02/24 08/21/24 release rifaximin 550 mg tablet (Xifaxan) 550 mg PO BID 08/02/24 08/21/24 carbamide peroxide 6.5 % ear drops 10 drp otic (ear) right DAILY PRN 08/21/24 08/21/24 (Debrox) earwax ipratropium bromide 21 mcg (0.03 1 spray intranasal BID PRN Nasal 08/21/24 08/21/24 %) nasal spray Congestion methadone 10 mg/mL oral 65 mg PO DAILY 08/21/24 08/23/24 concentrate (Methadone Intensol) Previous Rx's ?Medication ?Instructions ?Recorded acetaminophen 500 mg tablet 500 mg PO Q6H PRN pain #30 tabs 12/14/23 (Tylenol Extra Strength) aluminum-mag hydroxide-simethicone 10 ml PO Q6H PRN indigestion 06/11/24 200 mg-200 mg-20 mg/5 mL oral susp #3,000 mL (Maalox Advanced) famotidine 40 mg tablet 40 mg PO BEDTIME #90 tabs 11/23/24 ondansetron 4 mg disintegrating 4 mg PO Q8H #30 tabs 11/23/24 tablet Allergies Allergy/AdvReac Type Severity Reaction Status Date / Time penicillin V Allergy Intermediate Itching Verified 12/07/24 17:08 Penicillins Allergy Mild ITCHING Verified 12/07/24 17:08 Review of Systems 2 Review of Systems: Yes all other systems are reviewed and are negative [facility] Past Medical History Medical History Group B streptococcal infection Substance abuse Hernia Cirrhosis of liver Hepatitis C Surgical History S/P TIPS (transjugular intrahepatic portosystemic shunt) Social History Social History Household Members: None Housing: Apartment Do you presently have visiting nurse or other home services: No Alcohol intake: former Comment: steady gait Patient Tobacco Use Status: Current everyday Tobacco user Tobacco use type: Cigarette Cigarettes Per Day: 3 Years Smoked: 35 Smoked in Last 30 Days: No Substance Use Type: Heroin Advance Directives: No Advance Directives Information Provided: No Do you have a plan to hurt others: No Plan service: No Current occupational status: unemployed Physical Exam ED Vital Signs: Vital Signs - 24 hr 12/07/24 17:05 12/07/24 21:31 Temperature 99.6 F 97.8 F Pulse Rate 58 57 Respiratory Rate 16 16 Blood Pressure 127/77 136/68 Pulse Oximetry 94 97 Oxygen Delivery Method Room Air Room Air BMI result Body Mass Index 25.0 Appearance: Alert. Oriented X2 lethargic. No acute distress. Eyes: PERRLA, No Nystagmus icterus+ ENT: Pharynx normal. Oral Mucosa moist Neck: Normal inspection. Neck supple. CVS: Normal heart rate and rhythm. Pulses normal. Respiratory: No respiratory distress. Equal air entry bilateral, no wheezing/rales/rhonchi Abdomen: Soft and nontender. Bowel sounds are present, no mass palpable, no CVA tenderness Skin: Skin warm and dry. Normal skin color. Normal skin turgor. Extremities: No lower extremity edema. No calf tenderness hepatic flaps++ Neuro: Oriented X 2. No motor deficit. No sensory deficit.No cerebellar signs , cranial nerves II-XII intact Course Course Course Narrative: This is an RME: Additional HPI, ROS, PE not included below will be deferred to primary provider. RME assessment and note performed by: Nelly Dawson PA-C This is a [id number], significant for hepatic encephalopathy admitted in August 2024,?alcoholic cirrhosis s/p TIPS, s/p GDA embolization, polysubstance use disorder on methadone, hepatitis-C, and GERD, who presents to the ER, accompanied by brother, with concerns for increased confusion x 3 days. Lives alone, brother checks in on him every day and [employer] and brother report compliancy with medications. No etoh use. Patient reports that he is feeling confused, he is not in any pain. No chest pain or shortness of breath. No belly pain. No neurologic deficits on exam. Plan: Labs, UA, CT head, further ER evaluation needed. Medications Administered Generic Name Dose Route Start Last Admin Trade Name Freq PRN Reason Stop Dose Admin Ceftriaxone Sodium 2 gm 12/08/24 01:00 12/08/24 02:23 Ceftriaxone Sodium 2 Gm Vial IVPUSH 2 gm Q24H ADONAY Administration Metronidazole 500 mg in 100 mls @ 100 mls/hr 12/08/24 01:00 12/08/24 03:40 Flagyl IV Infused Q8H ADONAY Infusion Lactulose 45 gm 12/08/24 04:00 12/08/24 05:16 Lactulose 20 Gm/30 Ml Solution PO 45 gm Q8H ADONAY Administration Rifaximin 550 mg 12/08/24 00:00 12/08/24 00:46 Rifaximin 550 Mg Tablet PO Not Given BID ADONAY Discontinued Medications Generic Name Dose Route Start Last Admin Trade Name Freq PRN Reason Stop Dose Admin Lactulose 30 gm 12/07/24 21:45 12/07/24 22:59 Lactulose 20 Gm/30 Ml Solution PO 12/07/24 21:46 30 gm ONCE ONE Administration Lactulose 200 gm 12/07/24 21:47 12/08/24 00:42 Lactulose 320 Gm/480 Ml Solution [place] 12/07/24 21:48 200 gm ONCE ONE Administration Medical Decision Making Medical Decision Making [facility] Narrative: Patient with hepatic encephalopathy with of alcoholic cirrhosis abdomen is benign nontender noncompliant to medication will admit patient to hospitalist will give lactulose enema p.o. Patient does not have any significant tenderness in right lower quadrant although CT scan shows possible early appendicitis with appendicolith patient is sent in his encephalopathy with INR of 1.8 consulted surgeon admit to medical service Differential Diagnosis Differential Diagnoses: The differential diagnosis associated with the presentation includes Metabolic encephalopathy/hepatic encephalopathy Admission/Observation Consideration of admission/observation: Escalation of care including admission/observation considered Consult Healthcare Provider Management of the patient was discussed with: Hospitalist Lab Data MDM Lab Attestation statement: I reviewed the patient's lab results. 12/08/24 04:47 12/08/24 04:46 Labs: Lab Results 12/07/24 Range/Units 17:34 WBC 4.8 (4.8-10.8) X10*3/uL RBC 3.56 L (4.60-5.80) X10*6/uL Hgb 12.0 L (14.0-18.0) g/dl Hct 35.2 L (42.0-52.0) % MCV 98.9 H (80.0-98.0) fL MCH 33.7 H (27.0-33.0) pg MCHC 34.1 (31.0-36.0) g/dl RDW 16.2 H (11.0-16.0) % Plt Count 77 L (160-400) X10*3/uL MPV 10.5 (9.4-12.4) fL Immature Gran % (Auto) 0.2 (0.0-0.4) % Neut % (Auto) 46.0 (45-73) % Lymph % (Auto) 41.0 H (20-40) % [place] % (Auto) 9.1 (2-11) % Eos % (Auto) 3.3 (0-4) % Baso % (Auto) 0.4 (0-2) % Lymph # (Auto) 2.0 (1.2-4.9) X10*3/uL [place] # (Auto) 0.4 (0.1-1.2) X10*3/uL Eos # (Auto) 0.2 (0.0-0.4) X10*3/uL Baso # (Auto) 0.0 (0.0-0.2) X10*3/uL Abs Immat Gran (auto) 0.01 (0.00-0.03) X10*3/uL Absolute Neuts (auto) 2.2 (2.0-8.3) x10*3/uL Absolute Nucleated RBC 0.000 (0.0-0.012) X10*3/uL Nucleated RBC % (auto) 0.0 (0.0-0.2) /100WBC Sodium 140 (135-145) mmol/L Potassium 4.0 (3.3-5.1) mmol/L Chloride 111 H (96-108) mmol/L Carbon Dioxide 26 (22-29) mmol/L Anion Gap 7 L (12-20) BUN 10 (9-16) mg/dL Creatinine 0.64 (0.5-1.4) mg/dL Estim Creat Clear Calc 124.2 Estimated GFR > 60 Random Glucose 112 (60-115) mg/dL Calcium 8.7 D (8.4-10.2) mg/dL Magnesium 1.6 (1.6-2.6) mg/dL Total Bilirubin 2.5 H (0.0-1.0) mg/dL Direct Bilirubin 0.8 H (0.0-0.5) mg/dL AST 41 H (5-37) U/L ALT < 6 (0-40) U/L Alkaline Phosphatase 125 H (39-117) U/L Ammonia 206 H (13-55) umol/L Troponin I High Sens 3.2 (<3.5-35.0) ng/L Total Protein 5.6 L (6.5-8.0) g/dL Albumin 2.6 L (3.5-5.0) g/dL Lipase 7 L (8-78) U/L Ethyl Alcohol < 10 mg/dL Influenza Type A (PCR) NEGATIVE (Negative) Influenza Type B (PCR) NEGATIVE (Negative) RSV RNA Qual (PCR) NEGATIVE (Negative) SARS-CoV-2 RNA (RT-PCR) NEGATIVE (Negative) Discharge Plan Discharge Clinical Impression: Hepatic encephalopathy Patient Disposition: Admitted As Inpatient
--- NOTE | 2024-12-07 17:11 | ECG_ITS ---
Test Reason : AMS Blood Pressure : */* mmHG Vent. Rate : 64 BPM Atrial Rate : 64 BPM P-R Int : 114 ms QRS Dur : 84 ms QT Int : 442 ms P-R-T Axes : -9 12 -10 degrees QTcB Int : 455 ms Sinus rhythm with occasional Premature ventricular complexes Otherwise normal ECG When compared with ECG of 21-Aug-2024 07:50, Premature ventricular complexes are now Present Referred By: Nelly Dawson Electronically Signed By: ZULLY LEVIN
[2024-12-07 17:40] LABS: MANUAL DIFF FLAG NO
[2024-12-07 17:43] LABS: Basophils Percent Auto 0.4 % (0-2); Eosinophils Absolute Auto 0.2 X10*3/uL (0.0-0.4); Eosinophils Percent Auto 3.3 % (0-4); Hematocrit 35.2 % (42.0-52.0); Imm Gran Abs Auto 0.01 X10*3/uL (0.00-0.03); Imm Gran Pct Auto 0.2 % (0.0-0.4); Mean Corpuscular HGB Conc 34.1 g/dl (31.0-36.0); Mean Corpuscular Hemoglobin 33.7 pg (27.0-33.0); Mean Corpuscular Volume 98.9 fL (80.0-98.0); Mean Platelet Volume 10.5 fL (9.4-12.4); Monocytes Absolute Auto 0.4 X10*3/uL (0.1-1.2); Monocytes Percent Auto 9.1 % (2-11); Neutrophils Absolute Auto 2.2 x10*3/uL (2.0-8.3); Red Blood Count 3.56 X10*6/uL (4.60-5.80); Red Cell Distribution Width 16.2 % (11.0-16.0); White Blood Count 4.8 X10*3/uL (4.8-10.8)
[2024-12-07 17:44] LABS: Platelet Count 77 X10*3/uL (160-400)
[2024-12-07 17:52] LABS: Ammonia 206 umol/L (13-55)
[2024-12-07 17:59] LABS: Ethanol < 10 mg/dL
[2024-12-07 18:07] LABS: Troponin-I High Sensitivity 3.2 ng/L (<3.5-35.0)
[2024-12-07 18:08] LABS: Alanine Aminotransferase < 6 U/L (0-40); Albumin Level 2.6 g/dL (3.5-5.0); Alkaline Phosphatase 125 U/L (39-117); Anion Gap 7 (12-20); Aspartate Amino Transferase 41 U/L (5-37); Bilirubin Direct 0.8 mg/dL (0.0-0.5); Bilirubin Total 2.5 mg/dL (0.0-1.0); Blood Urea Nitrogen 10 mg/dL (9-16); Calcium 8.7 mg/dL (8.4-10.2); Carbon Dioxide 26 mmol/L (22-29); Chloride 111 mmol/L (96-108); Creatinine Clr Calc Pharmacy 124.2; Estimated Glomerular Filt Rate > 60; Glucose Random 112 mg/dL (60-115); Lipase 7 U/L (8-78); Magnesium 1.6 mg/dL (1.6-2.6); Sodium 140 mmol/L (135-145); Total Protein 5.6 g/dL (6.5-8.0)
[2024-12-07 19:13] LABS: Influenza A PCR NEGATIVE (Negative); Influenza B PCR NEGATIVE (Negative); Resp Syncy Virus RNA Qual PCR NEGATIVE (Negative); SARS COV2 PCR INHOUSE NEGATIVE (Negative)
[2024-12-07 21:31] VITALS: BP 136/68; PULSE 57; RESP 16; TEMP 36.6; O2SAT 97
[2024-12-07] MEDS: Lactulose 20 GM/30 ML SOLUTION 30 GM PO (22:59)
--- NOTE | 2024-12-08 00:02 | MHC.EDTECH ---
Patient went to the bathroom, unable to provide urine sample.
[2024-12-08] MEDS: Lactulose 320 GM/480 ML SOLUTION 200 GM PR (00:42)
--- NOTE | 2024-12-08 01:01 | PM.IMHP ---
History of Present Illness Date of Service: 12/08/24 Chief Complaint: Altered mentation This is a 59-year-old male with pertinent history of alcoholic cirrhosis status post TIPS, polysubstance use disorder on methadone, gastroesophageal reflux disease who was brought to the emergency department for evaluation of altered mentation. Patient is only oriented to self at the time of my evaluation. Unable to obtain history. Previously admitted for hepatic encephalopathy due to medication noncompliance. As per family, confusion has been increasing over the last 4 days. Upon persistent questioning, does endorse abdominal pain. No bowel movement on the day of presentation. Unable to obtain review of systems. In the emergency department, ammonia found to be 206. Imaging concerning for acute appendicitis. Review of Systems Review of Systems: Yes Unobtainable due to mental status PMFSH Medical History Group B streptococcal infection Substance abuse Hernia Cirrhosis of liver Hepatitis C Pertinent family history: Unable to obtain Surgical History S/P TIPS (transjugular intrahepatic portosystemic shunt) Social History Household Members: None Housing: Apartment Do you presently have visiting nurse or other home services: No Alcohol intake: former Comment: steady gait Patient Tobacco Use Status: Current everyday Tobacco user Tobacco use type: Cigarette Cigarettes Per Day: 3 Years Smoked: 35 Smoked in Last 30 Days: No Substance Use Type: Heroin Advance Directives: No Advance Directives Information Provided: No Do you have a plan to hurt others: No Plan service: No Current occupational status: unemployed Meds Allergies Allergy/AdvReac Type Severity Reaction Status Date / Time penicillin V Allergy Intermediate Itching Verified 12/07/24 17:08 Penicillins Allergy Mild ITCHING Verified 12/07/24 17:08 Active Medications: Current Medications Ceftriaxone Sodium (Ceftriaxone Sodium 2 Gm Vial) 2 gm IVPUSH Q24H ADONAY Metronidazole (Flagyl) 500 mg in 100 mls @ 100 mls/hr IV Q8H ADONAY Lactulose (Lactulose 20 Gm/30 Ml Solution) 45 gm PO Q8H ADONAY Rifaximin (Rifaximin 550 Mg Tablet) 550 mg PO BID ADONAY Last Admin: 12/08/24 00:46 Dose: Not Given Home Medications ?Medication ?Instructions ?Recorded ?Confirmed ?Last Taken ?Type lactulose 10 gram/15 mL oral 45 ml PO TID 12/10/21 08/21/24 08/20/24 History solution (Generlac) folic acid 1 mg tablet 1 tab PO DAILY 04/17/22 08/21/24 08/20/24 History thiamine HCl (vitamin B1) 100 mg 1 tab PO DAILY 04/17/22 08/21/24 08/20/24 History tablet pantoprazole 40 mg tablet,delayed 40 mg PO DAILY@0630 08/02/24 08/21/24 08/20/24 History release rifaximin 550 mg tablet (Xifaxan) 550 mg PO BID 08/02/24 08/21/24 08/20/24 History carbamide peroxide 6.5 % ear drops 10 drp otic (ear) right DAILY PRN 08/21/24 08/21/24 Unknown History (Debrox) earwax ipratropium bromide 21 mcg (0.03 1 spray intranasal BID PRN Nasal 08/21/24 08/21/24 Unknown History %) nasal spray Congestion methadone 10 mg/mL oral 65 mg PO DAILY 08/21/24 08/23/24 08/20/24 History concentrate (Methadone Intensol) Physical Exam Vital Signs and Narrative: Vital Signs: Last Vital Signs Temp 97.8 F 12/07/24 21:31 Pulse 57 12/07/24 21:31 Resp 16 12/07/24 21:31 BP 136/68 12/07/24 21:31 Pulse Ox 97 12/07/24 21:31 O2 Del Method Room Air 12/07/24 21:31 BMI result Body Mass Index 25.0 Middle-aged male lying in bed in no distress Neck supple, no JVD Regular rate and rhythm, S1-S2 heard Regular breath sounds bilaterally, no wheezing or crackles appreciated Abdomen with epigastric tenderness, no rigidity Patient is awake, alert and oriented to self, disoriented to time and person ; no focal motor deficit Results Labs 12/07/24 17:34 12/07/24 17:34 Labs: Laboratory Results - last 24 hr 12/07/24 17:34 MCV 98.9 H MCH 33.7 H MCHC 34.1 RDW 16.2 H Plt Count 77 L MPV 10.5 Immature Gran % (Auto) 0.2 Neut % (Auto) 46.0 Lymph % (Auto) 41.0 H [place] % (Auto) 9.1 Eos % (Auto) 3.3 Baso % (Auto) 0.4 Lymph # (Auto) 2.0 [place] # (Auto) 0.4 Eos # (Auto) 0.2 Baso # (Auto) 0.0 Abs Immat Gran (auto) 0.01 Absolute Neuts (auto) 2.2 Absolute Nucleated RBC 0.000 Nucleated RBC % (auto) 0.0 Anion Gap 7 L Estim Creat Clear Calc 124.2 Estimated GFR > 60 Random Glucose 112 Calcium 8.7 D Magnesium 1.6 Total Bilirubin 2.5 H Direct Bilirubin 0.8 H AST 41 H ALT < 6 Alkaline Phosphatase 125 H Ammonia 206 H Total Protein 5.6 L Albumin 2.6 L Lipase 7 L Ethyl Alcohol < 10 Influenza Type A (PCR) NEGATIVE Influenza Type B (PCR) NEGATIVE RSV RNA Qual (PCR) NEGATIVE SARS-CoV-2 RNA (RT-PCR) NEGATIVE Assessment and Plan (1) Hepatic encephalopathy: Status: Acute (2) Abdominal pain: Qualifiers: Abdominal location: generalized Qualified Code(s): R10.84 - Generalized abdominal pain Status: Acute Plan This is a 59-year-old male with pertinent history of alcoholic cirrhosis status post TIPS, polysubstance use disorder on methadone, gastroesophageal reflux disease who was brought to the emergency department for evaluation of altered mentation. #. Acute hepatic encephalopathy in a patient with alcoholic cirrhosis: Does have a history of noncompliance with lactulose. Initiated lactulose and rifaximin. Closely monitor ammonia and mentation. #. Abdominal pain: Imaging concerning for appendicitis, consulted General surgery. Also noted ascites on imaging, will treat empirically for SBP in a patient with cirrhosis. #. Alcohol use disorder: On folic acid and thiamine #. Polysubstance use disorder: On methadone #. Gastroesophageal reflux disease: On famotidine #. Thrombocytopenia due to cirrhosis Med rec pending DVT prophylaxis: Mechanical in due to thrombocytopenia Full code Admit as inpatient and will require two night minimum hospital stay for IV antibiotics, monitoring of mentation (as above), which is not possible in a lesser acute setting. General surgery consult pending Quality Stroke Does the patient have a stroke diagnosis?: No VTE Prior VTE?: No VTE Risk Level:: Medical - moderate - high VTE Device Contraindication: N/A - Device Ordered VTE Drug Contraindication: Treatment Not Indicated
[2024-12-08] MEDS: cefTRIAXone sodium 2 GM VIAL IVPUSH (02:23)
[2024-12-08] MEDS: metroNIDAZOLE/NS 500 MG/100 ML PIGGYBACK 100 MG IV ×3 (02:27→16:12)
[2024-12-08 05:07] LABS: MANUAL DIFF FLAG NO
[2024-12-08 05:09] LABS: Basophils Percent Auto 0.4 % (0-2); Eosinophils Absolute Auto 0.1 X10*3/uL (0.0-0.4); Eosinophils Percent Auto 1.8 % (0-4); Hematocrit 34.5 % (42.0-52.0); Hemoglobin 11.5 g/dl (14.0-18.0); Imm Gran Abs Auto 0.01 X10*3/uL (0.00-0.03); Imm Gran Pct Auto 0.2 % (0.0-0.4); Lymphocytes Percent Auto 38.1 % (20-40); Mean Corpuscular HGB Conc 33.3 g/dl (31.0-36.0); Mean Corpuscular Volume 99.1 fL (80.0-98.0); Mean Platelet Volume 10.6 fL (9.4-12.4); Monocytes Absolute Auto 0.6 X10*3/uL (0.1-1.2); Monocytes Percent Auto 11.7 % (2-11); Neutrophils Absolute Auto 2.5 x10*3/uL (2.0-8.3); Neutrophils Percent Auto 47.8 % (45-73); Red Blood Count 3.48 X10*6/uL (4.60-5.80); Red Cell Distribution Width 16.2 % (11.0-16.0); White Blood Count 5.1 X10*3/uL (4.8-10.8)
[2024-12-08 05:10] LABS: Platelet Count 78 X10*3/uL (160-400)
[2024-12-08 05:14] LABS: Ammonia 86 umol/L (13-55)
[2024-12-08] MEDS: Lactulose 20 GM/30 ML SOLUTION 45 GM PO ×3 (05:16→19:15)
[2024-12-08 05:32] LABS: Alanine Aminotransferase < 6 U/L (0-40); Albumin Level 2.3 g/dL (3.5-5.0); Alkaline Phosphatase 118 U/L (39-117); Anion Gap 9 (12-20); Aspartate Amino Transferase 43 U/L (5-37); Blood Urea Nitrogen 10 mg/dL (9-16); Calcium 8.6 mg/dL (8.4-10.2); Carbon Dioxide 27 mmol/L (22-29); Chloride 111 mmol/L (96-108); Creatinine Clr Calc Pharmacy 122.3; Estimated Glomerular Filt Rate > 60; Glucose Random 88 mg/dL (60-115); Potassium 4.2 mmol/L (3.3-5.1); Sodium 143 mmol/L (135-145); Total Protein 5.4 g/dL (6.5-8.0)
[2024-12-08 05:37] VITALS: BP 140/75; PULSE 77; RESP 13; TEMP 36.7; O2SAT 98
--- NOTE | 2024-12-08 07:30 | PC.NURSE ---
Patient c/o 04/17 abdominal pain ? appendicitis only tylenol ordered paged Sharla Mccracken [employer] for pain medications.
--- NOTE | 2024-12-08 07:30 | PM.EVENT ---
Event Note Date of Service: 12/08/24 Event Note: 59-year-old male with pertinent history of alcoholic cirrhosis status post TIPS, polysubstance use disorder on methadone, gastroesophageal reflux disease who was brought to the emergency department for evaluation of altered mentation. Acute hepatic encephalopathy in a patient with alcoholic cirrhosis Does have a history of noncompliance with lactulose. lactulose and rifaximin. ammonia trending down Abdominal pain Imaging concerning for appendicitis, pancreatitis consulted General surgery> no need for surgical intervention at this time. Also noted ascites on imaging, will treat empirically for SBP in a patient with cirrhosis. Alcohol use disorder On folic acid and thiamine Polysubstance use disorder On methadone addiction med consult Gastroesophageal reflux disease On famotidine Thrombocytopenia due to cirrhosis Med rec pending DVT prophylaxis: Mechanical in due to thrombocytopenia Full code Admit as inpatient and will require two night minimum hospital stay for IV antibiotics, monitoring of mentation (as above), which is not possible in a lesser acute setting. General surgery consult pending Time Spent With Patient Time: Total time managing care of this patient today ____ minutes.
--- NOTE | 2024-12-08 08:15 | PM.CNGS ---
History of Present Illness Consult details Consult date: 12/08/24 Narrative: 59-year-old male with hepatitis-C, liver cirrhosis, and substance abuse, brought to the ER last night because of altered mental status. According to his family, he apparently has had using lethargy and confusion for the past 5 days. His ammonia levels were elevated in the ER. There was no report of any fever or chills or any vomiting He does have chronic constipation apparently While in the ER, he mentioned having abdominal pain and a CAT scan was done. This showed a dilated appendix with appendicoliths. When asked come down the patient says that he has abdominal pain on the left upper quadrant however. He denied any pain on the right lower quadrant. He answers some simple questions. Review of Systems Review of Systems: Yes Unobtainable due to mental status Constitutional: Constitutional: Denies chills and Denies fever(s) PMFSH Past Medical History Medical History (Updated 12/08/24 @ 08:18 by Kimani Galvez MD) Abnormal abdominal CT scan Group B streptococcal infection Substance abuse Hernia Cirrhosis of liver Hepatitis C Surgical History Surgical History S/P TIPS (transjugular intrahepatic portosystemic shunt) Social History Social History Household Members: Family Housing: Apartment Alcohol intake: former Comment: steady gait Patient Tobacco Use Status: Never used Tobacco Tobacco use type: Cigarette Cigarettes Per Day: 3 Years Smoked: 35 Substance Use Type: Heroin service: No Current occupational status: unemployed Meds Allergies Allergy/AdvReac Type Severity Reaction Status Date / Time penicillin V Allergy Intermediate Itching Verified 12/07/24 17:08 Penicillins Allergy Mild ITCHING Verified 12/07/24 17:08 Active Medications: Current Medications Acetaminophen (Acetaminophen 325 Mg Tablet) 650 mg PO Q6H PRN PRN Reason: Pain, Mild 1-3,fever,headache Calcium Carbonate (Calcium Carbonate 750 Mg Tab.Chew) 750 mg PO Q4H PRN PRN Reason: Heartburn Ceftriaxone Sodium (Ceftriaxone Sodium 2 Gm Vial) 2 gm IVPUSH Q24H [facility] Last Admin: 12/08/24 02:23 Dose: 2 gm Metronidazole (Flagyl) 500 mg in 100 mls @ 100 mls/hr IV Q8H [facility] Last Infusion: 12/08/24 03:40 Dose: Infused Lactated Ringer's (Lr) 1,000 mls @ 100 mls/hr IVCONT .Q10H [facility] Lactulose (Lactulose 20 Gm/30 Ml Solution) 45 gm PO Q8H [facility] Last Admin: 12/08/24 05:16 Dose: 45 gm Magnesium Hydroxide (Milk Of Magnesia 30 Ml Oral.Susp) 30 ml PO DAILY PRN PRN Reason: Constipation Melatonin (Melatonin 3 Mg Tablet) 6 mg PO BEDTIME PRN PRN Reason: Insomnia Morphine Sulfate (Morphine Sulfate 2 Mg/Ml Cartridge) 1 mg IVPUSH Q4H PRN; Protocol PRN Reason: Pain, Severe (Pain Scale 7-10) Ondansetron HCl (Ondansetron Hcl 4 Mg/2 Ml Vial) 4 mg IVPUSH Q8H PRN PRN Reason: Nausea and Vomiting Rifaximin (Rifaximin 550 Mg Tablet) 550 mg PO BID [facility] Last Admin: 12/08/24 00:46 Dose: Not Given Sodium Chloride (0.9 % Sodium Chloride Flush 3 Ml Syringe) 3 ml IVFLUSH QSHIFT [facility] Home Medications ?Medication ?Instructions ?Recorded ?Confirmed ?Last Taken ?Type lactulose 10 gram/15 mL oral 45 ml PO TID 12/10/21 12/08/24 12/07/24 History solution (Generlac) thiamine HCl (vitamin B1) 100 mg 1 tab PO DAILY 04/17/22 12/08/24 12/07/24 History tablet pantoprazole 40 mg tablet,delayed 40 mg PO BID@0630,1630 08/02/24 12/08/24 12/07/24 History release rifaximin 550 mg tablet (Xifaxan) 550 mg PO BID 08/02/24 12/08/24 12/07/24 History methadone 10 mg/mL oral 70 mg PO DAILY 08/21/24 12/08/24 12/07/24 History concentrate (Methadone Intensol) aluminum hydroxide gel 320 mg/5 mL 640 mg PO QID PRN moderate pain 12/08/24 12/08/24 Unknown History oral suspension famotidine 10 mg tablet (Heartburn 10 mg PO BID 12/08/24 12/08/24 12/07/24 History Relief (famotidine)) Physical Exam Vital Signs: Vital Signs: Last Vital Signs Temp 98.1 F 12/08/24 05:37 Pulse 77 12/08/24 05:37 Resp 13 12/08/24 05:37 BP 140/75 H 12/08/24 05:37 Pulse Ox 98 12/08/24 05:37 O2 Del Method Room Air 12/08/24 05:37 BMI result Body Mass Index 25.0 Const: Other: Appears very weak and frail General: no acute distress Resp: Effort & Inspection: normal respiratory effort Cardio: Rate: regular rate GI: Palpation (GI): Soft to palpation, not firm, Tenderness to palpation present (GI) (Mild tenderness on the left upper quadrant, no tenderness in the right lowe) and no guarding Results Labs 12/08/24 04:47 12/09/24 05:49 Labs: Abnormal lab results 12/07/24 12/08/24 12/08/24 Range/Units 17:34 04:46 04:47 RBC 3.56 L 3.48 L (4.60-5.80) X10*6/uL Hgb 12.0 L 11.5 L (14.0-18.0) g/dl Hct 35.2 L 34.5 L (42.0-52.0) % MCV 98.9 H 99.1 H (80.0-98.0) fL MCH 33.7 H (27.0-33.0) pg RDW 16.2 H 16.2 H (11.0-16.0) % Plt Count 77 L 78 L (160-400) X10*3/uL Lymph % (Auto) 41.0 H (20-40) % [place] % (Auto) 11.7 H (2-11) % Chloride 111 H 111 H (96-108) mmol/L Anion Gap 7 L 9 L (12-20) Total Bilirubin 2.5 H 2.0 H (0.0-1.0) mg/dL Direct Bilirubin 0.8 H (0.0-0.5) mg/dL AST 41 H 43 H (5-37) U/L Alkaline Phosphatase 125 H 118 H (39-117) U/L Ammonia 206 H 86 H (13-55) umol/L Total Protein 5.6 L 5.4 L (6.5-8.0) g/dL Albumin 2.6 L 2.3 L (3.5-5.0) g/dL Lipase 7 L (8-78) U/L Short CBC 12/07/24 12/08/24 Range/Units 17:34 04:47 WBC 4.8 5.1 (4.8-10.8) X10*3/uL Hgb 12.0 L 11.5 L (14.0-18.0) g/dl Hct 35.2 L 34.5 L (42.0-52.0) % Plt Count 77 L 78 L (160-400) X10*3/uL BMP 12/07/24 12/08/24 17:34 04:46 Sodium 140 143 Potassium 4.0 4.2 Chloride 111 H 111 H Carbon Dioxide 26 27 BUN 10 10 Creatinine 0.64 0.65 Calcium 8.7 D 8.6 Liver Function 12/07/24 12/08/24 Range/Units 17:34 04:46 Total Bilirubin 2.5 H 2.0 H (0.0-1.0) mg/dL Direct Bilirubin 0.8 H (0.0-0.5) mg/dL AST 41 H 43 H (5-37) U/L ALT < 6 < 6 (0-40) U/L Alkaline Phosphatase 125 H 118 H (39-117) U/L Albumin 2.6 L 2.3 L (3.5-5.0) g/dL All other labs normal. Assessment and Plan (1) Abnormal abdominal CT scan: Status: Acute He is admitted for hepatic encephalopathy. He has a known history of cirrhosis, hepatitis-C. . He had a CAT scan last night because of his complains of abdominal pain and this showed dilated appendix with appendicolith. He points to his left upper quadrant as were his pain is. He does not seem to be significantly tender in the right lower quadrant. I do not see any significant inflammatory changes surrounding the appendix . He has no leukocytosis Overall, index of suspicion for appendicitis is low. However, we will follow him closely. He does have significant medical issues at this time and does present a high risk for perioperative indications in view of his cirrhosis and encephalopathy. He is currently getting laxatives for his encephalopathy. We will follow along closely while he is in the hospital. Procedures Date of Service Date of Service: 12/09/24
[2024-12-08 08:32] VITALS: BP 116/68; PULSE 64; RESP 12; TEMP 36.4; O2SAT 97
[2024-12-08] MEDS: rifAXIMin 550 MG TABLET PO ×2 (08:37→19:15)
[2024-12-08] MEDS: Lactated Ringers 1,000 ML 100 ML IVCONT (08:39)
--- NOTE | 2024-12-08 10:54 | PHA.MEDREC ---
Pharmacy Consult ? Medication Reconciliation Pharmacy has completed the medication reconciliation. Patient's brother Hector brought in patient's medication bottles and confirmed that those are the only medications that patient takes. Patient takes famotidine 40 mg + 10 mg and also pantoprazole 40 mg bid. His brother said patient's last dose of medications was yesterday 12/07/24.
--- NOTE | 2024-12-08 10:58 | MHC.CM.PN ---
CM MET WITH PT/BROTHER AT BEDSIDE. PT IS LETHARGIC AND WITH AMS AT THIS TIME SO INFORMATION GLEANED FROM BROTHER STEVE. PT LIVES ALONE AND HAS [employer] [employer]. 15 HRS DAYTIME/15 HRS NIGHT/WK. PT IS UNABLE TO COMPLETE A HCP AT THIS TIME DUE TO AMS. PCP FARHAD ZAMORA DP: HOME WITH RESUMPTION OF [employer] SERVICES IS THE GOAL. BROTHER WILL TRANSPORT. CM WILL CONTINUE TO FOLLOW FOR ANY CHANGE TO DC PLAN/NEEDS.
--- NOTE | 2024-12-08 12:02 | HE.PHANOTE ---
RE: METHADONE DOSING Last dose of methadone 70 mg was given on 12/03/24 @0700 with 6 take home bottles per Soo BROWN at [facility] in [place]. Per patient's brother Hector (pt was not verbal), patient last took his home dose on 12/07/24.
[2024-12-08 15:13] VITALS: BP 113/58; PULSE 59; RESP 17; TEMP 36.6; O2SAT 95
[2024-12-08] MEDS: 0.9 % Sodium Chloride Flush 3 ML SYRINGE IVFLUSH (19:15)
[2024-12-08] MEDS: Melatonin 3 MG TABLET 6 MG PO (19:15)
[2024-12-08 23:27] VITALS: BP 118/65; PULSE 72; RESP 16; TEMP 36.3; O2SAT 96
[2024-12-09] MEDS: cefTRIAXone sodium 2 GM VIAL IVPUSH (00:03)
[2024-12-09] MEDS: metroNIDAZOLE/NS 500 MG/100 ML PIGGYBACK 100 MG IV ×2 (00:04→08:36)
[2024-12-09 06:26] LABS: Anion Gap 8 (12-20); Blood Urea Nitrogen 14 mg/dL (9-16); Calcium 8.4 mg/dL (8.4-10.2); Carbon Dioxide 30 mmol/L (22-29); Chloride 110 mmol/L (96-108); Creatinine Clr Calc Pharmacy 134.8; Estimated Glomerular Filt Rate > 60; Glucose Random 94 mg/dL (60-115); Potassium 3.5 mmol/L (3.3-5.1); Sodium 144 mmol/L (135-145)
[2024-12-09 07:17] VITALS: BP 116/67; PULSE 60; RESP 18; TEMP 37.2; O2SAT 93
[2024-12-09 08:08] LABS: Ammonia 54 umol/L (13-55)
[2024-12-09] MEDS: rifAXIMin 550 MG TABLET PO ×2 (08:36→20:34)
[2024-12-09] MEDS: 0.9 % Sodium Chloride Flush 3 ML SYRINGE IVFLUSH ×3 (08:36→23:31)
--- NOTE | 2024-12-09 09:18 | PM.PNGS ---
Subjective Subjective Date of Service: 12/09/24 Interval history: Now alert Denies abdominal pain No nausea or vomiting Physical Exam Vital Signs: Vital Signs: Last Vital Signs Temp 98.9 F 12/09/24 07:17 Pulse 60 12/09/24 07:17 Resp 18 12/09/24 07:17 BP 116/67 12/09/24 07:17 Pulse Ox 93 12/09/24 07:17 O2 Del Method Room Air 12/09/24 07:17 BMI result Body Mass Index 25.0 Const: General: comfortable and no acute distress Resp: Effort & Inspection: normal respiratory effort Cardio: Rate: regular rate GI: Palpation (GI): Soft to palpation, not firm and nontender Objective Data Active Medications Acetaminophen (Acetaminophen 325 Mg Tablet) 650 mg PO Q6H PRN PRN Reason: Pain, Mild 1-3,fever,headache Calcium Carbonate (Calcium Carbonate 750 Mg Tab.Chew) 750 mg PO Q4H PRN PRN Reason: Heartburn Ceftriaxone Sodium (Ceftriaxone Sodium 2 Gm Vial) 2 gm IVPUSH Q24H [facility] Last Admin: 12/09/24 00:03 Dose: 2 gm Documented By: DESIRAE Metronidazole (Flagyl) 500 mg in 100 mls @ 100 mls/hr IV Q8H [facility] Last Admin: 12/09/24 08:36 Dose: 100 mls/hr Documented By: PAULINE Lactulose (Lactulose 20 Gm/30 Ml Solution) 45 gm PO Q8H [facility] Last Admin: 12/09/24 03:26 Dose: Not Given Documented By: DESIRAE Non-Admin Reason: several liquid stools overnight Magnesium Hydroxide (Milk Of Magnesia 30 Ml Oral.Susp) 30 ml PO DAILY PRN PRN Reason: Constipation Melatonin (Melatonin 3 Mg Tablet) 6 mg PO BEDTIME PRN PRN Reason: Insomnia Last Admin: 12/08/24 19:15 Dose: 6 mg Documented By: DESIRAE Morphine Sulfate (Morphine Sulfate 2 Mg/Ml Cartridge) 1 mg IVPUSH Q4H PRN; Protocol PRN Reason: Pain, Severe (Pain Scale 7-10) Ondansetron HCl (Ondansetron Hcl 4 Mg/2 Ml Vial) 4 mg IVPUSH Q8H PRN PRN Reason: Nausea and Vomiting Rifaximin (Rifaximin 550 Mg Tablet) 550 mg PO BID [facility] Last Admin: 12/09/24 08:36 Dose: 550 mg Documented By: PAULINE Sodium Chloride (0.9 % Sodium Chloride Flush 3 Ml Syringe) 3 ml IVFLUSH QSHIFT [facility] Last Admin: 12/09/24 08:36 Dose: 3 ml Documented By: PAULINE Labs 12/08/24 04:47 12/09/24 05:49 Labs: Laboratory Results - last 24 hr 12/09/24 12/09/24 05:49 07:54 Anion Gap 8 L Estim Creat Clear Calc 134.8 Estimated GFR > 60 Random Glucose 94 Calcium 8.4 Ammonia 54 Procedures Date of Service Date of Service: 12/09/24 Progress Note: A&P Assessment and plan (1) Abnormal abdominal CT scan: Status: Acute Assessment and Plan: Looks well Clinically not appendicitis Abdomen is soft and benign No tenderness Diet as tolerated The rest of plan as per the hospitalist service Time Spent With Patient Time: Total time managing care of this patient today ____ minutes. Quality Stroke Does the patient have a stroke diagnosis?: No VTE Prior VTE?: No VTE Risk Level:: Medical - moderate - high VTE Device Contraindication: N/A - Device Ordered VTE Drug Contraindication: Treatment Not Indicated
[2024-12-09 10:06] LABS: Appearance Urine Clear; Color Urine Dark Yellow; Glucose Urine UA Negative (Negative); Leukocyte Esterase Urine Small (1+) (Negative); Nitrite Urine Positive (Negative); Specific Gravity - Urine >= 1.030 (1.005-1.025); UMIC TRIGGER UACC YES; Urine Blood Moderate (2+) (Negative); Urine Ketones Trace mg/dL (Negative); Urine Protein 30 (1+) mg/dL (Neg-Trace)
[2024-12-09 10:14] LABS: Bacteria Urine None Seen (None Seen); Granular Casts Urine Present; Hyaline Casts Urine 0-2 /LPF (0-2); UACC Culture Trigger YES; WBC Urine 0-5 /HPF (0-5)
[2024-12-09] MEDS: methADONE HCl 20 MG/2 ML ORAL.CONC 70 MG PO (10:46)
[2024-12-09 11:07] LABS: Amphetamine Screen Urine Not Detected (Not Detect); Barbiturates, Urine Not Detected (Not Detect); Benzodiazepines Screen Urine Not Detected (Not Detect); Cocaine Screen Urine Not Detected (Not Detect); Oxycodone Screen Urine Not Detected (Not Detect); Phencyclidine Screen Urine Not Detected (Not Detect)
[2024-12-09 15:21] VITALS: BP 114/62; PULSE 62; RESP 18; TEMP 36.8; O2SAT 95
--- NOTE | 2024-12-09 15:46 | HO.ADDICTCON ---
History of Present Illness Date of Service: 12/09/2024 Chief Complaint: AMS Reason for Consult: ? substance use Sources of Information: patient interviewed and chart reviewed HPI Narrative: Patient is a Cymro speaking male with history of liver cirrhosis and OUD (engaged in treatment via [facility]TP), medically admitted with hepatic encephalopathy Consult requested as there was question regarding current substance use. Patient seen in room 368. He is awake, alert, and engaged in interview. He is oriented X3 (not date), also appears to be having some difficulty with word finding, overall recall of time. He denies any alcohol use, or history of alcohol use Denies any substance use, when asked about last use, he replied, so long ago , then states that it has been months, and shrugs his shoulders. When asked about treatment time with methadone, he again replied so long ago , then stated months or maybe a year. Chart review shows that has been on methadone for a few years. UDS in August 2024 and November 2024, +fentnayl. UDS sent today was unable to be processed He acknowledges that he still feels a little confused and shares that his brother helps care for him. He states his medications are organized for him to take daily, and doesn't understand why he wasn't taking them. Review of Systems Constitutional: Denies chills and Denies malaise Gastrointestinal: Denies nausea Diagnostics Vital Signs (24Hr): Vital Signs - 24 hr 12/08/24 23:27 12/09/24 07:17 12/09/24 15:21 Temperature 97.4 F 98.9 F 98.3 F Pulse Rate 72 60 62 Respiratory Rate 16 18 18 Blood Pressure 118/65 116/67 114/62 Pulse Oximetry 96 93 95 Oxygen Delivery Method Room Air Room Air Room Air BMI result Body Mass Index 25.0 Labs 12/08/24 04:47 12/09/24 05:49 Labs: Laboratory Results - last 48 hr 12/07/24 12/08/24 12/08/24 17:34 04:46 04:47 WBC 4.8 5.1 RBC 3.56 L 3.48 L Hgb 12.0 L 11.5 L Hct 35.2 L 34.5 L MCV 98.9 H 99.1 H MCH 33.7 H 33.0 MCHC 34.1 33.3 RDW 16.2 H 16.2 H Plt Count 77 L 78 L MPV 10.5 10.6 Immature Gran % (Auto) 0.2 0.2 Neut % (Auto) 46.0 47.8 Lymph % (Auto) 41.0 H 38.1 [place] % (Auto) 9.1 11.7 H Eos % (Auto) 3.3 1.8 Baso % (Auto) 0.4 0.4 Lymph # (Auto) 2.0 2.0 [place] # (Auto) 0.4 0.6 Eos # (Auto) 0.2 0.1 Baso # (Auto) 0.0 0.0 Abs Immat Gran (auto) 0.01 0.01 Absolute Neuts (auto) 2.2 2.5 Absolute Nucleated RBC 0.000 0.000 Nucleated RBC % (auto) 0.0 0.0 Sodium 140 143 Potassium 4.0 4.2 Chloride 111 H 111 H Carbon Dioxide 26 27 Anion Gap 7 L 9 L BUN 10 10 Creatinine 0.64 0.65 Estim Creat Clear Calc 124.2 122.3 Estimated GFR > 60 > 60 Random Glucose 112 88 Calcium 8.7 D 8.6 Magnesium 1.6 Total Bilirubin 2.5 H 2.0 H Direct Bilirubin 0.8 H AST 41 H 43 H ALT < 6 < 6 Alkaline Phosphatase 125 H 118 H Ammonia 206 H 86 H Troponin I High Sens 3.2 Total Protein 5.6 L 5.4 L Albumin 2.6 L 2.3 L Lipase 7 L Urine Color Urine Appearance Urine pH Ur Specific [place] Urine Protein Urine Glucose (UA) Urine Ketones Urine Blood Urine Nitrite Ur Leukocyte Esterase Urine RBC Urine WBC Ur Squamous Epith Cells Urine Bacteria Hyaline Casts Granular Casts Urine Opiates Screen Ur Buprenorphine Scrn Ur Oxycodone Screen Urine Methadone Screen Urine Fentanyl Screen Ur Barbiturates Screen Ur Phencyclidine Scrn Ur Amphetamines Screen U Benzodiazepines Scrn Urine Cocaine Screen U Marijuana (THC) Screen Ethyl Alcohol < 10 Influenza Type A (PCR) NEGATIVE Influenza Type B (PCR) NEGATIVE RSV RNA Qual (PCR) NEGATIVE SARS-CoV-2 RNA (RT-PCR) NEGATIVE 12/09/24 12/09/24 12/09/24 05:49 07:54 09:51 WBC RBC Hgb Hct MCV MCH MCHC RDW Plt Count MPV Immature Gran % (Auto) Neut % (Auto) Lymph % (Auto) [place] % (Auto) Eos % (Auto) Baso % (Auto) Lymph # (Auto) [place] # (Auto) Eos # (Auto) Baso # (Auto) Abs Immat Gran (auto) Absolute Neuts (auto) Absolute Nucleated RBC Nucleated RBC % (auto) Sodium 144 Potassium 3.5 Chloride 110 H Carbon Dioxide 30 H Anion Gap 8 L BUN 14 Creatinine 0.59 Estim Creat Clear Calc 134.8 Estimated GFR > 60 Random Glucose 94 Calcium 8.4 Magnesium Total Bilirubin Direct Bilirubin AST ALT Alkaline Phosphatase Ammonia 54 Troponin I High Sens Total Protein Albumin Lipase Urine Color Dark Yellow Urine Appearance Clear Urine pH 6.0 Ur Specific [place] >= 1.030 H Urine Protein 30 (1+) H Urine Glucose (UA) Negative Urine Ketones Trace Urine Blood Moderate (2+) H Urine Nitrite Positive H Ur Leukocyte Esterase Small (1+) H Urine RBC 3-5 H Urine WBC 0-5 Ur Squamous Epith Cells 3-5 Urine Bacteria None Seen Hyaline Casts 0-2 Granular Casts Present Urine Opiates Screen TNP Ur Buprenorphine Scrn TNP Ur Oxycodone Screen Not Detected Urine Methadone Screen TNP Urine Fentanyl Screen TNP Ur Barbiturates Screen Not Detected Ur Phencyclidine Scrn Not Detected Ur Amphetamines Screen Not Detected U Benzodiazepines Scrn Not Detected Urine Cocaine Screen Not Detected U Marijuana (THC) Screen TNP Ethyl Alcohol Influenza Type A (PCR) Influenza Type B (PCR) RSV RNA Qual (PCR) SARS-CoV-2 RNA (RT-PCR) Mental Status Exam Mental Status Exam Patient Appearance: Appropriate Patient Orientation: Person, Place and Situation Level of Consciousness: Awake, Appropriate and Alert Patient Behavior: Appropriate and Talkative Mood Description: Calm Affect Description: Calm Speech Pattern: Clear Thought Content: positive for [place] Judgement: Fair Medications Medications Current Medications Acetaminophen (Acetaminophen 325 Mg Tablet) 650 mg PO Q6H PRN PRN Reason: Pain, Mild 1-3,fever,headache Calcium Carbonate (Calcium Carbonate 750 Mg Tab.Chew) 750 mg PO Q4H PRN PRN Reason: Heartburn Lactulose (Lactulose 20 Gm/30 Ml Solution) 45 gm PO TID [facility] Magnesium Hydroxide (Milk Of Magnesia 30 Ml Oral.Susp) 30 ml PO DAILY PRN PRN Reason: Constipation Melatonin (Melatonin 3 Mg Tablet) 6 mg PO BEDTIME PRN PRN Reason: Insomnia Last Admin: 12/08/24 19:15 Dose: 6 mg Methadone HCl (Methadone Hcl 20 Mg/2 Ml Oral.Conc) 70 mg PO DAILY [facility] Last Admin: 12/09/24 10:46 Dose: 70 mg Omeprazole (Omeprazole 20 Mg Capsule.Dr) 20 mg PO BID@0630,1630 [facility] Rifaximin (Rifaximin 550 Mg Tablet) 550 mg PO BID [facility] Last Admin: 12/09/24 08:36 Dose: 550 mg Sodium Chloride (0.9 % Sodium Chloride Flush 3 Ml Syringe) 3 ml IVFLUSH QSHIFT [facility] Last Admin: 12/09/24 08:36 Dose: 3 ml Thiamine HCl (Thiamine Hcl 100 Mg Tablet) 100 mg PO DAILY [facility] Allergies Allergies Allergy/AdvReac Type Severity Reaction Status Date / Time penicillin V Allergy Intermediate Itching Verified 12/07/24 17:08 Penicillins Allergy Mild ITCHING Verified 12/07/24 17:08 Assessment & Plan Assessment & Plan (1) Opioid use disorder: Status: Chronic Code(s): F11.99 - Opioid use, unspecified with unspecified opioid-induced disorder Assessment and Plan: methadone restarted new UDS to be sent as previous one was not able to be analyzed unclear what his baseline is in regards to memory deficits, would be helpful to get collateral from brother. Total time managing care of this patient today __30__ minutes. PMFSH Past Medical History Medical History (Updated 12/09/24 @ 16:42 by Zoila Mclean CNP) Abnormal abdominal CT scan Group B streptococcal infection Substance abuse Hernia Cirrhosis of liver Hepatitis C Surgical History Surgical History S/P TIPS (transjugular intrahepatic portosystemic shunt) Social History Social History Household Members: Family Housing: Apartment Alcohol intake: former Comment: steady gait Patient Tobacco Use Status: Never used Tobacco Tobacco use type: Cigarette Cigarettes Per Day: 3 Years Smoked: 35 Substance Use Type: Heroin service: No Current occupational status: unemployed
--- NOTE | 2024-12-09 16:32 | P.PNIM_ITS ---
Subjective Subjective Date of Service: 12/09/24 Interval History: seen and examined this morning follow up for hepatic encephalopathy having regular bowel movements, slowly improving Review of Systems Review of Systems: Yes all other systems are reviewed and are negative Constitutional Constitutional: Denies chills and Denies fever(s) Cardiovascular Cardiovascular: Denies chest pain, Denies palpitations and Denies dyspnea Respiratory Respiratory: Denies cough and Denies dyspnea Endocrine Endocrine: Denies palpitations Physical Exam 2 Vital Signs: Vital Signs: Last Vital Signs Temp 98.3 F 12/09/24 15:21 Pulse 62 12/09/24 15:21 Resp 18 12/09/24 15:21 BP 114/62 12/09/24 15:21 Pulse Ox 95 12/09/24 15:21 O2 Del Method Room Air 12/09/24 15:21 BMI result Body Mass Index 25.0 Const: General: cooperative, comfortable, alert and awake Nutritional Appearance: average body habitus Orientation/consciousness: patient oriented x3 Resp: Effort & Inspection: normal respiratory effort, able to speak in complete sentences, no respiratory distress and no use of accessory muscles Cardio: Rate: regular rate GI: Inspection: No distended Palpation (GI): Soft to palpation and nontender Neuro: General: patient oriented x3 and moves all extremities Objective Data Active Medications Acetaminophen (Acetaminophen 325 Mg Tablet) 650 mg PO Q6H PRN PRN Reason: Pain, Mild 1-3,fever,headache Calcium Carbonate (Calcium Carbonate 750 Mg Tab.Chew) 750 mg PO Q4H PRN PRN Reason: Heartburn Lactulose (Lactulose 20 Gm/30 Ml Solution) 45 gm PO TID [facility] Magnesium Hydroxide (Milk Of Magnesia 30 Ml Oral.Susp) 30 ml PO DAILY PRN PRN Reason: Constipation Melatonin (Melatonin 3 Mg Tablet) 6 mg PO BEDTIME PRN PRN Reason: Insomnia Last Admin: 12/08/24 19:15 Dose: 6 mg Documented By: DESIRAE Methadone HCl (Methadone Hcl 20 Mg/2 Ml Oral.Conc) 70 mg PO DAILY [facility] Last Admin: 12/09/24 10:46 Dose: 70 mg Documented By: PAULINE Co-signed By: NICA Omeprazole (Omeprazole 20 Mg Capsule.Dr) 20 mg PO BID@0630,1630 [facility] Rifaximin (Rifaximin 550 Mg Tablet) 550 mg PO BID [facility] Last Admin: 12/09/24 08:36 Dose: 550 mg Documented By: PAULINE Sodium Chloride (0.9 % Sodium Chloride Flush 3 Ml Syringe) 3 ml IVFLUSH QSHIFT [facility] Last Admin: 12/09/24 08:36 Dose: 3 ml Documented By: PAULINE Thiamine HCl (Thiamine Hcl 100 Mg Tablet) 100 mg PO DAILY [facility] Labs 12/08/24 04:47 12/09/24 05:49 Labs: Laboratory Results - last 24 hr 12/09/24 12/09/24 12/09/24 05:49 07:54 09:51 Anion Gap 8 L Estim Creat Clear Calc 134.8 Estimated GFR > 60 Random Glucose 94 Calcium 8.4 Ammonia 54 Urine Color Dark Yellow Urine Appearance Clear Urine pH 6.0 Ur Specific [place] >= 1.030 H Urine Protein 30 (1+) H Urine Glucose (UA) Negative Urine Ketones Trace Urine Blood Moderate (2+) H Urine Nitrite Positive H Ur Leukocyte Esterase Small (1+) H Urine RBC 3-5 H Urine WBC 0-5 Ur Squamous Epith Cells 3-5 Urine Bacteria None Seen Hyaline Casts 0-2 Granular Casts Present Urine Opiates Screen TNP Ur Buprenorphine Scrn TNP Ur Oxycodone Screen Not Detected Urine Methadone Screen TNP Urine Fentanyl Screen TNP Ur Barbiturates Screen Not Detected Ur Phencyclidine Scrn Not Detected Ur Amphetamines Screen Not Detected U Benzodiazepines Scrn Not Detected Urine Cocaine Screen Not Detected U Marijuana (THC) Screen TNP Assessment and Plan (1) Hepatic encephalopathy: Status: Acute Plan This is a 59-year-old male with pertinent history of alcoholic cirrhosis status post TIPS, polysubstance use disorder on methadone, gastroesophageal reflux disease who was brought to the emergency department for evaluation of altered mentation. Acute hepatic encephalopathy in a patient with alcoholic cirrhosis Does have a history of noncompliance with lactulose. continue lactulose and rifaximin, having multiple stools, will reduce lactuose back to baseline dose ammonia trending down Abdominal pain Imaging concerning for appendicitis consulted General surgery> low suspicion for appendicitis, no need for surgical intervention at this time empiric abx d/c Alcohol use disorder continue thiamine Polysubstance use disorder resume baseline methadone addiction med consult Gastroesophageal reflux disease On famotidine/prilosec Thrombocytopenia due to cirrhosis DVT prophylaxis: Mechanical in due to thrombocytopenia Full code Admit as inpatient and will require two night minimum hospital stay for IV antibiotics, monitoring of mentation (as above), which is not possible in a lesser acute setting. General surgery consult pending Quality Stroke Does the patient have a stroke diagnosis?: No VTE Prior VTE?: No VTE Risk Level:: Medical - moderate - high VTE Device Contraindication: N/A - Device Ordered VTE Drug Contraindication: Treatment Not Indicated
[2024-12-09] MEDS: Omeprazole 20 MG CAPSULE.DR PO (16:38)
[2024-12-09 23:32] VITALS: BP 101/58; PULSE 54; RESP 16; TEMP 36.6; O2SAT 92
[2024-12-10] MEDS: Omeprazole 20 MG CAPSULE.DR PO (06:23)
[2024-12-10 07:25] VITALS: BP 129/80; PULSE 59; RESP 16; TEMP 36.4; O2SAT 92
[2024-12-10] MEDS: Thiamine HCL 100 MG TABLET PO (08:14)
[2024-12-10] MEDS: methADONE HCl 20 MG/2 ML ORAL.CONC 70 MG PO (08:14)
[2024-12-10] MEDS: 0.9 % Sodium Chloride Flush 3 ML SYRINGE IVFLUSH (08:14)
[2024-12-10] MEDS: rifAXIMin 550 MG TABLET PO (08:14)
[2024-12-10] MEDS: Lactulose 20 GM/30 ML SOLUTION 45 GM PO (08:14)
--- NOTE | 2024-12-10 09:27 | PM.PNGS ---
Subjective Subjective Date of Service: 12/10/24 Interval history: Feels well Denies abdominal pain Now alert and apparently is back to baseline mental status Physical Exam Vital Signs: Vital Signs: Last Vital Signs Temp 97.5 F 12/10/24 07:25 Pulse 59 12/10/24 07:25 Resp 16 12/10/24 07:25 BP 129/80 12/10/24 07:25 Pulse Ox 92 12/10/24 07:25 O2 Del Method Room Air 12/10/24 07:25 BMI result Body Mass Index 25.0 Const: General: comfortable and no acute distress Resp: Effort & Inspection: normal respiratory effort Cardio: Rate: regular rate GI: Palpation (GI): Soft to palpation, not firm and nontender Objective Data Active Medications Acetaminophen (Acetaminophen 325 Mg Tablet) 650 mg PO Q6H PRN PRN Reason: Pain, Mild 1-3,fever,headache Calcium Carbonate (Calcium Carbonate 750 Mg Tab.Chew) 750 mg PO Q4H PRN PRN Reason: Heartburn Lactulose (Lactulose 20 Gm/30 Ml Solution) 45 gm PO TID [facility] Last Admin: 12/10/24 08:14 Dose: 45 gm Documented By: PAULINE Magnesium Hydroxide (Milk Of Magnesia 30 Ml Oral.Susp) 30 ml PO DAILY PRN PRN Reason: Constipation Melatonin (Melatonin 3 Mg Tablet) 6 mg PO BEDTIME PRN PRN Reason: Insomnia Last Admin: 12/08/24 19:15 Dose: 6 mg Documented By: DESIRAE Methadone HCl (Methadone Hcl 20 Mg/2 Ml Oral.Conc) 70 mg PO DAILY [facility] Last Admin: 12/10/24 08:14 Dose: 70 mg Documented By: PAULINE Co-signed By: GUNNER Omeprazole (Omeprazole 20 Mg Capsule.Dr) 20 mg PO BID@0630,1630 [facility] Last Admin: 12/10/24 06:23 Dose: 20 mg Documented By: DEEPAK Rifaximin (Rifaximin 550 Mg Tablet) 550 mg PO BID [facility] Last Admin: 12/10/24 08:14 Dose: 550 mg Documented By: PAULINE Sodium Chloride (0.9 % Sodium Chloride Flush 3 Ml Syringe) 3 ml IVFLUSH QSHIFT [facility] Last Admin: 12/10/24 08:14 Dose: 3 ml Documented By: PAULINE Thiamine HCl (Thiamine Hcl 100 Mg Tablet) 100 mg PO DAILY [facility] Last Admin: 12/10/24 08:14 Dose: 100 mg Documented By: PAULINE Labs 12/08/24 04:47 12/09/24 05:49 Labs: Laboratory Results - last 24 hr 12/09/24 09:51 Urine Color Dark Yellow Urine Appearance Clear Urine pH 6.0 Ur Specific [place] >= 1.030 H Urine Protein 30 (1+) H Urine Glucose (UA) Negative Urine Ketones Trace Urine Blood Moderate (2+) H Urine Nitrite Positive H Ur Leukocyte Esterase Small (1+) H Urine RBC 3-5 H Urine WBC 0-5 Ur Squamous Epith Cells 3-5 Urine Bacteria None Seen Hyaline Casts 0-2 Granular Casts Present Urine Opiates Screen TNP Ur Buprenorphine Scrn TNP Ur Oxycodone Screen Not Detected Urine Methadone Screen TNP Urine Fentanyl Screen TNP Ur Barbiturates Screen Not Detected Ur Phencyclidine Scrn Not Detected Ur Amphetamines Screen Not Detected U Benzodiazepines Scrn Not Detected Urine Cocaine Screen Not Detected U Marijuana (THC) Screen TNP Procedures Date of Service Date of Service: 12/10/24 Progress Note: A&P Assessment and plan (1) Abnormal abdominal CT scan: Status: Acute Assessment and Plan: No abdominal pain Tolerating diet Does not appear to have GI complaints Unlikely to have acute appendicitis He does have an appendicolith He has multiple comorbid conditions Rest of management as per the hospitalist service Time Spent With Patient Time: Total time managing care of this patient today ____ minutes. Quality Stroke Does the patient have a stroke diagnosis?: No VTE Prior VTE?: No VTE Risk Level:: Medical - moderate - high VTE Device Contraindication: N/A - Device Ordered VTE Drug Contraindication: Treatment Not Indicated
--- NOTE | 2024-12-10 10:29 | MHC.CM.PN ---
Per MD rounds Patient is ready to discharge today. [employer] services will resume. Patient's brother will provide transportation home.
--- NOTE | 2024-12-10 10:43 | P.DS_ITS ---
DS: Providers Provider Date of Service: 12/10/24 Date of admission: 12/08/24 01:00 Date of discharge: 12/10/24 Primary care physician: Priscilla Sargent MD Consults: 12/08/24 01:00 Consult to General Surgery Routine Consulting Provider: [facility] General Surgeons Reason for consultation: appendicitis 12/08/24 07:34 Addiction Medicine Provider Routine Consulting Provider: Addiction Covering Reason for consultation: ETOH, substance abuse Attending physician on discharge: Gilbert Mayberry Discharging clinician: Ana Moe DS: Diagnosis Discharge Diagnosis (1) Abnormal abdominal CT scan: Status: Acute (2) Hepatic encephalopathy: Status: Acute DS: Summary Hospital Course Hospital Course: From H&P on the day of admission This is a 59-year-old male with pertinent history of alcoholic cirrhosis status post TIPS, polysubstance use disorder on methadone, gastroesophageal reflux disease who was brought to the emergency department for evaluation of altered mentation. Patient is only oriented to self at the time of my evaluation. Unable to obtain history. Previously admitted for hepatic encephalopathy due to medication noncompliance. As per family, confusion has been increasing over the last 4 days. Upon persistent questioning, does endorse abdominal pain. No bowel movement on the day of presentation. Unable to obtain review of systems. In the emergency department, ammonia found to be 206. Imaging concerning for acute appendicitis Acute hepatic encephalopathy in a patient with alcoholic cirrhosis Reported history of noncompliance with lactulose. resumed on home lactulose and rifaximin, having multiple stools. Ammonia trended down, asterixis resolved inpatient mental status returned to baseline. The importance of compliance with ammonia was discussed with the patient and his at the bedside. Abdominal pain Imaging concerning for appendicitis. Seen by General surgery, low suspicion for appendicitis, no need for surgical intervention at this time. Abdominal pain has resolved, tolerating regular diet. Polysubstance use disorder resume baseline methadone addiction med consult Thrombocytopenia due to cirrhosis Time Attestation Discharge Coordination Time (in mins): 35 Quality: Safe Use of Opioids Does Pt have an Active Cancer Diagnosis on the Problem List?: No Quality: Stroke Does the patient have a stroke diagnosis?: No Physical Exam Vital Signs: Vital Signs: Last Vital Signs Temp 97.5 F 12/10/24 07:25 Pulse 59 12/10/24 07:25 Resp 16 04/04/25 07:25 BP 129/80 12/10/24 07:25 Pulse Ox 92 12/10/24 07:25 O2 Del Method Room Air 12/10/24 07:25 BMI result Body Mass Index 25.0 Const: General: cooperative, comfortable, alert and awake Nutritional Appearance: average body habitus Orientation/consciousness: patient oriented x3 Resp: Effort & Inspection: normal respiratory effort, able to speak in complet e sentences, no respiratory distress and no use of accessory muscles Cardio: Rate: regular rate GI: Inspection: No distended Palpation (GI): Soft to palpation and nontender Neuro: Other: No asterixis General: patient oriented x3 and moves all extremities DS: Data Data Completed and Pending Labs on day of discharge: Laboratory Results - last 24 hr 12/09/24 09:51 Urine Opiates Screen TNP Ur Buprenorphine Scrn TNP Ur Oxycodone Screen Not Detected Urine Methadone Screen TNP Urine Fentanyl Screen TNP Ur Barbiturates Screen Not Detected Ur Phencyclidine Scrn Not Detected Ur Amphetamines Screen Not Detected U Benzodiazepines Scrn Not Detected Urine Cocaine Screen Not Detected U Marijuana (THC) Screen TNP Discharge Plan Discharge Anticipated Discharge Date/Time: 12/10/24 10:55 Patient Disposition: Home, Self-Care Discharge Diagnosis: Hepatic encephalopathy Abdominal pain Referrals: Priscilla Sargent MD [Primary Care Provider] - 1 Week Discharge Medications: Continued famotidine 40 mg tablet 40 mg PO BEDTIME Qty: 90 1RF ondansetron 4 mg tablet,disintegrating 4 mg PO Q8H Qty: 30 0RF thiamine HCl (vitamin B1) 100 mg tablet 1 tab PO DAILY lactulose [Generlac] 10 gram/15 mL solution 45 ml PO TID methadone [Methadone Intensol] 10 mg/mL Concentrate 70 mg PO DAILY Rx Instructions: [facility] aluminum hydroxide gel 320 mg/5 mL suspension 640 mg PO QID PRN (Reason: moderate pain) famotidine [Heartburn Relief (famotidine)] 10 mg tablet 10 mg PO BID pantoprazole 40 mg tablet,delayed release (DR/EC) 40 mg PO BID@0630,1630 Xifaxan 550 mg tablet 550 mg PO BID Discharge Orders: Discharge Order (Routine); Ordered 12/10/24 Ordered By: Ana Moe Activity on Discharge: As tolerated Stand Alone Forms: Patient Portal Discharge page Print Language: Sami Care Plan Goals: See below Health Concerns: Hepatic encephalopathy Abdominal pain resolved. No evidence of appendicitis Plan of Treatment: Take lactulose as prescribed with goal of having 2-3 bowel movements daily. If you are not having 2-3 bowel movements daily, dose of lactulose we will need to be increased-call PCP in that case. Call to schedule follow up appointment with PCP as needed Assessment: See discharge summary
== END 2024-12-10 11:30 | disposition home or self-care (01) | DRG 280 ==
LOC: HO.ED 23:14 → HO.EDOVER 12-08 01:08 → HO.S3 12-08 07:20
PROVIDERS: Nurse Practitioner Acute Care; Physician Assistant Medical; Admitting Provider Student in an Organized Health Care Education/Training Program; Emergency Provider Internal Medicine; PCP Internal Medicine; Visit Provider Physician Assistant Medical
DX: K70.30 Alcoholic cirrhosis of liver without ascites (principal); D69.59 Other secondary thrombocytopenia; F19.90 Other psychoactive substance use, unspecified, uncomplicated; K21.9 Gastro-esophageal reflux disease without esophagitis; F11.20 Opioid dependence, uncomplicated; K76.82 Hepatic encephalopathy; Z20.822 Contact with and (suspected) exposure to COVID-19; Z91.148 Patient's other noncompliance with medication regimen for other reason; Z79.899 Other long term (current) drug therapy
CPT/HCPCS: 0241U; 36415; 70450; 74176; 80048; 80053; 80076; 80307; 81001; 82140; 83690; 83735; 84484; 85025; 87086; 93005; 99285; J0696; J1836; J7120

== ENCOUNTER → 2024-12-07 17:11 | Outpatient (BNV) | payer OTHER, SELFPAY | PROVIDERS: PCP Internal Medicine; Visit Provider Radiology Diagnostic Radiology | DX: R41.82 Altered mental status, unspecified (principal) | CPT/HCPCS: 70450 ==

== ENCOUNTER → 2024-12-07 17:11 | Outpatient (BNV) | payer OTHER, SELFPAY | PROVIDERS: Admitting Provider Student in an Organized Health Care Education/Training Program; Emergency Provider Internal Medicine; PCP Internal Medicine; Visit Provider Internal Medicine | DX: I49.3 Ventricular premature depolarization (principal) | CPT/HCPCS: 93010 ==

== ENCOUNTER → 2024-12-08 01:00 | Outpatient (BNV) | payer OTHER, SELFPAY | PROVIDERS: Admitting Provider Student in an Organized Health Care Education/Training Program; Emergency Provider Internal Medicine; PCP Internal Medicine; Visit Provider Surgery | DX: R93.5 Abnormal findings on diagnostic imaging of other abdominal regions, including retroperitoneum (principal) | CPT/HCPCS: 99222; 99232 ==

== ENCOUNTER → 2024-12-08 01:00 | Outpatient (BNV) | payer OTHER, SELFPAY | PROVIDERS: Admitting Provider Student in an Organized Health Care Education/Training Program; Emergency Provider Internal Medicine; PCP Internal Medicine; Visit Provider Nurse Practitioner Psychiatric/Mental Health | DX: F11.959 Opioid use, unspecified with opioid-induced psychotic disorder, unspecified (principal) | CPT/HCPCS: 99232 ==

== ENCOUNTER → 2024-12-08 01:00 | Outpatient (BNV) | payer OTHER, SELFPAY | PROVIDERS: Admitting Provider Student in an Organized Health Care Education/Training Program; Emergency Provider Internal Medicine; PCP Internal Medicine; Visit Provider Student in an Organized Health Care Education/Training Program | DX: K76.82 Hepatic encephalopathy (principal) | CPT/HCPCS: 99223; 99232; 99239; 99499 ==

== ENCOUNTER 2025-02-11 12:49 | Emergency (ER) | payer OTHER, SELFPAY ==
[2025-02-11 13:01] VITALS: BP 91/57; PULSE 54; RESP 18; TEMP 36.8; O2SAT 96; BMI 25.3
--- NOTE | 2025-02-11 13:05 | ED_ITS ---
HPI - Abdominal Pain General Chief Complaint: Abdominal Pain Stated Complaint: Stomach Pain Swollen Finger Ring Stuck Related Data Home Medications ?Medication ?Instructions ?Recorded ?Confirmed lactulose 10 gram/15 mL oral 45 ml PO TID 12/10/21 12/08/24 solution (Generlac) thiamine HCl (vitamin B1) 100 mg 1 tab PO DAILY 04/17/22 12/08/24 tablet pantoprazole 40 mg tablet,delayed 40 mg PO BID@0630,1630 08/02/24 12/08/24 release rifaximin 550 mg tablet (Xifaxan) 550 mg PO BID 08/02/24 12/08/24 methadone 10 mg/mL oral 70 mg PO DAILY 08/21/24 12/08/24 concentrate (Methadone Intensol) aluminum hydroxide gel 320 mg/5 mL 640 mg PO QID PRN moderate pain 12/08/24 12/08/24 oral suspension famotidine 10 mg tablet (Heartburn 10 mg PO BID 12/08/24 12/08/24 Relief (famotidine)) Previous Rx's ?Medication ?Instructions ?Recorded famotidine 40 mg tablet 40 mg PO BEDTIME #90 tabs 11/23/24 ondansetron 4 mg disintegrating 4 mg PO Q8H #30 tabs 01/05/25 tablet Allergies Allergy/AdvReac Type Severity Reaction Status Date / Time penicillin V Allergy Intermediate Itching Verified 02/11/25 13:04 Penicillins Allergy Mild ITCHING Verified 02/11/25 13:04 [facility] Past Medical History Medical History (Updated 02/12/25 @ 09:36 by MARIANA Simons) Opioid use disorder Abnormal abdominal CT scan Group B streptococcal infection Substance abuse Hernia Cirrhosis of liver Hepatitis C Surgical History S/P TIPS (transjugular intrahepatic portosystemic shunt) Social History Social History Household Members: Family Housing: Apartment Alcohol intake: former Comment: steady gait Patient Tobacco Use Status: Never used Tobacco Tobacco use type: Cigarette Cigarettes Per Day: 3 Years Smoked: 35 Substance Use Type: Heroin Advance Directives: No Advance Directives Information Provided: Yes Do you have a plan to hurt others: No Plan service: No Current occupational status: unemployed Physical Exam ED Vital Signs: Vital Signs - 24 hr 02/11/25 13:01 Temperature 98.3 F Pulse Rate 54 Respiratory Rate 18 Blood Pressure 91/57 L Pulse Oximetry 96 Oxygen Delivery Method Room Air BMI result Body Mass Index 25.3 Course Course Course Narrative: 02/11/25 1305 MARIANA Simons This is a Rapid Medical Examination (RME) performed by Issac Lin PA-C in triage. Full HPI, ROS, assessment and treatment plan per primary provider in the Main ED. Hx: 59 yo M here for eval of non radiating epigastric abd pain, N/V/D since September. reports 10lb unintentional weight loss x1 mo. reportedly seen/ cleared by PCP for this. sx worsening x2-3 days. denies prev abd surgery. no urinary sx, fevers. also reports ring stuck on right pointer finger x1 week. PE/vitals: BP soft. noted swelling to right pointer finger, unable to remove ring in triage w/ lubrication. will require ring removal. Plan: labs, UA Reevaluation(s) Reevaluation #1: Patient left the emergency department before myself or any of the other clinicians could review or explain physical exam findings, test results, need or lack there of for additional testing, treatment options, or a treatment plan. Medical Decision Making Lab Data 02/11/25 13:22 02/11/25 13:22 Labs: Lab Results 02/11/25 Range/Units 13:22 WBC 4.1 L (4.8-10.8) X10*3/uL RBC 3.52 L (4.60-5.80) X10*6/uL Hgb 12.1 L (14.0-18.0) g/dl Hct 35.9 L (42.0-52.0) % MCV 102.0 H (80.0-98.0) fL MCH 34.4 H (27.0-33.0) pg MCHC 33.7 (31.0-36.0) g/dl RDW 15.1 (11.0-16.0) % Plt Count 69 L (160-400) X10*3/uL MPV 11.5 (9.4-12.4) fL Immature Gran % (Auto) 0.0 (0.0-0.4) % Neut % (Auto) 42.1 L (45-73) % Lymph % (Auto) 39.9 (20-40) % [place] % (Auto) 11.1 H (2-11) % Eos % (Auto) 5.9 H (0-4) % Baso % (Auto) 1.0 (0-2) % Lymph # (Auto) 1.6 (1.2-4.9) X10*3/uL [place] # (Auto) 0.5 (0.1-1.2) X10*3/uL Eos # (Auto) 0.2 (0.0-0.4) X10*3/uL Baso # (Auto) 0.0 (0.0-0.2) X10*3/uL Abs Immat Gran (auto) 0.00 (0.00-0.03) X10*3/uL Absolute Neuts (auto) 1.7 L (2.0-8.3) x10*3/uL Absolute Nucleated RBC 0.000 (0.0-0.012) X10*3/uL Nucleated RBC % (auto) 0.0 (0.0-0.2) /100WBC Sodium 137 (135-145) mmol/L Potassium 4.9 D (3.3-5.1) mmol/L Chloride 107 (96-108) mmol/L Carbon Dioxide 28 (22-29) mmol/L Anion Gap 7 L (12-20) BUN 9 (9-16) mg/dL Creatinine 0.68 (0.5-1.4) mg/dL Estim Creat Clear Calc 105.5 Estimated GFR > 60 Random Glucose 178 H (60-115) mg/dL Calcium 8.7 (8.4-10.2) mg/dL Magnesium 1.7 (1.6-2.6) mg/dL Total Bilirubin 1.5 H (0.0-1.0) mg/dL AST 46 H (5-37) U/L ALT 11 (0-40) U/L Alkaline Phosphatase 122 H (39-117) U/L Total Protein 5.7 L (6.5-8.0) g/dL Albumin 2.4 L (3.5-5.0) g/dL Lipase 8 (8-78) U/L Influenza Type A (PCR) NEGATIVE (Negative) Influenza Type B (PCR) NEGATIVE (Negative) RSV RNA Qual (PCR) NEGATIVE (Negative) SARS-CoV-2 RNA (RT-PCR) NEGATIVE (Negative) Discharge Plan Discharge Clinical Impression: Abdominal pain Patient Disposition: Left W/O Completing Treatment Prescriptions: No Action famotidine 40 mg tablet 40 mg PO BEDTIME Qty: 90 1RF ondansetron 4 mg tablet,disintegrating 4 mg PO Q8H Qty: 30 0RF thiamine HCl (vitamin B1) 100 mg tablet 1 tab PO DAILY lactulose [Generlac] 10 gram/15 mL solution 45 ml PO TID methadone [Methadone Intensol] 10 mg/mL Concentrate 70 mg PO DAILY Rx Instructions: [facility] aluminum hydroxide gel 320 mg/5 mL suspension 640 mg PO QID PRN (Reason: moderate pain) famotidine [Heartburn Relief (famotidine)] 10 mg tablet 10 mg PO BID pantoprazole 40 mg tablet,delayed release (DR/EC) 40 mg PO BID@0630,1630 Xifaxan 550 mg tablet 550 mg PO BID Discharge Date/Time: 02/11/25 19:12
[2025-02-11 13:26] LABS: MANUAL DIFF FLAG NO
[2025-02-11 13:30] LABS: Eosinophils Absolute Auto 0.2 X10*3/uL (0.0-0.4); Eosinophils Percent Auto 5.9 % (0-4); Hematocrit 35.9 % (42.0-52.0); Hemoglobin 12.1 g/dl (14.0-18.0); Lymphocytes Absolute Auto 1.6 X10*3/uL (1.2-4.9); Lymphocytes Percent Auto 39.9 % (20-40); Mean Corpuscular HGB Conc 33.7 g/dl (31.0-36.0); Mean Corpuscular Hemoglobin 34.4 pg (27.0-33.0); Mean Platelet Volume 11.5 fL (9.4-12.4); Monocytes Absolute Auto 0.5 X10*3/uL (0.1-1.2); Monocytes Percent Auto 11.1 % (2-11); Neutrophils Absolute Auto 1.7 x10*3/uL (2.0-8.3); Neutrophils Percent Auto 42.1 % (45-73); Red Blood Count 3.52 X10*6/uL (4.60-5.80); Red Cell Distribution Width 15.1 % (11.0-16.0); White Blood Count 4.1 X10*3/uL (4.8-10.8)
[2025-02-11 13:38] LABS: Platelet Count 69 X10*3/uL (160-400)
[2025-02-11 13:47] LABS: Alanine Aminotransferase 11 U/L (0-40); Albumin Level 2.4 g/dL (3.5-5.0); Alkaline Phosphatase 122 U/L (39-117); Anion Gap 7 (12-20); Aspartate Amino Transferase 46 U/L (5-37); Bilirubin Total 1.5 mg/dL (0.0-1.0); Blood Urea Nitrogen 9 mg/dL (9-16); Calcium 8.7 mg/dL (8.4-10.2); Carbon Dioxide 28 mmol/L (22-29); Chloride 107 mmol/L (96-108); Creatinine Clr Calc Pharmacy 105.5; Estimated Glomerular Filt Rate > 60; Glucose Random 178 mg/dL (60-115); Lipase 8 U/L (8-78); Magnesium 1.7 mg/dL (1.6-2.6); Potassium 4.9 mmol/L (3.3-5.1); Sodium 137 mmol/L (135-145); Total Protein 5.7 g/dL (6.5-8.0)
[2025-02-11 14:04] LABS: Influenza A PCR NEGATIVE (Negative); Influenza B PCR NEGATIVE (Negative); Resp Syncy Virus RNA Qual PCR NEGATIVE (Negative); SARS COV2 PCR INHOUSE NEGATIVE (Negative)
--- NOTE | 2025-02-11 14:39 | MHC.EDTECH ---
ring was cut off on right second finger using ring cutter tool. pt had excellent tolerance. provider aware.
--- NOTE | 2025-02-11 19:12 | PC.NURSE ---
no answer from JOSE at 19:10
== END 2025-02-11 19:12 | disposition left against medical advice (07) ==
PROVIDERS: Physician Assistant Medical; Emergency Provider Emergency Medicine; PCP Internal Medicine
DX: R10.2 Pelvic and perineal pain (principal); Z79.899 Other long term (current) drug therapy; Z87.891 Personal history of nicotine dependence; Z03.818 Encounter for observation for suspected exposure to other biological agents ruled out
CPT/HCPCS: 0241U; 36415; 80053; 83690; 83735; 85025; 99281; 99283

== ENCOUNTER 2025-04-27 10:36 | Emergency (ER) | payer OTHER, SELFPAY ==
[2025-04-27 10:51] VITALS: BP 123/74; PULSE 67; RESP 16; TEMP 36; O2SAT 96; BMI 26.6
--- NOTE | 2025-04-27 10:52 | ED.GENADULT ---
HPI - General Adult General Chief complaint: Abdominal Pain Stated complaint: abd pain, meds not working? Related Data Home Medications ?Medication ?Instructions ?Recorded ?Confirmed lactulose 10 gram/15 mL oral 45 ml PO TID 12/10/21 12/08/24 solution (Generlac) thiamine HCl (vitamin B1) 100 mg 1 tab PO DAILY 04/17/22 12/08/24 tablet pantoprazole 40 mg tablet,delayed 40 mg PO BID@0630,1630 08/02/24 12/08/24 release rifaximin 550 mg tablet (Xifaxan) 550 mg PO BID 08/02/24 12/08/24 methadone 10 mg/mL oral 70 mg PO DAILY 08/21/24 12/08/24 concentrate (Methadone Intensol) aluminum hydroxide gel 320 mg/5 mL 640 mg PO QID PRN moderate pain 12/08/24 12/08/24 oral suspension famotidine 10 mg tablet (Heartburn 10 mg PO BID 12/08/24 12/08/24 Relief (famotidine)) Previous Rx's ?Medication ?Instructions ?Recorded famotidine 40 mg tablet 40 mg PO BEDTIME #90 tabs 11/23/24 ondansetron 4 mg disintegrating 4 mg PO Q8H #30 tabs 03/15/25 tablet Allergies Allergy/AdvReac Type Severity Reaction Status Date / Time penicillin V Allergy Intermediate Itching Verified 04/27/25 10:53 Penicillins Allergy Mild ITCHING Verified 04/27/25 10:53 PMFSH Past Medical History Medical History (Updated 04/28/25 @ 12:36 by Yanira Osei NP) Opioid use disorder Abnormal abdominal CT scan Group B streptococcal infection Substance abuse Hernia Cirrhosis of liver Hepatitis C Surgical History S/P TIPS (transjugular intrahepatic portosystemic shunt) Social History Social History Household Members: Family Housing: Apartment Alcohol intake: former Comment: steady gait Patient Tobacco Use Status: Never used Tobacco Tobacco use type: Cigarette Cigarettes Per Day: 3 Years Smoked: 35 Substance Use Type: Heroin Advance Directives: No Advance Directives Information Provided: No service: No Current occupational status: unemployed Physical Exam ED Vital Signs: BMI result Body Mass Index 26.6 Course Course Course Narrative: This is a rapid medical exam performed by Donell Osei NP: Additional HPI, ROS, PE not included below will be deferred to primary provider. Patient is a 59y/o M with history of Hepatitic C, cirrhosis, hepatic encephalopathy presenting with 3 days of central abdominal pain, nausea without vomiting or diarrhea. Last BM was this morning and was normal. Currently on zofran, lactulose. Plan: Labs, UA Patient left the emergency department before myself or any of the other clinicians could review or explain physical exam findings, test results, need or lack there of for additional testing, treatment options, or a treatment plan. Medical Decision Making Lab Data 04/27/25 11:39 04/27/25 11:39 Labs: Lab Results 04/27/25 Range/Units 11:39 WBC 5.0 (4.8-10.8) X10*3/uL RBC 3.55 L (4.60-5.80) X10*6/uL Hgb 12.0 L (14.0-18.0) g/dl Hct 36.1 L (42.0-52.0) % MCV 101.7 H (80.0-98.0) fL MCH 33.8 H (27.0-33.0) pg MCHC 33.2 (31.0-36.0) g/dl RDW 15.9 (11.0-16.0) % Plt Count 88 L D (160-400) X10*3/uL MPV 11.0 (9.4-12.4) fL Immature Gran % (Auto) 0.0 (0.0-0.4) % Neut % (Auto) 27.5 L (45-73) % Lymph % (Auto) 40.9 H (20-40) % [place] % (Auto) 12.6 H (2-11) % Eos % (Auto) 18.2 H (0-4) % Baso % (Auto) 0.8 (0-2) % Lymph # (Auto) 2.0 (1.2-4.9) X10*3/uL [place] # (Auto) 0.6 (0.1-1.2) X10*3/uL Eos # (Auto) 0.9 H (0.0-0.4) X10*3/uL Baso # (Auto) 0.0 (0.0-0.2) X10*3/uL Abs Immat Gran (auto) 0.00 (0.00-0.03) X10*3/uL Absolute Neuts (auto) 1.4 L (2.0-8.3) x10*3/uL Absolute Nucleated RBC 0.000 (0.0-0.012) X10*3/uL Nucleated RBC % (auto) 0.0 (0.0-0.2) /100WBC PT 16.6 H (10.9-12.4) SEC INR 1.4 H (0.9-1.1) Sodium 140 (135-145) mmol/L Potassium 4.6 (3.3-5.1) mmol/L Chloride 107 (96-108) mmol/L Carbon Dioxide 27 (22-29) mmol/L Anion Gap 11 L (12-20) BUN 7 L (9-16) mg/dL Creatinine 0.66 (0.5-1.4) mg/dL Estim Creat Clear Calc 108.7 Estimated GFR > 60 Random Glucose 96 (60-115) mg/dL Calcium 8.5 (8.4-10.2) mg/dL Magnesium 1.7 (1.6-2.6) mg/dL Total Bilirubin 1.0 (0.0-1.0) mg/dL AST 53 H (5-37) U/L ALT 12 (0-40) U/L Alkaline Phosphatase 136 H (39-117) U/L Total Protein 5.8 L (6.5-8.0) g/dL Albumin 2.7 L (3.5-5.0) g/dL Lipase 8 (8-78) U/L Discharge Plan Discharge Clinical Impression: Abdominal pain Patient Disposition: Left W/O Completing Treatment Prescriptions: No Action famotidine 40 mg tablet 40 mg PO BEDTIME Qty: 90 1RF ondansetron 4 mg tablet,disintegrating 4 mg PO Q8H Qty: 30 0RF thiamine HCl (vitamin B1) 100 mg tablet 1 tab PO DAILY lactulose [Generlac] 10 gram/15 mL solution 45 ml PO TID methadone [Methadone Intensol] 10 mg/mL Concentrate 70 mg PO DAILY Rx Instructions: [facility] aluminum hydroxide gel 320 mg/5 mL suspension 640 mg PO QID PRN (Reason: moderate pain) famotidine [Heartburn Relief (famotidine)] 10 mg tablet 10 mg PO BID pantoprazole 40 mg tablet,delayed release (DR/EC) 40 mg PO BID@0630,1630 Xifaxan 550 mg tablet 550 mg PO BID Discharge Date/Time: 04/27/25 19:41
[2025-04-27 11:47] LABS: Hematocrit 36.1 % (42.0-52.0); Hemoglobin 12.0 g/dl (14.0-18.0); Imm Gran Abs Auto 0.00 X10*3/uL (0.00-0.03); Imm Gran Pct Auto 0.0 % (0.0-0.4); Lymphocytes Absolute Auto 2.0 X10*3/uL (1.2-4.9); Mean Corpuscular HGB Conc 33.2 g/dl (31.0-36.0); Mean Corpuscular Hemoglobin 33.8 pg (27.0-33.0); Mean Corpuscular Volume 101.7 fL (80.0-98.0); NRBC Abs Auto 0.000 X10*3/uL (0.0-0.012); NRBC Pct Auto 0.0 /100WBC (0.0-0.2); Red Blood Count 3.55 X10*6/uL (4.60-5.80); White Blood Count 5.0 X10*3/uL (4.8-10.8)
[2025-04-27 11:48] LABS: MANUAL DIFF FLAG NO; Platelet Count 88 X10*3/uL (160-400)
[2025-04-27 11:53] LABS: INTERNATIONAL NORM RATIO 1.4 (0.9-1.1); Prothrombin Time 16.6 SEC (10.9-12.4)
[2025-04-27 12:03] LABS: Alanine Aminotransferase 12 U/L (0-40); Albumin Level 2.7 g/dL (3.5-5.0); Alkaline Phosphatase 136 U/L (39-117); Anion Gap 11 (12-20); Aspartate Amino Transferase 53 U/L (5-37); Blood Urea Nitrogen 7 mg/dL (9-16); Calcium 8.5 mg/dL (8.4-10.2); Carbon Dioxide 27 mmol/L (22-29); Chloride 107 mmol/L (96-108); Creatinine Clr Calc Pharmacy 108.7; Estimated Glomerular Filt Rate > 60; Lipase 8 U/L (8-78); Magnesium 1.7 mg/dL (1.6-2.6); Potassium 4.6 mmol/L (3.3-5.1); Sodium 140 mmol/L (135-145); Total Protein 5.8 g/dL (6.5-8.0)
== END 2025-04-27 19:41 | disposition left against medical advice (07) ==
PROVIDERS: Registered Nurse Emergency; Emergency Provider Emergency Medicine; PCP Internal Medicine
DX: R10.2 Pelvic and perineal pain (principal); Z79.899 Other long term (current) drug therapy
CPT/HCPCS: 36415; 80053; 83690; 83735; 85025; 85610; 99281; 99283

== ENCOUNTER 2025-07-09 09:43 | Emergency (ER) | payer OTHER, SELFPAY ==
[2025-07-09 09:47] VITALS: BP 135/86; PULSE 76; RESP 18; TEMP 36.8; O2SAT 95; BMI 26.4
[2025-07-09 10:01] LABS: MANUAL DIFF FLAG NO
[2025-07-09 10:03] LABS: Hematocrit 38.1 % (42.0-52.0); Hemoglobin 12.7 g/dl (14.0-18.0); Imm Gran Abs Auto 0.01 X10*3/uL (0.00-0.03); Imm Gran Pct Auto 0.1 % (0.0-0.4); Lymphocytes Absolute Auto 4.3 X10*3/uL (1.2-4.9); Mean Corpuscular HGB Conc 33.3 g/dl (31.0-36.0); Mean Corpuscular Hemoglobin 33.4 pg (27.0-33.0); Mean Corpuscular Volume 100.3 fL (80.0-98.0); NRBC Abs Auto 0.000 X10*3/uL (0.0-0.012); NRBC Pct Auto 0.0 /100WBC (0.0-0.2); Platelet Count 98 X10*3/uL (160-400); Red Blood Count 3.80 X10*6/uL (4.60-5.80); White Blood Count 7.3 X10*3/uL (4.8-10.8)
[2025-07-09 10:22] LABS: Alanine Aminotransferase 14 U/L (0-40); Albumin Level 2.8 g/dL (3.5-5.0); Alkaline Phosphatase 124 U/L (39-117); Anion Gap 12 (12-20); Aspartate Amino Transferase 54 U/L (5-37); Blood Urea Nitrogen 16 mg/dL (9-16); Calcium 8.7 mg/dL (8.4-10.2); Carbon Dioxide 24 mmol/L (22-29); Chloride 109 mmol/L (96-108); Creatinine Clr Calc Pharmacy 98.4; Estimated Glomerular Filt Rate > 60; Lipase 11 U/L (8-78); Potassium 3.8 mmol/L (3.3-5.1); Sodium 141 mmol/L (135-145); Total Protein 6.0 g/dL (6.5-8.0)
--- NOTE | 2025-07-09 10:40 | ED.ABDPAIN ---
HPI - Abdominal Pain General Chief Complaint: Abdominal Pain Stated Complaint: Vomiting since yesterday Time Seen by Provider: 07/09/25 10:05 Source: patient Mode of arrival: ambulatory Limitations: no limitations History of Present Illness ED Provider: Dr. Lydia Faustin HPI narrative: 59-year-old male with a history of alcoholic liver cirrhosis, polysubstance use disorder on methadone, GERD, presenting with epigastric abdominal pain ongoing for the last 48 hours or so. Describes several episodes of associated nausea and vomiting. Admits that anything he eats makes his pain worse. Denies chest pain or difficulty breathing. No changes in his bowel habits or urinary complaints. No known sick contacts or questionable food intake. Has never used alcohol and denies recent use of IV drugs. Has been taking his methadone as prescribed. Has not tried anything for pain at home. He is not sure if he takes antacids as his brother manages all of his medications. Related Data Home Medications ?Medication ?Instructions ?Recorded ?Confirmed lactulose 10 gram/15 mL oral 45 ml PO TID 12/10/21 12/08/24 solution (Generlac) thiamine HCl (vitamin B1) 100 mg 1 tab PO DAILY 04/17/22 12/08/24 tablet pantoprazole 40 mg tablet,delayed 40 mg PO BID@0630,1630 08/02/24 12/08/24 release rifaximin 550 mg tablet (Xifaxan) 550 mg PO BID 08/02/24 12/08/24 methadone 10 mg/mL oral 70 mg PO DAILY 08/21/24 12/08/24 concentrate (Methadone Intensol) aluminum hydroxide gel 320 mg/5 mL 640 mg PO QID PRN moderate pain 12/08/24 12/08/24 oral suspension famotidine 10 mg tablet (Heartburn 10 mg PO BID 12/08/24 12/08/24 Relief (famotidine)) Previous Rx's ?Medication ?Instructions ?Recorded famotidine 40 mg tablet 40 mg PO BEDTIME #90 tabs 11/23/24 ondansetron 4 mg disintegrating 4 mg PO Q8H #30 tabs 06/29/25 tablet omeprazole 20 mg capsule,delayed 20 mg PO DAILY #30 caps 07/09/25 release ondansetron 4 mg disintegrating 4 mg PO Q8H PRN nausea and 11/01/25 tablet vomiting #10 tabs sucralfate 1 gram tablet (Carafate) 1 g PO BID #60 tabs 07/09/25 Allergies Allergy/AdvReac Type Severity Reaction Status Date / Time penicillin V Allergy Intermediate Itching Verified 07/09/25 09:48 Penicillins Allergy Mild ITCHING Verified 07/09/25 09:48 Review of Systems Review of Systems As per HPI, full review of systems performed and negative but for the above mentioned pertinent positives and negatives. [facility]LY [facility] Past Medical History Medical History Opioid use disorder Abnormal abdominal CT scan Group B streptococcal infection Substance abuse Hernia Cirrhosis of liver Hepatitis C Surgical History S/P TIPS (transjugular intrahepatic portosystemic shunt) Social History Social History Household Members: Family Housing: Apartment Alcohol intake: former Comment: steady gait Patient Tobacco Use Status: Never used Tobacco Tobacco use type: Cigarette Cigarettes Per Day: 3 Years Smoked: 35 Substance Use Type: Heroin Advance Directives: No Advance Directives Information Provided: Yes Do you have a plan to hurt others: No Plan service: No Current occupational status: unemployed Physical Exam ED Exam Exam: GENERAL: Ill-Appearing, appears uncomfortable. SKIN: Normal skin color for ethnicity, warm, dry, no rashes noted. HEENT: Normocephalic, atraumatic, no stridor, dry mucous membranes, dentition intact, EOMI, PERRLA. NECK: Soft, supple, full ROM, midline structures nontender, no step-offs, no deformities, no lymphadenopathy. CHEST: Heart regular rhythm, no murmurs, symmetric chest rise and fall. PULMONARY: Clear to auscultation bilaterally, diminished at the bases, no labored breathing, no wheezes/rhales/rhonchi. ABDOMINAL: Soft, nondistended, epigastric tenderness to palpation with voluntary guarding, quiet bowel sounds in all quadrants, no ascites. : Deferred. MUSCULOSKELETAL: Normal tone, full range of motion, no deformities, no peripheral edema. NEURO: Alert and oriented x3, CN II through XII intact, equal strength and sensation bilateral upper and lower extremities, no focal neurologic deficits. PSYCHIATRIC: Flat affect, fluid speech, good eye contact and appropriate demeanor. Vital Signs: Vital Signs - 24 hr 07/09/25 09:47 07/09/25 12:41 Temperature 98.2 F 97.9 F Pulse Rate 76 57 Respiratory Rate 18 16 Blood Pressure 135/86 124/68 Pulse Oximetry 95 91 L Oxygen Delivery Method Room Air BMI result Body Mass Index 26.4 Medical Decision Making Medical Decision Making [facility] Narrative: This patient presents today with a chief complaint of abdominal pain. Differential diagnosis for this patient is broad. It includes appendicitis, cholecystitis, bowel obstruction, peptic ulcer disease, pyelonephritis, vascular pathology, among many others. A broad-based workup based on history and physical examination was obtained. Blood work is reassuring. His liver enzymes are relatively baseline, no evidence of severe anemia or thrombocytopenia. His MCV is still rather elevated at 100.3 however, the patient reports that he has never been an alcoholic. Denies IV drug use in the last several months. States he is ?clean now?. Clinical picture favors gastritis given the location of his pain. We will obtain a screening EKG as well. Medicated with a GI cocktail. Patient feeling improved after antacid relief. Using shared decision making, plan for discharge home to follow-up with primary care and/or specialist. Patient understands and agrees with plan for discharge. Discharged home in stable condition. Differential Diagnosis Differential Diagnoses: The differential diagnosis associated with the presentation includes (As above) Admission/Observation Consideration of admission/observation: Escalation of care including admission/observation considered Lab Data [facility] Lab Attestation statement: I reviewed the patient's lab results. 07/09/25 09:57 07/09/25 09:57 Labs: Lab Results 07/09/25 Range/Units 09:57 WBC 7.3 (4.8-10.8) X10*3/uL RBC 3.80 L (4.60-5.80) X10*6/uL Hgb 12.7 L (14.0-18.0) g/dl Hct 38.1 L (42.0-52.0) % MCV 100.3 H (80.0-98.0) fL MCH 33.4 H (27.0-33.0) pg MCHC 33.3 (31.0-36.0) g/dl RDW 14.9 (11.0-16.0) % Plt Count 98 L (160-400) X10*3/uL MPV 10.7 (9.4-12.4) fL Immature Gran % (Auto) 0.1 (0.0-0.4) % Neut % (Auto) 27.2 L (45-73) % Lymph % (Auto) 59.3 H (20-40) % [place] % (Auto) 8.1 (2-11) % Eos % (Auto) 4.8 H (0-4) % Baso % (Auto) 0.5 (0-2) % Lymph # (Auto) 4.3 (1.2-4.9) X10*3/uL [place] # (Auto) 0.6 (0.1-1.2) X10*3/uL Eos # (Auto) 0.4 (0.0-0.4) X10*3/uL Baso # (Auto) 0.0 (0.0-0.2) X10*3/uL Abs Immat Gran (auto) 0.01 (0.00-0.03) X10*3/uL Absolute Neuts (auto) 2.0 (2.0-8.3) x10*3/uL Absolute Nucleated RBC 0.000 (0.0-0.012) X10*3/uL Nucleated RBC % (auto) 0.0 (0.0-0.2) /100WBC Sodium 141 (135-145) mmol/L Potassium 3.8 (3.3-5.1) mmol/L Chloride 109 H (96-108) mmol/L Carbon Dioxide 24 (22-29) mmol/L Anion Gap 12 (12-20) BUN 16 (9-16) mg/dL Creatinine 0.72 (0.5-1.4) mg/dL Estim Creat Clear Calc 98.4 Estimated GFR > 60 Random Glucose 69 (60-115) mg/dL Calcium 8.7 (8.4-10.2) mg/dL Total Bilirubin 1.9 H (0.0-1.0) mg/dL Direct Bilirubin 0.7 H (0.0-0.5) mg/dL AST 54 H (5-37) U/L ALT 14 (0-40) U/L Alkaline Phosphatase 124 H (39-117) U/L Total Protein 6.0 L (6.5-8.0) g/dL Albumin 2.8 L (3.5-5.0) g/dL Lipase 11 (8-78) U/L Independent Interpretation I performed an independent interpretation of an: EKG Independent Historian Clinical information obtained from an independent historian. History obtained from or confirmed by: Other (Brother) External Record Review External record reviewed: Inpatient record Prescription Management I considered prescription management with: Pain Medication and Other (Antacids) Chronic Conditions Patient?s care impacted by: Other (Liver cirrhosis, polysubstance use disorder) Social Determinants Patient?s care significantly limited by Social Determinants of Health including: Other Social Determinant of Health Medications Administered Discontinued Medications Generic Name Dose Route Start Last Admin Trade Name Freq PRN Reason Stop Dose Admin Al Hydroxide/Mg Hydroxide 30 ml 07/09/25 10:38 07/09/25 11:09 Magnesium Hydrox/Alum Hydrox 30 Ml Oral.Susp PO 07/09/25 10:39 30 ml ONCE ONE Administration Famotidine 20 mg 07/09/25 12:12 07/09/25 13:05 Famotidine 20 Mg Tablet PO 07/09/25 12:13 20 mg ONCE ONE Administration Haloperidol 5 mg 07/09/25 12:13 07/09/25 13:05 Haloperidol 5 Mg Tablet PO 07/09/25 12:14 5 mg ONCE ONE Administration Lidocaine HCl 15 ml 07/09/25 10:38 07/09/25 11:09 Lidocaine Hcl Viscous 2 % 15 Ml Solution MUCOUS MEM 07/09/25 10:39 15 ml ONCE ONE Administration Ondansetron HCl 4 mg 07/09/25 10:38 07/09/25 11:10 Ondansetron Odt 4 Mg Tab.Rapdis TRANSLINGU 07/09/25 10:39 4 mg ONCE ONE Administration Discharge Plan Discharge Clinical Impression: Acute epigastric pain, Gastritis Patient Disposition: Home, Self-Care Instructions: Gastritis (ED) Additional Instructions: DIAGNOSIS & TREATMENT: You were seen in the Emergency Department for your abdominal pain. We performed blood work which did not reveal any acute abnormalities that would explain your symptoms. More than likely, your pain may be related to gastritis or ulcers in the stomach which can cause severe pain, particularly with food intake. FURTHER CARE: We have not found any emergent physical exam or lab abnormalities that would require admission to the hospital today. Many people who come to the ER with abdominal pain do not leave with a specific diagnosis at the end of their visit. In the Emergency Department we try to make sure that there is no emergent problem that needs surgery or antibiotics right now. This does not mean that your evaluation is complete--please be sure to follow up with your regular doctor as additional testing as an outpatient may be indicated Please be certain to drink plenty of fluids over the next several. You should advance your diet as tolerated. You may wish to start with the BRAT diet (bananas, rice, applesauce, toast). You will need to start antacid medications that will help with stomach pain. You need to take these medications every day to help with the pain, do not stop the medication if you start to feel better. WHEN YOU SHOULD BE SEEN NEXT: Please follow-up with your primary care provider within the next 2-3 days for reevaluation of your symptoms. WHEN TO RETURN TO THE ED: Monitor your symptoms closely and return to the emergency department immediately for any new/worsening symptoms, worsening abdominal pain, pain which changes location (particularly if it moved to the right lower quadrant), nausea, vomiting, blood in your stool, black/tarry stools, chest pain, shortness of breath, fevers, chills, night sweats, you are unable to arrange follow-up care, or any other concerning symptoms. Prescriptions: New omeprazole 20 mg capsule,delayed release(DR/EC) 20 mg PO DAILY Qty: 30 0RF sucralfate [Carafate] 1 gram tablet 1 g PO BID Qty: 60 0RF ondansetron 4 mg tablet,disintegrating 4 mg PO Q8H PRN (Reason: nausea and vomiting) Qty: 10 0RF No Action famotidine 40 mg tablet 40 mg PO BEDTIME Qty: 90 1RF ondansetron 4 mg tablet,disintegrating 4 mg PO Q8H Qty: 30 0RF thiamine HCl (vitamin B1) 100 mg tablet 1 tab PO DAILY lactulose [Generlac] 10 gram/15 mL solution 45 ml PO TID methadone [Methadone Intensol] 10 mg/mL Concentrate 70 mg PO DAILY Rx Instructions: [facility] aluminum hydroxide gel 320 mg/5 mL suspension 640 mg PO QID PRN (Reason: moderate pain) famotidine [Heartburn Relief (famotidine)] 10 mg tablet 10 mg PO BID pantoprazole 40 mg tablet,delayed release (DR/EC) 40 mg PO BID@0630,1630 Xifaxan 550 mg tablet 550 mg PO BID Print Language: Korean
--- NOTE | 2025-07-09 10:42 | ECG_ITS ---
Test Reason : epigastric pain Blood Pressure : */* mmHG Vent. Rate : 56 BPM Atrial Rate : 56 BPM P-R Int : 116 ms QRS Dur : 86 ms QT Int : 494 ms P-R-T Axes : -37 20 15 degrees QTcB Int : 476 ms Unusual P axis, possible ectopic atrial bradycardia Abnormal ECG When compared with ECG of 07-Dec-2024 17:19, No significant changes seen Referred By: Lydia Faustin Electronically Signed By: ZULLY LEVIN
--- OUTSIDE RECORDS SUMMARY | 2025-07-09 10:52 | XMS_ITS | Patient Health Record ---
Author Organization [facility] Address [address] [place] [address] Care Team Providers Care Training Instructor Name Role Phone Kings Blue MD, Colby Primary Care Provider Un available Sriram Horvath Jr Unavailable [phone] Reason For Referral No Information Plan Of Treatment No Information Insurance Providers Payer Name Payer Address Payer Phone Subscriber Number Group Number Insured Name Patient Relationship to Insured Coverage Start Date Coverage End Date [facility] [address] [address] [place], [place] [id number] ENZO DOWNING Self - patient is the insured [place] [address] [place] [address] [id number] ENZO DOWNING Self - patient is the insured
[2025-07-09] MEDS: Magnesium Hydrox/Alum Hydrox 30 ML ORAL.SUSP PO (11:09)
[2025-07-09] MEDS: Lidocaine HCl Viscous 2 % 15 ML SOLUTION MUCOUS MEM (11:09)
[2025-07-09 12:41] VITALS: BP 124/68; PULSE 57; RESP 16; TEMP 36.6; O2SAT 91
[2025-07-09 14:13] VITALS: BP 124/68; PULSE 57; RESP 16; TEMP 36.6; O2SAT 91
== END 2025-07-09 14:14 | disposition home or self-care (01) ==
PROVIDERS: Emergency Provider Emergency Medicine; PCP Internal Medicine
DX: K29.70 Gastritis, unspecified, without bleeding (principal); R11.2 Nausea with vomiting, unspecified; R10.13 Epigastric pain; R00.1 Bradycardia, unspecified; R94.31 Abnormal electrocardiogram [ECG] [EKG]; Z79.899 Other long term (current) drug therapy
CPT/HCPCS: 36415; 80053; 82248; 83690; 85025; 93005; 99283; 99284

== ENCOUNTER → 2025-07-09 10:42 | Outpatient (BNV) | payer OTHER, SELFPAY | PROVIDERS: Emergency Provider Emergency Medicine; PCP Internal Medicine; Visit Provider Internal Medicine | DX: R94.31 Abnormal electrocardiogram [ECG] [EKG] (principal); R10.13 Epigastric pain | CPT/HCPCS: 93010 ==

== ENCOUNTER 2025-09-04 14:03 | Inpatient (IN) | payer OTHER, SELFPAY ==
--- NOTE | ~2025-09-04 | MR_ITS ---
EXAMINATION: MR ABDOMEN WITHOUT THEN WITH IV CONTRAST HISTORY: rule out HCC, pancreatic mass COMPARISON: Correlation is made with a CT of the abdomen with contrast dated 09/04/2025. TECHNIQUE: Axial in and out of phase T1-weighted gradient echo, axial diffusion weighted, and axial and coronal HASTE T2 with fat saturation images were obtained through the abdomen. Subsequently, fat suppressed axial and coronal T1-weighted images were obtained after the intravenous administration of 7.5 mL Gadavist. FINDINGS: Liver: There is no loss of signal intensity in the liver on opposed phase imaging to suggest steatosis. The liver is shrunken and demonstrates a nodular contour, consistent with cirrhosis. There is no enhancing liver mass. A patent TIPS shunt is noted. There is mild intrahepatic biliary ductal dilatation in the left lobe. Gallbladder/biliary tree: The patient is status post cholecystectomy. The common bile duct measures up to 10 mm in diameter. No intraluminal filling defects are identified, to suggest choledocholithiasis. Spleen: The spleen is unremarkable. Pancreas: The pancreas is atrophic and there is mild dilatation of the pancreatic duct. No enhancing pancreatic mass is identified. Adrenals: The adrenal glands are unremarkable. Kidneys: The kidneys are unremarkable. There is no hydronephrosis. Lymph nodes: There is no retroperitoneal lymphadenopathy in the upper abdomen. Fluid: There is no ascites in the upper abdomen. Visualized bowel: The visualized small and large bowel loops are unremarkable in appearance. Visualized bones: The visualized bones demonstrate normal marrow signal intensity. MR/MR abdomen wo/w con IMPRESSION: 1. Cirrhosis of the liver. No enhancing liver mass is identified. 2. Mildly dilated common bile duct without evidence of choledocholithiasis. This may be within normal limits for a patient status post cholecystectomy. 3. Pancreatic atrophy. No enhancing pancreatic mass is noted. Electronically signed by: Eliud Whaley MD 09/06/2025 01:54 PM EST
--- NOTE | ~2025-09-04 | XR_ITS ---
CLINICAL HISTORY: NSTEMI CHEST X-RAY FRONTAL VIEW COMPARISON: 08/21/2024. FINDINGS: A single frontal view of the chest was performed. The patient is mildly rotated to the left. The cardiac size is within normal limits. There is increased density in the lateral aspect of the left lower lung, thought to be secondary to the patient's breast tissues/ body habitus. No focal infiltrate or consolidation. No pleural effusion or pneumothorax. There is mild dextrocurvature of the thoracic spine. IMPRESSION: 1. No acute disease. This document has been electronically signed by: Juanjose Razo M.D. on 09/05/2025 03:27:05
--- NOTE | ~2025-09-04 | CT_ITS ---
CLINICAL HISTORY: abdominal pain diarrhea CT abdomen and pelvis with contrast Comparison: CT - CT ABDOMEN PELVIS W IV CON - 09/04/25 18:46 EST Findings: No consolidation or effusion. Cirrhotic liver. Patent tips stent. Status post cholecystectomy. Moderate to severe intra and extrahepatic ductal dilation with CBD measuring 1.5 cm, slightly worsened in the interval. No radiopaque filling defect or stones identified. Remainder of the solid organs are within normal limits. No hydronephrosis or nephrolithiasis. Moderate circumferential wall thickening of the ascending colon. The bowel loops are nondilated. Normal appendix within the right lower quadrant. Pelvic contents unremarkable. Normal appendix. No acute fracture. IMPRESSION: Interval worsening of moderate to severe intra and extrahepatic ductal dilation with CBD measuring up to 1.5 cm. No radiopaque stones within the CBD. Status post cholecystectomy. Cirrhotic liver with patent tips stent. Moderate circumferential wall thickening of the ascending colon. Bowel loops are nondilated. Findings may represent infectious, inflammatory or ischemic colitis. This document has been electronically signed by: Alyssa Inman MD on 09/04/2025 20:43:25
[2025-09-04 14:20] VITALS: BP 190/94; PULSE 70; O2SAT 97
[2025-09-04 14:26] VITALS: BP 160/85; PULSE 69; RESP 16; TEMP 36.1; O2SAT 97; BMI 25.8
[2025-09-04 15:00] LABS: MANUAL DIFF FLAG NO
[2025-09-04 15:01] LABS: Hematocrit 36.5 % (42.0-52.0); Hemoglobin 11.9 g/dl (14.0-18.0); Imm Gran Abs Auto 0.01 X10*3/uL (0.00-0.03); Imm Gran Pct Auto 0.2 % (0.0-0.4); Lymphocytes Absolute Auto 1.4 X10*3/uL (1.2-4.9); Mean Corpuscular HGB Conc 32.6 g/dl (31.0-36.0); Mean Corpuscular Hemoglobin 33.2 pg (27.0-33.0); Mean Corpuscular Volume 102.0 fL (80.0-98.0); NRBC Abs Auto 0.000 X10*3/uL (0.0-0.012); NRBC Pct Auto 0.0 /100WBC (0.0-0.2); Red Blood Count 3.58 X10*6/uL (4.60-5.80); White Blood Count 4.8 X10*3/uL (4.8-10.8)
[2025-09-04 15:02] LABS: Platelet Count 87 X10*3/uL (160-400)
[2025-09-04 15:18] LABS: Alanine Aminotransferase 11 U/L (0-40); Albumin Level 2.6 g/dL (3.5-5.0); Alkaline Phosphatase 121 U/L (39-117); Anion Gap 12 (12-20); Aspartate Amino Transferase 44 U/L (5-37); Blood Urea Nitrogen 8 mg/dL (9-16); Calcium 8.8 mg/dL (8.4-10.2); Carbon Dioxide 27 mmol/L (22-29); Chloride 107 mmol/L (96-108); Creatinine Clr Calc Pharmacy 109.0; Estimated Glomerular Filt Rate > 60; Magnesium 1.6 mg/dL (1.6-2.6); Potassium 4.2 mmol/L (3.3-5.1); Sodium 142 mmol/L (135-145); Total Protein 5.7 g/dL (6.5-8.0)
--- OUTSIDE RECORDS SUMMARY | 2025-09-04 15:31 | XMS_ITS | Patient Health Record ---
Author Organization [facility] Address [address] [place] [address] Care Team Providers Care Back Gray Cloth Washer Name Role Phone Kings Blue MD, Colby Primary Care Provider Un available Sriram Horvath Jr Unavailable Reason For Referral No Information Plan Of Treatment No Information Insurance Providers Payer Name Payer Address Payer Phone Subscriber Number Group Number Insured Name Patient Relationship to Insured Coverage Start Date Coverage End Date [facility] [address] [address] [place], [place] [id number] ENZO DOWNING Self - patient is the insured [place] [address] [place] [address] [id number] ENZO DOWNING Self - patient is the insured
--- OUTSIDE RECORDS SUMMARY | 2025-09-04 15:31 | XMS_ITS | Clinical Summary ---
Author Organization [facility] Address [address] [place] [address] Care Team Providers Care Financial Services Intern Name Role Phone Priscilla Sargent Unavailable Social History Tobacco Use Types Packs/Day Years Used Date Smoking Tobacco: Never Assessed Sex and Gender Information Value Date Recorded Sex Assigned at Not on file Legal Sex Male 7:45 AM EDT Gender Identity Not on file Sexual Orientation Not on file Plan of Treatment Health Maintenance Due Date Last Done Comments Blood Pressure 1965 Lipid Panel 1965 PSA 1965 Prostate Cancer Screening 1965 SDM 1965 Depression Screening 1977 Hepatitis C Screening 1983 DTaP,Tdap,and Td Vaccines (1 - Tdap) 1984 Pneumococcal Vaccine: 50+ Ye ars (1 of 2 - PCV) 1984 CT Colonography 2010 Colonoscopy 2010 Colorectal Cancer Screening 2010 FIT 2010 FOBT 2010 Multitarget Stool DNA (Cologuard) 2010 Sigmoidoscopy 2010 Zoster Vaccine (1 of 2) 2015 COVID-19 Vaccine ( - 2024-2 6 season) 2025 Influenza Vaccine (#1) 2025 Meningococcal B Vaccines Aged Out No longer eligible based on patient's age to complete this topic Meningococcal Vaccines Aged Out No lo nger eligible based on patient's age to complete this topic Insurance [facility] HNE Care Teams Financial Services Intern Relationship Specialty Start Date End Date Priscilla Sargent [address] [place] [id number] PCP - Insurance Assigned PCP 04/05/25
[2025-09-04 15:39] LABS: Resp Syncy Virus RNA Qual PCR NEGATIVE (Negative); SARS COV2 PCR INHOUSE NEGATIVE (Negative)
--- NOTE | 2025-09-04 16:53 | ECG_ITS ---
Test Reason : ABD PAIN Blood Pressure : */* mmHG Vent. Rate : 69 BPM Atrial Rate : 69 BPM P-R Int : 120 ms QRS Dur : 78 ms QT Int : 448 ms P-R-T Axes : -53 42 24 degrees QTcB Int : 480 ms Normal sinus rhythm with occasional Premature ventricular complexes Prolonged QT Abnormal ECG When compared with ECG of 09-Jul-2025 10:52, Premature ventricular complexes are now Present Referred By: Vivek Ayala Electronically Signed By: ZULLY LEVIN
[2025-09-04 17:04] LABS: Lipase 16 U/L (8-78)
[2025-09-04 17:48] VITALS: BP 163/84; PULSE 61; RESP 16; TEMP 36.9; O2SAT 97
--- NOTE | 2025-09-04 17:48 | ED.GENADULT ---
HPI - General Adult General Chief complaint: Nausea/Vomiting/Diarrhea Stated complaint: vomiting, stomach pain Time Seen by Provider: 09/04/25 15:08 Source: patient Mode of arrival: ambulatory Limitations: no limitations History of Present Illness ED Provider: Vivek Ayala HPI narrative: 60-year-old male history of hepatitis-C, panic encephalopathy, cirrhosis presents to the ED for abdominal pain, nausea, vomiting, for the past 4 days Related Data Home Medications ?Medication ?Instructions ?Recorded ?Confirmed lactulose 10 gram/15 mL oral 45 ml PO TID PRN Constipation 12/10/21 09/05/25 solution (Generlac) thiamine HCl (vitamin B1) 100 mg 1 tab PO DAILY 04/17/22 09/05/25 tablet methadone 10 mg/mL oral 85 mg PO DAILY 08/21/24 09/05/25 concentrate (Methadone Intensol) esomeprazole magnesium 40 mg 40 mg PO DAILY 09/05/25 09/05/25 capsule,delayed release ondansetron 4 mg disintegrating 4 mg PO Q8H PRN Nausea And Vomiting 09/05/25 09/05/25 tablet Allergies Allergy/AdvReac Type Severity Reaction Status Date / Time penicillin V Allergy Intermediate Itching Verified 09/04/25 14:27 Penicillins Allergy Mild ITCHING Verified 09/04/25 14:27 PMFSH Past Medical History Medical History Opioid use disorder Abnormal abdominal CT scan Group B streptococcal infection Substance abuse Hernia Cirrhosis of liver Hepatitis C Surgical History S/P TIPS (transjugular intrahepatic portosystemic shunt) Social History Social History Household Members: Family Housing: Apartment Alcohol intake: former Comment: steady gait Patient Tobacco Use Status: Current everyday Tobacco user Tobacco use type: Cigarette Cigarettes Per Day: 3 Years Smoked: 35 Substance Use Type: Heroin service: No Current occupational status: unemployed Physical Exam ED Vital Signs: Vital Signs - 24 hr 09/04/25 22:32 Pulse Rate 57 Respiratory Rate 14 Blood Pressure 115/69 Pulse Oximetry 95 Oxygen Delivery Method Room Air BMI result Body Mass Index 25.8 Medications Administered Generic Name Dose Route Start Last Admin Trade Name Freq PRN Reason Stop Dose Admin Atorvastatin Calcium 20 mg 09/05/25 09:00 09/05/25 09:00 Atorvastatin Calcium 20 Mg Tablet PO 20 mg DAILY ADONAY Administration Heparin Sodium/Sodium Chloride 25,000 unit in 250 mls @ 0 mls/hr 09/05/25 02:45 09/05/25 19:21 Heparin Sodium,Porcine/1/2ns IVCONT 6 units/kg/hr .Q0M ADONAY 4.36 mls/hr Protocol Titration Per Protocol Methadone HCl 85 mg 09/05/25 18:30 09/05/25 18:37 Methadone Hcl 20 Mg/2 Ml Oral.Conc PO 85 mg DAILY@0800 ADONAY Administration Pantoprazole Sodium 40 mg 09/05/25 06:30 09/05/25 18:45 Pantoprazole Sodium 40 Mg/10 Ml Vial IVPUSH 40 mg BID@0630,1630 ADONAY Administration Sodium Chloride 3 ml 09/05/25 08:00 09/05/25 21:37 0.9 % Sodium Chloride Flush 3 Ml Syringe IVFLUSH Not Given QSHIFT [facility] Discontinued Medications Generic Name Dose Route Start Last Admin Trade Name Pao PRN Reason Stop Dose Admin Aspirin 325 mg 09/04/25 22:51 09/05/25 00:53 Aspirin Enteric Coated 325 Mg Tablet.Dr PO 09/04/25 22:52 325 mg ONCE ONE Administration Atorvastatin Calcium 40 mg 09/04/25 23:09 09/05/25 00:53 Atorvastatin Calcium 40 Mg Tablet PO 09/04/25 23:10 40 mg ONCE ONE Administration Famotidine 20 mg 09/04/25 16:51 09/04/25 17:12 Famotidine/Pf 20 Mg/2 Ml Vial IVPUSH 09/04/25 16:52 20 mg ONCE ONE Administration Heparin Sodium (Porcine) 4,000 unit 09/04/25 23:09 09/05/25 01:45 Heparin Sodium,Porcine 5,000 Unit/Ml Vial IVPUSH 09/04/25 23:10 Not Given ONCE ONE Heparin Sodium/Sodium Chloride 25,000 unit in 250 mls @ 0 mls/hr 09/04/25 23:15 09/05/25 02:50 Heparin Sodium,Porcine/1/2ns IVCONT 0 units/kg/hr .Q0M ADONAY 0 mls/hr Protocol Titration Per Protocol Lactated Ringer's 1,000 mls @ 80 mls/hr 09/05/25 01:30 09/05/25 17:52 Lr IVCONT 09/05/25 13:59 Infused .[id number] ADONAY Infusion Iohexol 85 ml 09/04/25 19:10 09/04/25 19:10 Iohexol 350 Mg/Ml 100 Ml Infus..Btl IV 09/04/25 19:11 85 ml ONCE ONE Administration Methadone HCl 84 mg 09/05/25 18:00 09/05/25 18:46 Methadone Hcl 20 Mg/2 Ml Oral.Conc PO Not Given DAILY@0800 ADONAY Ondansetron HCl 4 mg 09/04/25 16:51 09/04/25 17:13 Ondansetron Hcl 4 Mg/2 Ml Vial IVPUSH 09/04/25 16:52 4 mg ONCE ONE Administration Procedures Ultrasound ED POC Ultrasound: Ultrasound-guided IV: Nursing unable to obtain 20 gauge 1-3/4 inch IV placed in right upper extremity. Adequate blood return, flushes well secured with Tegaderm Performed by Tamara Zhu PA-C on September 05 at 217 am Medical Decision Making Medical Decision Making MDM Narrative: 60 yold male presents to ED for nausea vomiting diarrhea with abdominal pain. abdomen nondistended. Positive for tenderness was sent for CT scan. GI cocktail ordered for patient 17:48pm: troponin positive. I went to evaluate the patient in the room. Patient is sleeping in bed not in distress. We will order repeat troponin. CT scan pending. 10:15pm: Repeat troponin 308. Patient is sleeping comforable in bed. Repeat EKG shows no new changes 11:02pm: Case discussed with manufacturing test engineer Dr. Srinivasan. He Recomends Admission with serial troponins every 6 to 8 hours with heparin, asprin, and statin ordered. Patient admitted to Dr. Moore Differential Diagnosis Differential Diagnoses: The differential diagnosis associated with the presentation includes ([place], STEMI, pancreatitis) Admission/Observation Consideration of admission/observation: Escalation of care including admission/observation considered Consult Healthcare Provider Management of the patient was discussed with: Hospitalist (Dr. Moore) and Sandblaster Paint Sprayer (Dr. Srinivasan) Lab Data 09/05/25 04:17 09/05/25 04:17 Labs: Lab Results 12/28/25 12/28/25 12/28/25 Range/Units 14:54 17:48 20:48 WBC 4.8 (4.8-10.8) X10*3/uL RBC 3.58 L (4.60-5.80) X10*6/uL Hgb 11.9 L (14.0-18.0) g/dl Hct 36.5 L (42.0-52.0) % MCV 102.0 H (80.0-98.0) fL MCH 33.2 H (27.0-33.0) pg MCHC 32.6 (31.0-36.0) g/dl RDW 16.4 H (11.0-16.0) % Plt Count 87 L (160-400) X10*3/uL MPV 11.1 (9.4-12.4) fL Immature Gran % (Auto) 0.2 (0.0-0.4) % Neut % (Auto) 55.1 (45-73) % Lymph % (Auto) 29.4 (20-40) % [place] % (Auto) 11.2 H (2-11) % Eos % (Auto) 3.5 (0-4) % Baso % (Auto) 0.6 (0-2) % Lymph # (Auto) 1.4 (1.2-4.9) X10*3/uL [place] # (Auto) 0.5 (0.1-1.2) X10*3/uL Eos # (Auto) 0.2 (0.0-0.4) X10*3/uL Baso # (Auto) 0.0 (0.0-0.2) X10*3/uL Abs Immat Gran (auto) 0.01 (0.00-0.03) X10*3/uL Absolute Neuts (auto) 2.7 (2.0-8.3) x10*3/uL Absolute Nucleated RBC 0.000 (0.0-0.012) X10*3/uL Nucleated RBC % (auto) 0.0 (0.0-0.2) /100WBC Sodium 142 (135-145) mmol/L Potassium 4.2 (3.3-5.1) mmol/L Chloride 107 (96-108) mmol/L Carbon Dioxide 27 (22-29) mmol/L Anion Gap 12 (12-20) BUN 8 L (9-16) mg/dL Creatinine 0.65 (0.5-1.4) mg/dL Estim Creat Clear Calc 109.0 Estimated GFR > 60 Random Glucose 99 (60-115) mg/dL Calcium 8.8 (8.4-10.2) mg/dL Magnesium 1.6 (1.6-2.6) mg/dL Total Bilirubin 2.0 H (0.0-1.0) mg/dL AST 44 H (5-37) U/L ALT 11 (0-40) U/L Alkaline Phosphatase 121 H (39-117) U/L Troponin I High Sens 122.6 H* D 308.0 H* D (<3.5-35.0) ng/L Total Protein 5.7 L (6.5-8.0) g/dL Albumin 2.6 L (3.5-5.0) g/dL Lipase 16 (8-78) U/L Urine Color Dark Yellow Urine Appearance Clear Urine pH 6.5 (5.0-9.0) Ur Specific [place] >= 1.030 H (1.005-1.025) Urine Protein 100 (2+) H (Neg-Trace) mg/dL Urine Glucose (UA) Negative (Negative) mg/dL Urine Ketones Trace (Negative) mg/dL Urine Blood Large (3+) H (Negative) Urine Nitrite Negative (Negative) Ur Leukocyte Esterase Negative (Negative) Urine RBC >20 H (0-2) /HPF Urine WBC 0-5 (0-5) /HPF Ur Squamous Epith Cells 0-2 (0-2) /HPF Urine Bacteria None Seen (None Seen) Hyaline Casts 0-2 (0-2) /LPF Urine Opiates Screen POSITIVE H (Not Detect) Ur Buprenorphine Scrn Not Detected (Not Detect) ng/mL Ur Oxycodone Screen Not Detected (Not Detect) ng/mL Urine Methadone Screen Positive H (Not Detect) ng/mL Urine Fentanyl Screen POSITIVE H (Not Detect) Ur Barbiturates Screen Not Detected (Not Detect) Ur Phencyclidine Scrn Not Detected (Not Detect) Ur Amphetamines Screen Not Detected (Not Detect) U Benzodiazepines Scrn Not Detected (Not Detect) Urine Cocaine Screen Not Detected (Not Detect) U Marijuana (THC) Screen POSITIVE H (Not Detect) Influenza Type A (PCR) NEGATIVE (Negative) Influenza Type B (PCR) NEGATIVE (Negative) RSV RNA Qual (PCR) NEGATIVE (Negative) SARS-CoV-2 RNA (RT-PCR) NEGATIVE (Negative) Critical Care Time Critical Care Time Critical Care Time: Yes Total Critical Care Time: 60 Attestation: positive troponins. repeat EKGS, Consulted Dr. Srinivasan. Started heparin, statin, and aspirin. Discharge Plan Discharge Clinical Impression: NSTEMI (non-ST elevated myocardial infarction) Patient Disposition: Admitted As Inpatient
[2025-09-04 18:23] LABS: Troponin-I High Sensitivity 122.6 ng/L (<3.5-35.0)
[2025-09-04] MEDS: iohexoL 350 MG/ML 100 ML INFUS..BTL 85 ML IV (19:10)
[2025-09-04 20:56] VITALS: BP 124/65; PULSE 68; RESP 16; TEMP 37; O2SAT 95
[2025-09-04 20:57] LABS: Appearance Urine Clear; Glucose Urine UA Negative (Negative); PH 6.5 (5.0-9.0); Specific Gravity - Urine >= 1.030 (1.005-1.025); UMIC TRIGGER UACC YES
[2025-09-04 21:15] LABS: Cannabinoid Screen Urine POSITIVE (Not Detect)
[2025-09-04 21:27] LABS: Troponin-I High Sensitivity 308.0 ng/L (<3.5-35.0)
--- NOTE | 2025-09-04 21:28 | ECG_ITS ---
Test Reason : increase trop Blood Pressure : */* mmHG Vent. Rate : 68 BPM Atrial Rate : 68 BPM P-R Int : 122 ms QRS Dur : 74 ms QT Int : 432 ms P-R-T Axes : 70 45 58 degrees QTcB Int : 459 ms Artifact in tracing Normal sinus rhythm Nonspecific ST abnormality Borderline ECG When compared with ECG of 04-Sep-2025 17:16, No significant changes seen Referred By: Vivek Ayala Electronically Signed By: ZULLY LEVIN
[2025-09-04 22:32] VITALS: BP 115/69; PULSE 57; RESP 14; O2SAT 95
--- NOTE | 2025-09-05 00:49 | PC.NURSE ---
Took over the pt at 00:30 from DAVID Castillo, no Inr or PTT ordered prior to me obtaining pt, Heparin drip ordered, notified Dr. Arias drip not started, per Dr. Arias Hold of on starting drip or give bolus until INR and PTT comes back.
[2025-09-05] MEDS: Aspirin Enteric Coated 325 MG TABLET.DR PO (00:53)
[2025-09-05 01:10] LABS: Troponin-I High Sensitivity 305.0 ng/L (<3.5-35.0)
[2025-09-05 01:17] LABS: INTERNATIONAL NORM RATIO 1.4 (0.9-1.1); Prothrombin Time 17.1 SEC (11.2-13.5)
[2025-09-05 01:20] LABS: Partial Thromboplastin Time 41.6 SEC (26.7-34.1)
--- NOTE | 2025-09-05 01:22 | PC.NURSE ---
crtitical trop reported to DR. Moore,
[2025-09-05] MEDS: Heparin Sodium,Porcine/1/2NS 25,000 UNIT/250 ML IV.SOLN 10.16 UNIT IVCONT (01:43)
--- NOTE | 2025-09-05 02:03 | PM.IMHP ---
History of Present Illness Date of Service: 09/04/25 Attending physician on admission: Chon Mayers Chief Complaint: Abdominal pain Kareem Rueda is a 60 years old man with past medical history significant for liver cirrhosis s/p TIPS secondary to hep C infection and substance abuse on methadone presents to the emergency department complaining of upper abdominal pain that started a few days ago associated with nausea nonbloody vomiting. He also reports some diarrhea. He denied chest pain, shortness on breath, dizziness or palpitations. He did not report any acute urinary symptoms. He is a tobacco smoker and denied active illicit drug use. He denied alcohol abuse. He denied history of myocardial infarction, stroke, hyperlipidemia, diabetes mellitus or congestive heart failure. Abdominal surgical history is remarkable for cholecystectomy. In the ED, he was found to have normal vital signs. Blood workup showed leukocytosis. Hemoglobin is 11.9 and platelets 87. There are no electrolyte imbalances. BUN is 8 and creatinine 0.65. Total bilirubin is 2.0, AST 44, ALT 11 and alk-phos 121. Lipase is normal, 16. Troponin 122.6 --> 308.0--> 305.0. Abdominal pelvis CT scan with IV contrast showed cirrhosis of liver, interval worsening [id number] intra and extrahepatic ductal dilatation with CBD measuring up to 1.5 cm without no radiopaque stone within the CBD; and findings that might represent infectious, inflammatory or ischemic colitis. ECG showed normal sinus rhythm with nonspecific abnormalities. ED tx: Famotidine 20 mg IV, Zofran 4 mg IV, aspirin 325 mg p.o., Lipitor 80 mg p.o. Review of Systems Review of Systems: All 12 systems were reviewed and normal except as noted in HPI. [facility] Medical History Opioid use disorder Abnormal abdominal CT scan Group B streptococcal infection Substance abuse Hernia Cirrhosis of liver Hepatitis C Surgical History S/P TIPS (transjugular intrahepatic portosystemic shunt) Social History Household Members: Family Housing: Apartment Alcohol intake: former Comment: steady gait Patient Tobacco Use Status: Never used Tobacco Tobacco use type: Cigarette Cigarettes Per Day: 3 Years Smoked: 35 Smoked in Last 30 Days: No Substance Use Type: Heroin Advance Directives: No Advance Directives Information Provided: No Do you have a plan to hurt others: No Plan service: No Current occupational status: unemployed Meds Allergies Allergy/AdvReac Type Severity Reaction Status Date / Time penicillin V Allergy Intermediate Itching Verified 09/04/25 14:27 Penicillins Allergy Mild ITCHING Verified 09/04/25 14:27 Active Medications: Current Medications Acetaminophen (Acetaminophen 325 Mg Tablet) 650 mg PO Q6H PRN PRN Reason: Pain, Mild 1-3,fever,headache Calcium Carbonate (Calcium Carbonate 750 Mg Tab.Chew) 750 mg PO Q4H PRN PRN Reason: Heartburn Heparin Sodium/Sodium Chloride (Heparin Sodium,Porcine/1/2ns) 25,000 unit in 250 mls @ 0 mls/hr IVCONT .Q0M [facility]; Protocol Last Admin: 09/05/25 01:43 Dose: 14 units/kg/hr, 10.16 mls/hr Lactated Ringer's (Lr) 1,000 mls @ 80 mls/hr IVCONT .[id number] [facility] Stop: 09/05/25 13:59 Magnesium Hydroxide (Milk Of Magnesia 30 Ml Oral.Susp) 30 ml PO DAILY PRN PRN Reason: Constipation Melatonin (Melatonin 3 Mg Tablet) 6 mg PO BEDTIME PRN PRN Reason: Insomnia Ondansetron HCl (Ondansetron Hcl 4 Mg/2 Ml Vial) 4 mg IVPUSH Q8H PRN PRN Reason: Nausea and Vomiting Pantoprazole Sodium (Pantoprazole Sodium 40 Mg/10 Ml Vial) 40 mg IVPUSH BID@0630,1630 [facility] Sodium Chloride (0.9 % Sodium Chloride Flush 3 Ml Syringe) 3 ml IVFLUSH QSHIFT [facility] Home Medications ?Medication ?Instructions ?Recorded ?Confirmed ?Last Taken ?Type lactulose 10 gram/15 mL oral 45 ml PO TID 12/10/21 12/08/24 12/07/24 History solution (Generlac) thiamine HCl (vitamin B1) 100 mg 1 tab PO DAILY 04/17/22 12/08/24 12/07/24 History tablet pantoprazole 40 mg tablet,delayed 40 mg PO BID@0630,1630 08/02/24 12/08/24 12/07/24 History release rifaximin 550 mg tablet (Xifaxan) 550 mg PO BID 08/02/24 12/08/24 12/07/24 History methadone 10 mg/mL oral 70 mg PO DAILY 08/21/24 12/08/24 12/07/24 History concentrate (Methadone Intensol) aluminum hydroxide gel 320 mg/5 mL 640 mg PO QID PRN moderate pain 12/08/24 12/08/24 Unknown History oral suspension famotidine 10 mg tablet (Heartburn 10 mg PO BID 12/08/24 12/08/24 12/07/24 History Relief (famotidine)) Physical Exam Vital Signs and Narrative: Vital Signs: Last Vital Signs Temp 98.6 F 09/04/25 20:56 Pulse 57 09/04/25 22:32 Resp 14 09/04/25 22:32 BP 115/69 09/04/25 22:32 Pulse Ox 95 09/04/25 22:32 O2 Del Method Room Air 09/04/25 22:32 BMI result Body Mass Index 25.8 General: Alert, oriented, in no acute distress. Cooperative. Afebrile. HEENT: Head normocephalic, atraumatic. PER, EOMI. Sclerae anicteric, conjunctiva clear. Mucous membranes dry. Neck: Supple, no lymphadenopathy, or JVD. Heart: RRR, no murmurs, rubs or gallops. Lungs: Clear to auscultation bilaterally. No wheezes, rales, or rhonchi. Normal respiratory effort. Abdomen: Soft, epigastric tenderness to palpation, nondistended, in bowel sounds. No hepatosplenomegaly, masses or masses. Extremities: No calf tenderness bilaterally, no swelling Musculoskeletal: Full range of motion. No joint swelling, deformity, or tenderness. Normal muscle tone and strength. Skin: Warm/Dry. No pallor. No jaundice. Neurologic: Alert & oriented x4. Moving all extremities spontaneously. Normal speech. Psychological: DVT mood and affect. Thought process coherent. Results Labs 09/04/25 14:54 09/04/25 14:54 Labs: Laboratory Results - last 24 hr 09/04/25 09/04/25 09/04/25 14:54 17:48 20:48 MCV 102.0 H MCH 33.2 H MCHC 32.6 RDW 16.4 H Plt Count 87 L MPV 11.1 Immature Gran % (Auto) 0.2 Neut % (Auto) 55.1 Lymph % (Auto) 29.4 [place] % (Auto) 11.2 H Eos % (Auto) 3.5 Baso % (Auto) 0.6 Lymph # (Auto) 1.4 [place] # (Auto) 0.5 Eos # (Auto) 0.2 Baso # (Auto) 0.0 Abs Immat Gran (auto) 0.01 Absolute Neuts (auto) 2.7 Absolute Nucleated RBC 0.000 Nucleated RBC % (auto) 0.0 PT INR APTT Anion Gap 12 Estim Creat Clear Calc 109.0 Estimated GFR > 60 Random Glucose 99 Calcium 8.8 Magnesium 1.6 Total Bilirubin 2.0 H AST 44 H ALT 11 Alkaline Phosphatase 121 H Troponin I High Sens 122.6 H* D 308.0 H* D Total Protein 5.7 L Albumin 2.6 L Lipase 16 Urine Color Dark Yellow Urine Appearance Clear Urine pH 6.5 Ur Specific [place] >= 1.030 H Urine Protein 100 (2+) H Urine Glucose (UA) Negative Urine Ketones Trace Urine Blood Large (3+) H Urine Nitrite Negative Ur Leukocyte Esterase Negative Urine RBC >20 H Urine WBC 0-5 Ur Squamous Epith Cells 0-2 Urine Bacteria None Seen Hyaline Casts 0-2 Urine Opiates Screen POSITIVE H Ur Buprenorphine Scrn Not Detected Ur Oxycodone Screen Not Detected Urine Methadone Screen Positive H Urine Fentanyl Screen POSITIVE H Ur Barbiturates Screen Not Detected Ur Phencyclidine Scrn Not Detected Ur Amphetamines Screen Not Detected U Benzodiazepines Scrn Not Detected Urine Cocaine Screen Not Detected U Marijuana (THC) Screen POSITIVE H Influenza Type A (PCR) NEGATIVE Influenza Type B (PCR) NEGATIVE RSV RNA Qual (PCR) NEGATIVE SARS-CoV-2 RNA (RT-PCR) NEGATIVE 09/05/25 00:41 MCV MCH MCHC RDW Plt Count MPV Immature Gran % (Auto) Neut % (Auto) Lymph % (Auto) [place] % (Auto) Eos % (Auto) Baso % (Auto) Lymph # (Auto) [place] # (Auto) Eos # (Auto) Baso # (Auto) Abs Immat Gran (auto) Absolute Neuts (auto) Absolute Nucleated RBC Nucleated RBC % (auto) PT 17.1 H INR 1.4 H APTT 41.6 H Anion Gap Estim Creat Clear Calc Estimated GFR Random Glucose Calcium Magnesium Total Bilirubin AST ALT Alkaline Phosphatase Troponin I High Sens 305.0 H* Total Protein Albumin Lipase Urine Color Urine Appearance Urine pH Ur Specific [place] Urine Protein Urine Glucose (UA) Urine Ketones Urine Blood Urine Nitrite Ur Leukocyte Esterase Urine RBC Urine WBC Ur Squamous Epith Cells Urine Bacteria Hyaline Casts Urine Opiates Screen Ur Buprenorphine Scrn Ur Oxycodone Screen Urine Methadone Screen Urine Fentanyl Screen Ur Barbiturates Screen Ur Phencyclidine Scrn Ur Amphetamines Screen U Benzodiazepines Scrn Urine Cocaine Screen U Marijuana (THC) Screen Influenza Type A (PCR) Influenza Type B (PCR) RSV RNA Qual (PCR) SARS-CoV-2 RNA (RT-PCR) Assessment and Plan (1) NSTEMI (non-ST elevated myocardial infarction): Status: Acute (2) Epigastric pain: Status: Acute Plan Kareem Rueda is a 60 years old man with past medical history significant for liver cirrhosis s/p TIPS secondary to hep C infection and substance abuse on methadone present Non-STEMI. Telemetry. Continue aspirin and heparin IV infusion low-dose (no bolus due to thrombocytopenia). Start statin. TTE. Trend troponin. Check lipid panel and hemoglobin A1c. Cardiology consult (per ED, Dr. Srinivasan recommended heparin IV infusion, aspirin and serial troponins). Epigastric pain, likely secondary to above. Pain control. Chronic liver disease. Continue lactulose. Hx esophagitis. Protonix IV. Chronic thrombocytopenia, due to CLD. Continue to monitor (if worsen, will consider heparin infusion discontinuation). Chronic anemia. Continue to monitor. Hx substance abuse. Continue methadone. He denied active illegal drug use. His urine drug scree is positive for fentanyl and has not received prescriptions for it. Tobacco dependence. Tobacco cessation education. med rec pending Code status: Full DVT prophylaxis: On heparin IV infusion GI prophylaxis: Heparin IV Patient will need hospitalization for at least 2 midnights for atypical symptoms for non-STEMI treatment with IV pain meds, aspirin and IV heparin; patient will also need evaluation by subspecialty. Quality Stroke Does the patient have a stroke diagnosis?: No VTE Prior VTE?: No VTE Risk Level:: Medical - moderate - high VTE Device Contraindication: N/A - Device Ordered VTE Drug Contraindication: N/A - Med Ordered
[2025-09-05] MEDS: Lactated Ringers 1,000 ML 80 ML IVCONT (02:26)
--- NOTE | 2025-09-05 02:34 | PC.NURSE ---
second line place by ultra sound, by MARIANA Hanley
[2025-09-05] MEDS: Heparin Sodium,Porcine/1/2NS 25,000 UNIT/250 ML IV.SOLN 8.71 UNIT IVCONT (02:54)
[2025-09-05 04:29] LABS: Hematocrit 34.2 % (42.0-52.0); Hemoglobin 11.2 g/dl (14.0-18.0); Imm Gran Abs Auto 0.01 X10*3/uL (0.00-0.03); Imm Gran Pct Auto 0.1 % (0.0-0.4); Lymphocytes Absolute Auto 2.4 X10*3/uL (1.2-4.9); MANUAL DIFF FLAG NO; Mean Corpuscular HGB Conc 32.7 g/dl (31.0-36.0); Mean Corpuscular Hemoglobin 33.5 pg (27.0-33.0); Mean Corpuscular Volume 102.4 fL (80.0-98.0); NRBC Abs Auto 0.000 X10*3/uL (0.0-0.012); NRBC Pct Auto 0.0 /100WBC (0.0-0.2); Red Blood Count 3.34 X10*6/uL (4.60-5.80); White Blood Count 7.1 X10*3/uL (4.8-10.8)
[2025-09-05 04:30] LABS: Platelet Count 77 X10*3/uL (160-400)
[2025-09-05 04:54] LABS: Alanine Aminotransferase 9 U/L (0-40); Albumin Level 2.3 g/dL (3.5-5.0); Alkaline Phosphatase 106 U/L (39-117); Anion Gap 11 (12-20); Aspartate Amino Transferase 51 U/L (5-37); Blood Urea Nitrogen 12 mg/dL (9-16); Calcium 8.5 mg/dL (8.4-10.2); Carbon Dioxide 25 mmol/L (22-29); Chloride 109 mmol/L (96-108); Cholesterol 88 mg/dL (<200); Creatinine Clr Calc Pharmacy 122.2; Estimated Glomerular Filt Rate > 60; HDL Cholesterol 32 mg/dL (>40); Magnesium 1.7 mg/dL (1.6-2.6); Potassium 4.9 mmol/L (3.3-5.1); Sodium 140 mmol/L (135-145); Total Protein 5.2 g/dL (6.5-8.0); Triglycerides 39 mg/dL (<150)
[2025-09-05 05:41] LABS: Reflex LDLD? No
--- NOTE | 2025-09-05 06:29 | PC.NURSE ---
medicated per mar.
--- NOTE | 2025-09-05 07:00 | CA_ITS ---
Transthoracic Echocardiogram Patient (Last, First, Middle): Kareem Rueda L Gender: M Date of : 1965 Age: 60 Procedure Date: 09/05/2025 Procedure Type: Transthoracic Echocardiogram Location: ER Height: 167.64 cm Weight: 72.58 kg BSA: 1.82 m2 Heart Rate: 55 bpm BP: 138 / 83 mmHg Pony Ride Attendant: SB Referring MD: Chon Mayers MD Symptoms: NSTEMI Study Quality: Adequate ECG Rhythm: Sinus Conclusions: - The left ventricular systolic function is normal. The visually estimated ejection fraction is between 60-65%. - The basal inferior, mid inferior, and mid inferolateral segments are hypokinetic. - No obvious valvular pathology seen on this study. Findings Left Ventricle Normal left ventricular cavity size. The left ventricular systolic function is normal. The visually estimated ejection fraction is between 60-65%. There is evidence of regional wall motion abnormalities. Diastolic function is normal for age. Wall Motion Rest Echo Findings The basal inferior, mid inferior, and mid inferolateral segments are hypokinetic. Right Ventricle Mildly increased right ventricular cavity size. Atria Moderate biatrial enlargement. Aortic Valve There is a normal trileaflet aortic valve. There is no aortic valve stenosis. There is no aortic valve regurgitation. Mitral Valve The mitral valve appears normal. There is trace mitral valve regurgitation. There is no mitral valve stenosis. Pulmonic Valve The pulmonic valve is likely normal. Tricuspid Valve Normal tricuspid valve structure. There is mild tricuspid valve regurgitation. There is no evidence of pulmonary hypertension. Great Vessels The asc aorta and aortic arch are normal in size. Venous The inferior vena cava was not well visualized. Pericardium/Pleural There is no evidence of pericardial effusion. Prior Study Comparison No significant change compared to prior study dated: 04/19/2022. Wall motion appears similar upon review of prior images. Recommendations, Care & Conclusions No obvious valvular pathology seen on this study. Measurements 2D Linear Measurements IVSd: 0.51 0.6-0.9/0.6-1.0 cm LVIDd: 5.23 3.9-5.3/4.2-5.9 cm LVIDd Index: 2.87 2.4-3.2/2.2-3.1 cm/m2 LVIDs: 3.51 2.0-3.6 cm LVPWd: 0.67 0.7-1.1 cm LA Diam: 3.60 2.7-3.8/3.0-4.0 cm LAIDs Index: 1.98 1.5-2.3 cm/m2 LV Mass: 126.03 67-162/88-224 g LV Mass Index: 69.25 43-95/49-115 g/m2 LVOT Diam: 2.20 3.0+(-)1.3 cm 2D Systolic Function EF 4C: 73.10 >55% EF 2C: 70.10 >55% EF BiP: 71.40 >55% Mitral Valve MV Pk E: 1.04 MV PK A: 0.64 MV Decel Time: 219.00 E/A: 1.60 E'Lateral: 10.70 E'Medial: 8.81 E/E' Med: 11.80 E/E' Lat: 9.70 PHT: 64.00 MVA PHT: 3.[address] [place]: 4.73 Aortic Valve AoV Pk Greg: 1.58 AoV Pk Grad: 10.00 LEANNE: 3.44 LVOT LVOT Pk Greg: 1.43 LVOT Mn Greg: 0.93 LVOT VTI: 0.33 LVOT Pk Grad: 8.00 LVOT Mn Grad: 4.00 LVOT Diam: 2.20 LVOT Area: 3.80 Diastolic Function MV Pk E: 1.04 MV Pk A: 0.64 E/A: 1.60 E'Medial: 8.81 E/E' Med: 11.80 E' Laterial: 10.70 E/E' Lat: 9.70 Right Ventricle TAPSE (mm): 35.00 TVS' Greg: 20.10 Tricuspid Valve TR Pk Greg: 2.48 TR Pk Grad: 25.00 Great Vessels Aorta Sinus of Valsalva: 3.20 2.0-3.5 cm Ao Asc: 3.50 2.1-3.4 cm Ao Arch: 3.20 Pulmonary Veins Pulm Vein S/D 1.90 Pulmonary Valve PV Pk Greg: 0.90 Peak PV Grad: 3.00 Updated in Other Vendor System with Status of Final Jomar Parker MD electronically signed on 09/05/2025 11:57:47 AM with status of Final
--- NOTE | 2025-09-05 07:10 | PC.NURSE ---
report given to Roger
--- NOTE | 2025-09-05 08:15 | PHA.MEDREC ---
Addendum entered by Abhishek Tabares PharmD 09/05/25 08:28: reviewed Original Note: Pharmacy Consult ? Medication Reconciliation Pharmacy has completed the medication reconciliation. Spoke with pt and he confirmed his medications. Pt confirmed he is taking Methadone 70mg once daily and states he gets it at the [facility] in [place].
[2025-09-05] MEDS: 0.9 % Sodium Chloride Flush 3 ML SYRINGE IVFLUSH ×2 (09:00→18:45)
[2025-09-05 09:10] VITALS: BP 138/83; RESP 16; O2SAT 98
--- NOTE | 2025-09-05 09:10 | PC.NURSE ---
report was taken from previous rn at 0700, pt has remained pain free and denies any symptoms. he was remained in nsr, he has been up to chair and ambulated at bedside. currently repeat coag is pending and we are waitn g for a bed assignment.
[2025-09-05 09:15] LABS: PTT Heparin Drip > 200.0 SEC (53-77.9)
--- NOTE | 2025-09-05 09:19 | PM.EVENT ---
Event Note Date of Service: 09/05/25 Event Note: Kareem Rueda is a 60 years old man with past medical history significant for liver cirrhosis s/p TIPS secondary to hep C infection and substance abuse on methadone present Non-STEMI. Telemetry. Continue aspirin and heparin IV infusion low-dose (no bolus due to thrombocytopenia). Start statin. TTE. Trend troponin. Cardiology consult (per ED, Dr. Srinivasan recommended heparin IV infusion, aspirin and serial troponins). Epigastric pain, likely secondary to above. Pain control. Chronic liver disease from Hepatitis c Continue lactulose. Hx esophagitis. Protonix IV. Chronic thrombocytopenia, due to CLD. Continue to monitor (if worsen, will consider heparin infusion discontinuation). Chronic anemia. Continue to monitor. Hx substance abuse. Continue methadone. He denied active illegal drug use. His urine drug screen is positive for fentanyl and has not received prescriptions for it. Tobacco dependence. Tobacco cessation education. Code status: Full DVT prophylaxis: On heparin IV infusion Patient will need hospitalization for at least 2 midnights for atypical symptoms for non-STEMI treatment with IV pain meds, aspirin and IV heparin; patient will also need evaluation by subspecialty. Time Spent With Patient Time: Total time managing care of this patient today ____ minutes.
--- NOTE | 2025-09-05 09:29 | PC.NURSE ---
received a text notifying of ptt>200 drip paused and repeat ptt ordered for 1025 no sign of bruising or bleeding noted.
--- NOTE | 2025-09-05 09:50 | P.CONCA_ITS ---
History of Present Illness History of Present Illness Date of Service: 09/05/25 Chief complaint: NSTEMI Narrative: This is a cardiology consultation regarding elevated troponins. 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 Per notes, history of cirrhosis, status post TIPS, hep C infection, substance abuse, methadone use, presenting for abdominal pain, nausea, vomiting, diarrhea. He does not have any symptoms like chest pain or anything cardiac. Denies any recent illicit drugs. Denies any prior history of cardiac issues including coronary disease myocardial infarction. He underwent workup and that included troponins and were found to be slightly abnormal and hence we are asked to see him. Currently, he has got no cardiac symptoms. Review of Systems 2 Review of Systems: Yes all other systems are reviewed and are negative Constitutional: Constitutional: Reports as per HPI and Reports no additional constitutional complaints Eyes: Eyes: Reports as per HPI and Denies no additional eye complaints ENT: Denies system reviewed and no additional complaints, except as documented and Reports as per HPI Cardiovascular: Cardiovascular: Reports as per HPI, Reports no additional cardiovascular complaints, Denies acrocyanosis, Denies cool extremities, Denies chest pain, Denies leg edema, Denies lightheadedness, Denies palpitations and Denies dyspnea Respiratory: Respiratory: Reports as per HPI, Denies no additional respiratory complaints and Denies dyspnea Gastrointestinal: Gastrointestinal: Reports as per HPI and Denies no additional gastrointestinal complaints Genitourinary: Genitourinary: Reports no additional male genitourinary complaints and Reports as per HPI Musculoskeletal: Musculoskeletal: Reports no additional musculoskeletal complaints and Reports as per HPI Integumentary/Breasts: Skin/Breast: Reports system reviewed and no additional complaints, except as docu Neurologic: Reports system reviewed and no additional complaints, except as documented and Reports as per HPI Psychiatric: Psychiatric: Reports no additional psychiatric complaints and Reports as per HPI Endocrine: Endocrine: Reports no additional endocrine complaints, Reports as per HPI and Denies palpitations Hematologic/Lymphatic: Hematologic/Lymphatic: Reports no additional hematologic/lymphatic complaints and Reports as per HPI Allergic/Immunologic: Allergic/Immunologic: Reports no additional allergic/immunologic complaints and Reports as per HPI [facility] Past Medical History Medical History Opioid use disorder Abnormal abdominal CT scan Group B streptococcal infection Substance abuse Hernia Cirrhosis of liver Hepatitis C Family History Pertinent family history: No pertinent family history Surgical History Surgical History S/P TIPS (transjugular intrahepatic portosystemic shunt) Social History Social History Household Members: Family Housing: Apartment Alcohol intake: former Comment: steady gait Patient Tobacco Use Status: Never used Tobacco Tobacco use type: Cigarette Cigarettes Per Day: 3 Years Smoked: 35 Smoked in Last 30 Days: No Substance Use Type: Heroin Advance Directives: No Advance Directives Information Provided: No Do you have a plan to hurt others: No Plan service: No Current occupational status: unemployed Meds Allergies Allergy/AdvReac Type Severity Reaction Status Date / Time penicillin V Allergy Intermediate Itching Verified 09/04/25 14:27 Penicillins Allergy Mild ITCHING Verified 09/04/25 14:27 Active Medications: Current Medications Acetaminophen (Acetaminophen 325 Mg Tablet) 650 mg PO Q6H PRN PRN Reason: Pain, Mild 1-3,fever,headache Atorvastatin Calcium (Atorvastatin Calcium 20 Mg Tablet) 20 mg PO DAILY [facility] Last Admin: 09/05/25 09:00 Dose: 20 mg Calcium Carbonate (Calcium Carbonate 750 Mg Tab.Chew) 750 mg PO Q4H PRN PRN Reason: Heartburn Lactated Ringer's (Lr) 1,000 mls @ 80 mls/hr IVCONT .[id number] [facility] Stop: 09/05/25 13:59 Last Admin: 09/05/25 02:26 Dose: 80 mls/hr Heparin Sodium/Sodium Chloride (Heparin Sodium,Porcine/1/2ns) 25,000 unit in 250 mls @ 0 mls/hr IVCONT .Q0M [facility]; Protocol Last Titration: 09/05/25 09:25 Dose: 0 units/kg/hr, 0 mls/hr Magnesium Hydroxide (Milk Of Magnesia 30 Ml Oral.Susp) 30 ml PO DAILY PRN PRN Reason: Constipation Melatonin (Melatonin 3 Mg Tablet) 6 mg PO BEDTIME PRN PRN Reason: Insomnia Morphine Sulfate (Morphine Sulfate 4 Mg/Ml Cartridge) 2 mg IVPUSH Q4H PRN; Protocol PRN Reason: Chest Pain Nicotine Polacrilex (Nicotine Polacrilex 2 Mg Gum) 2 mg BUCCAL Q1H PRN PRN Reason: Nicotine Cravings Ondansetron HCl (Ondansetron Hcl 4 Mg/2 Ml Vial) 4 mg IVPUSH Q8H PRN PRN Reason: Nausea and Vomiting Pantoprazole Sodium (Pantoprazole Sodium 40 Mg/10 Ml Vial) 40 mg IVPUSH BID@0630,1630 [facility] Last Admin: 09/05/25 06:25 Dose: 40 mg Sodium Chloride (0.9 % Sodium Chloride Flush 3 Ml Syringe) 3 ml IVFLUSH QSHIFT [facility] Last Admin: 09/05/25 09:00 Dose: 3 ml Home Medications ?Medication ?Instructions ?Recorded ?Confirmed ?Last Taken ?Type lactulose 10 gram/15 mL oral 45 ml PO TID PRN Constipa tion 12/10/21 09/05/25 09/02/25 History solution (Generlac) thiamine HCl (vitamin B1) 100 mg 1 tab PO DAILY 09/05/25 09/02/25 History tablet methadone 10 mg/mL oral 70 mg PO DAILY 08/21/24 04/11/0212/07/24 History concentrate (Methadone Intensol) esomeprazole magnesium 40 mg 40 mg PO DAILY 09/05/25 1 09/02/25 History capsule,delayed release ondansetron 4 mg disintegrating 4 mg PO Q8H PRN Nausea And Vomiting 09/05/25 09/05/25 09/02/25 History tablet Physical Exam 2 Vital Signs: Vital Signs: Last Vital Signs Temp 98.6 F 09/04/25 20:56 Pulse 57 09/04/25 22:32 Resp 16 09/05/25 09:10 BP 138/83 09/05/25 09:10 Pulse Ox 98 09/05/25 09:10 O2 Del Method Room Air 09/05/25 09:10 BMI result Body Mass Index 25.8 Const: General: comfortable and no acute distress O rientation/consciousness: patient oriented x3 HEENT: Other: Unremarkable Head: Yes normal to inspection Neck: Neck: Yes normal visual inspection Chest: Chest palpation & inspection: normal inspection of the chest Resp: Auscultation: clear to auscultation bilaterally Cardio: Palpation: normal PMI Heart sounds: S1 normal heart sound present, S2 normal heart sound present, no gallops, no murmurs and no rubs GI: Palpation (GI): Soft to palpation Back/Spine/Pelvis: Other: unremarkable Skin: General skin exam: no rashes or lesions noted Neuro: General: patient oriented x3 Extrem: General: Yes normal to inspection Psych: Mental Status: mental status grossly normal Objective Labs and Meds 09/05/25 04:17 09/05/25 04:17 Lab results: Laboratory Results - last 24 hr 09/04/25 09/04/25 09/04/25 14:54 17:48 20:48 WBC 4.8 RBC 3.58 L Hgb 11.9 L Hct 36.5 L MCV 102.0 H MCH 33.2 H MCHC 32.6 RDW 16.4 H Plt Count 87 L MPV 11.1 Immature Gran % (Auto) 0.2 Neut % (Auto) 55.1 Lymph % (Auto) 29.4 [place] % (Auto) 11.2 H Eos % (Auto) 3.5 Baso % (Auto) 0.6 Lymph # (Auto) 1.4 [place] # (Auto) 0.5 Eos # (Auto) 0.2 Baso # (Auto) 0.0 Abs Immat Gran (auto) 0.01 Absolute Neuts (auto) 2.7 Absolute Nucleated RBC 0.000 Nucleated RBC % (auto) 0.0 PT INR APTT aPTT Heparin Protocol Sodium 142 Potassium 4.2 Chloride 107 Carbon Dioxide 27 Anion Gap 12 BUN 8 L Creatinine 0.65 Estim Creat Clear Calc 109.0 Estimated GFR > 60 Random Glucose 99 Estimat Average Glucose Hemoglobin A1c % Calcium 8.8 Magnesium 1.6 Total Bilirubin 2.0 H AST 44 H ALT 11 Alkaline Phosphatase 121 H Troponin I High Sens 122.6 H* D 308.0 H* D Total Protein 5.7 L Albumin 2.6 L Triglycerides Cholesterol LDL Cholesterol, Calc HDL Cholesterol Lipase 16 Urine Color Dark Yellow Urine Appearance Clear Urine pH 6.5 Ur Specific [place] >= 1.030 H Urine Protein 100 (2+) H Urine Glucose (UA) Negative Urine Ketones Trace Urine Blood Large (3+) H Urine Nitrite Negative Ur Leukocyte Esterase Negative Urine RBC >20 H Urine WBC 0-5 Ur Squamous Epith Cells 0-2 Urine Bacteria None Seen Hyaline Casts 0-2 Urine Opiates Screen POSITIVE H Ur Buprenorphine Scrn Not Detected Ur Oxycodone Screen Not Detected Urine Methadone Screen Positive H Urine Fentanyl Screen POSITIVE H Ur Barbiturates Screen Not Detected Ur Phencyclidine Scrn Not Detected Ur Amphetamines Screen Not Detected U Benzodiazepines Scrn Not Detected Urine Cocaine Screen Not Detected U Marijuana (THC) Screen POSITIVE H Influenza Type A (PCR) NEGATIVE Influenza Type B (PCR) NEGATIVE RSV RNA Qual (PCR) NEGATIVE SARS-CoV-2 RNA (RT-PCR) NEGATIVE 09/05/25 09/05/25 09/05/25 00:41 04:17 04:17 WBC 7.1 RBC 3.34 L Hgb 11.2 L Hct 34.2 L MCV 102.4 H MCH 33.5 H MCHC 32.7 RDW 17.0 H Plt Count 77 L MPV 10.7 Immature Gran % (Auto) 0.1 Neut % (Auto) 51.2 Lymph % (Auto) 34.5 [place] % (Auto) 13.3 H Eos % (Auto) 0.6 Baso % (Auto) 0.3 Lymph # (Auto) 2.4 [place] # (Auto) 0.9 Eos # (Auto) 0.0 Baso # (Auto) 0.0 Abs Immat Gran (auto) 0.01 Absolute Neuts (auto) 3.6 Absolute Nucleated RBC 0.000 Nucleated RBC % (auto) 0.0 PT 17.1 H INR 1.4 H APTT 41.6 H aPTT Heparin Protocol Sodium 140 Potassium 4.9 Chloride 109 H Carbon Dioxide 25 Anion Gap 11 L BUN 12 Creatinine 0.58 Estim Creat Clear Calc 122.2 Estimated GFR > 60 Random Glucose 60 Estimat Average Glucose 94 Hemoglobin A1c % 4.9 Calcium 8.5 Magnesium 1.7 Total Bilirubin 1.9 H AST 51 H ALT 9 Alkaline Phosphatase 106 Troponin I High Sens 305.0 H* Total Protein 5.2 L Albumin 2.3 L Triglycerides 39 Cancelled Cholesterol 88 LDL Cholesterol, Calc HDL Cholesterol Lipase Urine Color Urine Appearance Urine pH Ur Specific [place] Urine Protein Urine Glucose (UA) Urine Ketones Urine Blood Urine Nitrite Ur Leukocyte Esterase Urine RBC Urine WBC Ur Squamous Epith Cells Urine Bacteria Hyaline Casts Urine Opiates Screen Ur Buprenorphine Scrn Ur Oxycodone Screen Urine Methadone Screen Urine Fentanyl Screen Ur Barbiturates Screen Ur Phencyclidine Scrn Ur Amphetamines Screen U Benzodiazepines Scrn Urine Cocaine Screen U Marijuana (THC) Screen Influenza Type A (PCR) Influenza Type B (PCR) RSV RNA Qual (PCR) SARS-CoV-2 RNA (RT-PCR) 09/05/25 09/05/25 09/05/25 04:17 04:17 04:17 WBC RBC Hgb Hct MCV MCH MCHC RDW Plt Count MPV Immature Gran % (Auto) Neut % (Auto) Lymph % (Auto) [place] % (Auto) Eos % (Auto) Baso % (Auto) Lymph # (Auto) [place] # (Auto) Eos # (Auto) Baso # (Auto) Abs Immat Gran (auto) Absolute Neuts (auto) Absolute Nucleated RBC Nucleated RBC % (auto) PT INR APTT aPTT Heparin Protocol Sodium Potassium Chloride Carbon Dioxide Anion Gap BUN Creatinine Estim Creat Clear Calc Estimated GFR Random Glucose Estimat Average Glucose Hemoglobin A1c % Calcium Magnesium Total Bilirubin AST ALT Alkaline Phosphatase Troponin I High Sens Total Protein Albumin Triglycerides Cholesterol Cancelled LDL Cholesterol, Calc 49 Cancelled HDL Cholesterol 32 L Cancelled Lipase Urine Color Urine Appearance Urine pH Ur Specific [place] Urine Protein Urine Glucose (UA) Urine Ketones Urine Blood Urine Nitrite Ur Leukocyte Esterase Urine RBC Urine WBC Ur Squamous Epith Cells Urine Bacteria Hyaline Casts Urine Opiates Screen Ur Buprenorphine Scrn Ur Oxycodone Screen Urine Methadone Screen Urine Fentanyl Screen Ur Barbiturates Screen Ur Phencyclidine Scrn Ur Amphetamines Screen U Benzodiazepines Scrn Urine Cocaine Screen U Marijuana (THC) Screen Influenza Type A (PCR) Influenza Type B (PCR) RSV RNA Qual (PCR) SARS-CoV-2 RNA (RT-PCR) 09/05/25 08:16 WBC RBC Hgb Hct MCV MCH MCHC RDW Plt Count MPV Immature Gran % (Auto) Neut % (Auto) Lymph % (Auto) [place] % (Auto) Eos % (Auto) Baso % (Auto) Lymph # (Auto) [place] # (Auto) Eos # (Auto) Baso # (Auto) Abs Immat Gran (auto) Absolute Neuts (auto) Absolute Nucleated RBC Nucleated RBC % (auto) PT INR APTT aPTT Heparin Protocol > 200.0 H* Sodium Potassium Chloride Carbon Dioxide Anion Gap BUN Creatinine Estim Creat Clear Calc Estimated GFR Random Glucose Estimat Average Glucose Hemoglobin A1c % Calcium Magnesium Total Bilirubin AST ALT Alkaline Phosphatase Troponin I High Sens Total Protein Albumin Triglycerides Cholesterol LDL Cholesterol, Calc HDL Cholesterol Lipase Urine Color Urine Appearance Urine pH Ur Specific [place] Urine Protein Urine Glucose (UA) Urine Ketones Urine Blood Urine Nitrite Ur Leukocyte Esterase Urine RBC Urine WBC Ur Squamous Epith Cells Urine Bacteria Hyaline Casts Urine Opiates Screen Ur Buprenorphine Scrn Ur Oxycodone Screen Urine Methadone Screen Urine Fentanyl Screen Ur Barbiturates Screen Ur Phencyclidine Scrn Ur Amphetamines Screen U Benzodiazepines Scrn Urine Cocaine Screen U Marijuana (THC) Screen Influenza Type A (PCR) Influenza Type B (PCR) RSV RNA Qual (PCR) SARS-CoV-2 RNA (RT-PCR) ECG Interpretation: EKG shows sinus rhythm and no acute ischemic changes. Some areas look like possible ectopic atrial rhythm. Assessment and Plan (1) NSTEMI (non-ST elevated myocardial infarction): Status: Acute Plan High sensitivity troponin levels are 122, 308 and 305. Previously, they were normal. Low platelets at 77. Abdomen CTA reveals interval worsening of [id number] intra and extrahepatic ductal dilatation. Cirrhotic liver. Colitis. Overall, suggestive of a small demand related NSTEMI in the setting of hepatic/GI issues. We will get an echocardiogram for any cardiac abnormalities. Unless any overt findings like wall motion abnormalities or LV dysfunction, may stopped the heparin drip. Treat the primary GI issues. Procedures Date of Service Date of Service: 09/05/25
[2025-09-05 10:51] LABS: PTT Heparin Drip 100.8 SEC (53-77.9)
[2025-09-05 11:41] LABS: Troponin-I High Sensitivity 142.3 ng/L (<3.5-35.0)
[2025-09-05 12:21] LABS: PTT Heparin Drip 57.7 SEC (53-77.9)
--- NOTE | 2025-09-05 17:27 | HE.PHANOTE ---
METHADONE Dose: 85mg, last dosed 09/02/25 and given 6 take home bottles per Ana at [facility].
[2025-09-05] MEDS: methADONE HCl 20 MG/2 ML ORAL.CONC 85 MG PO (18:37)
[2025-09-05 18:42] VITALS: BP 137/84; PULSE 58; RESP 16; TEMP 36.9; O2SAT 93
[2025-09-05 19:13] LABS: PTT Heparin Drip 78.4 SEC (53-77.9)
--- NOTE | 2025-09-05 19:13 | HO.NURTONUR ---
Addendum entered by Kaycee Devine RN 09/05/25 22:14: Latest trop 142.3, latest aPTT 78.4 heparin gtt decreased to 6 units/kg/hr Original Note: 60 y/o M, A/ox3, Full Code Came from home for nausea/vomiting and abdominal pain x4 days. Admit: Nstemi Labs: aPTT 41.6 --> >200.0 --> 100.8 --> 57.5 --> pending. Trop 122.6 --> 308.0 --> 305.0 --> pending Reports: EKG- normal sinus with PVCs, CXR- negative, abd/pelvic CT- worsening of moderate to severe intra/extrahepatic ductal dilation, cirrhotic liver, colitis. 20g IV Right AC and 22g IV Left AC -Heparin drip infusing @8u/kg--> ptt 57.5, repeat ptt drawn and pending. -85mg Methadone, dose given for today.
--- NOTE | 2025-09-05 19:24 | PC.NURSE ---
22 g IV in left AC, 20 g IV right upper arm
[2025-09-05 19:25] VITALS: BP 140/87; PULSE 60; RESP 18; TEMP 36.6; O2SAT 95
--- NOTE | 2025-09-05 22:15 | PC.NURSE ---
Pt sleeping quietly on hospital bed. RR even and unlabored, equal chest rise and fall.
[2025-09-05 23:30] VITALS: BMI 26.0
[2025-09-06] VITALS: BP 143/80; PULSE 61; RESP 16; TEMP 36.8; O2SAT 88
[2025-09-06 00:46] VITALS: O2SAT 92
[2025-09-06 04:00] VITALS: BP 133/75; PULSE 65; RESP 18; TEMP 36.6; O2SAT 94
[2025-09-06 06:58] LABS: PTT Heparin Drip 65.1 SEC (53-77.9)
[2025-09-06 07:27] VITALS: BP 133/78; PULSE 63; RESP 20; TEMP 36.5; O2SAT 94
--- NOTE | 2025-09-06 08:40 | P.PNIM_ITS ---
Subjective Subjective Date of Service: 09/06/25 Review of Systems Follow up abdominal pain, epigastric pain no nausea or vomiting no NSTEMI likely secondary Physical Exam 2 Exam: Exam: Appearing in no acute distress lung sounds are clear to auscultation heart regular rate rhythm, clear S1, S2 positive bowel sounds, abdomen is soft, nontender neuro patient is alert x3, no focal deficits Vital Signs: Vital Signs: Last Vital Signs Temp 97.7 F 09/06/25 07:27 Pulse 63 09/06/25 07:27 Resp 20 09/06/25 07:27 BP 133/78 09/06/25 07:27 Pulse Ox 94 09/06/25 07:27 O2 Del Method Nasal Cannula 09/06/25 07:27 O2 Flow Rate 1 09/06/25 07:27 BMI result Body Mass Index 26.0 Objective Data Active Medications Acetaminophen (Acetaminophen 325 Mg Tablet) 650 mg PO Q6H PRN PRN Reason: Pain, Mild 1-3,fever,headache Atorvastatin Calcium (Atorvastatin Calcium 20 Mg Tablet) 20 mg PO DAILY [facility] Last Admin: 09/05/25 09:00 Dose: 20 mg Documented By: JIN Calcium Carbonate (Calcium Carbonate 750 Mg Tab.Chew) 750 mg PO Q4H PRN PRN Reason: Heartburn Magnesium Hydroxide (Milk Of Magnesia 30 Ml Oral.Susp) 30 ml PO DAILY PRN PRN Reason: Constipation Melatonin (Melatonin 3 Mg Tablet) 6 mg PO BEDTIME PRN PRN Reason: Insomnia Methadone HCl (Methadone Hcl 20 Mg/2 Ml Oral.Conc) 85 mg PO DAILY@0800 [facility] Last Admin: 09/05/25 18:37 Dose: 85 mg Documented By: LADONNA Co-signed By: MIRIAM Morphine Sulfate (Morphine Sulfate 4 Mg/Ml Cartridge) 2 mg IVPUSH Q4H PRN; Protocol PRN Reason: Chest Pain Nicotine Polacrilex (Nicotine Polacrilex 2 Mg Gum) 2 mg BUCCAL Q1H PRN PRN Reason: Nicotine Cravings Ondansetron HCl (Ondansetron Hcl 4 Mg/2 Ml Vial) 4 mg IVPUSH Q8H PRN PRN Reason: Nausea and Vomiting Pantoprazole Sodium (Pantoprazole Sodium 40 Mg/10 Ml Vial) 40 mg IVPUSH BID@0630,1630 [facility] Last Admin: 09/06/25 07:21 Dose: 40 mg Documented By: ANAMARIA Sodium Chloride (0.9 % Sodium Chloride Flush 3 Ml Syringe) 3 ml IVFLUSH QSHIFT ADONAY Last Admin: 09/05/25 21:37 Dose: Not Given Documented By: TOOTIE Non-Admin Reason: IV Running Labs 09/05/25 04:17 09/05/25 04:17 Labs: Laboratory Results - last 24 hr 09/05/25 09/05/25 09/05/25 08:16 10:37 12:07 aPTT Heparin Protocol > 200.0 H* 100.8 H D 57.7 D Troponin I High Sens 142.3 H* D 09/05/25 09/06/25 18:57 01:15 aPTT Heparin Protocol 78.4 H D 65.1 Troponin I High Sens Assessment and Plan (1) NSTEMI (non-ST elevated myocardial infarction): Status: Acute Plan Kareem Rueda is a 60 years old man with past medical history significant for liver cirrhosis s/p TIPS secondary to hep C infection and substance abuse on methadone present Epigastric pain, likely secondary to above. Abd CT showing Interval worsening of moderate to severe intra and extrahepatic ductal dilation with CBD measuring up to 1.5 cm. No radiopaque stones within the , CBD. S/p ccy GI consultation> Rec MRI abd to r/o HCC and pancreatic mass PPI IV Likely secondary NM to GI issues Telemetry. s/p IV heparin statin. TTE with normal EF Cardiology consult> symptoms not cardiac related, stop heparin Chronic liver disease from Hepatitis c Continue lactulose. Hx esophagitis. Protonix IV. Chronic thrombocytopenia, due to CLD. Continue to monitor Macrocytic Chronic anemia. HH wnl hx of liver cirrhosis Hx substance abuse. Continue methadone. He denied active illegal drug use. His urine drug screen is positive for fentanyl and has not received prescriptions for it. Tobacco dependence. Tobacco cessation education. Code status: Full DVT prophylaxis:scd boots Patient will need hospitalization for at least 2 midnights for abd pain with abd ct showing CBD dilatation, treatment with IV pain meds, patient will also need evaluation by subspecialty. Quality Stroke Does the patient have a stroke diagnosis?: No VTE Prior VTE?: No VTE Risk Level:: Medical - moderate - high VTE Device Contraindication: N/A - Device Ordered VTE Drug Contraindication: N/A - Med Ordered
[2025-09-06] MEDS: methADONE HCl 20 MG/2 ML ORAL.CONC 85 MG PO (09:21)
[2025-09-06] MEDS: 0.9 % Sodium Chloride Flush 3 ML SYRINGE IVFLUSH (09:21)
--- NOTE | 2025-09-06 11:14 | PM.PNCARD ---
Subjective Subjective Date of Service: 09/06/25 Interval history: Patient denies any cardiac symptoms like chest pain. Otherwise, he states he is feeling better. Review of Systems Review of Systems Yes all other systems are reviewed and are negative Constitutional: Reports as per HPI and Reports no additional constitutional complaints Eyes: Reports as per HPI and Denies no additional eye complaints Denies system reviewed and no additional complaints, except as documented and Reports as per HPI Cardiovascular: Reports as per HPI, Reports no additional cardiovascular complaints, Denies acrocyanosis, Denies cool extremities, Denies chest pain, Denies leg edema, Denies lightheadedness, Denies palpitations and Denies dyspnea Respiratory: Reports as per HPI, Denies no additional respiratory complaints and Denies dyspnea Gastrointestinal: Reports as per HPI and Denies no additional gastrointestinal complaints Genitourinary: Reports no additional male genitourinary complaints and Reports as per HPI Musculoskeletal: Reports no additional musculoskeletal complaints and Reports as per HPI Skin/Breast: Reports system reviewed and no additional complaints, except as docu Reports system reviewed and no additional complaints, except as documented and Reports as per HPI Psychiatric: Reports no additional psychiatric complaints and Reports as per HPI Endocrine: Reports no additional endocrine complaints, Reports as per HPI and Denies palpitations Hematologic/Lymphatic: Reports no additional hematologic/lymphatic complaints and Reports as per HPI Allergic/Immunologic: Reports no additional allergic/immunologic complaints and Reports as per HPI Physical Exam Vital Signs: Last Vital Signs Temp 97.7 F 09/06/25 07:27 Pulse 63 09/06/25 07:27 Resp 20 09/06/25 07:27 BP 133/78 09/06/25 07:27 Pulse Ox 94 09/06/25 07:27 O2 Del Method Nasal Cannula 09/06/25 07:27 O2 Flow Rate 1 09/06/25 07:27 BMI result Body Mass Index 26.0 Const General: comfortable and no acute distress Orientation/consciousness: patient oriented x3 HEENT Other: Unremarkable Head: Yes normal to inspection Neck Neck: Yes normal visual inspection Chest Chest palpation & inspection: normal inspection of the chest Resp Auscultation: clear to auscultation bilaterally Cardio Palpation: normal PMI Heart sounds: S1 normal heart sound present, S2 normal heart sound present, no gallops, no murmurs and no rubs GI Palpation (GI): Soft to palpation Back/Spine/Pelvis Other: unremarkable Skin General skin exam: no rashes or lesions noted Neuro General: patient oriented x3 Extrem General: Yes normal to inspection Psych Mental Status: mental status grossly normal Objective Labs and Meds 09/05/25 04:17 09/05/25 04:17 Lab results: Laboratory Results - last 24 hr 09/05/25 09/05/25 09/05/25 10:37 12:07 18:57 aPTT Heparin Protocol 57.7 D 78.4 H D Troponin I High Sens 142.3 H* D 09/06/25 01:15 aPTT Heparin Protocol 65.1 Troponin I High Sens Progress Note: A&P Assessment and plan (1) NSTEMI (non-ST elevated myocardial infarction): Status: Acute Plan High sensitivity troponin levels are 122, 308 and 305. 142. Previously, they were normal. Low platelets at 77. In the echocardiogram, LVEF 60-65%. Basal inferior/mid inferior/inferolateral hypokinesis but has been noticed in prior images. Abdomen CTA reveals interval worsening of [id number] intra and extrahepatic ductal dilatation. Cirrhotic liver. Colitis. Overall, suggestive of a small demand related NSTEMI in the setting of hepatic/GI issues. With regard to the wall motion abnormality, could have some coronary disease but could also be related to substance abuse history. He is currently positive for fentanyl, methadone, opiates, marijuana. Last cocaine positive in 2019. He is denying any recent drug use but unclear how he is still positive for fentanyl. Hence suspect he may still be doing drugs. Any case, considering the significant hepatic history, we will hold off on any aggressive cardiac workup especially as he has got no relevant symptoms like angina. He may not be able to take aspirin or statins either with chronic liver issues and he also has thrombocytopenia. Discussed with Sharla Mccracken. Time Spent With Patient Time: Total time managing care of this patient today ____ minutes. Progress Note: Quality Stroke Does the patient have a stroke diagnosis?: No Procedures Date of Service Date of Service: 09/06/25
--- NOTE | 2025-09-06 11:20 | MHC.CM.PN ---
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 PCP is Dr. Priscilla Sargent and Brother/HCP/Hector will transport at pa.
[2025-09-06 11:34] VITALS: BP 125/78; PULSE 60; RESP 20; TEMP 36.2; O2SAT 92
--- NOTE | 2025-09-06 11:39 | P.CNGI_ITS ---
History of Present Illness Data of Consult Service Date: 09/06/25 Requesting physician: Sharla Mccracken Primary Care Provider: Priscilla Sargent MD HPI Reason for consult: dilated CBD, colitis This is a 60-year-old gentleman with past medical history of chronic hepatitis-C that has led to cirrhosis status post tips (? indication), history of GDA embolization, GERD, who presented to the hospital for abdominal pain with nauseaand vomiting. Gastroenterology has been consulted for dilated CBD as well as possible colitis. Course complicated by non-STEMI with regional wall motion abnormalities. Cardiology following. Patient seen and evaluated bedside and reports having chicken noodle soup from a restaurant for lunch within a few hours during large emesis. Had at least 3-4 episodes was therefore brought the emergency room. Does not report any blood in vomiting. Also does not report any abdominal cramping or diarrhea my evaluation. He is on lactulose and has at least 2-3 loose bowel movements every day, does not think those worsened with the vomiting. No fevers or chills reported. No sick contacts. He reports he now get seen at [facility] for his cirrhosis care and had a colonoscopy 3 months ago. [place] [facility] [place] On arrival to the emergency room, was noted to be vitally stable. Labs without leukocytosis. Chronic thrombocytopenia. Chem 7 remarkable for a high troponin leak. Of note AST to ALT ratio elevated, but patient does not report drinking any alcohol. He also did not report any drug use, but urine tox screen is positive for fentanyl. Initial CT abdomen pelvis shows intra and extrahepatic ductal dilatation with CBD dilation 1.5 cm. Tips pattern. Has also circumferential thickening of ascending colon noted. Review of Systems 2 Review of Systems: Yes all other systems are reviewed and are negative [facility] Past Medical History Medical History Opioid use disorder Abnormal abdominal CT scan Group B streptococcal infection Substance abuse Hernia Cirrhosis of liver Hepatitis C Surgical History Surgical History S/P TIPS (transjugular intrahepatic portosystemic shunt) Social History Social History Household Members: None Housing: Apartment Do you presently have visiting nurse or other home services: No Alcohol intake: former Comment: steady gait Patient Tobacco Use Status: Current everyday Tobacco user Tobacco use type: Cigarette Cigarettes Per Day: 2 Years Smoked: 35 Substance Use Type: Heroin service: No Current occupational status: unemployed Meds Allergies Allergy/AdvReac Type Severity Reaction Status Date / Time penicillin V Allergy Intermediate Itching Verified 09/04/25 14:27 Penicillins Allergy Mild ITCHING Verified 09/04/25 14:27 Active Medications: Current Medications Acetaminophen (Acetaminophen 325 Mg Tablet) 650 mg PO Q6H PRN PRN Reason: Pain, Mild 1-3,fever,headache Atorvastatin Calcium (Atorvastatin Calcium 20 Mg Tablet) 20 mg PO DAILY [facility] Last Admin: 09/06/25 09:21 Dose: 20 mg Calcium Carbonate (Calcium Carbonate 750 Mg Tab.Chew) 750 mg PO Q4H PRN PRN Reason: Heartburn Magnesium Hydroxide (Milk Of Magnesia 30 Ml Oral.Susp) 30 ml PO DAILY PRN PRN Reason: Constipation Melatonin (Melatonin 3 Mg Tablet) 6 mg PO BEDTIME PRN PRN Reason: Insomnia Methadone HCl (Methadone Hcl 20 Mg/2 Ml Oral.Conc) 85 mg PO DAILY@0800 [facility] Last Admin: 09/06/25 09:21 Dose: 85 mg Morphine Sulfate (Morphine Sulfate 4 Mg/Ml Cartridge) 2 mg IVPUSH Q4H PRN; Protocol PRN Reason: Chest Pain Nicotine Polacrilex (Nicotine Polacrilex 2 Mg Gum) 2 mg BUCCAL Q1H PRN PRN Reason: Nicotine Cravings Ondansetron HCl (Ondansetron Hcl 4 Mg/2 Ml Vial) 4 mg IVPUSH Q8H PRN PRN Reason: Nausea and Vomiting Pantoprazole Sodium (Pantoprazole Sodium 40 Mg/10 Ml Vial) 40 mg IVPUSH BID@0630,1630 [facility] Last Admin: 09/06/25 07:21 Dose: 40 mg Sodium Chloride (0.9 % Sodium Chloride Flush 3 Ml Syringe) 3 ml IVFLUSH QSHIFT [facility] Last Admin: 09/06/25 09:21 Dose: 3 ml Home Medications ?Medication ?Instructions ?Recorded ?Confirmed ?Last Taken ?Type lactulose 10 gram/15 mL oral 45 ml PO TID PRN Constipa tion 12/10/21 09/05/25 09/02/25 History solution (Generlac) thiamine HCl (vitamin B1) 100 mg 1 tab PO DAILY 09/05/25 09/02/25 History tablet methadone 10 mg/mL oral 85 mg PO DAILY 08/21/2408/0912/07/24 History concentrate (Methadone Intensol) esomeprazole magnesium 40 mg 40 mg PO DAILY 09/05/25 1 09/02/25 History capsule,delayed release ondansetron 4 mg disintegrating 4 mg PO Q8H PRN Nausea And Vomiting 09/05/25 09/05/25 09/02/25 History tablet Physical Exam 2 Exam: Exam: Elderly gentleman Comfortable appearing Nonicteric No overt respiratory distress Abdomen soft, nontender, nondistended, no guarding No lower extremity edema Vital Signs: Vital Signs: Last Vital Signs Temp 97.2 F 09/06/25 11:34 Pulse 60 09/06/25 11:34 Resp 20 09/06/25 11:34 BP 125/78 09/06/25 11:34 Pulse Ox 92 09/06/25 11:34 O2 Del Method Room Air 09/06/25 11:34 O2 Flow Rate 1 09/06/25 07:27 BMI result Body Mass Index 26.0 Results Labs 09/05/25 04:17 09/05/25 04:17 Assessment and Plan (1) Epigastric pain: Status: Acute (2) Vomiting: Qualifiers: Nausea presence: with nausea Vomiting type: unspecified Qualified Code(s): R11.2 - Nausea with vomiting, unspecified Status: Acute (3) Cirrhosis of liver: Status: Acute (4) Dilated cbd, acquired: Status: Acute (5) NSTEMI (non-ST elevated myocardial infarction): Status: Acute Plan Acute onset of abdominal pain with nausea and vomiting appears to be secondary to infectious gastroenteritis given temporality with outside food. He was also incidentally noted to have worsening biliary tract dilation. Nonobstructive LFTs. Differentials include cholangio or panc mass, dilation secondary to opiate use, SOD. Unclear if CT findings of AC wall thickness reflect true infectious colitis as patient without any abdominal pain, diarrhea or hematochezia. Pt well appearing with robust appetite and benign and exam which argues against IRCI. Inflammatory colitis less likely based on pt's report of normal colo 3 months ago. Plan: - MRI abd with and without contrast for liver and panc protocol - NSTEMI eval as per cardiology - OK for anticoagulation if needed - Will get [facility] colo records Thank you for allowing me to participate in his care. Please do not hesitate to reach out for any questions or concerns. UPDATE: MRI abd images personally reviewed and no actionable findings. Patient to follow-up with Gastroenterology at [facility] after discharge. Procedures Date of Service Date of Service: 09/06/25
[2025-09-06 15:25] VITALS: BP 112/77; PULSE 58; RESP 18; TEMP 36.5; O2SAT 92
--- NOTE | 2025-09-06 16:59 | PM.DS ---
DS: Providers Provider Date of admission: 09/04/25 23:58 Date of discharge: 09/06/25 Primary care physician: Priscilla Sargent MD Consults: 09/04/25 23:58 Consult to Cardiology Routine Consulting Provider: [facility] Reason for consultation: NSTEMI Has provider been notified: Yes 09/06/25 07:46 Consult to Gastroenterology Routine Consulting Provider: [facility] Reason for consultation: epigastric pain DS: Diagnosis Discharge Diagnosis (1) Epigastric pain: Status: Acute (2) Vomiting: Status: Acute (3) Cirrhosis of liver: Status: Acute (4) Dilated cbd, acquired: Status: Acute (5) NSTEMI (non-ST elevated myocardial infarction): Status: Acute DS: Summary Hospital Course Hospital Course: HP as per admitting provider. Kareem Rueda is a 60 years old man with past medical history significant for liver cirrhosis s/p TIPS secondary to hep C infection and substance abuse on methadone presents to the emergency department complaining of upper abdominal pain that started a few days ago associated with nausea nonbloody vomiting. He also reports some diarrhea. He denied chest pain, shortness on breath, dizziness or palpitations. He did not report any acute urinary symptoms. He is a tobacco smoker and denied active illicit drug use. He denied alcohol abuse. He denied history of myocardial infarction, stroke, hyperlipidemia, diabetes mellitus or congestive heart failure. Abdominal surgical history is remarkable for cholecystectomy. In the ED, he was found to have normal vital signs. Blood workup showed leukocytosis. Hemoglobin is 11.9 and platelets 87. There are no electrolyte imbalances. BUN is 8 and creatinine 0.65. Total bilirubin is 2.0, AST 44, ALT 11 and alk-phos 121. Lipase is normal, 16. Troponin 122.6 --> 308.0--> 305.0. Abdominal pelvis CT scan with IV contrast showed cirrhosis of liver, interval worsening [id number] intra and extrahepatic ductal dilatation with CBD measuring up to 1.5 cm without no radiopaque stone within the CBD; and findings that might represent infectious, inflammatory or ischemic colitis. ECG showed normal sinus rhythm with nonspecific abnormalities. ED tx: Famotidine 20 mg IV, Zofran 4 mg IV, aspirin 325 mg p.o., Lipitor 80 mg p.o. Epigastric pain, likely secondary to above. Treated with IV ppi, IV fluids, NPO. Abd CT showing Interval worsening of moderate to severe intra and extrahepatic ductal dilation with CBD measuring up to 1.5 cm. No radiopaque stones within the , CBD. S/p ccy . Discussed with GI who recommended abdominal MRI to rule out HCC and pancreatic mass. Nothing abnormal noted on abdominal MRI. Symptoms possibly related to food poisoning. Patient actually feeling better with no nausea or vomiting and stable for discharge home. Likely secondary NM to GI issues. No ischemic changes noted on EKG. Treated with statin. TTE showed normal EF. Discussed with Cardiology who did not think his symptoms were not cardiac related. IV heparin that was initially started was stopped. Chronic liver disease from Hepatitis c . Continue lactulose. Hx esophagitis. Treated with Protonix IV. Chronic thrombocytopenia, due to CLD. Continue to monitor Macrocytic Chronic anemia. H&H within normal limits. History of liver cirrhosis Hx substance abuse. Continue methadone Tobacco dependence. Tobacco cessation education. Time Attestation Discharge Coordination Time (in mins): 45 Quality: Safe Use of Opioids Does Pt have an Active Cancer Diagnosis on the Problem List?: No Quality: Stroke Does the patient have a stroke diagnosis?: No Physical Exam Exam: Exam: Appearing in no acute distress head is normocephalic atraumatic eyes pupils are PERRLA sclera is anicteric mouth throat mucous membranes are intact and moist neck is supple no lymphadenopathy, no JVD noted lung sounds are clear to auscultation heart regular rate rhythm, clear S1, S2 positive bowel sounds, abdomen is soft, nontender neuro patient is alert x3, no focal deficits Vital Signs: Vital Signs: Last Vital Signs Temp 97.7 F 09/06/25 15:25 Pulse 58 09/06/25 15:25 Resp 18 09/06/25 15:25 BP 112/77 09/06/25 15:25 Pulse Ox 92 09/06/25 15:25 O2 Del Method Room Air, [place] 09/06/25 15:25 O2 Flow Rate 1 09/06/25 07:27 BMI result Body Mass Index 26.0 DS: Data Data Completed and Pending Labs on day of discharge: Laboratory Results - last 24 hr 09/05/25 09/06/25 18:57 01:15 aPTT Heparin Protocol 78.4 H D 65.1 Discharge Plan Discharge Anticipated Discharge Date/Time: 12/30/25 17:04 Patient Disposition: Home, Self-Care Discharge Diagnosis: Epigastric pain likely secondary to food poisoning Referrals: Priscilla Sargent MD [Primary Care Provider, Pediatrics] - 1 Week Discharge Medications: Continued thiamine HCl (vitamin B1) 100 mg tablet 1 tab PO DAILY lactulose [Generlac] 10 gram/15 mL solution 45 ml PO TID PRN (Reason: Constipation) methadone [Methadone Intensol] 10 mg/mL Concentrate 85 mg PO DAILY Rx Instructions: [facility] esomeprazole magnesium 40 mg capsule,delayed release(DR/EC) 40 mg PO DAILY ondansetron 4 mg tablet,disintegrating 4 mg PO Q8H PRN (Reason: Nausea And Vomiting) Discharge Orders: Discharge Order (Routine); Ordered 09/06/25 Ordered By: Sharla Mccracken Diet: Advance to usual diet Activity on Discharge: As tolerated Stand Alone Forms: Patient Portal Discharge page Print Language: Bengali Care Plan Goals: Last methadone dose 09/06/25-85 mg Health Concerns: Epigastric pain likely secondary to food poisoning Plan of Treatment: Follow up with primary care provider as needed Take all medications as prescribed Assessment: See discharge summary
== END 2025-09-06 17:52 | disposition home or self-care (01) ==
LOC: HO.ED 15:29 → HO.EDOVER 09-05 00:14 → HO.IMC 09-05 22:46
PROVIDERS: Physician Assistant; Physician Assistant Medical; Admitting Provider Internal Medicine; Emergency Provider Emergency Medicine; PCP Internal Medicine; Visit Provider Nurse Practitioner Acute Care
DX: K83.8 Other specified diseases of biliary tract (principal); I21.A1 Myocardial infarction type 2; D69.59 Other secondary thrombocytopenia; F17.210 Nicotine dependence, cigarettes, uncomplicated; F11.20 Opioid dependence, uncomplicated; K74.69 Other cirrhosis of liver; D53.9 Nutritional anemia, unspecified; Z71.6 Tobacco abuse counseling; Z86.19 Personal history of other infectious and parasitic diseases; Z79.899 Other long term (current) drug therapy
CPT/HCPCS: 36415; 71045; 74177; 74183; 80053; 80061; 80307; 81001; 81003; 83036; 83690; 83735; 84484; 85025; 85610; 85730; 87637; 93005; 93306; 99285; A9585; J1308; J1644; J2405; J2470; J7120; Q9967

== ENCOUNTER → 2025-09-04 17:46 | Outpatient (BNV) | payer OTHER, SELFPAY | PROVIDERS: Emergency Provider Emergency Medicine; PCP Internal Medicine; Visit Provider Student in an Organized Health Care Education/Training Program | DX: K74.60 Unspecified cirrhosis of liver (principal); K83.8 Other specified diseases of biliary tract; K63.89 Other specified diseases of intestine | CPT/HCPCS: 74177 ==

== ENCOUNTER 2025-09-04 23:58 | Outpatient (BNV) | payer OTHER, SELFPAY | END 2025-09-05 07:00 | PROVIDERS: Admitting Provider Internal Medicine; Emergency Provider Emergency Medicine; PCP Internal Medicine; Visit Provider Internal Medicine | DX: I51.89 Other ill-defined heart diseases (principal) | CPT/HCPCS: 93306 ==

== ENCOUNTER 2025-09-04 23:58 | Outpatient (BNV) | payer OTHER, SELFPAY | END 2025-09-05 02:15 | PROVIDERS: Admitting Provider Internal Medicine; Emergency Provider Emergency Medicine; PCP Internal Medicine; Visit Provider Radiology Diagnostic Radiology | DX: I21.4 Non-ST elevation (NSTEMI) myocardial infarction (principal); R11.2 Nausea with vomiting, unspecified | CPT/HCPCS: 71045 ==

== ENCOUNTER 2025-09-04 23:58 | Outpatient (BNV) | payer OTHER, SELFPAY | END 2025-09-06 12:42 | PROVIDERS: Admitting Provider Internal Medicine; Emergency Provider Emergency Medicine; PCP Internal Medicine; Visit Provider Radiology Diagnostic Radiology | DX: K74.60 Unspecified cirrhosis of liver (principal); K83.8 Other specified diseases of biliary tract; K86.89 Other specified diseases of pancreas | CPT/HCPCS: 74183 ==

== ENCOUNTER → 2025-09-04 23:58 | Outpatient (BNV) | payer OTHER, SELFPAY | PROVIDERS: Admitting Provider Internal Medicine; Emergency Provider Emergency Medicine; PCP Internal Medicine; Visit Provider Internal Medicine | DX: I21.4 Non-ST elevation (NSTEMI) myocardial infarction (principal); R10.13 Epigastric pain | CPT/HCPCS: 99223; 99499 ==

== ENCOUNTER → 2025-09-04 23:58 | Outpatient (BNV) | payer OTHER, SELFPAY | PROVIDERS: Admitting Provider Internal Medicine; Emergency Provider Emergency Medicine; PCP Internal Medicine; Visit Provider Internal Medicine | DX: R10.13 Epigastric pain (principal); R11.2 Nausea with vomiting, unspecified; K74.60 Unspecified cirrhosis of liver; K83.8 Other specified diseases of biliary tract; I21.4 Non-ST elevation (NSTEMI) myocardial infarction | CPT/HCPCS: 99223 ==

== ENCOUNTER → 2025-09-04 23:58 | Outpatient (BNV) | payer OTHER, SELFPAY | PROVIDERS: Admitting Provider Internal Medicine; Emergency Provider Emergency Medicine; PCP Internal Medicine; Visit Provider Internal Medicine | DX: I21.4 Non-ST elevation (NSTEMI) myocardial infarction (principal) | CPT/HCPCS: 93010; 99223; 99233 ==